=== PATIENT | male | born 1935 | race Caucasian/White ===

== ENCOUNTER → 2016-12-09 | Outpatient (CLI) | payer OTHER ==
[~2016-12-09] MED LIST: ASPCH81X PO; ATOR-24 PO; GLC500 PO; LISI-789 PO; NVLGI7030 SC
== END | disposition home or self-care (01) ==
LOC: C.PATHSPEC 14:26
PROVIDERS: ATTEND Dermatology
DX: C44.310 Basal cell carcinoma of skin of unspecified parts of face (principal); C44.41 Basal cell carcinoma of skin of scalp and neck; C44.612 Basal cell carcinoma of skin of right upper limb, including shoulder

== ENCOUNTER → 2017-04-08 | Outpatient (CLI) | payer OTHER ==
[2017-04-08 12:40] LABS: BASO % 0.4 %; BASO ABS # 0.04 K/uL (0-0.2); COMPLETE YES; HEMATOCRIT 47.2 % (42-52); IG% 0.2 %; LYMPH % 21.9 %; LYMPH ABS # 2.44 K/uL (1.2-3.4); MEAN CELL VOLUME 95.2 fL (80-100); MEAN CORPUSCULAR HEMOGLOBIN 32.5 pg (25-34); MEAN CORPUSCULAR HGB CONC 34.1 g/dl (32-36); MEAN PLATELET VOLUME 10.5 fL (7.4-10.4); MONO % 11.9 %; NEUT % 60.6 %; PLATELET COUNT 249 K/uL (130-400); RED BLOOD COUNT 4.96 M/uL (4.7-6.1); WHITE BLOOD COUNT 11.16 K/uL (4.8-10.8)
[2017-04-08 12:56] LABS: ALT/SGPT 29 U/L (12-78); BLOOD UREA NITROGEN 29 mg/dl (7-18); BUN/CREATININE RATIO 22.2 (10-20); CARBON DIOXIDE 26 mmol/L (21-32); CHLORIDE 105 mmol/L (98-107); CHOLESTEROL 164 mg/dl (0-200); GLUCOSE 126 mg/dl (70-99); POTASSIUM 4.1 mmol/L (3.5-5.1); SODIUM 139 mmol/L (136-145); TRIGLYCERIDES 210 mg/dl (0-150); VERY LOW DENSITY LIPOPROT CALC 42 mg/dl
[2017-04-08 12:57] LABS: CALCIUM 9.7 mg/dl (8.5-10.1)
[2017-04-08 12:59] LABS: ALB/GLOB RATIO 1.4 (0.9-2); ALKALINE PHOSPHATASE 78 U/L (45-117); AST/SGOT 19 U/L (15-37); CHOLESTEROL/HDL RATIO 3.7; HDL CHOLESTEROL 44 mg/dl
[2017-04-08 13:02] LABS: ESTIMATED AVERAGE GLUCOSE 192 mg/dl; HA1C FLAG Normal (Normal)
== END | disposition home or self-care (01) ==
LOC: C.LABSPEC 12:08
PROVIDERS: ATTEND Internal Medicine
DX: I10 Essential (primary) hypertension (principal); E11.65 Type 2 diabetes mellitus with hyperglycemia; E78.5 Hyperlipidemia, unspecified

== ENCOUNTER → 2017-07-26 | Outpatient (CLI) | payer OTHER | END | disposition home or self-care (01) | LOC: C.PATHSPEC 17:20 | PROVIDERS: ATTEND Plastic Surgery | DX: C44.42 Squamous cell carcinoma of skin of scalp and neck (principal) ==

== ENCOUNTER → 2017-08-12 | Outpatient (CLI) | payer OTHER ==
[2017-08-12 12:35] LABS: BASO % 0.5 %; BASO ABS # 0.03 K/uL (0-0.2); COMPLETE YES; EOS % 7.5 %; HEMATOCRIT 46.9 % (42-52); IG% 0.2 %; LYMPH % 26.9 %; LYMPH ABS # 1.72 K/uL (1.2-3.4); MEAN CORPUSCULAR HEMOGLOBIN 33.1 pg (25-34); MEAN CORPUSCULAR HGB CONC 35.2 g/dl (32-36); MEAN PLATELET VOLUME 10.5 fL (7.4-10.4); MONO % 8.8 %; NEUT % 56.1 %; PLATELET COUNT 219 K/uL (130-400); RED BLOOD COUNT 4.99 M/uL (4.7-6.1)
[2017-08-12 12:47] LABS: ESTIMATED AVERAGE GLUCOSE 148 mg/dl; HA1C FLAG Normal (Normal)
[2017-08-12 13:11] LABS: ALT/SGPT 28 U/L (12-78); AST/SGOT 16 U/L (15-37); BLOOD UREA NITROGEN 19 mg/dl (7-18); BUN/CREATININE RATIO 15.5 (10-20); CALCIUM 8.5 mg/dl (8.5-10.1); CARBON DIOXIDE 28 mmol/L (21-32); CHLORIDE 107 mmol/L (98-107); GLUCOSE 98 mg/dl (70-99); POTASSIUM 4.1 mmol/L (3.5-5.1); SODIUM 140 mmol/L (136-145)
[2017-08-12 13:14] LABS: ALB/GLOB RATIO 1.2 (0.9-2); ALKALINE PHOSPHATASE 97 U/L (45-117); CHOLESTEROL 156 mg/dl (0-200); CHOLESTEROL/HDL RATIO 3.8; HDL CHOLESTEROL 41 mg/dl; TRIGLYCERIDES 196 mg/dl (0-150); VERY LOW DENSITY LIPOPROT CALC 39 mg/dl
--- NOTE | 2017-09-03 08:27 | CODING QUERY NO DIAGNOSIS ---
: 1935 TREATMENT RENDERED WITHOUT A DIAGNOSIS To promote full compliance with coding requirements relating to patient care, physician participation is requested in all cases of air quality manager uncertainty. Please assist us with providing a diagnosis/symptom for the test(s) below: A diagnosis/symptom was not documented on your Order. A valid diagnosis/symptom is required to bill all insurances. Please remember that we are unable to code a diagnosis of rule out, probable, possible, questionable, or suspected. Tests that require a diagnosis: DOS: 08/12/17 * HEMOBLOBIN A1C DIAGNOSIS: * CMP DIAGNOSIS: * LDL DIRECT DIAGNOSIS: * LIPID PROFILE FASTING DIAGNOSIS: * CBC W/ AUTO DIFF DIAGNOSIS: * MICROALBUMIN/CREAT RATION RANDOM DIAGNOSIS: Provider Signature: Date: Thank you Faith Layne [employer] Information Management Once completed, please kindly fax back to [phone] For questions please call [phone]
== END | disposition home or self-care (01) ==
LOC: C.LABSPEC 12:19
PROVIDERS: ATTEND Internal Medicine
DX: Z00.01 Encounter for general adult medical examination with abnormal findings (principal); E11.65 Type 2 diabetes mellitus with hyperglycemia; I10 Essential (primary) hypertension; E78.5 Hyperlipidemia, unspecified; M19.90 Unspecified osteoarthritis, unspecified site

== ENCOUNTER → 2017-12-08 | Outpatient (CLI) | payer OTHER ==
[2017-12-08 13:22] LABS: HEMOGLOBIN A1C 7.2 % (4.5-5.6)
[2017-12-08 13:31] LABS: ALBUMIN 3.7 gm/dl (3.4-5.0); ALT/SGPT 25 U/L (12-78); AST/SGOT 11 U/L (15-37); BLOOD UREA NITROGEN 24 mg/dl (7-18); CALCIUM 8.7 mg/dl (8.5-10.1); CARBON DIOXIDE 27 mmol/L (21-32); CHOLESTEROL 135 mg/dl (0-200); CREATININE 1.25 mg/dl (0.60-1.40); GLUCOSE 107 mg/dl (70-99); POTASSIUM 4.3 mmol/L (3.5-5.1); SODIUM 137 mmol/L (136-145)
[2017-12-08 13:34] LABS: ALKALINE PHOSPHATASE 107 U/L (45-117); LDL CHOLESTEROL (DIRECT) 87 mg/dl
== END | disposition home or self-care (01) ==
LOC: C.LABSPEC 12:10
PROVIDERS: ATTEND Internal Medicine
DX: E11.65 Type 2 diabetes mellitus with hyperglycemia (principal); I10 Essential (primary) hypertension; E78.5 Hyperlipidemia, unspecified

== ENCOUNTER → 2018-04-14 | Outpatient (CLI) | payer OTHER ==
[2018-04-14 18:38] LABS: BLOOD UREA NITROGEN 24 mg/dl (7-18); CALCIUM 8.7 mg/dl (8.5-10.1); CARBON DIOXIDE 26 mmol/L (21-32); CHOLESTEROL 152 mg/dl (0-200); CREATININE 1.26 mg/dl (0.60-1.40); GLUCOSE 72 mg/dl (70-99); LDL CHOLESTEROL (DIRECT) 95 mg/dl; POTASSIUM 4.4 mmol/L (3.5-5.1); SODIUM 139 mmol/L (136-145)
[2018-04-15 05:56] LABS: HEMOGLOBIN A1C 7.5 % (4.5-5.6)
== END | disposition home or self-care (01) ==
LOC: C.LABSPEC 17:49
PROVIDERS: ATTEND Internal Medicine
DX: I10 Essential (primary) hypertension (principal); E78.5 Hyperlipidemia, unspecified; E11.9 Type 2 diabetes mellitus without complications

== ENCOUNTER 2023-09-12 14:52 | Observation (INO) ==
[2023-09-12 16:44] LABS: Basophils # (auto) 0.04 K/uL (0.00-0.20); Basophils % (auto) 0.3 %; Eosinophils # (auto) 0.09 K/uL (0.00-0.50); Eosinophils % (auto) 0.8 %; Hematocrit (blood only) 30.6 % (42.0-52.0); Hemoglobin 9.8 g/dl (14.0-18.0); Immature Granulocytes # (auto) 0.05 K/uL (0.01-0.20); Immature Granulocytes % (auto) 0.4 %; Lymphocytes # (auto) 1.46 K/uL (1.20-3.40); Lymphocytes % (auto) 12.7 %; Mean Corpuscular Hemoglobin 25.1 pg (25.0-34.0); Mean Corpuscular Volume 78.3 fL (80.0-100.0); Mean Platelet Volume 9.1 fL (9.4-12.4); Monocytes % (auto) 10.4 %; Neutrophils # (auto) 8.65 K/uL (1.40-6.50); Neutrophils % (auto) 75.4 %; Platelet Count 461 K/uL (130-400); RDW Coefficient of Variation 17.3 % (11.5-14.5); RDW Standard Deviation 49.4 fL (36.4-46.3); Red Blood Count 3.91 M/uL (4.70-6.10); White Blood Count 11.49 K/ul (4.8-10.8)
[2023-09-12 16:59] LABS: Alanine Aminotransferase 32 U/L (7-52); Albumin Level 3.3 gm/dl (3.4-5.0); Alkaline Phosphatase 448 U/L (34-104); Anion Gap 9 (3-11); Aspartate Aminotransferase 33 U/L (13-39); BUN Creatinine Ratio 21.4 (10-20); Bilirubin,Total 0.7 mg/dl (0.2-1.0); Blood Urea Nitrogen 30 mg/dl (6-23); Calcium 8.5 mg/dl (8.6-10.3); Carbon Dioxide 25 mmol/L (21-32); Chloride 95 mmol/L (98-107); Est GFR (African American) 51.6 ml/min; Est GFR (Non-African American) 44.5 ml/min; Globulin 3.4 gm/dl (2.5-4.0); Glucose 79 mg/dl (70-99(Fasting)); Potassium 4.4 mmol/L (3.5-5.1); Sodium 129 mmol/L (136-145); Total Protein 6.7 gm/dl (6.0-8.3)
[2023-09-12 18:47] LABS: Appearance Urine Cloudy (Clear); Bacteria Urine Automated 4+ (Negative); Bilirubin Urine Negative (Negative); Blood Urine 3+ (Negative); Color Urine Yellow; Epithelial Cell Urine Auto 0-5 /lpf (0-5); Glucose Urine UA Negative (Negative); Ketones Urine Negative (Negative); Leukocyte Esterase Urine Trace (Negative); Nitrite Urine Negative (Negative); Protein Urine Negative (Negative); RBC Urine Automated >30 /hpf (0-4); Urobilinogen Urine Negative (Negative)
[2023-09-12 19:45] LABS: Troponin I High Sensitivity 10.8 pg/ml (0-20)
[2023-09-12] MEDS: SODIUM CHLORIDE 0.9% 500 ML IV SCH ×2 (19:47→23:29)
--- NOTE | 2023-09-12 19:49 | XRay Report ---
XR chest 1V portable CLINICAL HISTORY: ams TECHNIQUE: Single frontal radiograph of the chest was obtained. Comparison: Comparison is made to chest radiograph 08/11/2023 FINDINGS: No lines and tubes are seen. Calcified aortic knob is seen. Reticular interstitial opacities are seen . No evidence of pleural effusion or pneumothorax. IMPRESSION: No acute chest disease. ACT 112: Negative or not required by law. Electronically signed by: Jayro Bah M.D. 09/12/2023 7:47 PM
[2023-09-12 19:55] LABS: INR 1.1 (0.9-1.1); Partial Thromboplastin Time 29.1 Seconds (21.0-31.0); Prothrombin Time 11.7 Seconds (9.0-12.0)
[2023-09-12 19:58] LABS: Magnesium 1.8 mg/dl (1.7-2.4)
--- NOTE | 2023-09-12 20:27 | CT Scan Report ---
CT abd pelvis wo con CLINICAL HISTORY: hematuria TECHNIQUE: Helical axial images of the abdomen and pelvis were obtained. Automated dose lowering tech niques and/or adjustment according to patient size were utilized for this exam. This exam was perfor med without intravenous contrast. CT DOSE: 2065.97 mGy.cm COMPARISON: Comparison is made to CT abdomen pelvis 02/21/2019 FINDINGS: Lower chest: Bronchiectasis is seen. Innumerable pulmonary nodules are seen favoring the lower lobes , measuring 9 mm. Liver: Complex hypodensity in the left liver lobe measuring approximately 26 mm in diameter. This is not well seen on prior exam. Gallbladder and biliary tree: No calcified gallstones. Normal caliber wall. No intra- or extrahepatic biliary ductal dilation. Pancreas: Unremarkable, no focal lesions. Spleen: Unremarkable. Adrenals: Unremarkable. Kidneys and ureters: Renal cysts are seen. There is moderate left and mild right hydronephrosis/hydro ureter. Multiple nonobstructive stones are seen in the kidneys. Bladder: Diffuse homogeneous wall thickening is seen. Reproductive organs: Prostatomegaly is seen. Bowel: Diverticulosis is seen without evidence of diverticulitis. A small hiatal hernia is seen. Lymph nodes Retroperitoneal: Unremarkable. Pelvic: There is a 15 mm left pelvic side an enlarged lymph node. Additional smaller lymph nodes are seen. Mesenteric: Unremarkable. Peritoneum: Normal. Vessels: Atherosclerotic calcifications are seen. Abdominal wall: Unremarkable. Bones: Degenerative changes in the visualized spine. Diffuse sclerotic changes are seen most prominen tly in the lumbar spine and pelvis, new from prior exam. IMPRESSION: 1. Left greater than right hydronephrosis and hydroureter without evidence of obstructive stone. Fin dings may result from chronic bladder outlet obstruction, less likely recently passed stone. 2. Innumerable pulmonary nodules are seen, as well as an enlarged left pelvic sidewall lymph node. C orrelation with oncologic history is recommended and a CT chest can be performed to further character ize these findings. In particular, findings may represent metastatic prostate cancer in this patient with highly elevated PSA. 3. Left hepatic lesion is nonspecific. If not previously characterized, liver protocol MRI can be pe rformed. 4. Diffuse sclerotic changes in the skeleton, new from prior exam. These are nonspecific but worriso me for bony metastatic disease of prostate cancer in this patient with elevated PSA. 5. Additional findings as above. ACT 112: Positive. There are findings on this exam that require communication between the performing entity and the patient following Patient Test Result Information Act ([place] Act 112) guidelines. Electronically signed by: Jayro Bah M.D. 09/12/2023 8:25 PM
--- NOTE | 2023-09-12 20:27 | CT Scan Report ---
CT head/brain wo con CLINICAL HISTORY: ams Technique: Contiguous axial CT images of the head were acquired from the base of the skull to the dorcas jamel without intravenous contrast administration. Images were viewed in brain, subdural and bone windo ws. Automated dose lowering techniques and/or adjustment according to patient size were utilized for this exam. Comparison: Comparison is made to CT head 09/11/2018 Findings: The ventricles, basal cisterns, and cerebral sulci are normal. There is no acute intracranial hemorrh age or evidence of acute territorial infarction. Neither mass effect, shift of the midline structures , nor abnormal extra-axial fluid collections are shown. A few foci of encephalomalacia compatible wi th prior infarcts. Imaged portions of the paranasal sinuses and mastoid air cells are clear. The orbits appear normal. There are no acute fractures of the calvaria or scalp swelling. Impression: No acute intracranial hemorrhage, no evidence of acute territorial infarction or other acute intracra nial disease process. ACT 112: Negative or not required by law. Electronically signed by: Jayro Bah M.D. 09/12/2023 8:26 PM
[2023-09-12] MEDS ORDERED: cefTRIAXone SODIUM 2,000 MG in DEXTROSE 5 % MINI-B 50 ML IV STA (21:48)
[2023-09-12] MEDS ORDERED: FUROSEMIDE 40 MG/4 ML VIAL IV ONE (22:30)
--- NOTE | 2023-09-13 00:28 | History & Physical Report ---
Date of Service September 13, 2023 The patient was seen and examined on September 12, 2023 Assessment & Plan (1) Elevated PSA: (2) Acute urinary retention: (3) MARIN (acute kidney injury): (4) Diabetes: (5) Hypertension: (6) Pulmonary nodules/lesions, multiple: (7) Bladder outlet obstruction: (8) Bilateral hydronephrosis: (9) Lower extremity edema: Plan Acute urinary retention/BPH/bladder outlet obstruction/bilateral hydronephrosis/increased PSA- Follow urine culture and sensitivity Romero catheter placed without difficulty while in the ED Increase tamsulosin from 0.4 to 0.8 mg at bedtime Continue dutasteride Empiric ceftriaxone 2 g IV daily Question of metastatic prostate cancer- Multiple pulmonary nodules, left pelvic sidewall lymphadenopathy, diffuse sclerotic changes skeleton PSA on 08/11/2023 was 40.852 Patient has been seen by urology, who had plans for repeat testing Consult urology Acute kidney injury/fluid overload/lower extremity edema/hypertension- Creatinine 1.40, with base in the 1.3 range Hold oral furosemide 40 mg p.o. twice daily Stop NSS being given from the ED Furosemide 40 mg IV now and every morning Continue metoprolol tartrate Hold lisinopril Diabetes mellitus- Hold insulin mix 70-30 Hold metformin Placed on Accu-Cheks with NovoLog SSI History of Present Illness Chief Complaint: The patient is brought to the emergency department due to worsening difficulty with urination, and increased pelvic pressure Primary Care Provider: Don Banks DO The patient is an 88-year-old male with a past medical history including BPH, elevated PSA, diabetes mellitus, hypertension, hyperlipidemia, knee osteoarthritis, SNHL and ventral hernia. He presents to the emergency department with worsening difficulty with urination, and prep pelvic pressure. Significant laboratories: WBC 11.49, hemoglobin 9.8, hematocrit 30.6, sodium 129, BUN 30, creatinine 1.40, alkaline phosphatase 440 H Urinalysis is positive for infection CT scan of head is negative CT scan of abdomen and pelvis shows left greater than right hydronephrosis, chronic bladder outlet obstruction, pulmonary nodules, left pelvic sidewall lymphadenopathy, and diffuse sclerotic changes throughout the skeleton, concerning for metastatic prostate cancer Allergies Allergy/AdvReac Type Severity Reaction Status Date / Time adhesive tape Allergy Severe Red Verified 09/12/23 19:23 irritation No Known Drug Allergies Allergy 0 Verified 09/12/23 19:23 Home Medications Medication Instructions Recorded Confirmed Type coenzyme Q10 100 mg capsule 100 mg PO DAILY 08/03/19 09/12/23 History lorazepam 0.5 mg tablet 0.5 mg PO DAILY PRN sleep #30 tabs 08/09/23 09/12/23 Rx aspirin 81 mg tablet,delayed 81 mg PO QPM 08/10/23 09/12/23 History release (Aspir-) dutasteride 0.5 mg capsule 0.5 mg PO DAILY #90 caps 08/10/23 09/12/23 Rx (Avodart) furosemide 40 mg tablet 40 mg PO BID #180 tabs 08/10/23 09/12/23 Rx insulin aspar prot-insulin aspart See Rx Instructions .Route 08/10/23 09/12/23 Rx 100 unit/mL (70-30) subcutaneous .COMPLEX #105 mL pen (Novolog Mix 70-30FlexPen U-100) lisinopril 10 mg tablet 10 mg PO DAILY #90 tabs 08/10/23 09/12/23 Rx metformin 1,000 mg tablet 1,000 mg PO BID #180 tabs 08/10/23 09/12/23 Rx tamsulosin 0.4 mg capsule (Flomax) 0.4 mg PO DAILY #30 caps 08/30/23 09/12/23 Rx atorvastatin 40 mg tablet 40 mg PO QPM 09/12/23 09/12/23 History metoprolol tartrate 25 mg tablet 25 mg PO BID 09/12/23 09/12/23 History potassium chloride 10 mEq 10 meq PO BID 09/12/23 09/12/23 History tablet,extended release Past Med/Surg History Medical History Acute CVA (cerebrovascular accident) BCC (basal cell carcinoma), abdomen Diabetes mellitus, type 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 Hyperlipidemia Hypertension OA (osteoarthritis) of knee Stroke Unruptured popliteal cyst Surgical History History of colonoscopy Hx of tooth extraction All teeth from lower jaw removed and 2 implants placed S/P hernia repair Family History Mother Cancer Father Diabetes Other Heart disease Stroke Denies family history of Hearing loss No family history of adverse response to anesthesia No family history of bleeding disorder Allergies Asthma Social History Smoking Status: Never smoker Second Hand Exposure: No; Do You Dip or Chew Tobacco: No; Hx Alcohol Use: No Hx Substance Use: No Preferred Language: Moroccan Communication Ability: Effective Visual Impairment: No Limitations Hearing Ability: Normal Production Welding Supervisor Required: No Beliefs That Will Affect Care: None marital status: Current Living Situation: Spouse current occupational status: retired How many Children do You have: 3 Feels Safe at Home: Yes Childhood Exposure to Second-Hand Smoke: Yes Diet: regular caffeine: No during the past year weight has: remained stable Dental Care, Regularly: Yes Physical Activity Frequency: Does not Exercise Seatbelt Use: always Sunscreen Use: Yes Assistive Devices: Cane, Denture - Upper, Denture - Lower and Glasses Review of Systems Review of Systems: The patient denies chest pain, palpitations, shortness of breath, dyspnea on exertion, cough, lower extremity swelling, sore throat, fevers, chills, sweats, weight change, fatigue, nausea, vomiting, diarrhea , constipation, blood in urine or stool, dysuria, urinary frequency or urgency, lightheadedness, dizziness, headache, memory loss, loss of consciousness, rash, abnormal bruising or bleeding, imbalance, focal weakness, numbness or tingling in arms or legs, generalized arthralgias or myalgias, back or neck pain, or night sweats. The review of systems is otherwise negative other than for that already noted above, and at least 10 systems have been reviewed. Physical Exam Physical Exam: The patient is awake, alert and oriented 3, well developed and well nourished, normocephalic and atraumatic, lying in bed and in no acute distress. HEENT--PERRL, EOMI, mucous membranes and oropharynx normal Neck--supple. No JVD. No bruits. Thyroid normal, trachea midline, no adenopathy. Heart--normal S1 and S2. No murmurs, rubs or gallops. Lungs--clear bilaterally, no respiratory distress, no accessory muscle use. Abdomen--normal bowel sounds and soft. Nontender. Palpable bladder Extremities-- 2+ bilateral pretibial pitting edema Dermatologic--normal skin turgor, normal color, no abnormal lymph nodes, no rash. Neurologic--cranial nerves II through XII grossly intact. Rheumatologic--normal range of motion. Psychiatric--normal affect. Results & Data Results & Data Vital Signs (Past 12 Hours) Vital Signs Temp Pulse Pulse Resp BP BP Pulse Ox 09/12/23 23:30 88 26 H 141/65 H 94 09/12/23 23:00 85 26 H 146/68 H 94 09/12/23 22:22 98 H 09/12/23 21:31 94 H 18 150/79 H 94 09/12/23 18:12 76 18 149/80 H 97 09/12/23 18:10 80 09/12/23 14:57 36.8 C 76 20 131/66 95 O2 Del Method 09/12/23 23:30 Room Air 09/12/23 23:00 Room Air 09/12/23 22:22 09/12/23 21:31 Room Air 09/12/23 18:12 Room Air 09/12/23 18:10 09/12/23 14:57 Room Air Laboratory Results Laboratory Results WBC 11.49 K/ul (4.8-10.8) H 09/12/23 16: RBC 3.91 M/uL (4.70-6.10) L 09/12/23 16:26 Hgb 9.8 g/dl (14.0-18.0) L 09/12/23 16:26 Hct 30.6 % (42.0-52.0) L 09/12/23 16: MCV 78.3 fL (80.0-100.0) L 09/12/23 16: MCH 25.1 pg (25.0-34.0) 09/12/23 16: MCHC 32.0 g/dL (32.0-36.0) 09/12/23 16:26 RDW Std Deviation 49.4 fL (36.4-46.3) H 09/12/23 16:26 RDW Coeff of Braeden 17.3 % (11.5-14.5) H 09/12/23 16:26 Plt Count 461 K/uL (130-400) H 09/12/23 16:26 MPV 9.1 fL (9.4-12.4) L 09/12/23 16: Immature Gran % (Auto) 0.4 % 09/12/23 16: Neut % (Auto) 75.4 % 09/12/23 16:26 Lymph % (Auto) 12.7 % 09/12/23 16:26 [place] % (Auto) 10.4 % 09/12/23 16:26 Eos % (Auto) 0.8 % 09/12/23 16: Baso % (Auto) 0.3 % 09/12/23 16: Neut # (Auto) 8.65 K/uL (1.40-6.50) H 09/12/23 16: Lymph # (Auto) 1.46 K/uL (1.20-3.40) 09/12/23 16:26 [place] # (Auto) 1.20 K/uL (0.11-0.59) H 09/12/23 16:26 Eos # (Auto) 0.09 K/uL (0.00-0.50) 09/12/23 16: Baso # (Auto) 0.04 K/uL (0.00-0.20) 09/12/23 16: Immature Gran # (Auto) 0.05 K/uL (0.01-0.20) 09/12/23 16:26 PT 11.7 Seconds (9.0-12.0) 09/12/23 18:55 INR 1.1 (0.9-1.1) 09/12/23 18:55 APTT 29.1 Seconds (21.0-31.0) 09/12/23 18:55 PTT Ratio 1.0 09/12/23 18:55 Sodium 129 mmol/L (136-145) L 09/12/23 16:26 Potassium 4.4 mmol/L (3.5-5.1) 09/12/23 16:26 Chloride 95 mmol/L (98-107) L 09/12/23 16:26 Carbon Dioxide 25 mmol/L (21-32) 09/12/23 16:26 Anion Gap 9 (3-11) 09/12/23 16:26 BUN 30 mg/dl (6-23) H 09/12/23 16:26 Creatinine 1.40 mg/dl (0.6-1.4) 09/12/23 16:26 Est Cr Clr Drug Dosing Not Reportable 09/12/23 16:26 Est GFR ( Amer) 51.6 ml/min 09/12/23 16:26 Est GFR (Non-Af Amer) 44.5 ml/min 09/12/23 16:26 BUN/Creatinine Ratio 21.4 (10-20) H 09/12/23 16:26 Glucose 79 mg/dl (70-99(Fasting)) 09/12/23 16:26 Lactate 1.1 mmol/L (0.4-2.0) 09/12/23 18:55 Calcium 8.5 mg/dl (8.6-10.3) L 09/12/23 16:26 Magnesium 1.8 mg/dl (1.7-2.4) 09/12/23 18:55 Total Bilirubin 0.7 mg/dl (0.2-1.0) 09/12/23 16:26 AST 33 U/L (13-39) 09/12/23 16:26 ALT 32 U/L (7-52) 09/12/23 16:26 Alkaline Phosphatase 448 U/L (34-104) H 09/12/23 16:26 Troponin I High Sens 10.8 pg/ml (0-20) 09/12/23 18:55 Total Protein 6.7 gm/dl (6.0-8.3) 09/12/23 16:26 Albumin 3.3 gm/dl (3.4-5.0) L 09/12/23 16:26 Globulin 3.4 gm/dl (2.5-4.0) 09/12/23 16:26 Albumin/Globulin Ratio 1.0 (0.9-2) 09/12/23 16:26 Urine Color Yellow 09/12/23 16:44 Urine Appearance Cloudy (Clear) A 09/12/23 16:44 Urine pH 6.0 (4.5-7.5) 09/12/23 16:44 Ur Specific [place] 1.010 (1.000-1.030) 09/12/23 16:44 Urine Protein Negative (Negative) 09/12/23 16:44 Urine Glucose (UA) Negative (Negative) 09/12/23 16:44 Urine Ketones Negative (Negative) 09/12/23 16:44 Urine Blood 3+ (Negative) H 09/12/23 16:44 Urine Nitrite Negative (Negative) 09/12/23 16:44 Urine Bilirubin Negative (Negative) 09/12/23 16:44 Urine Urobilinogen Negative (Negative) 09/12/23 16:44 Ur Leukocyte Esterase Trace (Negative) H 09/12/23 16:44 Urine WBC (Auto) 10-30 /hpf (0-5) H 09/12/23 16:44 Urine RBC (Auto) >30 /hpf (0-4) H 09/12/23 16:44 U Hyaline Cast (Auto) 1-5 /lpf (0-5) 09/12/23 16:44 U Epithel Cells (Auto) 0-5 /lpf (0-5) 09/12/23 16:44 Urine Bacteria (Auto) 4+ (Negative) H 09/12/23 16:44 Impressions Abdomen/Pelvis CT 09/12/23 18:43 CT abd pelvis wo con CLINICAL HISTORY: hematuria TECHNIQUE: Helical axial images of the abdomen and pelvis were obtained. Automated dose lowering techniques and/or adjustment according to patient size were utilized for this exam. This exam was performed without intravenous contrast. CT DOSE: 2065.97 mGy.cm COMPARISON: Comparison is made to CT abdomen pelvis 02/21/2019 FINDINGS: Lower chest: Bronchiectasis is seen. Innumerable pulmonary nodules are seen favoring the lower lobes, measuring 9 mm. Liver: Complex hypodensity in the left liver lobe measuring approximately 26 mm in diameter. This is not well seen on prior exam. Gallbladder and biliary tree: No calcified gallstones. Normal caliber wall. No intra- or extrahepatic biliary ductal dilation. Pancreas: Unremarkable, no focal lesions. Spleen: Unremarkable. Adrenals: Unremarkable. Kidneys and ureters: Renal cysts are seen. There is moderate left and mild right hydronephrosis/hydroureter. Multiple nonobstructive stones are seen in the kidneys. Bladder: Diffuse homogeneous wall thickening is seen. Reproductive organs: Prostatomegaly is seen. Bowel: Diverticulosis is seen without evidence of diverticulitis. A small hiatal hernia is seen. Lymph nodes Retroperitoneal: Unremarkable. Pelvic: There is a 15 mm left pelvic side an enlarged lymph node. Additional smaller lymph nodes are seen. Mesenteric: Unremarkable. Peritoneum: Normal. Vessels: Atherosclerotic calcifications are seen. Abdominal wall: Unremarkable. Bones: Degenerative changes in the visualized spine. Diffuse sclerotic changes are seen most prominently in the lumbar spine and pelvis, new from prior exam. IMPRESSION: 1. Left greater than right hydronephrosis and hydroureter without evidence of obstructive stone. Findings may result from chronic bladder outlet obstruction, less likely recently passed stone. 2. Innumerable pulmonary nodules are seen, as well as an enlarged left pelvic sidewall lymph node. Correlation with oncologic history is recommended and a CT chest can be performed to further characterize these findings. In particular, findings may represent metastatic prostate cancer in this patient with highly elevated PSA. 3. Left hepatic lesion is nonspecific. If not previously characterized, liver protocol MRI can be performed. 4. Diffuse sclerotic changes in the skeleton, new from prior exam. These are nonspecific but worrisome for bony metastatic disease of prostate cancer in this patient with elevated PSA. 5. Additional findings as above. ACT 112: Positive. There are findings on this exam that require communication between the performing entity and the patient following Patient Test Result Information Act ([place] Act 112) guidelines. Electronically signed by: Jayro Bah M.D. 09/12/2023 8:25 PM Chest X-Ray 09/12/23 18:43 XR chest 1V portable CLINICAL HISTORY: ams TECHNIQUE: Single frontal radiograph of the chest was obtained. Comparison: Comparison is made to chest radiograph 08/11/2023 FINDINGS: No lines and tubes are seen. Calcified aortic knob is seen. Reticular interstitial opacities are seen. No evidence of pleural effusion or pneumothorax. IMPRESSION: No acute chest disease. ACT 112: Negative or not required by law. Electronically signed by: Jayro Bah M.D. 09/12/2023 7:[address] 09/12/23 18:43 CT head/brain wo con CLINICAL HISTORY: ams Technique: Contiguous axial CT images of the head were acquired from the base of the skull to the vertex without intravenous contrast administration. Images were viewed in brain, subdural and bone windows. Automated dose lowering techniques and/or adjustment according to patient size were utilized for this exam. Comparison: Comparison is made to CT head 09/11/2018 Findings: The ventricles, basal cisterns, and cerebral sulci are normal. There is no acute intracranial hemorrhage or evidence of acute territorial infarction. Neither mass effect, shift of the midline structures, nor abnormal extra-axial fluid collections are shown. A few foci of encephalomalacia compatible with prior infarcts. Imaged portions of the paranasal sinuses and mastoid air cells are clear. The orbits appear normal. There are no acute fractures of the calvaria or scalp swelling. Impression: No acute intracranial hemorrhage, no evidence of acute territorial infarction or other acute intracranial disease process. ACT 112: Negative or not required by law. Electronically signed by: Jayro Bah M.D. 09/12/2023 8:26 PM Code Status & VTE Plan Code Status Full code VTE Prophylaxis Plan VTE Prophylaxis will be ordered: Yes PG Care Time/CCT Total # of Minutes Spent Total Time Spent with Patient: Total time spent is greater than 50% in coordination of care (as documented) at patient's floor/unit and/or counseling patient: Coding Level of Care Code 90605 INT INP/OBS CARE 3/75MIN Diagnoses Elevated PSA R97.20 Acute urinary retention R33.8 MARIN (acute kidney injury) N17.9 Diabetes E11.9; Z79.4 Diabetes mellitus type: type 2 Diabetes mellitus prescription eyeglass maker insulin use: with prescription eyeglass maker use Diabetes mellitus complication status: without complication Hypertension I10 Hypertension type: essential hypertension Pulmonary nodules/lesions, multiple R91.8 Bladder outlet obstruction N32.0 Bilateral hydronephrosis N13.30 Lower extremity edema R60.0 (4) Diabetes Diabetes mellitus type: type 2 Diabetes mellitus correction insulin use: with correction use Diabetes mellitus complication status: without complication Qualified Code(s): E11.9 - Type 2 diabetes mellitus without complications; Z79.4 - longterm (current) use of insulin (5) Hypertension Hypertension type: essential hypertension Qualified Code(s): I10 - Essential (primary) hypertension
--- NOTE | 2023-09-13 00:42 | Emergency Department Note ---
History of Present Illness General Chief complaint: Hematuria Stated complaint: HEMATURIA, DEHYDRATED Time Seen by Provider: 09/12/23 18:08 Source: patient and family History of Present Illness Provider complaint: Hematuria weakness 88-year-old male presents emergency department for hematuria and weakness. Patient reports he has been having bloody urine and family reports that if the patient is increasingly weak. They state he will eat. Family reports that the patient had a catheter removed by Dr. Saleh recently has been self catheterizing. They deny any fevers. No falls. No chills. No nausea vomiting or diarrhea. They report that the patient has had decreased urine output. Home Medications Medication Instructions Recorded Confirmed Type coenzyme Q10 100 mg capsule 100 mg PO DAILY 08/03/19 09/12/23 History lorazepam 0.5 mg tablet 0.5 mg PO DAILY PRN sleep #30 tabs 08/09/23 09/12/23 Rx aspirin 81 mg tablet,delayed 81 mg PO QPM 08/10/23 09/12/23 History release (Aspir-) dutasteride 0.5 mg capsule 0.5 mg PO DAILY #90 caps 08/10/23 09/12/23 Rx (Avodart) furosemide 40 mg tablet 40 mg PO BID #180 tabs 08/10/23 09/12/23 Rx insulin aspar prot-insulin aspart See Rx Instructions .Route 08/10/23 09/12/23 Rx 100 unit/mL (70-30) subcutaneous .COMPLEX #105 mL pen (Novolog Mix 70-30FlexPen U-100) lisinopril 10 mg tablet 10 mg PO DAILY #90 tabs 08/10/23 09/12/23 Rx metformin 1,000 mg tablet 1,000 mg PO BID #180 tabs 08/10/23 09/12/23 Rx tamsulosin 0.4 mg capsule (Flomax) 0.4 mg PO DAILY #30 caps 08/30/23 09/12/23 Rx atorvastatin 40 mg tablet 40 mg PO QPM 09/12/23 09/12/23 History metoprolol tartrate 25 mg tablet 25 mg PO BID 09/12/23 09/12/23 History potassium chloride 10 mEq 10 meq PO BID 09/12/23 09/12/23 History tablet,extended release Allergies Allergy/AdvReac Type Severity Reaction Status Date / Time adhesive tape Allergy Severe Red Verified 09/12/23 19:23 irritation No Known Drug Allergies Allergy 0 Verified 09/12/23 19:23 Past Med/Surg History Medical History Acute CVA (cerebrovascular accident) BCC (basal cell carcinoma), abdomen Diabetes mellitus, type 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 Hyperlipidemia Hypertension OA (osteoarthritis) of knee Stroke Unruptured popliteal cyst Surgical History History of colonoscopy Hx of tooth extraction All teeth from lower jaw removed and 2 implants placed S/P hernia repair Family History Mother Cancer Father Diabetes Other Heart disease Stroke Denies family history of Hearing loss No family history of adverse response to anesthesia No family history of bleeding disorder Allergies Asthma Social History Smoking Status: Never smoker Second Hand Exposure: No; Do You Dip or Chew Tobacco: No; Hx Alcohol Use: No Hx Substance Use: No Preferred Language: Omani Communication Ability: Effective Visual Impairment: No Limitations Hearing Ability: Normal Telephone Claims Representative Required: No Beliefs That Will Affect Care: None marital status: Current Living Situation: Spouse current occupational status: retired How many Children do You have: 3 Feels Safe at Home: Yes Childhood Exposure to Second-Hand Smoke: Yes Diet: regular caffeine: No during the past year weight has: remained stable Dental Care, Regularly: Yes Physical Activity Frequency: Does not Exercise Seatbelt Use: always Sunscreen Use: Yes Assistive Devices: Cane, Denture - Upper, Denture - Lower and Glasses Physical Exam Vital Signs Vital Signs - 24 hr 09/12/23 14:57 09/12/23 18:10 09/12/23 18:12 Temperature 36.8 C Temperature Source Temporal Artery Scan Pulse Rate 76 80 Pulse Rate [Apical] 76 Pulse Rhythm [Apical] Regular Respiratory Rate 20 18 Respiratory Effort / Characteristics Non-Labored Spontaneous Non-Labored Respiratory Depth Normal Normal Respiratory Pattern Regular Regular Blood Pressure 131/66 Blood Pressure [Left Arm] 149/80 H Blood Pressure Mean 87 Blood Pressure Mean [Left Arm] 103 Blood Pressure Position Sitting Blood Pressure Position [Left Arm] Sitting Pulse Oximetry 95 97 Oxygen Delivery Method Room Air Room Air Sepsis Recent Fever Within 48 Hours No Sepsis New/Unexplained Change in Mental Status No Sepsis Action Taken by Nursing No Action Required 09/12/23 21:31 Temperature Temperature Source Pulse Rate Pulse Rate [Apical] 94 H Pulse Rhythm [Apical] Respiratory Rate 18 Respiratory Effort / Characteristics Non-Labored Spontaneous Respiratory Depth Normal Respiratory Pattern Regular Blood Pressure Blood Pressure [Left Arm] 150/79 H Blood Pressure Mean Blood Pressure Mean [Left Arm] 102 Blood Pressure Position Blood Pressure Position [Left Arm] Lying Pulse Oximetry 94 Oxygen Delivery Method Room Air Sepsis Recent Fever Within 48 Hours Sepsis New/Unexplained Change in Mental Status Sepsis Action Taken by Nursing Physical Exam GENERAL: oriented to person, place, and time. appears well-developed and well- nourished. HENT: Exam performed. - Head: Normocephalic and atraumatic. EYES: Conjunctivae and EOM are normal. Right eye exhibits no discharge. Left eye exhibits no discharge. No scleral icterus. NECK: Normal range of motion. Neck supple. No JVD present. CV: Normal rate, regular rhythm, normal heart sounds and intact distal pulses. There is no peripheral edema. Palpable radial pulses bue. PULM/CHEST: Effort normal and breath sounds normal. No respiratory distress. No stridor. no wheezes. no rales. ABD: The abdomen is soft. There is no tenderness. NEURO: Motor and sensation grossly intact. SKIN: Skin is warm and dry. He is not diaphoretic. PSYCH: normal mood and affect. Behavior is normal. Judgment and thought content normal. Course Course 180: The patient was evaluated in room C11. A complete history and physical exam was performed Cardiac monitoring: An order was placed for continuous cardiac monitoring. The monitor shows a rate of 90 with sinus rhythm interpreted by la 0: Vital signs stable. Labs are significant for a white blood cell count 11.49 hemoglobin 9.8. Sodium 129. Urinalysis shows 4+ bacteria good sample. CT head and chest x-ray negative. CT abdomen pelvis shows right-sided hydronephrosis and hydroureter without an obstructive stone. There are innumerable pulmonary nodules as well as enlarged pelvic sidewall lymph node and radiology reports that this could represent metastatic prostate cancer. The patient reports that he has been told he has an enlarged prostate and elevated PSA but has never been diagnosed with prostate cancer. Patient will be [facility] team Dr. Guerrero's team will be notified. Antibiotics given to the IV. IV fluids also given to the IV. Administered Medications Sodium Chloride (Nss) 500 mls @ 125 mls/hr IV .Q4H VANESSA Stop: 10/12/23 18:44 Last Admin: 09/12/23 23:29 Dose: 125 mls/hr Documented By: Infusion: 09/12/23 23:29 Dose: 125 mls/hr Documented By: Admin: 09/12/23 19:47 Dose: 125 mls/hr Documented By: JOAN Discontinued Medications Furosemide (Furosemide 40 Mg/4 Ml Vial) 40 mg IV ONE ONE Stop: 09/12/23 22:31 Last Admin: 09/12/23 22:29 Dose: 40 mg Documented By: JOAN Ceftriaxone Sodium 2,000 mg/ (Dextrose) 50 mls @ 100 mls/hr IV NOW STA; Protocol Stop: 09/12/23 22:17 Last Infusion: 09/12/23 23:12 Dose: 0 mls/hr Documented By: Admin: 09/12/23 22:22 Dose: 100 mls/hr Documented By: JOAN Medical Decision Making Laboratory Data Attestation: I reviewed the patient's lab results. 09/12/23 16:26 09/12/23 16:26 Lab Results 09/12/23 09/12/23 09/12/23 Range/Units 16:26 16:26 16:26 WBC 11.49 H (4.8-10.8) K/ul RBC 3.91 L (4.70-6.10) M/uL Hgb 9.8 L (14.0-18.0) g/dl Hct 30.6 L (42.0-52.0) % MCV 78.3 L (80.0-100.0) fL MCH 25.1 (25.0-34.0) pg MCHC 32.0 (32.0-36.0) g/dL RDW Std Deviation 49.4 H (36.4-46.3) fL RDW Coeff of Braed[place] 17.3 H (11.5-14.5) % Plt Count 461 H (130-400) K/uL MPV 9.1 L (9.4-12.4) fL Immature Gran % (Auto) 0.4 % Neut % (Auto) 75.4 % Lymph % (Auto) 12.7 % [place] % (Auto) 10.4 % Eos % (Auto) 0.8 % Baso % (Auto) 0.3 % Neut # (Auto) 8.65 H (1.40-6.50) K/uL Lymph # (Auto) 1.46 (1.20-3.40) K/uL [place] # (Auto) 1.20 H (0.11-0.59) K/uL Eos # (Auto) 0.09 (0.00-0.50) K/uL Baso # (Auto) 0.04 (0.00-0.20) K/uL Immature Gran # (Auto) 0.05 (0.01-0.20) K/uL PT (9.0-12.0) Seconds INR (0.9-1.1) APTT (21.0-31.0) Seconds PTT Ratio Sodium 129 L (136-145) mmol/L Potassium 4.4 (3.5-5.1) mmol/L Chloride 95 L (98-107) mmol/L Carbon Dioxide 25 (21-32) mmol/L Anion Gap 9 (3-11) BUN 30 H (6-23) mg/dl Creatinine 1.40 (0.6-1.4) mg/dl Est Cr Clr Drug Dosing Not Reportable Est GFR ( Amer) 51.6 ml/min Est GFR (Non-Af Amer) 44.5 ml/min BUN/Creatinine Ratio 21.4 H (10-20) Glucose 79 (70-99(Fasting)) mg/dl Lactate (0.4-2.0) mmol/L Calcium 8.5 L (8.6-10.3) mg/dl Magnesium Cancelled Total Bilirubin 0.7 (0.2-1.0) mg/dl AST 33 (13-39) U/L ALT 32 (7-52) U/L Alkaline Phosphatase 448 H (34-104) U/L Troponin I High Sens (0-20) pg/ml Total Protein 6.7 (6.0-8.3) gm/dl Albumin 3.3 L (3.4-5.0) gm/dl Globulin 3.4 (2.5-4.0) gm/dl Albumin/Globulin Ratio 1.0 (0.9-2) Urine Color Urine Appearance (Clear) Urine pH (4.5-7.5) Ur Specific [place] (1.000-1.030) Urine Protein (Negative) Urine Glucose (UA) (Negative) Urine Ketones (Negative) Urine Blood (Negative) Urine Nitrite (Negative) Urine Bilirubin (Negative) Urine Urobilinogen (Negative) Ur Leukocyte Esterase (Negative) Urine WBC (Auto) (0-5) /hpf Urine RBC (Auto) (0-4) /hpf U Hyaline Cast (Auto) (0-5) /lpf U Epithel Cells (Auto) (0-5) /lpf Urine Bacteria (Auto) (Negative) 09/12/23 09/12/23 09/12/23 Range/Units 16:44 18:55 18:55 WBC (4.8-10.8) K/ul RBC (4.70-6.10) M/uL Hgb (14.0-18.0) g/dl Hct (42.0-52.0) % MCV (80.0-100.0) fL MCH (25.0-34.0) pg MCHC (32.0-36.0) g/dL RDW Std Deviation (36.4-46.3) fL RDW Coeff of Braeden (11.5-14.5) % Plt Count (130-400) K/uL MPV (9.4-12.4) fL Immature Gran % (Auto) % Neut % (Auto) % Lymph % (Auto) % [place] % (Auto) % Eos % (Auto) % Baso % (Auto) % Neut # (Auto) (1.40-6.50) K/uL Lymph # (Auto) (1.20-3.40) K/uL [place] # (Auto) (0.11-0.59) K/uL Eos # (Auto) (0.00-0.50) K/uL Baso # (Auto) (0.00-0.20) K/uL Immature Gran # (Auto) (0.01-0.20) K/uL PT 11.7 (9.0-12.0) Seconds INR 1.1 (0.9-1.1) APTT 29.1 (21.0-31.0) Seconds PTT Ratio 1.0 Sodium (136-145) mmol/L Potassium (3.5-5.1) mmol/L Chloride (98-107) mmol/L Carbon Dioxide (21-32) mmol/L Anion Gap (3-11) BUN (6-23) mg/dl Creatinine (0.6-1.4) mg/dl Est Cr Clr Drug Dosing Est GFR ( Amer) ml/min Est GFR (Non-Af Amer) ml/min BUN/Creatinine Ratio (10-20) Glucose (70-99(Fasting)) mg/dl Lactate 1.1 (0.4-2.0) mmol/L Calcium (8.6-10.3) mg/dl Magnesium Total Bilirubin (0.2-1.0) mg/dl AST (13-39) U/L ALT (7-52) U/L Alkaline Phosphatase (34-104) U/L Troponin I High Sens (0-20) pg/ml Total Protein (6.0-8.3) gm/dl Albumin (3.4-5.0) gm/dl Globulin (2.5-4.0) gm/dl Albumin/Globulin Ratio (0.9-2) Urine Color Yellow Urine Appearance Cloudy A (Clear) Urine pH 6.0 (4.5-7.5) Ur Specific [place] 1.010 (1.000-1.030) Urine Protein Negative (Negative) Urine Glucose (UA) Negative (Negative) Urine Ketones Negative (Negative) Urine Blood 3+ H (Negative) Urine Nitrite Negative (Negative) Urine Bilirubin Negative (Negative) Urine Urobilinogen Negative (Negative) Ur Leukocyte Esterase Trace H (Negative) Urine WBC (Auto) 10-30 H (0-5) /hpf Urine RBC (Auto) >30 H (0-4) /hpf U Hyaline Cast (Auto) 1-5 (0-5) /lpf U Epithel Cells (Auto) 0-5 (0-5) /lpf Urine Bacteria (Auto) 4+ H (Negative) 09/12/23 Range/Units 18:55 WBC (4.8-10.8) K/ul RBC (4.70-6.10) M/uL Hgb (14.0-18.0) g/dl Hct (42.0-52.0) % MCV (80.0-100.0) fL MCH (25.0-34.0) pg MCHC (32.0-36.0) g/dL RDW Std Deviation (36.4-46.3) fL RDW Coeff of Braeden (11.5-14.5) % Plt Count (130-400) K/uL MPV (9.4-12.4) fL Immature Gran % (Auto) % Neut % (Auto) % Lymph % (Auto) % [place] % (Auto) % Eos % (Auto) % Baso % (Auto) % Neut # (Auto) (1.40-6.50) K/uL Lymph # (Auto) (1.20-3.40) K/uL [place] # (Auto) (0.11-0.59) K/uL Eos # (Auto) (0.00-0.50) K/uL Baso # (Auto) (0.00-0.20) K/uL Immature Gran # (Auto) (0.01-0.20) K/uL PT (9.0-12.0) Seconds INR (0.9-1.1) APTT (21.0-31.0) Seconds PTT Ratio Sodium (136-145) mmol/L Potassium (3.5-5.1) mmol/L Chloride (98-107) mmol/L Carbon Dioxide (21-32) mmol/L Anion Gap (3-11) BUN (6-23) mg/dl Creatinine (0.6-1.4) mg/dl Est Cr Clr Drug Dosing Est GFR ( Amer) ml/min Est GFR (Non-Af Amer) ml/min BUN/Creatinine Ratio (10-20) Glucose (70-99(Fasting)) mg/dl Lactate (0.4-2.0) mmol/L Calcium (8.6-10.3) mg/dl Magnesium 1.8 Total Bilirubin (0.2-1.0) mg/dl AST (13-39) U/L ALT (7-52) U/L Alkaline Phosphatase (34-104) U/L Troponin I High Sens 10.8 (0-20) pg/ml Total Protein (6.0-8.3) gm/dl Albumin (3.4-5.0) gm/dl Globulin (2.5-4.0) gm/dl Albumin/Globulin Ratio (0.9-2) Urine Color Urine Appearance (Clear) Urine pH (4.5-7.5) Ur Specific [place] (1.000-1.030) Urine Protein (Negative) Urine Glucose (UA) (Negative) Urine Ketones (Negative) Urine Blood (Negative) Urine Nitrite (Negative) Urine Bilirubin (Negative) Urine Urobilinogen (Negative) Ur Leukocyte Esterase (Negative) Urine WBC (Auto) (0-5) /hpf Urine RBC (Auto) (0-4) /hpf U Hyaline Cast (Auto) (0-5) /lpf U Epithel Cells (Auto) (0-5) /lpf Urine Bacteria (Auto) (Negative) Imaging Data Attestation: I personally reviewed and interpreted this imaging study as follows: My Impression: Chest x-ray negative. Airway clear. No pneumothorax. No consolidation. No cardiomegaly or cephalization.. No free air under the diaphragm. No fractures of the skeletal structures. Radiologist's Impression: Abdomen/Pelvis CT 09/12/23 18:43 CT abd pelvis wo con CLINICAL HISTORY: hematuria TECHNIQUE: Helical axial images of the abdomen and pelvis were obtained. Automated dose lowering techniques and/or adjustment according to patient size were utilized for this exam. This exam was performed without intravenous contrast. CT DOSE: 2065.97 mGy.cm COMPARISON: Comparison is made to CT abdomen pelvis 02/21/2019 FINDINGS: Lower chest: Bronchiectasis is seen. Innumerable pulmonary nodules are seen favoring the lower lobes, measuring 9 mm. Liver: Complex hypodensity in the left liver lobe measuring approximately 26 mm in diameter. This is not well seen on prior exam. Gallbladder and biliary tree: No calcified gallstones. Normal caliber wall. No intra- or extrahepatic biliary ductal dilation. Pancreas: Unremarkable, no focal lesions. Spleen: Unremarkable. Adrenals: Unremarkable. Kidneys and ureters: Renal cysts are seen. There is moderate left and mild right hydronephrosis/hydroureter. Multiple nonobstructive stones are seen in the kidneys. Bladder: Diffuse homogeneous wall thickening is seen. Reproductive organs: Prostatomegaly is seen. Bowel: Diverticulosis is seen without evidence of diverticulitis. A small hiatal hernia is seen. Lymph nodes Retroperitoneal: Unremarkable. Pelvic: There is a 15 mm left pelvic side an enlarged lymph node. Additional smaller lymph nodes are seen. Mesenteric: Unremarkable. Peritoneum: Normal. Vessels: Atherosclerotic calcifications are seen. Abdominal wall: Unremarkable. Bones: Degenerative changes in the visualized spine. Diffuse sclerotic changes are seen most prominently in the lumbar spine and pelvis, new from prior exam. IMPRESSION: 1. Left greater than right hydronephrosis and hydroureter without evidence of obstructive stone. Findings may result from chronic bladder outlet obstruction, less likely recently passed stone. 2. Innumerable pulmonary nodules are seen, as well as an enlarged left pelvic sidewall lymph node. Correlation with oncologic history is recommended and a CT chest can be performed to further characterize these findings. In particular, findings may represent metastatic prostate cancer in this patient with highly elevated PSA. 3. Left hepatic lesion is nonspecific. If not previously characterized, liver protocol MRI can be performed. 4. Diffuse sclerotic changes in the skeleton, new from prior exam. These are nonspecific but worrisome for bony metastatic disease of prostate cancer in this patient with elevated PSA. 5. Additional findings as above. ACT 112: Positive. There are findings on this exam that require communication between the performing entity and the patient following Patient Test Result Information Act ([place] Act 112) guidelines. Electronically signed by: Jayro Bah M.D. 09/12/2023 8:25 PM Chest X-Ray 09/12/23 18:43 XR chest 1V portable CLINICAL HISTORY: ams TECHNIQUE: Single frontal radiograph of the chest was obtained. Comparison: Comparison is made to chest radiograph 08/11/2023 FINDINGS: No lines and tubes are seen. Calcified aortic knob is seen. Reticular interstit ial opacities are seen. No evidence of pleural effusion or pneumothorax. IMPRESSION: No acute chest disease. ACT 112: Negative or not required by law. Electronically signed by: Jayro Bah M.D. 09/12/2023 7:[address] 09/12/23 18:43 CT head/brain wo con CLINICAL HISTORY: ams Technique: Contiguous axial CT images of the head were acquired from the base of the skull to the vertex without intravenous contrast administration. Images were viewed in brain, subdural and bone windows. Automated dose lowering techniques and/or adjustment according to patient size were utilized for this exam. Comparison: Comparison is made to CT head 09/11/2018 Findings: The ventricles, basal cisterns, and cerebral sulci are normal. There is no acute intracranial hemorrhage or evidence of acute territorial infarction. Neither mass effect, shift of the midline structures, nor abnormal extra-axial fluid collections are shown. 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 Imaged portions of the paranasal sinuses and mastoid air cells are clear. The orbits appear normal. There are no acute fractures of the calvaria or scalp swelling. Impression: No acute intracranial hemorrhage, no evidence of acute territorial infarction or other acute intracranial disease process. ACT 112: Negative or not required by law. Electronically signed by: Jayro Bah M.D. 09/12/2023 8:26 PM ECG Data Attestation: I personally reviewed and interpreted this ECG as follows: Rate (beats per minute): 83 Rhythm: + sinus with SA ECG Intervals/blocks: + Normal QRS, + Normal NC and + Normal QT-c ECG ST segments: + Normal ST segments ECG Findings: + PVCs MDM Narrative 1808: The patient was evaluated in room C11. A complete history and physical exam was performed Cardiac monitoring: An order was placed for continuous cardiac monitoring. The monitor shows a rate of 90 with sinus rhythm interpreted by la 2049: Vital signs stable. Labs are significant for a white blood cell count 11.49 hemoglobin 9.8. Sodium 129. Urinalysis shows 4+ bacteria good sample. CT head and chest x-ray negative. CT abdomen pelvis shows right-sided hydronephrosis and hydroureter without an obstructive stone. There are innumerable pulmonary nodules as well as enlarged pelvic sidewall lymph node and radiology reports that this could represent metastatic prostate cancer. The patient reports that he has been told he has an enlarged prostate and elevated PSA but has never been diagnosed with prostate cancer. Patient will be admitted to the [facility] team Dr. Guerrero's team will be notified. Antibiotics given to the IV. IV fluids also given to the IV. Impression & Plan Acute hyponatremia, Urinary tract infection Discharge Plan Visit Data Chief Complaint: Hematuria Stated Complaint: HEMATURIA, DEHYDRATED ED Provider: Barrett Huerta Discharge Problem: Acute hyponatremia, Urinary tract infection Patient Disposition: Admitted As Inpatient
[2023-09-13] MEDS ORDERED: ONDANSETRON INJ 2 MG/ML 2 ML VIAL IV PRN (01:11)
[2023-09-13] MEDS ORDERED: ACETAMINOPHEN 325 MG TAB PO PRN (01:11)
[2023-09-13] MEDS ORDERED: GLUCOSE 10 TAB/TUBE PO PRN (02:45)
[2023-09-13] MEDS ORDERED: DEXTROSE 50% 50 ML SYRINGE IV PRN (02:45)
[2023-09-13] MEDS ORDERED: CARBOHYDRATES FOR HYPOGLYCEMIA PO PRN (02:45)
[2023-09-13] MEDS ORDERED: GLUCAGON FOR INJ 1 MG VIAL SQ PRN (02:45)
[2023-09-13] MEDS ORDERED: GLUCOSE 40% GEL 15 GM TUBE PO PRN (02:45)
[2023-09-13] MEDS ORDERED: LORazepam 0.5 MG TAB PO STA (03:32)
[2023-09-13 07:24] LABS: Albumin Level 2.9 gm/dl (3.4-5.0); Calcium 7.7 mg/dl (8.6-10.3); Creatinine Clr Calc Pharmacy 53.7 ml/min; Est GFR (Non-African American) 52.6 ml/min; Magnesium 1.8 mg/dl (1.7-2.4); Phosphorus 3.4 mg/dl (2.5-4.9); Potassium 3.7 mmol/L (3.5-5.1)
[2023-09-13 07:28] LABS: Basophils # (auto) 0.04 K/uL (0.00-0.20); Basophils % (auto) 0.4 %; Eosinophils # (auto) 0.09 K/uL (0.00-0.50); Eosinophils % (auto) 0.9 %; Hematocrit (blood only) 28.6 % (42.0-52.0); Hemoglobin 9.1 g/dl (14.0-18.0); Immature Granulocytes # (auto) 0.05 K/uL (0.01-0.20); Immature Granulocytes % (auto) 0.5 %; Lymphocytes # (auto) 0.92 K/uL (1.20-3.40); Lymphocytes % (auto) 9.5 %; Mean Corpuscular Hemoglobin 24.6 pg (25.0-34.0); Mean Corpuscular Hgb Conc 31.8 g/dL (32.0-36.0); Mean Corpuscular Volume 77.3 fL (80.0-100.0); Mean Platelet Volume 9.6 fL (9.4-12.4); Monocytes # (auto) 1.03 K/uL (0.11-0.59); Monocytes % (auto) 10.7 %; Neutrophils # (auto) 7.52 K/uL (1.40-6.50); Platelet Count 436 K/uL (130-400); RDW Coefficient of Variation 17.1 % (11.5-14.5); RDW Standard Deviation 48.4 fL (36.4-46.3); White Blood Count 9.65 K/ul (4.8-10.8)
[2023-09-13] MEDS ORDERED: NON-FORMULARY MEDICATION (Coenzyme Q10 100 mg capsule) PO SCH (09:00)
[2023-09-13] MEDS ORDERED: FUROSEMIDE 40 MG/4 ML VIAL IV SCH (09:00)
[2023-09-13] MEDS: INSULIN ASPART PER UNIT CHARGE SC SCH ×4 (09:06→22:00)
[2023-09-13] MEDS: METOPROLOL TARTRATE 25 MG TAB PO SCH ×2 (09:07→21:47)
[2023-09-13] MEDS: POTASSIUM CHLORIDE 10 MEQ TABCR PO SCH ×2 (09:07→21:47)
[2023-09-13] MEDS: FINASTERIDE 5 MG TAB PO SCH (09:07)
[2023-09-13] MEDS: cefTRIAXone SODIUM 2,000 MG in DEXTROSE 5 % MINI-B 50 ML IV SCH (09:13)
[2023-09-13 09:25] LABS: Estimated Average Glucose 137 mg/dl; Hemoglobin A1C 6.4 % (4.5-5.6)
--- NOTE | 2023-09-13 12:22 | Urology Consultation ---
Date of Consultation September 13, 2023 Assessment & Plan (1) Bilateral hydronephrosis: (2) Bladder outlet obstruction: (3) Acute urinary retention: (4) MARIN (acute kidney injury): (5) Elevated PSA: (6) Urinary tract infection: Plan 88yo/M who presented to the emergency department with pelvic pain and difficulty urinating. CT abdomen pelvis on arrival demonstrated bilateral hydronephrosis L>R likely secondary from bladder outlet obstruction and left pelvic sidewall lymphadenopathy, and diffuse sclerotic changes throughout the skeleton, concerning for metastatic prostate cancer. A Romero catheter was placed in the emergency department with approximately 750 mL of urine output. Afebrile and hemodynamically stable. Labs reviewed-White count 9.65, hemoglobin 10.1, creatinine 1.22. Urinalysis concerning for infection, urine culture pending. Romero intact, urine is clear yellow. Continue to monitor. Urinary retention is currently managed with a Romero catheter. Will arrange outpatient voiding trial with our service. Continue antibiotics and tailor as culture data becomes available. Continue max medical therapy for BPH with tamsulosin and finasteride. Plan to follow-up outpatient with urology service for elevated PSA and plan moving forward including recheck of PSA and discussion of possible prostate biopsy. Urology will follow peripherally. Please contact us with any further questions, concerns, or changes in patient status. Plan of care reviewed with Dr. Fofana, on-call urologist. History of Present Illness Attending Physician: Rajendra Hicks MD History of Present Illness 88-year-old male with a past medical history including BPH, elevated PSA, diabetes mellitus, hypertension, hyperlipidemia, knee osteoarthritis, SNHL and ventral hernia who presented to the ED with pelvic pressure and difficulty with urination. On arrival, he was afebrile and hemodynamically stable. Labs showing a mild leukocytosis and normal renal function. Urinalysis with 3+ blood, negative nitrite, trace LE, 4+ bacteria. CT abdomen pelvis notable for left greater than right hydronephrosis and hydroureter without evidence of obstructive stone likely d/t chronic bladder outlet obstruction and left pelvic sidewall lymphadenopathy, and diffuse sclerotic changes throughout the skeleton, concerning for metastatic prostate cancer. Patient admitted to medicine service for continued care. Urology consulted for UTI, prostatitis, bladder outlet obstruction, and question of metastatic prostate cancer. CT abd pelvis - 1. Left greater than right hydronephrosis and hydroureter without evidence of obstructive stone. Findings may result from chronic bladder outlet obstruction, less likely recently passed stone. 2. Innumerable pulmonary nodules are seen, as well as an enlarged left pelvic sidewall lymph node. Correlation with oncologic history is recommended and a CT chest can be performed to further characterize these findings. In particular, findings may represent metastatic prostate cancer in this patient with highly elevated PSA. 3. Left hepatic lesion is nonspecific. If not previously characterized, liver protocol MRI can be performed. 4. Diffuse sclerotic changes in the skeleton, new from prior exam. These are nonspecific but worrisome for bony metastatic disease of prostate cancer in this patient with elevated PSA. Patient is known to the urology service, follows with Dr. Saleh. Was last seen on 09/06/2023. At that time, a voiding trial was performed but he was unable to void. Patient learned CIC and plan to do this twice daily or as needed for discomfort. Patient was also found to have an elevated PSA from 08/11/2023 which was 40.852 (81.704 adjusted). He is on tamsulosin and finasteride. Plan was for recheck of PSA and follow-up in office with Dr. Saleh in 1 month. He is currently scheduled on 10/04/2023. Patient examined at bedside this AM. Awake, resting in bed on arrival. No ac rai distress. Romero intact, draining clear yellow urine. Denies any significant pain or discomfort at present. Denies fevers, chills, nausea, vomiting. Patient reports he had been practicing intermittent catheterization but started to have difficulty and hematuria. Allergies Allergy/AdvReac Type Severity Reaction Status Date / Time adhesive tape Allergy Severe Red Verified 09/12/23 19:23 irritation No Known Drug Allergies Allergy 0 Verified 09/12/23 19:23 Home Medications Medication Instructions Recorded Confirmed Type coenzyme Q10 100 mg capsule 100 mg PO DAILY 08/03/19 09/12/23 History lorazepam 0.5 mg tablet 0.5 mg PO DAILY PRN sleep #30 tabs 08/09/23 09/12/23 Rx aspirin 81 mg tablet,delayed 81 mg PO QPM 08/10/23 09/12/23 History release (Aspir-) dutasteride 0.5 mg capsule 0.5 mg PO DAILY #90 caps 08/10/23 09/12/23 Rx (Avodart) furosemide 40 mg tablet 40 mg PO BID #180 tabs 08/10/23 09/12/23 Rx insulin aspar prot-insulin aspart See Rx Instructions .Route 08/10/23 09/12/23 Rx 100 unit/mL (70-30) subcutaneous .COMPLEX #105 mL pen (Novolog Mix 70-30FlexPen U-100) lisinopril 10 mg tablet 10 mg PO DAILY #90 tabs 08/10/23 09/12/23 Rx metformin 1,000 mg tablet 1,000 mg PO BID #180 tabs 08/10/23 09/12/23 Rx tamsulosin 0.4 mg capsule (Flomax) 0.4 mg PO DAILY #30 caps 08/30/23 09/12/23 Rx atorvastatin 40 mg tablet 40 mg PO QPM 09/12/23 09/12/23 History metoprolol tartrate 25 mg tablet 25 mg PO BID 09/12/23 09/12/23 History potassium chloride 10 mEq 10 meq PO BID 09/12/23 09/12/23 History tablet,extended release Patient History Medical History Acute CVA (cerebrovascular accident) BCC (basal cell carcinoma), abdomen Diabetes mellitus, type 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 Hyperlipidemia Hypertension OA (osteoarthritis) of knee Stroke Unruptured popliteal cyst Surgical History History of colonoscopy Hx of tooth extraction All teeth from lower jaw removed and 2 implants placed S/P hernia repair Family History Mother Cancer Father Diabetes Other Heart disease Stroke Denies family history of Hearing loss No family history of adverse response to anesthesia No family history of bleeding disorder Allergies Asthma Social History Smoking Status: Never smoker Second Hand Exposure: No; Do You Dip or Chew Tobacco: No; Hx Alcohol Use: No Hx Substance Use: No Preferred Language: Latvian Communication Ability: Effective Visual Impairment: No Limitations Hearing Ability: Normal Harness Mender Required: No Beliefs That Will Affect Care: None marital status: Current Living Situation: Spouse current occupational status: retired How many Children do You have: 3 Feels Safe at Home: Yes Childhood Exposure to Second-Hand Smoke: Yes Diet: regular caffeine: No during the past year weight has: remained stable Dental Care, Regularly: Yes Physical Activity Frequency: Does not Exercise Seatbelt Use: always Sunscreen Use: Yes Assistive Devices: Denture - Lower and Walker Review of Systems Review of Systems: All systems reviewed & are unremarkable except as noted in HPI & below Physical Exam Constitutional: well developed and well nourished; no acute distress Neck: normal visual inspection Respiratory: normal respiratory effort; no respiratory distress and no labored breathing Gastrointestinal (Abdomen): Percussion/Palpation: abdomen soft; abdomen nontender Musculoskeletal: Head/Neck/Chest: normocephalic Skin: No visible rashes or lesions to exposed skin areas Neurologic: moves all extremities and awake Psychiatric: Orientation: alert and oriented x 3 Genitourinary: Romero catheter intact Results & Data Vital Signs (Past 12 Hours) Vital Signs Temp Pulse Pulse Pulse Resp BP BP 09/13/23 08:00 09/13/23 07:03 37.1 C 82 18 151/68 H 09/13/23 02:08 09/13/23 01:11 09/13/23 01:11 36.5 C 82 20 145/50 H 09/13/23 01:11 36.5 C 82 20 145/50 H 09/13/23 00:49 74 19 145/68 H Pulse Ox O2 Del Method 09/13/23 08:00 Room Air 09/13/23 07:03 95 Room Air 09/13/23 02:08 Room Air 09/13/23 01:11 Room Air 09/13/23 01:11 94 Room Air 09/13/23 01:11 94 Room Air 09/13/23 00:49 94 Room Air PG Care Time/CCT Total # of Minutes Spent Total Time Spent with Patient: Total time spent is greater than 50% in coordination of care (as documented) at patient's floor/unit and/or counseling patient: Coding Level of Care Code 95652 INT INP/OBS CARE 2/55MIN Diagnoses Bilateral hydronephrosis N13.30 Bladder outlet obstruction N32.0 Acute urinary retention R33.8 MARIN (acute kidney injury) N17.9 Elevated PSA R97.20 Urinary tract infection N39.0
[2023-09-13] MEDS: ASPIRIN 81 MG ECTAB PO SCH (21:47)
[2023-09-13] MEDS: LORazepam 0.5 MG TAB PO PRN (21:47)
[2023-09-13] MEDS: ATORVASTATIN 40 MG TAB PO SCH (21:48)
[2023-09-13] MEDS: DICLOFENAC SOD 1% GEL 100 GM TUBE EXT SCH (21:48)
[2023-09-13] MEDS: TAMSULOSIN HCL 0.4 MG CAP PO SCH (21:48)
--- NOTE | 2023-09-14 06:47 | Hospitalist Progress Note ---
Date of Service September 13, 2023 Assessment & Plan (1) Acute urinary retention: Plan: s/p griffin insertion 2nd to BPH cont finasteride cont flomax will need griffin at time of hospital d/c (2) MARIN (acute kidney injury): Plan: Cr 1.6 earlier this month then 1.4 at admission now 1.2 improved BMP am (3) Elevated PSA: Plan: 40.8 - 07/[address] findings - pulmonary nodules, enlarged pelvic lymph nodes, sclerotic bony lesions - all worrisome for metastatic prostate ca appreciate urology consultation urology considering outpatient biopsy - see their consultation note (4) Bladder outlet obstruction: Plan: 2nd BPH, probable prostate ca, etc s/p griffin insertion cont finasteride cont flomax (5) Pulmonary nodules/lesions, multiple: Plan: very worrisome for metastatic disease CT a/p findings point towards probable prostate ca (6) Bilateral hydronephrosis: Plan: 2nd to chronic bladder outlet obstruction should improve with griffin placement has kidney stones but none are causing obstruction (7) Diabetes: Plan: hba1c 6.4% DM diet ac/hs BSGs loose novolog sliding scale (8) Hypertension: Plan: reasonable control on current home regimen of meds - metoprolol, flomax (latter mainly for BPH) (9) Lower extremity edema: Plan: improved s/p lasix given this am much improved - minimal edema at this time in light of concern for metastatic cancer - probable prostate origin - check dopplers of legs, r/o DVT has scrotal edema as well (10) Weight loss: Plan: presumed 2nd to suspected stage 4 cancer (11) OA (osteoarthritis) of knee: Plan: right knee start voltaren gel 4gm QID (12) BPH (benign prostatic hyperplasia): Plan: cont finasteride cont flomax cont griffin (13) Bony sclerosis: Plan: highly concerning for metastatic cancer likely prostate in origin (14) Urinary tract infection: Plan: culture pending - but culture unfortunately was sent AFTER abx was sent [id number] cont rocephin follow culture (15) Microcytic anemia: Plan: check Fe studies if not Fe deficiency could be anemia of chronic disease (16) Hyponatremia: Plan: admitting physician felt that low sodium was due to a volume overloaded state received IV lasix this am with brisk diuresis he does not examine in CHF despite the recent edema recheck BMP in am Plan DVT proph - add heparin 5000 BID attempted to call pt's at # in chart -- phone rang and rang, I could not leave a voicemail Admission and Anticipated Discharge Date Admission Date: September 12, 2023 Subjective patient resting comfortably in bed only complaint is that of R knee pain states the knee "gets stiff' confirms he has been losing weight appetite has been "off" denies any dyspnea denies any chest pain or abd pain he reports that prior to coming to hospital he had been self-cathing at direction of urology Review of Systems Review of Systems: gen - no fevers or chills cv - no chest pain pulm - no cough GI - no N/V Physical Exam Physical Exam: gen - NAD, pleasant, resting comfortably in bed mouth - MMM neck - no JVD heart - RRR, s1 s2 lungs - CTA b/l abd - soft NT ND BS+; no HSM ext - trace edema b/l, pulses 2+ b/l psych - awake, alert - griffin in place musculo - severe bony OA changes of R knee with crepitus of knee and poor active/passive ROM Results & Data Results & Data Vital Signs (Past 12 Hours) Vital Signs Temp Pulse Resp BP Pulse Ox O2 Del Method 09/13/23 15:21 36.8 C 75 16 150/67 H 94 Room Air 09/13/23 08:00 Room Air 09/13/23 07:03 37.1 C 82 18 151/68 H 95 Room Air Laboratory Results Laboratory Results - last 48 hr 09/12/23 09/12/23 09/12/23 16:26 16:26 16:26 WBC 11.49 H RBC 3.91 L Hgb 9.8 L Hct 30.6 L MCV 78.3 L MCH 25.1 MCHC 32.0 RDW Std Deviation 49.4 H RDW Coeff of Braeden 17.3 H Plt Count 461 H MPV 9.1 L Immature Gran % (Auto) 0.4 Neut % (Auto) 75.4 Lymph % (Auto) 12.7 Stephenson % (Auto) 10.4 Eos % (Auto) 0.8 Baso % (Auto) 0.3 Neut # (Auto) 8.65 H Lymph # (Auto) 1.46 Stephenson # (Auto) 1.20 H Eos # (Auto) 0.09 Baso # (Auto) 0.04 Immature Gran # (Auto) 0.05 PT INR APTT PTT Ratio Sodium 129 L Potassium 4.4 Chloride 95 L Carbon Dioxide 25 Anion Gap 9 BUN 30 H Creatinine 1.40 Est Cr Clr Drug Dosing Not Reportable Est GFR ( Amer) 51.6 Est GFR (Non-Af Amer) 44.5 BUN/Creatinine Ratio 21.4 H Glucose 79 POC Glucose Estimat Average Glucose Hemoglobin A1c Lactate Calcium 8.5 L Phosphorus Magnesium Cancelled Total Bilirubin 0.7 AST 33 ALT 32 Alkaline Phosphatase 448 H Troponin I High Sens Total Protein 6.7 Albumin 3.3 L Globulin 3.4 Albumin/Globulin Ratio 1.0 Urine Color Urine Appearance Urine pH Ur Specific Rose Urine Protein Urine Glucose (UA) Urine Ketones Urine Blood Urine Nitrite Urine Bilirubin Urine Urobilinogen Ur Leukocyte Esterase Urine WBC (Auto) Urine RBC (Auto) U Hyaline Cast (Auto) U Epithel Cells (Auto) Urine Bacteria (Auto) 09/12/23 09/12/23 09/12/23 16:44 18:55 18:55 WBC RBC Hgb Hct MCV MCH MCHC RDW Std Deviation RDW Coeff of Braeden Plt Count MPV Immature Gran % (Auto) Neut % (Auto) Lymph % (Auto) Stephenson % (Auto) Eos % (Auto) Baso % (Auto) Neut # (Auto) Lymph # (Auto) Stephenson # (Auto) Eos # (Auto) Baso # (Auto) Immature Gran # (Auto) PT 11.7 INR 1.1 APTT 29.1 PTT Ratio 1.0 Sodium Potassium Chloride Carbon Dioxide Anion Gap BUN Creatinine Est Cr Clr Drug Dosing Est GFR ( Amer) Est GFR (Non-Af Amer) BUN/Creatinine Ratio Glucose POC Glucose Estimat Average Glucose Hemoglobin A1c Lactate 1.1 Calcium Phosphorus Magnesium Total Bilirubin AST ALT Alkaline Phosphatase Troponin I High Sens Total Protein Albumin Globulin Albumin/Globulin Ratio Urine Color Yellow Urine Appearance Cloudy A Urine pH 6.0 Ur Specific Rose 1.010 Urine Protein Negative Urine Glucose (UA) Negative Urine Ketones Negative Urine Blood 3+ H Urine Nitrite Negative Urine Bilirubin Negative Urine Urobilinogen Negative Ur Leukocyte Esterase Trace H Urine WBC (Auto) 10-30 H Urine RBC (Auto) >30 H U Hyaline Cast (Auto) 1-5 U Epithel Cells (Auto) 0-5 Urine Bacteria (Auto) 4+ H 09/12/23 09/13/23 09/13/23 18:55 06:27 06:27 WBC 9.65 RBC 3.70 L Hgb 9.1 L Hct 28.6 L MCV 77.3 L MCH 24.6 L MCHC 31.8 L RDW Std Deviation 48.4 H RDW Coeff of Braeden 17.1 H Plt Count 436 H MPV 9.6 Immature Gran % (Auto) 0.5 Neut % (Auto) 78.0 Lymph % (Auto) 9.5 Stephenson % (Auto) 10.7 Eos % (Auto) 0.9 Baso % (Auto) 0.4 Neut # (Auto) 7.52 H Lymph # (Auto) 0.92 L Stephenson # (Auto) 1.03 H Eos # (Auto) 0.09 Baso # (Auto) 0.04 Immature Gran # (Auto) 0.05 PT INR APTT PTT Ratio Sodium 132 L Potassium 3.7 Chloride 97 L Carbon Dioxide 25 Anion Gap 10 BUN 28 H Creatinine 1.22 Est Cr Clr Drug Dosing 53.7 Est GFR ( Amer) 61.0 Est GFR (Non-Af Amer) 52.6 BUN/Creatinine Ratio 23.0 H Glucose 118 H POC Glucose Estimat Average Glucose Hemoglobin A1c Lactate Calcium 7.7 L Phosphorus 3.4 Magnesium 1.8 1.8 Total Bilirubin AST ALT Alkaline Phosphatase Troponin I High Sens 10.8 Total Protein Albumin 2.9 L Globulin Albumin/Globulin Ratio Urine Color Urine Appearance Urine pH Ur Specific Rose Urine Protein Urine Glucose (UA) Urine Ketones Urine Blood Urine Nitrite Urine Bilirubin Urine Urobilinogen Ur Leukocyte Esterase Urine WBC (Auto) Urine RBC (Auto) U Hyaline Cast (Auto) U Epithel Cells (Auto) Urine Bacteria (Auto) 09/13/23 09/13/23 09/13/23 06:27 09:03 11:42 WBC RBC Hgb Hct MCV MCH MCHC RDW Std Deviation RDW Coeff of Braeden Plt Count MPV Immature Gran % (Auto) Neut % (Auto) Lymph % (Auto) Stephenson % (Auto) Eos % (Auto) Baso % (Auto) Neut # (Auto) Lymph # (Auto) Stephenson # (Auto) Eos # (Auto) Baso # (Auto) Immature Gran # (Auto) PT INR APTT PTT Ratio Sodium Potassium Chloride Carbon Dioxide Anion Gap BUN Creatinine Est Cr Clr Drug Dosing Est GFR ( Amer) Est GFR (Non-Af Amer) BUN/Creatinine Ratio Glucose POC Glucose 165 H 193 H Estimat Average Glucose 137 Hemoglobin A1c 6.4 H Lactate Calcium Phosphorus Magnesium Total Bilirubin AST ALT Alkaline Phosphatase Troponin I High Sens Total Protein Albumin Globulin Albumin/Globulin Ratio Urine Color Urine Appearance Urine pH Ur Specific Rose Urine Protein Urine Glucose (UA) Urine Ketones Urine Blood Urine Nitrite Urine Bilirubin Urine Urobilinogen Ur Leukocyte Esterase Urine WBC (Auto) Urine RBC (Auto) U Hyaline Cast (Auto) U Epithel Cells (Auto) Urine Bacteria (Auto) PG Care Time/CCT Total # of Minutes Spent Total Time Spent with Patient: Total time spent is greater than 50% in coordination of care (as documented) at patient's floor/unit and/or counseling patient: Coding Level of Care Code 67747 SUB INP/OBS CARE 3/50MIN Diagnoses Acute urinary retention R33.8 MARIN (acute kidney injury) N17.9 Elevated PSA R97.20 Bladder outlet obstruction N32.0 Pulmonary nodules/lesions, multiple R91.8 Bilateral hydronephrosis N13.30 Diabetes E11.9; Z79.4 Diabetes mellitus type: type 2 Diabetes mellitus mcc insulin use: with mcc use Diabetes mellitus complication status: without complication Hypertension I10 Hypertension type: essential hypertension Lower extremity edema R60.0 Weight loss R63.4 OA (osteoarthritis) of knee M17.10 BPH (benign prostatic hyperplasia) N40.0 Bony sclerosis Q78.2 Urinary tract infection N39.0 Microcytic anemia D50.9 Hyponatremia E87.1 (7) Diabetes Diabetes mellitus type: type 2 Diabetes mellitus mcc insulin use: with mcc use Diabetes mellitus complication status: without complication Qualified Code(s): E11.9 - Type 2 diabetes mellitus without complications; Z79.4 - half-way (current) use of insulin (8) Hypertension Hypertension type: essential hypertension Qualified Code(s): I10 - Essential (primary) hypertension
--- NOTE | 2023-09-14 07:04 | Electrocardiogram Report ---
Test Reason : Blood Pressure : / mmHG Vent. Rate : 083 BPM Atrial Rate : 083 BPM P-R Int : 186 ms QRS Dur : 118 ms QT Int : 392 ms P-R-T Axes : 049 -45 075 degrees QTc Int : 460 ms Sinus rhythm with frequent Premature ventricular complexes Left anterior fascicular block Septal infarct (cited on or before 10-SEP-2018) Abnormal ECG When compared with ECG of 11-SEP-2018 05:14, Premature ventricular complexes are now Present Confirmed by J Luis Chaney ([id number]) on 09/14/2023 7:04:18 AM Referred By: REFERRED SELF Confirmed By:J Luis Chaney
[2023-09-14 07:37] LABS: Basophils # (auto) 0.03 K/uL (0.00-0.20); Basophils % (auto) 0.4 %; Eosinophils # (auto) 0.18 K/uL (0.00-0.50); Eosinophils % (auto) 2.6 %; Hematocrit (blood only) 29.9 % (42.0-52.0); Hemoglobin 9.7 g/dl (14.0-18.0); Immature Granulocytes # (auto) 0.03 K/uL (0.01-0.20); Immature Granulocytes % (auto) 0.4 %; Lymphocytes # (auto) 1.08 K/uL (1.20-3.40); Lymphocytes % (auto) 15.4 %; Mean Corpuscular Hemoglobin 24.9 pg (25.0-34.0); Mean Corpuscular Hgb Conc 32.4 g/dL (32.0-36.0); Mean Corpuscular Volume 76.7 fL (80.0-100.0); Mean Platelet Volume 9.2 fL (9.4-12.4); Monocytes # (auto) 0.72 K/uL (0.11-0.59); Monocytes % (auto) 10.2 %; Neutrophils # (auto) 4.99 K/uL (1.40-6.50); Platelet Count 443 K/uL (130-400); RDW Coefficient of Variation 17.3 % (11.5-14.5); RDW Standard Deviation 48.2 fL (36.4-46.3); White Blood Count 7.03 K/ul (4.8-10.8)
[2023-09-14 08:02] LABS: Albumin Level 2.9 gm/dl (3.4-5.0); BUN Creatinine Ratio 23.5 (10-20); Calcium 7.9 mg/dl (8.6-10.3); Creatinine Clr Calc Pharmacy 64.2 ml/min; Est GFR (African American) 75.7 ml/min; Est GFR (Non-African American) 65.3 ml/min; Phosphorus 2.9 mg/dl (2.5-4.9); Potassium 3.8 mmol/L (3.5-5.1)
[2023-09-14 08:16] LABS: Ferritin 165.3 ng/ml (8-388)
[2023-09-14] MEDS: FINASTERIDE 5 MG TAB PO SCH (08:22)
[2023-09-14] MEDS: DICLOFENAC SOD 1% GEL 100 GM TUBE EXT SCH ×4 (08:23→22:30)
[2023-09-14] MEDS: METOPROLOL TARTRATE 25 MG TAB PO SCH ×2 (08:23→22:30)
[2023-09-14] MEDS: POTASSIUM CHLORIDE 10 MEQ TABCR PO SCH ×2 (08:23→22:31)
[2023-09-14] MEDS: INSULIN ASPART PER UNIT CHARGE SC SCH ×4 (08:28→22:39)
--- NOTE | 2023-09-14 09:34 | Ultrasound Report ---
BILATERAL LOWER EXTREMITY VENOUS DOPPLER HISTORY: Acute edema of the lower legs metastatic cancer, edema; r/o DVT COMPARISON STUDY: None. FINDINGS: There is normal compressibility, flow, and augmentation within the bilateral lower extremit y deep venous systems. Subcutaneous edema. IMPRESSION: No DVT within the right or left lower extremity. ACT 112: Negative or not required by law. Electronically signed by: Robin Damon M.D. 09/14/2023 9:32 AM
[2023-09-14] MEDS: cefTRIAXone SODIUM 2,000 MG in DEXTROSE 5 % MINI-B 50 ML IV SCH (10:06)
--- NOTE | 2023-09-14 13:07 | Urology Progress Note ---
Date of Service September 14, 2023 Assessment & Plan (1) Bilateral hydronephrosis: (2) Bladder outlet obstruction: (3) Acute urinary retention: (4) MARIN (acute kidney injury): (5) Elevated PSA: (6) Urinary tract infection: Plan 88yo/M who presented to the emergency department with pelvic pain and difficulty urinating. CT abdomen pelvis on arrival demonstrated bilateral hydronephrosis L>R likely secondary from bladder outlet obstruction and left pelvic sidewall lymphadenopathy, and diffuse sclerotic changes throughout the skeleton, concerning for metastatic prostate cancer. A Romero catheter was placed in the emergency department with approximately 750 mL of urine output. Afebrile and hemodynamically stable. Labs reviewed-White count 7.03, hemoglobin 9.7, creatinine 1.02. Urinalysis concerning for infection, urine culture preliminary no growth. Romero intact, urine is clear yellow. Continue to monitor. Urinary retention is currently managed with a Romero catheter. Will arrange outpatient voiding trial with our service. Continue antibiotics and tailor as culture data becomes available. Continue max medical therapy for BPH with tamsulosin and finasteride. Plan to follow-up outpatient with urology service for elevated PSA and plan moving forward including recheck of PSA and discussion of possible prostate biopsy. Urology will sign off for now. Please contact us with any further questions, concerns, or changes in patient status. Admission and Anticipated Discharge Date Admission Date: September 12, 2023 Subjective Patient examined at bedside this AM. Awake, resting in bed on arrival. No acute distress. Denies any pain or discomfort at present. Denies fevers, chills, nausea, vomiting. Romero catheter intact, draining clear yellow urine. Review of Systems Constitutional: as per Subjective / HPI Gastrointestinal: as per Subjective / HPI Genitourinary: + as per Subjective / HPI Physical Exam Constitutional: no acute distress Respiratory: no respiratory distress and no labored breathing Skin: No visible rashes or lesions to exposed skin areas Neurologic: awake Psychiatric: Orientation: alert and cooperative Genitourinary: Romero catheter intact Results & Data Vital Signs (Past 12 Hours) Vital Signs Temp Pulse Resp BP Pulse Ox O2 Del Method 09/14/23 07:50 Room Air 09/14/23 08:19 80 152/63 H 09/14/23 06:56 36.4 C 68 16 150/71 H 94 Room Air PG Care Time/CCT Total # of Minutes Spent Total Time Spent with Patient: Total time spent is greater than 50% in coordination of care (as documented) at patient's floor/unit and/or counseling patient: Coding Level of Care Code 54016 SUB INP/OBS CARE 2/35MIN Diagnoses Bilateral hydronephrosis N13.30 Bladder outlet obstruction N32.0 Acute urinary retention R33.8 MARIN (acute kidney injury) N17.9 Elevated PSA R97.20 Urinary tract infection N39.0
[2023-09-14] MEDS ORDERED: POLYETHYLENE (MIRALAX) 17 GM PACK PO PRN (18:35)
--- NOTE | 2023-09-14 18:40 | Hospitalist Progress Note ---
Date of Service September 14, 2023 Assessment & Plan (1) Acute urinary retention: Plan: s/p griffin insertion 2nd to BPH cont finasteride cont flomax will need griffin at time of hospital d/c Outpatient urology follow-up (2) MARIN (acute kidney injury): Plan: Cr 1.6 earlier this month then 1.4 at admission now 1.02 Resolved Secondary to obstructive uropathy (3) Elevated PSA: Plan: 40.8 - 07/[address] findings - pulmonary nodules, enlarged pelvic lymph nodes, sclerotic bony lesions - all worrisome for metastatic prostate ca appreciate urology consultation urology considering outpatient biopsy - see their consultation note Outpatient follow-up with urology (4) Bladder outlet obstruction: Plan: 2nd BPH, probable prostate ca, etc s/p griffin insertion cont finasteride cont flomax (5) Pulmonary nodules/lesions, multiple: Plan: very worrisome for metastatic disease CT a/p findings point towards probable prostate ca (6) Bilateral hydronephrosis: Plan: 2nd to chronic bladder outlet obstruction should improve with griffin placement has kidney stones but none are causing obstruction (7) Diabetes: Plan: hba1c 6.4% DM diet ac/hs BSGs loose novolog sliding scale (8) Hypertension: Plan: reasonable control on current home regimen of meds - metoprolol, flomax (latter mainly for BPH) (9) Lower extremity edema: Plan: improved s/p lasix given this am much improved - minimal edema at this time Venous duplex ultrasound ruled out DVT (10) Weight loss: Plan: presumed 2nd to suspected stage 4 cancer (11) OA (osteoarthritis) of knee: Plan: right knee start voltaren gel 4gm QID (12) BPH (benign prostatic hyperplasia): Plan: cont finasteride cont flomax cont griffin (13) Bony sclerosis: Plan: highly concerning for metastatic cancer likely prostate in origin (14) Urinary tract infection: Plan: culture pending - but culture unfortunately was sent AFTER abx was sent [id number] cont rocephin follow culture (15) Microcytic anemia: Plan: check Fe studies if not Fe deficiency could be anemia of chronic disease (16) Hyponatremia: Plan: admitting physician felt that low sodium was due to a volume overloaded state received IV lasix yesterday a.m. with brisk diuresis he does not examine in CHF despite the recent edema Hold off on further Lasix Plan DVT proph - add heparin 5000 BID Admission and Anticipated Discharge Date Admission Date: September 12, 2023 Subjective Patient feels well. Denies chest pain or shortness of breath. Review of Systems Review of Systems: All systems reviewed & are unremarkable except as noted in Subjective Physical Exam Physical Exam: General: Awake, conversant Heart: S1, S2/regular rate and rhythm, no murmur rubs or gallops Lungs: Clear to auscultation bilaterally. Normal effort Abdomen: Soft/nontender/nondistended. No hepatosplenomegaly Extremities: No clubbing/cyanosis. No edema Behavior: Appropriate, cooperative Results & Data Results & Data Vital Signs (Past 12 Hours) Vital Signs Temp Pulse Resp BP Pulse Ox O2 Del Method 09/14/23 15:28 36.4 C L 73 16 125/68 95 Room Air 09/14/23 07:50 Room Air 09/14/23 08:19 80 152/63 H 09/14/23 06:56 36.4 C 68 16 150/71 H 94 Room Air Laboratory Results Abnormal lab results 09/13/23 09/14/23 09/14/23 Range/Units 21:25 06:56 06:56 RBC 3.90 L (4.70-6.10) M/uL Hgb 9.7 L (14.0-18.0) g/dl Hct 29.9 L (42.0-52.0) % MCV 76.7 L (80.0-100.0) fL MCH 24.9 L (25.0-34.0) pg RDW Std Deviation 48.2 H (36.4-46.3) fL RDW Coeff of Braeden 17.3 H (11.5-14.5) % Plt Count 443 H (130-400) K/uL MPV 9.2 L (9.4-12.4) fL Lymph # (Auto) 1.08 L (1.20-3.40) K/uL Tyler # (Auto) 0.72 H (0.11-0.59) K/uL Sodium 134 L (136-145) mmol/L BUN 24 H (6-23) mg/dl BUN/Creatinine Ratio 23.5 H (10-20) Glucose 159 H (70-99(Fasting)) mg/dl POC Glucose 169 H (70-99) mg/dl Calcium 7.9 L (8.6-10.3) mg/dl Iron (35-175) mcg/dl TIBC (250-450) mcg/dl Transferrin % Sat (20-50) % Albumin 2.9 L (3.4-5.0) gm/dl 09/14/23 09/14/23 09/14/23 Range/Units 06:56 07:36 11:57 RBC (4.70-6.10) M/uL Hgb (14.0-18.0) g/dl Hct (42.0-52.0) % MCV (80.0-100.0) fL MCH (25.0-34.0) pg RDW Std Deviation (36.4-46.3) fL RDW Coeff of Braeden (11.5-14.5) % Plt Count (130-400) K/uL MPV (9.4-12.4) fL Lymph # (Auto) (1.20-3.40) K/uL Tyler # (Auto) (0.11-0.59) K/uL Sodium (136-145) mmol/L BUN (6-23) mg/dl BUN/Creatinine Ratio (10-20) Glucose (70-99(Fasting)) mg/dl POC Glucose 165 H 195 H (70-99) mg/dl Calcium (8.6-10.3) mg/dl Iron 18 L (35-175) mcg/dl TIBC 193 L (250-450) mcg/dl Transferrin % Sat 9 L (20-50) % Albumin (3.4-5.0) gm/dl 09/14/23 Range/Units 16:34 RBC (4.70-6.10) M/uL Hgb (14.0-18.0) g/dl Hct (42.0-52.0) % MCV (80.0-100.0) fL MCH (25.0-34.0) pg RDW Std Deviation (36.4-46.3) fL RDW Coeff of Braeden (11.5-14.5) % Plt Count (130-400) K/uL MPV (9.4-12.4) fL Lymph # (Auto) (1.20-3.40) K/uL Tyler # (Auto) (0.11-0.59) K/uL Sodium (136-145) mmol/L BUN (6-23) mg/dl BUN/Creatinine Ratio (10-20) Glucose (70-99(Fasting)) mg/dl POC Glucose 160 H (70-99) mg/dl Calcium (8.6-10.3) mg/dl Iron (35-175) mcg/dl TIBC (250-450) mcg/dl Transferrin % Sat (20-50) % Albumin (3.4-5.0) gm/dl Diagnostic Findings Venous Doppler Study 09/14/23 19:05 BILATERAL LOWER EXTREMITY VENOUS DOPPLER HISTORY: Acute edema of the lower legs metastatic cancer, edema; r/o DVT COMPARISON STUDY: None. FINDINGS: There is normal compressibility, flow, and augmentation within the bilateral lower extremity deep venous systems. Subcutaneous edema. IMPRESSION: No DVT within the right or left lower extremity. ACT 112: Negative or not required by law. Electronically signed by: Robin Damon M.D. 09/14/2023 9:32 AM PG Care Time/CCT Total # of Minutes Spent Total Time Spent with Patient: Total time spent is greater than 50% in coordination of care (as documented) at patient's floor/unit and/or counseling patient: Coding Level of Care Code 12077 SUB INP/OBS CARE 235MIN Diagnoses Acute urinary retention R33.8 MARIN (acute kidney injury) N17.9 Elevated PSA R97.20 Bladder outlet obstruction N32.0 Pulmonary nodules/lesions, multiple R91.8 Bilateral hydronephrosis N13.30 Diabetes E11.9; Z79.4 Diabetes mellitus type: type 2 Diabetes mellitus termite inspector insulin use: with skilled nursing use Diabetes mellitus complication status: without complication Hypertension I10 Hypertension type: essential hypertension Lower extremity edema R60.0 Weight loss R63.4 OA (osteoarthritis) of knee M17.10 BPH (benign prostatic hyperplasia) N40.0 Bony sclerosis Q78.2 Urinary tract infection N39.0 Microcytic anemia D50.9 Hyponatremia E87.1 (7) Diabetes Diabetes mellitus type: type 2 Diabetes mellitus skilled nursing insulin use: with skilled nursing use Diabetes mellitus complication status: without complication Qualified Code(s): E11.9 - Type 2 diabetes mellitus without complications; Z79.4 - termite inspector (current) use of insulin (8) Hypertension Hypertension type: essential hypertension Qualified Code(s): I10 - Essential (primary) hypertension
[2023-09-14] MEDS ORDERED: DOCUSATE SODIUM SYRUP 100 MG/10 ML UDC PO SCH (21:00)
[2023-09-14] MEDS: LORazepam 0.5 MG TAB PO PRN (22:29)
[2023-09-14] MEDS: ATORVASTATIN 40 MG TAB PO SCH (22:31)
[2023-09-14] MEDS: TAMSULOSIN HCL 0.4 MG CAP PO SCH (22:31)
[2023-09-14] MEDS: ASPIRIN 81 MG ECTAB PO SCH (22:32)
[2023-09-15] MEDS: INSULIN ASPART PER UNIT CHARGE SC SCH ×2 (08:25→12:18)
[2023-09-15] MEDS: DICLOFENAC SOD 1% GEL 100 GM TUBE EXT SCH ×2 (08:28→12:03)
[2023-09-15] MEDS: POTASSIUM CHLORIDE 10 MEQ TABCR PO SCH (08:29)
[2023-09-15] MEDS: FINASTERIDE 5 MG TAB PO SCH (08:31)
[2023-09-15] MEDS: METOPROLOL TARTRATE 25 MG TAB PO SCH (08:31)
[2023-09-15] MEDS ORDERED: DOCUSATE SODIUM 100 MG CAP PO SCH (09:00)
[2023-09-15 09:07] LABS: Basophils # (auto) 0.05 K/uL (0.00-0.20); Basophils % (auto) 0.7 %; Eosinophils # (auto) 0.36 K/uL (0.00-0.50); Eosinophils % (auto) 5.2 %; Hematocrit (blood only) 30.4 % (42.0-52.0); Hemoglobin 9.7 g/dl (14.0-18.0); Immature Granulocytes # (auto) 0.02 K/uL (0.01-0.20); Immature Granulocytes % (auto) 0.3 %; Lymphocytes # (auto) 1.21 K/uL (1.20-3.40); Lymphocytes % (auto) 17.6 %; Mean Corpuscular Hemoglobin 24.6 pg (25.0-34.0); Mean Corpuscular Hgb Conc 31.9 g/dL (32.0-36.0); Mean Corpuscular Volume 77.2 fL (80.0-100.0); Monocytes # (auto) 0.66 K/uL (0.11-0.59); Monocytes % (auto) 9.6 %; Neutrophils # (auto) 4.56 K/uL (1.40-6.50); Neutrophils % (auto) 66.6 %; Platelet Count 433 K/uL (130-400); RDW Standard Deviation 47.9 fL (36.4-46.3); Red Blood Count 3.94 M/uL (4.70-6.10); White Blood Count 6.86 K/ul (4.8-10.8)
[2023-09-15 09:22] LABS: BUN Creatinine Ratio 21.6 (10-20); Calcium 8.1 mg/dl (8.6-10.3); Creatinine Clr Calc Pharmacy 67.5 ml/min; Est GFR (African American) 80.5 ml/min; Est GFR (Non-African American) 69.4 ml/min; Phosphorus 2.7 mg/dl (2.5-4.9); Potassium 4.2 mmol/L (3.5-5.1)
[2023-09-15] MEDS: cefTRIAXone SODIUM 2,000 MG in DEXTROSE 5 % MINI-B 50 ML IV SCH (10:01)
--- NOTE | 2023-09-15 12:57 | Discharge Summary ---
Date of Service September 15, 2023 Admission HPI Per Admitting Provider The patient is an 88-year-old male with a past medical history including BPH, elevated PSA, diabetes mellitus, hypertension, hyperlipidemia, knee osteoarthritis, SNHL and ventral hernia. He presents to the emergency department with worsening difficulty with urination, and prep pelvic pressure. Significant laboratories: WBC 11.49, hemoglobin 9.8, hematocrit 30.6, sodium 129, BUN 30, creatinine 1.40, alkaline phosphatase 440 H Urinalysis is positive for infection CT scan of head is negative CT scan of abdomen and pelvis shows left greater than right hydronephrosis, chronic bladder outlet obstruction, pulmonary nodules, left pelvic sidewall lymphadenopathy, and diffuse sclerotic changes throughout the skeleton, concerning for metastatic prostate cancer Admission Exam Per Admitting Provider The patient is awake, alert and oriented 3, well developed and well nourished, normocephalic and atraumatic, lying in bed and in no acute distress. HEENT--PERRL, EOMI, mucous membranes and oropharynx normal Neck--supple. No JVD. No bruits. Thyroid normal, trachea midline, no adenopathy. Heart--normal S1 and S2. No murmurs, rubs or gallops. Lungs--clear bilaterally, no respiratory distress, no accessory muscle use. Abdomen--normal bowel sounds and soft. Nontender. Palpable bladder Extremities-- 2+ bilateral pretibial pitting edema Dermatologic--normal skin turgor, normal color, no abnormal lymph nodes, no rash. Neurologic--cranial nerves II through XII grossly intact. Rheumatologic--normal range of motion. Psychiatric--normal affect. Principal Diagnosis 1. Acute urinary retention. Being discharged with a Griffin catheter in place 2. Acute kidney injury. Secondary to obstructive uropathy. Resolved 3. Elevated PSA, concerning for prostate cancer. He will need a outpatient prostate biopsy. 4. Multiple lung nodules. Worrisome for metastatic disease Discharge Exam general: Awake, conversant Heart: S1, S2/regular rate and rhythm, no murmur rubs or gallops Lungs: Clear to auscultation bilaterally. Normal effort Abdomen: Soft/nontender/nondistended. No hepatosplenomegaly Extremities: No clubbing/cyanosis. No edema Behavior: Appropriate, cooperative Discharge Data Allergies Allergy/AdvReac Type Severity Reaction Status Date / Time adhesive tape Allergy Severe Red Verified 09/12/23 19:23 irritation No Known Drug Allergies Allergy 0 Verified 09/12/23 19:23 Consultations 09/12/23 20:51 ED Decision to Admit Stat 09/13/23 01:11 Consult Urology Routine Ordered Studies 09/12/23 18:43 CT abd pelvis wo con Stat CT head/brain wo con Stat 09/14/23 19:05 US venous doppler LE BI Routine Hospital Course (1) Acute urinary retention: s/p griffin insertion 2nd to BPH cont finasteride cont flomax will need griffin at time of hospital d/c Outpatient urology follow-up (2) MARIN (acute kidney injury): Cr 1.6 earlier this month then 1.4 at admission now 1.02 Resolved Secondary to obstructive uropathy (3) Elevated PSA: 40.8 - 07/[address] findings - pulmonary nodules, enlarged pelvic lymph nodes, sclerotic bony lesions - all worrisome for metastatic prostate ca appreciate urology consultation urology considering outpatient biopsy - see their consultation note Outpatient follow-up with urology (4) Bladder outlet obstruction: 2nd BPH, probable prostate ca, etc s/p griffin insertion cont finasteride cont flomax (5) Pulmonary nodules/lesions, multiple: very worrisome for metastatic disease CT a/p findings point towards probable prostate ca Asked nurse navigator to inform oncology about a likely referral soon, once biopsy completed and resulted. (6) Bilateral hydronephrosis: 2nd to chronic bladder outlet obstruction should improve with griffin placement has kidney stones but none are causing obstruction (7) Diabetes: hba1c 6.4% DM diet ac/hs BSGs loose novolog sliding scale Noted that the patient has been using a total of 16 to 20 units/day. He is on a large insulin regimen of 110 units daily. Spoke to the and discharged him on 10 units of NovoLog 70/30 FlexPen twice daily which is a much smaller dose than his usual home dose. He has been advised to follow-up with his PCP within 1 week (8) Hypertension: reasonable control on current home regimen of meds - metoprolol, flomax (latter mainly for BPH) (9) Lower extremity edema: improved s/p lasix given this am much improved - minimal edema at this time Venous duplex ultrasound ruled out DVT (10) Weight loss: presumed 2nd to suspected stage 4 cancer (11) OA (osteoarthritis) of knee: right knee start voltaren gel 4gm QID (12) BPH (benign prostatic hyperplasia): cont finasteride cont flomax cont griffin (13) Bony sclerosis: highly concerning for metastatic cancer likely prostate in origin (14) Urinary tract infection: culture pending - but culture unfortunately was sent AFTER abx was sent [id number] cont rocephin we will discharge on p.o. Keflex (15) Microcytic anemia: (16) Hyponatremia: admitting physician felt that low sodium was due to a volume overloaded state received IV lasix with brisk diuresis he does not examine in CHF despite the recent edema discharged on his home dose of Lasix Plan discharged today Total Time Total Time Spent Total Time Spent (In Minutes): 35 Discharge Plan Discharge Items Patient Disposition: Home - Home Health Services Reason For Visit: UTI, PROSTATITIS, BLADDER OUTLET OBSTRUCTION Discharge Diagnosis: 1. Acute urinary retention. Being discharged with a Griffin catheter in place 2. Acute kidney injury. Secondary to obstructive uropathy. Resolved 3. Elevated PSA, concerning for prostate cancer. He will need a outpatient prostate biopsy. 4. Multiple lung nodules. Worrisome for metastatic disease Activity: Resume your previous activity Non-emergency contact: Primary Care Provider Call non-emergency contact if: you have any medication questions and your symptoms worsen Follow-up/Referrals: Don Banks DO [Primary Care Provider] - 09/22/23 11:20 am Parveen Saleh MD [Physician] - 10/04/23 4:00 pm Diet: Carb Consistent or DM2 Addtl Attending Provider Instructions: Advised to follow-up with PCP in 1 week Advised to follow-up with urology Advised to note that you are being discharged with a Griffin catheter in place. Advised to note that you will need a prostate biopsy as there are findings concerning for prostate cancer and metastatic disease. Once the biopsy is done and has resulted, you will be referred to oncology. Pending Studies at Discharge: No Stand-Alone Forms: [facility] Medications and DC Order Prescriptions: New cephalexin 500 mg capsule 500 mg PO BID 4 Days Qty: 8 0RF insulin asp prt-insulin aspart [Novolog Mix 70-30FlexPen U-100] 100 unit/mL (70-30) insulin pen 10 unit subcut BID Qty: 15 0RF Continued lorazepam 0.5 mg tablet 0.5 mg PO DAILY PRN (Reason: sleep) Qty: 30 0RF tamsulosin [Flomax] 0.4 mg capsule 0.4 mg PO DAILY Qty: 30 2RF coenzyme Q10 100 mg capsule 100 mg PO DAILY dutasteride [Avodart] 0.5 mg capsule 0.5 mg PO DAILY Qty: 90 3RF furosemide 40 mg tablet 40 mg PO BID Qty: 180 3RF lisinopril 10 mg tablet 10 mg PO DAILY Qty: 90 3RF metformin 1,000 mg tablet 1,000 mg PO BID Qty: 180 3RF aspirin [Aspir-81] 81 mg tablet,delayed release (DR/EC) 81 mg PO QPM atorvastatin 40 mg tablet 40 mg PO QPM Rx Instructions: TAKE 1 TABLET BY MOUTH EVERY DAY potassium chloride 10 mEq tablet extended release 10 meq PO BID Rx Instructions: TAKE 1 TABLET BY MOUTH TWICE A DAY metoprolol tartrate 25 mg tablet 25 mg PO BID Rx Instructions: TAKE 1 (ONE) TABLET BY MOUTH TWICE DAILY Discontinued insulin asp prt-insulin aspart [Novolog Mix 70-30FlexPen U-100] 100 unit/mL (70-30) insulin pen See Rx Instructions .ROUTE .COMPLEX Qty: 105 11RF Dose Instruction: INJECT 75 UNITS UNDER THE SKIN IN THE MORNING AND 40 UNITS IN THE EVENING Rx Instructions: INJECT 75 UNITS UNDER THE SKIN IN THE MORNING AND 40 UNITS IN THE EVENING Discharge Orders: Discharge Order (Routine); Ordered 09/15/23 Ordered By: Francisco Grider/Other Patient Handouts: Managing Type 2 Diabetes, Indwelling Urinary Catheter Dc Admission Data Admit Date/Time: 09/12/23 21:50 Attending Provider: Francisco Rodgers Admit Provider: Andrew Wang Primary Care Provider: Don Banks Other Providers: Andrew Wang ; Yosi Fofana ; [facility] Other Interventions: Discharge Summary Assessment (RN) Last Done: 09/15/23 14:39 Coding Level of Care Code 90171 INP/OBS DISCH >30 MIN Diagnoses Acute urinary retention R33.8 MARIN (acute kidney injury) N17.9 Elevated PSA R97.20 Bladder outlet obstruction N32.0 Pulmonary nodules/lesions, multiple R91.8 Bilateral hydronephrosis N13.30 Diabetes E11.9; Z79.4 Diabetes mellitus complication status: without complication Diabetes mellitus intermission coordinator insulin use: with chcf use Diabetes mellitus type: type 2 Hypertension I10 Hypertension type: essential hypertension Lower extremity edema R60.0 Weight loss R63.4 OA (osteoarthritis) of knee M17.10 BPH (benign prostatic hyperplasia) N40.0 Bony sclerosis Q78.2 Urinary tract infection N39.0 Microcytic anemia D50.9 Hyponatremia E87.1
== END 2023-09-15 15:34 | disposition home health service (06) | DRG 683 ==
LOC: ED 14:52 → INTOOBSV 21:50 → EDINP 21:50 → SUATTDRO 21:50 → 3N 09-13 00:49

== ENCOUNTER 2023-12-03 19:13 | Inpatient (IN) ==
--- NOTE | 2023-12-03 19:30 | Emergency Department Note ---
Impression & Plan Acute UTI (urinary tract infection), Acute hyponatremia, Weakness ED Provider Note NAME: TERESSA TORRES AGE: 88 SEX: M : 1935 ARRIVES VIA: Ambulance INFORMANT: Patient, EMS ED PROVIDER(S): Carlos Knutson DO CHIEF COMPLAINT: Weakness HPI: the patient is an 88-year-old male who presented to the emergency department by ambulance for an evaluation of weakness. The patient had multiple falls today. He was trying to stand from his chair and each time he would go to the ground because his legs became very weak. There was no reported trauma. There is no loss of conscious. The patient has been having decreased p.o. intake. There was also a low-grade fever reported prior to arrival. The patient denies having any rectal bleeding. He denies having any headache or chest pain. The patient denies having any fever but he was noted to have a low- grade fever prior to arrival. ROS: See above HPI for pertinent positives & negatives. A total of 10 systems reviewed and were otherwise negative. PAST MEDICAL HISTORY: See Below PAST SURGICAL HISTORY: See Below FAMILY HISTORY: See Below SOCIAL HISTORY: See Below HOME MEDICATIONS: See Below ALLERGIES: See Below VITALS: See Below PHYSICAL EXAMINATION: GENERAL: The patient is awake and looking around the room. He is not appearing uncomfortable. EYES: The conjunctivae are clear. The pupils are round and reactive. EARS, NOSE, MOUTH AND THROAT: The nose is without any evidence of any deformity. Mucous membranes are dry. NECK: The neck is nontender and supple. RESPIRATORY: Normal respiratory effort is noted there is no evidence of wheezing rhonchi or rales CARDIOVASCULAR: Regular rate and rhythm noted there no murmurs rubs or gallops normal S1 normal S2. GASTROINTESTINAL: The abdomen was mildly distended. There is no tenderness guarding rigidity elicited. MUSCULOSKELETAL/EXTREMITIES: There is no evidence of gross deformity full range of motion is noted in the hips and shoulders. SKIN: Pedal edema was noted bilaterally. NEUROLOGIC: Patient is awake and oriented to person place and situation. Strength was diminished but symmetric. Speech was clear. MEDICAL DECISION MAKING: The patient is an 88-year-old male who has a history of prostate cancer who presented to the emergency department for altered mental status and weakness. The patient had recent procedure on his prostate. He had a low-grade fever prior to arrival. The patient was treated with IV fluids and IV antibiotics in emergency department. He was reevaluated multiple times. I discussed patient's laboratory and radiographic studies with him and his family members. Given his findings I do feel the patient may be a better candidate for inpatient management for IV antibiotics. His previous urine cultures reviewed. He was treated with Rocephin and may require coverage for Staphylococcus species. I will defer this to the admitting team. I [facility] this [facility] They have agreed to evaluate the patient in the emergency department for further management and disposition. Triage Nursing notes reviewed. Prior medical records reviewed Vital Signs: reviewed and remarkable for elevated blood pressure. Differential diagnosis: Infection, dehydration, metabolic abnormality, hypo/hyperglycemia, electrolyte disturbance, anemia, hypoxia, cardiac sources, intracerebral event, toxicologic, neurologic, as well as other pathologies. ER treatment provided: See below Diagnostics interpreted by me: ECG: EKG was obtained in the emergency department. My interpretation is sinus rhythm at 77 bpm. Nonspecific interventricular conduction delay was noted. PVCs were noted. This was compared to a tracing from September 12, 2023. No changes were noted. Cardiac Monitoring: An order was placed for continuous cardiac monitoring. The monitor shows a rate of 80 bpm with sinus rhythm. Laboratory studies: As stated above and show below. Imaging studies: See below. Radiographic imaging was reviewed by myself Consultation(s): I discussed this case with Dr. Wang who [facility] Past Med/Surg History Medical History CKD (chronic kidney disease) Hx of iron deficiency anemia recent infusion 11/16/23, next scheduled 11/24/23 History of prostate cancer dx 08/2023, "no tx yet, has not started medication yet" Hx of insomnia Hx of basal cell carcinoma OA (osteoarthritis) of knee Unruptured popliteal cyst History of SCC (squamous cell carcinoma) of skin Acute CVA (cerebrovascular accident) ~2014, "garbled" speech, taken to [facility]>no residual effects Diabetes mellitus, type 2 IDDM Hypertension Hyperlipidemia Surgical History Hx of tonsillectomy Hx of bilateral cataract extraction Hx of umbilical hernia repair Hx of squamous cell carcinoma excision face Hx of basal cell carcinoma excision face Hx of tooth extraction All teeth removed; partial plate upper and lower jaw History of colonoscopy Family History Mother Cancer Father Diabetes Other Heart disease Stroke Denies family history of Hearing loss No family history of adverse response to anesthesia No family history of bleeding disorder Allergies Asthma Social History Smoking Status: Never smoker Second Hand Exposure: No; Do You Dip or Chew Tobacco: No; Hx Alcohol Use: Yes (hardly ever drank, no longer does) Alcohol type: beer Hx Substance Use: No Preferred Language: Bengali Communication Ability: Effective Visual Impairment: No Limitations Hearing Ability: Normal Weigh And Charge Worker Required: No Beliefs That Will Affect Care: None marital status: Current Living Situation: Spouse current occupational status: retired How many Children do You have: 3 Feels Safe at Home: Yes Childhood Exposure to Second-Hand Smoke: Yes Diet: regular caffeine: No during the past year weight has: remained stable Dental Care, Regularly: Yes Physical Activity Frequency: Does not Exercise Seatbelt Use: always Sunscreen Use: Yes Assistive Devices: Denture - Upper, Denture - Lower, Glasses and Walker Allergies Allergies Allergy/AdvReac Type Severity Reaction Status Date / Time adhesive tape Allergy Severe RED Verified 12/03/23 20:28 IRRITATED SKIN Home Meds Home Medications Medication Instructions Recorded Confirmed coenzyme Q10 100 mg capsule 100 mg PO QAM 08/03/19 12/03/23 atorvastatin 40 mg tablet 40 mg PO QPM 09/12/23 12/03/23 metoprolol tartrate 25 mg tablet 25 mg PO BID 09/12/23 12/03/23 potassium chloride 10 mEq 10 meq PO BID 09/12/23 12/03/23 tablet,extended release bicalutamide 50 mg tablet 50 mg PO DAILY 11/17/23 12/03/23 dutasteride 0.5 mg capsule 0.5 mg PO QAM 11/17/23 12/03/23 (Avodart) lisinopril 10 mg tablet 10 mg PO QAM 11/17/23 12/03/23 aspirin 81 mg tablet,delayed 81 mg PO QPM 12/03/23 12/03/23 release Previous Rx's Medication Instructions Recorded furosemide 40 mg tablet 40 mg PO BID #180 tabs 08/10/23 metformin 1,000 mg tablet 1,000 mg PO BID #180 tabs 08/10/23 insulin aspar prot-insulin aspart 20 unit (0.2 mL) subcut BID #15 mL 09/22/23 100 unit/mL (70-30) subcutaneous pen (Novolog Mix 70-30FlexPen U-100) lorazepam 0.5 mg tablet 0.5 mg PO DAILY PRN sleep #30 tabs 11/19/23 tamsulosin 0.4 mg capsule (Flomax) 0.4 mg PO QAM #90 caps 11/19/23 Results & Data (ED) Vital Signs Vital Signs - 24 hr 12/03/23 19:28 12/03/23 19:30 12/03/23 19:30 Temperature 36.7 C Temperature Source Oral Pulse Rate 79 80 76 Respiratory Rate 16 28 H Respiratory Effort / Characteristics Non-Labored Respiratory Depth Normal Blood Pressure 135/79 135/87 Blood Pressure Mean 97 103 Pulse Oximetry 95 97 Oxygen Delivery Method Room Air Sepsis Recent Fever Within 48 Hours No Sepsis New/Unexplained Change in Mental Status N/A Sepsis Action Taken by Nursing No Action Required 12/03/23 20:10 12/03/23 21:29 12/03/23 21:30 Temperature Temperature Source Pulse Rate 83 79 Respiratory Rate 24 20 Respiratory Effort / Characteristics Respiratory Depth Blood Pressure 128/53 L 130/48 L Blood Pressure Mean 78 75 Pulse Oximetry 97 97 96 Oxygen Delivery Method Room Air Sepsis Recent Fever Within 48 Hours Sepsis New/Unexplained Change in Mental Status Sepsis Action Taken by Nursing 12/03/23 22:00 12/03/23 22:30 12/03/23 23:00 Temperature Temperature Source Pulse Rate 83 102 H 80 Respiratory Rate 20 20 22 Respiratory Effort / Characteristics Respiratory Depth Blood Pressure 127/69 128/104 H 143/72 H Blood Pressure Mean 88 112 95 Pulse Oximetry 98 95 97 Oxygen Delivery Method Sepsis Recent Fever Within 48 Hours Sepsis New/Unexplained Change in Mental Status Sepsis Action Taken by Long Term Medications Current Medication List: was personally reviewed by me Laboratory Data Attestation: I reviewed the patient's lab results. 12/03/23 19:45 12/03/23 19:45 Lab Results 12/03/23 12/03/23 Range/Units 19:37 19:45 WBC 9.76 (4.8-10.8) K/ul RBC 3.64 L (4.70-6.10) M/uL Hgb 9.6 L (14.0-18.0) g/dl Hct 29.4 L (42.0-52.0) % MCV 80.8 (80.0-100.0) fL MCH 26.4 (25.0-34.0) pg MCHC 32.7 (32.0-36.0) g/dL RDW Std Deviation 67.8 H (36.4-46.3) fL RDW Coeff of Braeden 23.3 H (11.5-14.5) % Plt Count 305 (130-400) K/uL MPV 9.4 (9.4-12.4) fL Immature Gran % (Auto) 0.5 % Neut % (Auto) 82.7 % Lymph % (Auto) 6.1 % Mcmullen % (Auto) 10.2 % Eos % (Auto) 0.2 % Baso % (Auto) 0.3 % Neut # (Auto) 8.06 H (1.40-6.50) K/uL Lymph # (Auto) 0.60 L (1.20-3.40) K/uL Mcmullen # (Auto) 1.00 H (0.11-0.59) K/uL Eos # (Auto) 0.02 (0.00-0.50) K/uL Baso # (Auto) 0.03 (0.00-0.20) K/uL Immature Gran # (Auto) 0.05 (0.01-0.20) K/uL Poikilocytosis Present Anisocytosis Present Ovalocytes 1+ Acanthocytes (Spur) 1+ PT 12.2 H (9.0-12.0) Seconds INR 1.1 (0.9-1.1) Sodium 129 L (136-145) mmol/L Potassium 4.4 (3.5-5.1) mmol/L Chloride 96 L (98-107) mmol/L Carbon Dioxide 22 (21-32) mmol/L Anion Gap 11 (3-11) BUN 28 H (6-23) mg/dl Creatinine 1.65 H (0.6-1.4) mg/dl Est Cr Clr Drug Dosing 37.9 ml/min Est GFR ( Amer) 42.3 ml/min Est GFR (Non-Af Amer) 36.5 ml/min BUN/Creatinine Ratio 17.0 (10-20) Glucose 177 H (70-99(Fasting)) mg/dl Osmolality 276 L (280-300) mOsm/kg Lactate 2.0 (0.4-2.0) mmol/L Calcium 8.0 L (8.6-10.3) mg/dl Magnesium 1.6 L (1.7-2.4) mg/dl Total Bilirubin 0.8 (0.2-1.0) mg/dl AST 11 L (13-39) U/L ALT 6 L (7-52) U/L Alkaline Phosphatase 712 H (34-104) U/L Troponin I High Sens 15.5 (0-20) pg/ml Total Protein 6.3 (6.0-8.3) gm/dl Albumin 3.3 L (3.4-5.0) gm/dl Globulin 3.0 (2.5-4.0) gm/dl Albumin/Globulin Ratio 1.1 (0.9-2) Procalcitonin 0.16 (0-0.5) ng/ml TSH 2.357 (0.300-4.500) uIu/ml Urine Color Yellow Urine Appearance Turbid A (Clear) Urine pH 7.0 (4.5-7.5) Ur Specific [place] 1.015 (1.000-1.030) Urine Protein 2+ H (Negative) Urine Glucose (UA) Negative (Negative) Urine Ketones Trace H (Negative) Urine Blood 3+ H (Negative) Urine Nitrite Negative (Negative) Urine Bilirubin Negative (Negative) Urine Urobilinogen Negative (Negative) Ur Leukocyte Esterase 3+ H (Negative) Urine WBC (Auto) >30 H (0-5) /hpf Urine RBC (Auto) 10-30 H (0-4) /hpf U Hyaline Cast (Auto) 1-5 (0-5) /lpf U Epithel Cells (Auto) 0-5 (0-5) /lpf Urine Bacteria (Auto) 4+ H (Negative) Urine Yeast Not Reportable Adenovirus (PCR) Not Detected (NotDetected) B. pertussis DNA (PCR) Not Detected (NotDetected) B.parapertussis DNA PCR Not Detected (NotDetected) C. pneumoniae DNA (PCR) Not Detected (NotDetected) Coronavirus OC43 (PCR) Not Detected (NotDetected) Coronavirus HKU1 (PCR) Not Detected (NotDetected) Coronavirus 229E (PCR) Not Detected (NotDetected) SARS-CoV-2 (PCR) Not Detected (NotDetected) Coronavirus NL63 (PCR) Not Detected (NotDetected) Human Metapneumovir PCR Not Detected (NotDetected) Influenza Type A (PCR) Not Detected (NotDetected) Influenza Type B (PCR) Not Detected (NotDetected) M. pneumoniae (PCR) Not Detected (NotDetected) Parainfluenza 1 (PCR) Not Detected (NotDetected) Parainfluenza 2 (PCR) Not Detected (NotDetected) Parainfluenza 3 (PCR) Not Detected (NotDetected) Parainfluenza 4 (PCR) Not Detected (NotDetected) RSV (PCR) Not Detected (NotDetected) Entero/Rhino (PCR) Not Detected (NotDetected) Blood Type O Positive Antibody Screen NEGATIVE Administered Medications Lactated Ringer's (Lr) 1,000 mls @ 80 mls/hr IV .[id number] VANESSA Stop: 12/04/23 23:29 Last Admin: 12/03/23 22:39 Dose: 80 mls/hr Documented By: GERRY Discontinued Medications Aspirin (Aspirin 81 Mg Ectab) 81 mg PO NOW ONE Stop: 12/03/23 22:05 Last Admin: 12/03/23 22:39 Dose: 81 mg Documented By: GERRY Atorvastatin Calcium (Atorvastatin 40 Mg Tab) 40 mg PO QAM ONE Stop: 12/03/23 22:05 Last Admin: 12/03/23 22:38 Dose: 40 mg Documented By: GERRY Ceftriaxone Sodium (Rocephin) 2,000 mg in 50 mls @ 100 mls/hr IV NOW STA Stop: 12/03/23 21:10 Last Infusion: 12/03/23 22:05 Dose: Infused Documented By: Admin: 12/03/23 21:25 Dose: 100 mls/hr Documented By: GERRY Sodium Chloride (Nss) 500 mls @ 999 mls/hr IV .Q31M ONE Stop: 12/03/23 21:11 Last Infusion: 12/03/23 22:06 Dose: Infused Documented By: Admin: 12/03/23 21:25 Dose: 999 mls/hr Documented By: GERRY Lorazepam (Lorazepam 0.5 Mg Tab) 0.5 mg PO PRN ONE Stop: 12/03/23 22:07 Last Admin: 12/03/23 22:39 Dose: 0.5 mg Documented By: GERRY Melatonin (Melatonin 3 Mg Tab) 3 mg PO PRN ONE Stop: 12/03/23 22:06 Last Admin: 12/03/23 22:39 Dose: 3 mg Documented By: GERRY Metoprolol Tartrate (Metoprolol Tartrate 25 Mg Tab) 25 mg PO QAM ONE Stop: 12/03/23 22:06 Last Admin: 12/03/23 22:39 Dose: 25 mg Documented By: GERRY Tamsulosin HCl (Tamsulosin Hcl 0.4 Mg Cap) 0.8 mg PO NOW ONE Stop: 12/03/23 22:04 Last Admin: 12/03/23 22:39 Dose: 0.8 mg Documented By: GERRY Imaging Data Attestation: I personally reviewed and interpreted this imaging study as follows: My Impression: 1 view chest x-ray was obtained in the emergency department. My interpretation is fluid in the minor fissure on the right lung field, mild volume overload was noted, there is no free air, this was compared to a chest x-ray from September 12, 2023. No significant changes were noted Radiologist's Impression: Chest X-Ray 12/03/23 19:15 SINGLE VIEW CHEST CLINICAL HISTORY: Generalized weakness. FINDINGS: An AP, portable, upright chest radiograph is compared to study dated 09/12/2023. Correlation is made with PET CT dated 11/18/2023. The heart is enlarged denoting atherosclerotic calcification of the thoracic aorta. The pulmonary vasculature is noncongested. Chronic interstitial thickening and nodularity is similar to previous. There is mild bibasilar scarring/atelectasis. Foci of peripheral scarring are seen throughout both lungs. No airspace consolidation typical for pneumonia or large pleural effusion is identified. No pneumothorax is seen. The skeletal structures are osteopenic. The bony thorax is grossly intact. 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 This was better assessed on the recent PET examination. IMPRESSION: Cardiomegaly with no acute cardiopulmonary abnormality identified. ACT 112: Negative or not required by law. Electronically signed by: James August M.D. 12/03/2023 10:18 PM Discharge Plan Visit Data Chief Complaint: Lethargic Stated Complaint: LETHARGY, ANEMIC ED Provider: Carlos Knutson Discharge Problem: Acute UTI (urinary tract infection), Acute hyponatremia, Weakness Patient Disposition: Being Evaluated by Hospitalist Discharge Instructions Interventions: ED Discharge Assessment Last Done: 12/03/23 23:25 Forms Stand Alone Forms: My [facility] Highlighter Prescriptions Prescriptions: No Action tamsulosin [Flomax] 0.4 mg capsule 0.4 mg PO QAM Qty: 90 1RF lorazepam 0.5 mg tablet 0.5 mg PO DAILY PRN (Reason: sleep) Qty: 30 0RF coenzyme Q10 100 mg capsule 100 mg PO QAM furosemide 40 mg tablet 40 mg PO BID Qty: 180 3RF metformin 1,000 mg tablet 1,000 mg PO BID Qty: 180 3RF insulin asp prt-insulin aspart [Novolog Mix 70-30FlexPen U-100] 100 unit/mL (70-30) insulin pen 20 unit subcut BID Qty: 15 0RF atorvastatin 40 mg tablet 40 mg PO QPM Rx Instructions: TAKE 1 TABLET BY MOUTH EVERY DAY potassium chloride 10 mEq tablet extended release 10 meq PO BID Rx Instructions: TAKE 1 TABLET BY MOUTH TWICE A DAY metoprolol tartrate 25 mg tablet 25 mg PO BID Rx Instructions: TAKE 1 (ONE) TABLET BY MOUTH TWICE DAILY aspirin 81 mg Tablet,Delayed Release (Dr/Ec) 81 mg PO QPM bicalutamide 50 mg Tablet 50 mg PO DAILY Patient Comments: has not started yet, as of 11/17/23 lisinopril 10 mg tablet 10 mg PO QAM dutasteride [Avodart] 0.5 mg capsule 0.5 mg PO QAM Referrals Referrals: Don Banks DO [Primary Care Provider] -
[2023-12-03 20:03] LABS: Basophils # (auto) 0.03 K/uL (0.00-0.20); Basophils % (auto) 0.3 %; Eosinophils # (auto) 0.02 K/uL (0.00-0.50); Eosinophils % (auto) 0.2 %; Hematocrit (blood only) 29.4 % (42.0-52.0); Hemoglobin 9.6 g/dl (14.0-18.0); Immature Granulocytes # (auto) 0.05 K/uL (0.01-0.20); Immature Granulocytes % (auto) 0.5 %; Lymphocytes % (auto) 6.1 %; Mean Corpuscular Hemoglobin 26.4 pg (25.0-34.0); Mean Corpuscular Hgb Conc 32.7 g/dL (32.0-36.0); Mean Corpuscular Volume 80.8 fL (80.0-100.0); Mean Platelet Volume 9.4 fL (9.4-12.4); Monocytes % (auto) 10.2 %; Neutrophils # (auto) 8.06 K/uL (1.40-6.50); Neutrophils % (auto) 82.7 %; Platelet Count 305 K/uL (130-400); RDW Coefficient of Variation 23.3 % (11.5-14.5); RDW Standard Deviation 67.8 fL (36.4-46.3); Red Blood Count 3.64 M/uL (4.70-6.10); White Blood Count 9.76 K/ul (4.8-10.8)
[2023-12-03 20:14] LABS: INR 1.1 (0.9-1.1); Prothrombin Time 12.2 Seconds (9.0-12.0)
[2023-12-03 20:14] LABS: Appearance Urine Turbid (Clear); Bilirubin Urine Negative (Negative); Blood Urine 3+ (Negative); Color Urine Yellow; Epithelial Cell Urine Auto 0-5 /lpf (0-5); Glucose Urine UA Negative (Negative); Ketones Urine Trace (Negative); Leukocyte Esterase Urine 3+ (Negative); Nitrite Urine Negative (Negative); Protein Urine 2+ (Negative); Specific Gravity Urine 1.015 (1.000-1.030); Urobilinogen Urine Negative (Negative); WBC Urine Automated >30 /hpf (0-5)
[2023-12-03 20:22] LABS: Acanthocytes 1+; Anisocytosis Present; Ovalocytes 1+; Poikilocytosis Present
[2023-12-03 20:39] LABS: Albumin Globulin Ratio 1.1 (0.9-2); Albumin Level 3.3 gm/dl (3.4-5.0); Bilirubin,Total 0.8 mg/dl (0.2-1.0); Creatinine Clr Calc Pharmacy 37.9 ml/min; Est GFR (African American) 42.3 ml/min; Est GFR (Non-African American) 36.5 ml/min; Magnesium 1.6 mg/dl (1.7-2.4); Potassium 4.4 mmol/L (3.5-5.1); Total Protein 6.3 gm/dl (6.0-8.3)
[2023-12-03] MEDS ORDERED: SODIUM CHLORIDE 0.9% 500 ML IV ONE (20:41)
[2023-12-03] MEDS ORDERED: cefTRIAXone SODIUM 2,000 MG/50 ML BAG IV STA (20:41)
[2023-12-03 20:44] LABS: Troponin I High Sensitivity 15.5 pg/ml (0-20)
[2023-12-03 20:45] LABS: Bacteria Urine Automated 4+ (Negative)
[2023-12-03 20:54] LABS: Thyroid Stimulating Hormone 2.357 uIu/ml (0.300-4.500)
[2023-12-03 20:58] LABS: Adenovirus PCR Not Detected (NotDetected); Bordetella parapertussis PCR Not Detected (NotDetected); Bordetella pertussis PCR Not Detected (NotDetected); Chlamydia pneumoniae PCR Not Detected (NotDetected); Coronavirus 229E PCR Not Detected (NotDetected); Coronavirus CoV-2 (COVID19)PCR Not Detected (NotDetected); Coronavirus HKU1 PCR Not Detected (NotDetected); Coronavirus NL63 PCR Not Detected (NotDetected); Coronavirus OC43PCR Not Detected (NotDetected); Human Metapneumovirus PCR Not Detected (NotDetected); Influenza A PCR Not Detected (NotDetected); Influenza B PCR Not Detected (NotDetected); Mycoplasma pneumoniae PCR Not Detected (NotDetected); Parainfluenza Virus 1 PCR Not Detected (NotDetected); Parainfluenza Virus 2 PCR Not Detected (NotDetected); Parainfluenza Virus 3 PCR Not Detected (NotDetected); Parainfluenza Virus 4 PCR Not Detected (NotDetected); Respiratory Syncytial VirusPCR Not Detected (NotDetected); Rhinovirus/Enterovirus PCR Not Detected (NotDetected)
--- NOTE | 2023-12-03 21:14 | History & Physical Report ---
Date of Service December 03, 2023 Assessment & Plan (1) Acute UTI (urinary tract infection): Plan: Patient with MRSA on last urine culture 11/09/23. Treated with 7 days of nitrofurantoin which may be contributing to mental status. Will treat with daptomycin for complicated UTI. Narrow based on culture results. hold nephrotoxic agents CTX given /5, continue with daptomycin f/u urine lytes (2) MARIN (acute kidney injury): Plan: Likely multifactorial with decreased PO intake, decreased urination, recent instrumentation, and UTI. On tamsulosin 0.4 mg at home hold nephrotoxic agents f/u urine lytes given one time dose of tamsulosin 0.8 mg, can given additional dosing if indicated fluid resuscitated with 500 mL NS x1, light hydration with 80 mL/hr LR (3) Weakness: Plan: Likely multifactorial with noted UTI, dehydration, and possible medication side effect. Would caution nitrofurantoin use in the elderly as it can impact cognition. (4) Prostate cancer: Plan: Continue home bicalutamide 50 mg. (5) Microcytic anemia: Plan: Chronic. Stable. Has had 2 recent iron infusions. (6) BPH (benign prostatic hyperplasia): Plan: Given 1 time dose of 0.8 mg tamsulosin. Resume home dosing of 0.4 mg tomorrow unless continued higher dosing indicated. (7) Sensorineural hearing loss (SNHL) of left ear with restricted hearing of right ear: Plan: Speak loudly/clearly when speaking to patient (8) Hyperlipidemia: Plan: Continue home statin therapy (9) Hypertension: Plan: Holding lisinopril and lasix in the setting of MARIN. Monitor BP. Continue metoprolol. (10) Diabetes: Plan: Holding metformin in setting of MARIN and inpatient stay. Will do half home basal dosing - 10 units BID with SSI while inpatient. Glycemic consult placed - appreciate recs Plan Code status: DNR/DNI DVT ppx: lovenox SQ FENGI: carb consistent, LR @ 80 mL/hr x2 bags Dispo: MedSurg History of Present Illness Chief Complaint: weakness Primary Care Provider: Don Banks, DO 88 y/o male with a PMHx of CKD, prostate cancer, HTN, HLD, BPH, and TIIDM here for evaluation of weakness. Patient recently underwent REZUM procedure with Dr. Saleh in Urology to help with urine flow 11/25. Patient has a history of prostate cancer. He was recently treated with 7 days of nitrofurantoin for UTI. Last urine culture grew oxacillin and tetracycline resistant staph. In the ED patient was given 500 mL NS in the ED. UA suspicious for infection. Given CTX x1 for presumed UTI. Admission was called. Upon my interview the patient is slow to answer questions, but alert. Son and at bedside who assist in the history taking. Patient generally feeling well and uncomfortable. May have had some subjective low grade fevers. Not entirely clear. No abdominal pain, nausea, or vomiting. No chest pain or shortness of breath. Did have some diarrhea while on antibiotics. Recently started on bicalutamide for prostate cancer. Allergies Allergy/AdvReac Type Severity Reaction Status Date / Time adhesive tape Allergy Severe RED Verified 12/03/23 20:28 IRRITATED SKIN Home Medications Medication Instructions Recorded Confirmed Type coenzyme Q10 100 mg capsule 100 mg PO QAM 08/03/19 12/03/23 History furosemide 40 mg tablet 40 mg PO BID #180 tabs 08/10/23 12/03/23 Rx metformin 1,000 mg tablet 1,000 mg PO BID #180 tabs 08/10/23 12/03/23 Rx atorvastatin 40 mg tablet 40 mg PO QPM 09/12/23 12/03/23 History metoprolol tartrate 25 mg tablet 25 mg PO BID 09/12/23 12/03/23 History potassium chloride 10 mEq 10 meq PO BID 09/12/23 12/03/23 History tablet,extended release insulin aspar prot-insulin aspart 20 unit (0.2 mL) subcut BID #15 mL 09/22/23 12/03/23 Rx 100 unit/mL (70-30) subcutaneous pen (Novolog Mix 70-30FlexPen U-100) bicalutamide 50 mg tablet 50 mg PO DAILY 11/17/23 12/03/23 History dutasteride 0.5 mg capsule 0.5 mg PO QAM 11/17/23 12/03/23 History (Avodart) lisinopril 10 mg tablet 10 mg PO QAM 11/17/23 12/03/23 History lorazepam 0.5 mg tablet 0.5 mg PO DAILY PRN sleep #30 tabs 11/19/23 12/03/23 Rx tamsulosin 0.4 mg capsule (Flomax) 0.4 mg PO QAM #90 caps 11/19/23 12/03/23 Rx aspirin 81 mg tablet,delayed 81 mg PO QPM 12/03/23 12/03/23 History release Past Med/Surg History Medical History CKD (chronic kidney disease) Hx of iron deficiency anemia recent infusion 11/16/23, next scheduled 11/24/23 History of prostate cancer dx 08/2023, "no tx yet, has not started medication yet" Hx of insomnia Hx of basal cell carcinoma OA (osteoarthritis) of knee Unruptured popliteal cyst History of SCC (squamous cell carcinoma) of skin Acute CVA (cerebrovascular accident) ~2014, "garbled" speech, taken to [facility]>no residual effects Diabetes mellitus, type 2 IDDM Hypertension Hyperlipidemia Surgical History Hx of tonsillectomy Hx of bilateral cataract extraction Hx of umbilical hernia repair Hx of squamous cell carcinoma excision face Hx of basal cell carcinoma excision face Hx of tooth extraction All teeth removed; partial plate upper and lower jaw History of colonoscopy Family History Mother Cancer Father Diabetes Other Heart disease Stroke Denies family history of Hearing loss No family history of adverse response to anesthesia No family history of bleeding disorder Allergies Asthma Social History Smoking Status: Never smoker Second Hand Exposure: No; Do You Dip or Chew Tobacco: No; Hx Alcohol Use: No Hx Substance Use: No Preferred Language: Argentine Communication Ability: Effective Visual Impairment: No Limitations Hearing Ability: Normal Manager Therapy Required: No Beliefs That Will Affect Care: None marital status: Current Living Situation: Family current occupational status: retired How many Children do You have: 3 Feels Safe at Home: Yes Childhood Exposure to Second-Hand Smoke: Yes Diet: regular caffeine: No during the past year weight has: remained stable Dental Care, Regularly: Yes Physical Activity Frequency: Does not Exercise Seatbelt Use: always Sunscreen Use: Yes Assistive Devices: Walker Review of Systems 2 Review of Systems: See HPI Physical Exam 2 Physical Exam: Gen: elderly appearing male in NAD, hard of hearing HEENT: AT NC MMM CV: RRR no m/r/g clinically well perfused, no lower extremity edema Resp: CTAB no wheezing no increased work of breathing Abd: soft, non-tender, non-distended no suprapubic tenderness - unable to assess for CVA tenderness Neuro: alert, slow to answer questions but oriented Psych: appropriate mood and affect Skin: no rashes noted Results & Data Results & Data Vital Signs (Past 12 Hours) Vital Signs Temp Pulse Resp BP Pulse Ox O2 Del Method 12/03/23 20:10 97 Room Air 12/03/23 19:30 36.7 C 80 16 135/79 95 Room Air 12/03/23 19:28 79 Laboratory Results 12/03/23 19:45 12/03/23 19:45 Diagnostic Findings Chest X-Ray 12/03/23 19:15 FINDINGS: An AP, portable, upright chest radiograph is compared to study dated 09/12/2023. Correlation is made with PET CT dated 11/18/2023. The heart is enlarged denoting atherosclerotic calcification of the thoracic aorta. The pulmonary vasculature is noncongested. Chronic interstitial thickening and nodularity is similar to previous. There is mild bibasilar scarring/atelectasis. Foci of peripheral scarring are seen throughout both lungs. No airspace consolidation typical for pneumonia or large pleural effusion is identified. No pneumothorax is seen. The skeletal structures are osteopenic. The bony thorax is grossly intact. 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 This was better assessed on the recent PET examination. IMPRESSION: Cardiomegaly with no acute cardiopulmonary abnormality identified. Supervising Physician Co-Signing Physician Notes Attending addendum: I have physically seen this patient, have supervised the medical residents activities, and agree with the H&P unless as otherwise noted. Assessment and Plan: Urinary tract infection/BPH with LUTS- Follow urine culture and sensitivity Most recent urine culture 11/09/2023 growing MRSA Patient just completed a 7-day course of nitrofurantoin Placed on daptomycin IV and ceftriaxone IV With increase tamsulosin from 0.4 to 0.8 mg, changing from morning to bedtime, due to recurrence of urinary tract infections Acute kidney injury- Creatinine 1.65, with base 0.97 received 500 mL normal saline from the ED Placed on LR at 80 mL/h x 1 L Repeat laboratories in a.m. Multiple falls/generalized weakness/mild confusion- May be associated with urinary tract infection itself, the treatment with nitrofurantoin, and/or progression of General debilitation Avoid further treat with nitrofurantoin nitrofurantoin, which he was on for 7 days, in this age group Consult PT/OT Diabetes mellitus- Hold metformin Glargine adjustment as noted Patient Accu-Cheks with NovoLog SSI Remaining orders and notations as noted Resident Activity Tracking Resident Involvement: Resident Care Provided Care Provided: Adult Hospital Medicine (8) Hyperlipidemia Hyperlipidemia type: unspecified Qualified Code(s): E78.5 - Hyperlipidemia, unspecified (9) Hypertension Hypertension type: essential hypertension Qualified Code(s): I10 - Essential (primary) hypertension (10) Diabetes Diabetes mellitus complication status: without complication Diabetes mellitus snf insulin use: with smooth stucco resurfacer use Diabetes mellitus type: type 2 Qualified Code(s): E11.9 - Type 2 diabetes mellitus without complications; Z79.4 - proprietary trader (current) use of insulin
[2023-12-03] MEDS ORDERED: TAMSULOSIN HCL 0.4 MG CAP PO ONE (22:03)
[2023-12-03] MEDS ORDERED: ATORVASTATIN 40 MG TAB PO ONE (22:04)
[2023-12-03] MEDS ORDERED: ASPIRIN 81 MG ECTAB PO ONE (22:04)
[2023-12-03] MEDS ORDERED: MELATONIN 3 MG TAB PO ONE (22:05)
[2023-12-03] MEDS ORDERED: METOPROLOL TARTRATE 25 MG TAB PO ONE (22:05)
[2023-12-03] MEDS ORDERED: LORazepam 0.5 MG TAB PO ONE (22:06)
--- NOTE | 2023-12-03 22:19 | XRay Report ---
SINGLE VIEW CHEST CLINICAL HISTORY: Generalized weakness. FINDINGS: An AP, portable, upright chest radiograph is compared to study dated 09/12/2023. Correlatio n is made with PET CT dated 11/18/2023. The heart is enlarged denoting atherosclerotic calcification of the thoracic aorta. The pulmonary vasculature is noncongested. Chronic interstitial thickening and nodularity is similar to previous. There is mild bibasilar scarring/atelectasis. Foci of peripheral scarring are seen throughout both lungs. No airspace consolidation typical for pneumonia or large ple ural effusion is identified. No pneumothorax is seen. The skeletal structures are osteopenic. The bon y thorax is grossly intact. 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 This was sriram r assessed on the recent PET examination. IMPRESSION: Cardiomegaly with no acute cardiopulmonary abnormality identified. ACT 112: Negative or not required by law. Electronically signed by: James August M.D. 12/03/2023 10:18 PM
[2023-12-03] MEDS ORDERED: GLUCOSE 40% GEL 15 GM TUBE PO PRN (22:27)
[2023-12-03] MEDS ORDERED: PHARMACY GLYCEMIC MGMT CONSULT PRN (22:27)
[2023-12-03] MEDS ORDERED: GLUCAGON FOR INJ 1 MG VIAL SQ PRN (22:27)
[2023-12-03] MEDS ORDERED: DEXTROSE 50% 50 ML SYRINGE IV PRN (22:27)
[2023-12-03] MEDS ORDERED: CARBOHYDRATES FOR HYPOGLYCEMIA PO PRN (22:27)
[2023-12-03] MEDS ORDERED: GLUCOSE 10 TAB/TUBE PO PRN (22:27)
[2023-12-03] MEDS: LACTATED RINGER'S 1,000 ML IV SCH (22:39)
[2023-12-04] MEDS ORDERED: POLYETHYLENE (MIRALAX) 17 GM PACK PO PRN (00:14)
[2023-12-04] MEDS ORDERED: INSULIN ASPART PER UNIT CHARGE SC ONE (01:00)
[2023-12-04] MEDS ORDERED: LANTUS PER UNIT CHARGE SQ STA (02:52)
--- NOTE | 2023-12-04 05:32 | Billing Data ---
Date of Service December 04, 2023 Coding Level of Care Code 57692 INT INP/OBS CARE
[2023-12-04] MEDS: DAPTOmycin 300 MG in SYRINGE 0 ML IV SCH (06:12)
[2023-12-04 07:11] LABS: Basophils # (auto) 0.04 K/uL (0.00-0.20); Basophils % (auto) 0.3 %; Eosinophils # (auto) 0.09 K/uL (0.00-0.50); Eosinophils % (auto) 0.7 %; Hematocrit (blood only) 25.4 % (42.0-52.0); Hemoglobin 8.1 g/dl (14.0-18.0); Immature Granulocytes # (auto) 0.09 K/uL (0.01-0.20); Immature Granulocytes % (auto) 0.7 %; Lymphocytes # (auto) 1.14 K/uL (1.20-3.40); Lymphocytes % (auto) 9.2 %; Mean Corpuscular Hemoglobin 25.8 pg (25.0-34.0); Mean Corpuscular Hgb Conc 31.9 g/dL (32.0-36.0); Mean Corpuscular Volume 80.9 fL (80.0-100.0); Mean Platelet Volume 9.6 fL (9.4-12.4); Monocytes # (auto) 1.35 K/uL (0.11-0.59); Monocytes % (auto) 10.8 %; Neutrophils # (auto) 9.74 K/uL (1.40-6.50); Neutrophils % (auto) 78.3 %; Platelet Count 282 K/uL (130-400); RDW Coefficient of Variation 23.4 % (11.5-14.5); RDW Standard Deviation 68.6 fL (36.4-46.3); Red Blood Count 3.14 M/uL (4.70-6.10); White Blood Count 12.45 K/ul (4.8-10.8)
[2023-12-04 07:13] LABS: Albumin Globulin Ratio 1.1 (0.9-2); Albumin Level 2.7 gm/dl (3.4-5.0); Bilirubin,Total 0.7 mg/dl (0.2-1.0); Calcium 7.3 mg/dl (8.6-10.3); Creatinine Clr Calc Pharmacy 36.7 ml/min; Est GFR (African American) 42.3 ml/min; Est GFR (Non-African American) 36.5 ml/min; Globulin 2.5 gm/dl (2.5-4.0); Potassium 4.1 mmol/L (3.5-5.1); Total Protein 5.2 gm/dl (6.0-8.3)
[2023-12-04] MEDS ORDERED: SODIUM CHLORIDE 0.9% 1,000 ML IV ONE (07:52)
[2023-12-04 08:05] LABS: Anisocytosis Present; Ovalocytes 1+; Polychromasia 1+
[2023-12-04] MEDS ORDERED: TAMSULOSIN HCL 0.4 MG CAP PO SCH (09:00)
[2023-12-04] MEDS ORDERED: LANTUS PER UNIT CHARGE SQ SCH (09:00)
[2023-12-04] MEDS: FINASTERIDE 5 MG TAB PO SCH (09:06)
[2023-12-04] MEDS: ENOXAPARIN INJ 40 MG/0.4 ML SYR SQ SCH (09:06)
[2023-12-04] MEDS: BICALUTAMIDE 50 MG TAB PO SCH (09:07)
[2023-12-04] MEDS: METOPROLOL TARTRATE 25 MG TAB PO SCH ×2 (09:07→20:06)
[2023-12-04] MEDS: INSULIN ASPART PER UNIT CHARGE SC SCH ×4 (09:10→20:05)
[2023-12-04] MEDS: LACTATED RINGER'S 1,000 ML IV SCH (13:54)
--- NOTE | 2023-12-04 14:52 | Hospitalist Progress Note ---
Date of Service December 04, 2023 Assessment & Plan (1) Acute UTI (urinary tract infection): Plan: Patient with MRSA on last urine culture 11/09/23. Treated with 7 days of nitrofurantoin. Will treat with daptomycin and ceftriaxone for complicated UTI given recent instrumentation. Narrow based on culture results. Urine culture growing gram-negative rods (2) MARIN (acute kidney injury): Plan: Likely multifactorial with decreased PO intake, decreased urination, recent instrumentation, and UTI. hold nephrotoxic agents Patient was given IV fluids Another bolus given this morning Continue gentle hydration Monitor labs Avoid nephrotoxins (3) Weakness: Plan: Likely multifactorial with noted UTI, dehydration, and possible medication side effect. Would caution nitrofurantoin use in the elderly as it can impact cognition. Consult PT and OT (4) Prostate cancer: Plan: Continue home bicalutamide 50 mg. (5) Microcytic anemia: Plan: Chronic. Stable. Has had 2 recent iron infusions. (6) BPH (benign prostatic hyperplasia): Plan: Patient has been retaining urine Ordered a Romero catheter to be placed Continue tamsulosin (7) Sensorineural hearing loss (SNHL) of left ear with restricted hearing of right ear: (8) Hyperlipidemia: Plan: Continue home statin therapy (9) Hypertension: Plan: Holding lisinopril and lasix in the setting of MARIN. Monitor BP. Continue metoprolol. (10) Diabetes: Plan: Holding metformin in setting of MARIN and inpatient stay. Will do half home basal dosing - 10 units BID with SSI while inpatient. Glycemic consult placed - appreciate recs Plan Code status: DNR/DNI DVT ppx: lovenox SQ FENGI: carb consistent, LR @ 80 mL/hr x2 bags Dispo: MedSurg Admission and Anticipated Discharge Date Admission Date: December 03, 2023 Subjective Patient says that he still feels generally weak. Nurse notified me of soft blood pressure readings this morning. Ordered a liter of fluid bolus. Patient was not dizzy or lightheaded. Review of Systems Review of Systems: All systems reviewed & are unremarkable except as noted in Subjective Physical Exam Physical Exam: General: Awake, conversant. Frail appearing elderly male Heart: S1, S2/regular rate and rhythm, no murmur rubs or gallops Lungs: Clear to auscultation bilaterally. Normal effort Abdomen: Soft/nontender/nondistended. No hepatosplenomegaly Extremities: No clubbing/cyanosis. 2+ pitting bilateral edema Behavior: Appropriate, cooperative Results & Data Results & Data Vital Signs (Past 12 Hours) Vital Signs Temp Pulse Resp BP Pulse Ox O2 Del Method O2 Flow Rate 12/04/23 09:32 72 104/55 L 96 Room Air 12/04/23 07:30 36.5 C 67 16 95/46 L 98 Nasal Cannula 2 12/04/23 07:20 Nasal Cannula 2 Laboratory Results Abnormal lab results 12/03/23 12/03/23 12/03/23 Range/Units 19:37 19:45 19:47 WBC (4.8-10.8) K/ul RBC 3.64 L (4.70-6.10) M/uL Hgb 9.6 L (14.0-18.0) g/dl Hct 29.4 L (42.0-52.0) % MCHC (32.0-36.0) g/dL RDW Std Deviation 67.8 H (36.4-46.3) fL RDW Coeff of Braeden 23.3 H (11.5-14.5) % Neut # (Auto) 8.06 H (1.40-6.50) K/uL Lymph # (Auto) 0.60 L (1.20-3.40) K/uL [place] # (Auto) 1.00 H (0.11-0.59) K/uL PT 12.2 H (9.0-12.0) Seconds Sodium 129 L (136-145) mmol/L Chloride 96 L (98-107) mmol/L BUN 28 H (6-23) mg/dl Creatinine 1.65 H (0.6-1.4) mg/dl Glucose 177 H (70-99(Fasting)) mg/dl POC Glucose (70-99) mg/dl Osmolality 276 L (280-300) mOsm/kg Calcium 8.0 L (8.6-10.3) mg/dl Magnesium 1.6 L (1.7-2.4) mg/dl AST 11 L (13-39) U/L ALT 6 L (7-52) U/L Alkaline Phosphatase 712 H (34-104) U/L Total Protein (6.0-8.3) gm/dl Albumin 3.3 L (3.4-5.0) gm/dl Urine Appearance Turbid A (Clear) Urine Protein 2+ H (Negative) Urine Ketones Trace H (Negative) Urine Blood 3+ H (Negative) Ur Leukocyte Esterase 3+ H (Negative) Urine WBC (Auto) >30 H (0-5) /hpf Urine RBC (Auto) 10-30 H (0-4) /hpf Urine Bacteria (Auto) 4+ H (Negative) Urine Osmolality 366 L (500-800) mOsm/kg 12/04/23 12/04/23 12/04/23 Range/Units 01:09 06:21 07:47 WBC 12.45 H (4.8-10.8) K/ul RBC 3.14 L (4.70-6.10) M/uL Hgb 8.1 L (14.0-18.0) g/dl Hct 25.4 L (42.0-52.0) % MCHC 31.9 L (32.0-36.0) g/dL RDW Std Deviation 68.6 H (36.4-46.3) fL RDW Coeff of Braeden 23.4 H (11.5-14.5) % Neut # (Auto) 9.74 H (1.40-6.50) K/uL Lymph # (Auto) 1.14 L (1.20-3.40) K/uL [place] # (Auto) 1.35 H (0.11-0.59) K/uL PT (9.0-12.0) Seconds Sodium 130 L (136-145) mmol/L Chloride (98-107) mmol/L BUN 28 H (6-23) mg/dl Creatinine 1.65 H (0.6-1.4) mg/dl Glucose 149 H (70-99(Fasting)) mg/dl POC Glucose 202 H 163 H (70-99) mg/dl Osmolality (280-300) mOsm/kg Calcium 7.3 L (8.6-10.3) mg/dl Magnesium (1.7-2.4) mg/dl AST 10 L (13-39) U/L ALT 6 L (7-52) U/L Alkaline Phosphatase 563 H (34-104) U/L Total Protein 5.2 L (6.0-8.3) gm/dl Albumin 2.7 L (3.4-5.0) gm/dl Urine Appearance (Clear) Urine Protein (Negative) Urine Ketones (Negative) Urine Blood (Negative) Ur Leukocyte Esterase (Negative) Urine WBC (Auto) (0-5) /hpf Urine RBC (Auto) (0-4) /hpf Urine Bacteria (Auto) (Negative) Urine Osmolality (500-800) mOsm/kg 12/04/23 Range/Units 11:42 WBC (4.8-10.8) K/ul RBC (4.70-6.10) M/uL Hgb (14.0-18.0) g/dl Hct (42.0-52.0) % MCHC (32.0-36.0) g/dL RDW Std Deviation (36.4-46.3) fL RDW Coeff of Braeden (11.5-14.5) % Neut # (Auto) (1.40-6.50) K/uL Lymph # (Auto) (1.20-3.40) K/uL [place] # (Auto) (0.11-0.59) K/uL PT (9.0-12.0) Seconds Sodium (136-145) mmol/L Chloride (98-107) mmol/L BUN (6-23) mg/dl Creatinine (0.6-1.4) mg/dl Glucose (70-99(Fasting)) mg/dl POC Glucose 138 H (70-99) mg/dl Osmolality (280-300) mOsm/kg Calcium (8.6-10.3) mg/dl Magnesium (1.7-2.4) mg/dl AST (13-39) U/L ALT (7-52) U/L Alkaline Phosphatase (34-104) U/L Total Protein (6.0-8.3) gm/dl Albumin (3.4-5.0) gm/dl Urine Appearance (Clear) Urine Protein (Negative) Urine Ketones (Negative) Urine Blood (Negative) Ur Leukocyte Esterase (Negative) Urine WBC (Auto) (0-5) /hpf Urine RBC (Auto) (0-4) /hpf Urine Bacteria (Auto) (Negative) Urine Osmolality (500-800) mOsm/kg Diagnostic Findings Chest X-Ray 12/03/23 19:15 SINGLE VIEW CHEST CLINICAL HISTORY: Generalized weakness. FINDINGS: An AP, portable, upright chest radiograph is compared to study dated 09/12/2023. Correlation is made with PET CT dated 11/18/2023. The heart is enlarged denoting atherosclerotic calcification of the thoracic aorta. The pulmonary vasculature is noncongested. Chronic interstitial thickening and nodularity is similar to previous. There is mild bibasilar scarring/atelectasis. Foci of peripheral scarring are seen throughout both lungs. No airspace consolidation typical for pneumonia or large pleural effusion is identified. No pneumothorax is seen. The skeletal structures are osteopenic. The bony thorax is grossly intact. 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 This was better assessed on the recent PET examination. IMPRESSION: Cardiomegaly with no acute cardiopulmonary abnormality identified. ACT 112: Negative or not required by law. Electronically signed by: James August M.D. 12/03/2023 10:18 PM PG Care Time/CCT Total # of Minutes Spent Total Time Spent with Patient: Total time spent is greater than 50% in coordination of care (as documented) at patient's floor/unit and/or counseling patient: Coding Level of Care Code 84820 SUB INP/OBS CARE 2/35MIN Diagnoses Acute UTI (urinary tract infection) N39.0 MARIN (acute kidney injury) N17.9 Weakness R53.1 Prostate cancer C61 Microcytic anemia D50.9 BPH (benign prostatic hyperplasia) N40.0 Sensorineural hearing loss (SNHL) of left ear with restricted hearing of right ear H90.A22 Hyperlipidemia, unspecified hyperlipidemia type E78.5 Hyperlipidemia type: unspecified Essential hypertension I10 Hypertension type: essential hypertension Type 2 diabetes mellitus without complication, with long-term current use of insulin E11.9; Z79.4 Diabetes mellitus type: type 2 Diabetes mellitus mcfp insulin use: with mcfp use Diabetes mellitus complication status: without complication (8) Hyperlipidemia Hyperlipidemia type: unspecified Qualified Code(s): E78.5 - Hyperlipidemia, unspecified (9) Hypertension Hypertension type: essential hypertension Qualified Code(s): I10 - Essential (primary) hypertension (10) Diabetes Diabetes mellitus type: type 2 Diabetes mellitus ocean transportation intermediary insulin use: with ocean transportation intermediary use Diabetes mellitus complication status: without complication Qualified Code(s): E11.9 - Type 2 diabetes mellitus without complications; Z79.4 - long term care social worker (current) use of insulin
[2023-12-04] MEDS: TAMSULOSIN HCL 0.4 MG CAP PO SCH (20:06)
[2023-12-04] MEDS: ATORVASTATIN 40 MG TAB PO SCH (20:07)
[2023-12-04] MEDS: ASPIRIN 81 MG ECTAB PO SCH (20:07)
[2023-12-04] MEDS: cefTRIAXone SODIUM 2,000 MG in DEXTROSE 5 % MINI-B 50 ML IV SCH (22:06)
[2023-12-04] MEDS: LORazepam 0.5 MG TAB PO PRN (23:40)
[2023-12-05] MEDS: DAPTOmycin 300 MG in SYRINGE 0 ML IV SCH (05:56)
[2023-12-05 07:42] LABS: Basophils # (auto) 0.05 K/uL (0.00-0.20); Basophils % (auto) 0.6 %; Eosinophils # (auto) 0.13 K/uL (0.00-0.50); Eosinophils % (auto) 1.7 %; Hematocrit (blood only) 26.4 % (42.0-52.0); Hemoglobin 8.4 g/dl (14.0-18.0); Immature Granulocytes # (auto) 0.03 K/uL (0.01-0.20); Immature Granulocytes % (auto) 0.4 %; Lymphocytes # (auto) 0.95 K/uL (1.20-3.40); Lymphocytes % (auto) 12.3 %; Mean Corpuscular Hgb Conc 31.8 g/dL (32.0-36.0); Mean Corpuscular Volume 81.7 fL (80.0-100.0); Mean Platelet Volume 9.1 fL (9.4-12.4); Monocytes # (auto) 0.74 K/uL (0.11-0.59); Monocytes % (auto) 9.6 %; Neutrophils # (auto) 5.83 K/uL (1.40-6.50); Neutrophils % (auto) 75.4 %; Platelet Count 244 K/uL (130-400); RDW Coefficient of Variation 23.3 % (11.5-14.5); RDW Standard Deviation 68.3 fL (36.4-46.3); Red Blood Count 3.23 M/uL (4.70-6.10); White Blood Count 7.73 K/ul (4.8-10.8)
[2023-12-05 07:59] LABS: Albumin Level 2.5 gm/dl (3.4-5.0); BUN Creatinine Ratio 19.9 (10-20); Bilirubin,Total 0.5 mg/dl (0.2-1.0); Calcium 7.4 mg/dl (8.6-10.3); Creatinine Clr Calc Pharmacy 45.4 ml/min; Est GFR (African American) 53.5 ml/min; Est GFR (Non-African American) 46.1 ml/min; Globulin 2.5 gm/dl (2.5-4.0)
[2023-12-05 08:01] LABS: Acanthocytes 1+; Anisocytosis Present; Echinocytes 2+; Polychromasia 1+
[2023-12-05] MEDS: ENOXAPARIN INJ 40 MG/0.4 ML SYR SQ SCH (08:48)
[2023-12-05] MEDS: FINASTERIDE 5 MG TAB PO SCH (08:48)
[2023-12-05] MEDS: INSULIN ASPART PER UNIT CHARGE SC SCH ×4 (08:49→20:18)
[2023-12-05] MEDS: METOPROLOL TARTRATE 25 MG TAB PO SCH ×2 (08:49→20:21)
[2023-12-05] MEDS: BICALUTAMIDE 50 MG TAB PO SCH (08:49)
[2023-12-05] MEDS: LANTUS PER UNIT CHARGE SQ SCH (08:55)
--- NOTE | 2023-12-05 15:26 | Hospitalist Progress Note ---
Date of Service December 05, 2023 Assessment & Plan (1) Acute UTI (urinary tract infection): Plan: Urine culture growing Enterobacter, sensitive to ceftriaxone Discontinue daptomycin Improving clinically Leukocytosis resolved Blood pressure is more stable Romero catheter was placed due to urinary retention requiring straight catheterization multiple times Will consider removing Romero catheter soon (2) MARIN (acute kidney injury): Plan: Likely multifactorial with decreased PO intake, decreased urination, recent instrumentation, and UTI. hold nephrotoxic agents Resolved Creatinine down from 1.6-1.3 Continue to hold lisinopril Resume Lasix (3) Weakness: Plan: Likely multifactorial with noted UTI, dehydration, and possible medication side effect. Would caution nitrofurantoin use in the elderly as it can impact cognition. Consult PT and OT (4) Prostate cancer: Plan: Continue home bicalutamide 50 mg. (5) Microcytic anemia: Plan: Chronic. Stable. Has had 2 recent iron infusions. (6) BPH (benign prostatic hyperplasia): Plan: Patient has been retaining urine Ordered a Romero catheter to be placed Continue tamsulosin (7) Sensorineural hearing loss (SNHL) of left ear with restricted hearing of right ear: (8) Hyperlipidemia: Plan: Continue home statin therapy (9) Hypertension: Plan: Resume Lasix Keep lisinopril on hold for now given recent MARIN Continue metoprolol (10) Diabetes: Plan: Holding metformin in setting of MARIN and inpatient stay. Will do half home basal dosing - 10 units BID with SSI while inpatient. Glycemic consult placed - appreciate recs Plan Code status: DNR/DNI DVT ppx: lovenox SQ FENGI: carb consistent Admission and Anticipated Discharge Date Admission Date: December 03, 2023 Subjective Patient feels weak in general. Accompanied by family Review of Systems Review of Systems: All systems reviewed & are unremarkable except as noted in Subjective Physical Exam Physical Exam: General: Awake, conversant. Frail appearing elderly male Heart: S1, S2/regular rate and rhythm, no murmur rubs or gallops Lungs: Clear to auscultation bilaterally. Normal effort Abdomen: Soft/nontender/nondistended. No hepatosplenomegaly Extremities: No clubbing/cyanosis. 2+ pitting bilateral edema Behavior: Appropriate, cooperative Results & Data Results & Data Vital Signs (Past 12 Hours) Vital Signs Temp Pulse Resp BP Pulse Ox O2 Del Method 12/05/23 14:52 36.5 C 61 17 105/63 92 Room Air 12/05/23 07:25 Room Air 12/05/23 07:20 36.6 C 68 16 132/56 L 96 Room Air Laboratory Results Abnormal lab results 12/04/23 12/04/23 12/05/23 Range/Units 16:42 20:05 07:21 RBC 3.23 L (4.70-6.10) M/uL Hgb 8.4 L (14.0-18.0) g/dl Hct 26.4 L (42.0-52.0) % MCHC 31.8 L (32.0-36.0) g/dL RDW Std Deviation 68.3 H (36.4-46.3) fL RDW Coeff of Braeden 23.3 H (11.5-14.5) % MPV 9.1 L (9.4-12.4) fL Lymph # (Auto) 0.95 L (1.20-3.40) K/uL [place] # (Auto) 0.74 H (0.11-0.59) K/uL Sodium 129 L (136-145) mmol/L BUN 27 H (6-23) mg/dl POC Glucose 108 H 133 H (70-99) mg/dl Calcium 7.4 L (8.6-10.3) mg/dl Alkaline Phosphatase 480 H (34-104) U/L Total Protein 5.0 L (6.0-8.3) gm/dl Albumin 2.5 L (3.4-5.0) gm/dl 12/05/23 12/05/23 Range/Units 07:33 11:24 RBC (4.70-6.10) M/uL Hgb (14.0-18.0) g/dl Hct (42.0-52.0) % MCHC (32.0-36.0) g/dL RDW Std Deviation (36.4-46.3) fL RDW Coeff of Braeden (11.5-14.5) % MPV (9.4-12.4) fL Lymph # (Auto) (1.20-3.40) K/uL [place] # (Auto) (0.11-0.59) K/uL Sodium (136-145) mmol/L BUN (6-23) mg/dl POC Glucose 127 H 138 H (70-99) mg/dl Calcium (8.6-10.3) mg/dl Alkaline Phosphatase (34-104) U/L Total Protein (6.0-8.3) gm/dl Albumin (3.4-5.0) gm/dl PG Care Time/CCT Total # of Minutes Spent Total Time Spent with Patient: Total time spent is greater than 50% in coordination of care (as documented) at patient's floor/unit and/or counseling patient: Coding Level of Care Code 26329 SUB INP/OBS CARE 235MIN Diagnoses Acute UTI (urinary tract infection) N39.0 MARIN (acute kidney injury) N17.9 Weakness R53.1 Prostate cancer C61 Microcytic anemia D50.9 BPH (benign prostatic hyperplasia) N40.0 Sensorineural hearing loss (SNHL) of left ear with restricted hearing of right ear H90.A22 Hyperlipidemia, unspecified hyperlipidemia type E78.5 Hyperlipidemia type: unspecified Essential hypertension I10 Hypertension type: essential hypertension Type 2 diabetes mellitus without complication, with long-term current use of insulin E11.9; Z79.4 Diabetes mellitus type: type 2 Diabetes mellitus [facility] insulin use: with joint terminal attack controller use Diabetes mellitus complication status: without complication (8) Hyperlipidemia Hyperlipidemia type: unspecified Qualified Code(s): E78.5 - Hyperlipidemia, unspecified (9) Hypertension Hypertension type: essential hypertension Qualified Code(s): I10 - Essential (primary) hypertension (10) Diabetes Diabetes mellitus type: type 2 Diabetes mellitus [facility] insulin use: with joint terminal attack controller use Diabetes mellitus complication status: without complication Qualified Code(s): E11.9 - Type 2 diabetes mellitus without complications; Z79.4 - exterminator (current) use of insulin
--- NOTE | 2023-12-05 15:28 | Pharmacy Report ---
Pharmacy Glycemic Short Note 2 - Date of Service December 05, 2023 - Glycemic Short BSG Results (Last 24 hours): 12/04/23 12/04/23 12/05/23 16:42 20:05 07:21 Glucose 89 POC Glucose 108 H 133 H 12/05/23 12/05/23 07:33 11:24 Glucose POC Glucose 127 H 138 H OUTPATIENT ANTIDIABETIC REGIMEN: * Novolog Mix 70/30 20 units SC BID * Metformin 1 gm PO BID HbA1c = 6.4% on 09/13/23 ASSESSMENT: * 88 y/o M admitted with weakness and UTI. Patient with history of Type 2 diabetes managed on Novolog Mix insulin BID and Metformin. * He received 29 units of total insulin yesterday- 10 units basal and 19 units bolus. * Fasting BSG today = 89 mg/dl. Continued basal dose the same. * BSGs well controlled yesterday with Novolog wt based stress of 2. Continued the same today. PLAN FOR INPATIENT GLYCEMIC CONTROL: * Hold outpatient oral diabetes medications * Basal insulin * Lantus 10 units SQ QAM * Bolus insulin * NovoLog per scale ACHS or Q6hrs while NPO * Goal Range: Low 120 mg/dL - High 150 mg/dL * Correction Factor: 25 mg/dL/unit * Nutritional / Prandial insulin per carb ratio of 1 unit per 8 grams CHO consumed
[2023-12-05] MEDS: FUROSEMIDE 40 MG TAB PO SCH (17:25)
[2023-12-05] MEDS: TAMSULOSIN HCL 0.4 MG CAP PO SCH (20:21)
[2023-12-05] MEDS: ASPIRIN 81 MG ECTAB PO SCH (20:21)
[2023-12-05] MEDS: ATORVASTATIN 40 MG TAB PO SCH (20:21)
--- NOTE | 2023-12-05 21:29 | Electrocardiogram Report ---
Test Reason : Blood Pressure : / mmHG Vent. 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
[2023-12-05] MEDS: cefTRIAXone SODIUM 2,000 MG in DEXTROSE 5 % MINI-B 50 ML IV SCH (22:03)
[2023-12-05] MEDS: LORazepam 0.5 MG TAB PO PRN (22:29)
[2023-12-06 07:32] LABS: Basophils # (auto) 0.03 K/uL (0.00-0.20); Basophils % (auto) 0.5 %; Eosinophils # (auto) 0.19 K/uL (0.00-0.50); Eosinophils % (auto) 3.2 %; Hematocrit (blood only) 26.9 % (42.0-52.0); Hemoglobin 8.8 g/dl (14.0-18.0); Immature Granulocytes # (auto) 0.01 K/uL (0.01-0.20); Immature Granulocytes % (auto) 0.2 %; Lymphocytes % (auto) 18.3 %; Mean Corpuscular Hemoglobin 26.3 pg (25.0-34.0); Mean Corpuscular Hgb Conc 32.7 g/dL (32.0-36.0); Mean Corpuscular Volume 80.3 fL (80.0-100.0); Mean Platelet Volume 9.3 fL (9.4-12.4); Monocytes # (auto) 0.68 K/uL (0.11-0.59); Monocytes % (auto) 11.3 %; Neutrophils % (auto) 66.5 %; Platelet Count 268 K/uL (130-400); RDW Coefficient of Variation 23.3 % (11.5-14.5); RDW Standard Deviation 67.5 fL (36.4-46.3); Red Blood Count 3.35 M/uL (4.70-6.10); White Blood Count 6.01 K/ul (4.8-10.8)
[2023-12-06 07:55] LABS: Acanthocytes 2+; Anisocytosis Present; Echinocytes 1+; Ovalocytes 1+
[2023-12-06 07:57] LABS: Albumin Level 2.6 gm/dl (3.4-5.0); BUN Creatinine Ratio 16.7 (10-20); Bilirubin,Total 0.4 mg/dl (0.2-1.0); Calcium 7.4 mg/dl (8.6-10.3); Creatinine Clr Calc Pharmacy 39.5 ml/min; Est GFR (African American) 45.3 ml/min; Est GFR (Non-African American) 39.1 ml/min; Globulin 2.6 gm/dl (2.5-4.0); Potassium 3.9 mmol/L (3.5-5.1); Total Protein 5.2 gm/dl (6.0-8.3)
[2023-12-06] MEDS: FUROSEMIDE 40 MG TAB PO SCH ×2 (08:24→17:49)
[2023-12-06] MEDS: METOPROLOL TARTRATE 25 MG TAB PO SCH ×2 (08:24→20:06)
[2023-12-06] MEDS: FINASTERIDE 5 MG TAB PO SCH (08:24)
[2023-12-06] MEDS: BICALUTAMIDE 50 MG TAB PO SCH (08:24)
[2023-12-06] MEDS: ENOXAPARIN INJ 40 MG/0.4 ML SYR SQ SCH (08:25)
[2023-12-06] MEDS: INSULIN ASPART PER UNIT CHARGE SC SCH ×4 (08:26→20:02)
[2023-12-06] MEDS: LANTUS PER UNIT CHARGE SQ SCH (08:27)
[2023-12-06] MEDS: CEFEPIME 2,000 MG in SYRINGE 0 ML IV SCH ×2 (09:49→20:06)
[2023-12-06] MEDS ORDERED: POLYETHYLENE (MIRALAX) 17 GM PACK PO PRN (15:20)
--- NOTE | 2023-12-06 16:45 | Hospitalist Progress Note ---
Date of Service December 06, 2023 Assessment & Plan (1) Acute UTI (urinary tract infection): Plan: Urine culture growing Enterobacter, sensitive to ceftriaxone. Switch to cefepime. Will discharge on p.o. Levaquin eventually to complete the course Discontinued daptomycin Improving clinically Leukocytosis resolved Blood pressure is more stable Romero catheter was placed due to urinary retention requiring straight catheterization multiple times. Asked the nurse to discontinue. (2) MARIN (acute kidney injury): Plan: Likely multifactorial with decreased PO intake, decreased urination, recent instrumentation, and UTI. hold nephrotoxic agents Creatinine went up from 1.3-1.5 today. Continue to hold lisinopril Continue Lasix Monitor BMP closely (3) Weakness: Plan: Likely multifactorial with noted UTI, dehydration, and possible medication side effect. Would caution nitrofurantoin use in the elderly as it can impact cognition. PT/OT recommended placement (4) Prostate cancer: Plan: Continue home bicalutamide 50 mg. (5) Microcytic anemia: Plan: Chronic. Stable. Has had 2 recent iron infusions. (6) BPH (benign prostatic hyperplasia): Plan: Patient has been retaining urine Ordered a Romero catheter to be placed Continue tamsulosin (7) Sensorineural hearing loss (SNHL) of left ear with restricted hearing of right ear: (8) Hyperlipidemia: Plan: Continue home statin therapy (9) Hypertension: Plan: Resume Lasix Keep lisinopril on hold for now given recent MARIN Continue metoprolol (10) Diabetes: Plan: Holding metformin in setting of MARIN and inpatient stay. Will do half home basal dosing - 10 units BID with SSI while inpatient. Glycemic consult placed - appreciate recs Plan Code status: DNR/DNI DVT ppx: lovenox SQ FENGI: carb consistent Admission and Anticipated Discharge Date Admission Date: December 03, 2023 Subjective Patient feels well. Denies chest pain or shortness of breath. Feeling better overall. Review of Systems Review of Systems: All systems reviewed & are unremarkable except as noted in Subjective Physical Exam Physical Exam: General: Awake, conversant. Frail appearing elderly male Heart: S1, S2/regular rate and rhythm, no murmur rubs or gallops Lungs: Clear to auscultation bilaterally. Normal effort Abdomen: Soft/nontender/nondistended. No hepatosplenomegaly Extremities: No clubbing/cyanosis. 1+ pitting bilateral edema Behavior: Appropriate, cooperative Results & Data Results & Data Vital Signs (Past 12 Hours) Vital Signs Temp Pulse Resp BP Pulse Ox O2 Del Method 12/06/23 14:51 36.5 C 61 18 123/67 96 Room Air 12/06/23 07:35 Room Air 12/06/23 07:13 36.5 C 65 18 141/67 H 95 Room Air Laboratory Results Abnormal lab results 12/05/23 12/06/23 12/06/23 Range/Units 20:17 07:03 07:48 RBC 3.35 L (4.70-6.10) M/uL Hgb 8.8 L (14.0-18.0) g/dl Hct 26.9 L (42.0-52.0) % RDW Std Deviation 67.5 H (36.4-46.3) fL RDW Coeff of Braeden 23.3 H (11.5-14.5) % MPV 9.3 L (9.4-12.4) fL Lymph # (Auto) 1.10 L (1.20-3.40) K/uL [place] # (Auto) 0.68 H (0.11-0.59) K/uL Sodium 132 L (136-145) mmol/L BUN 26 H (6-23) mg/dl Creatinine 1.56 H (0.6-1.4) mg/dl Glucose 104 H (70-99(Fasting)) mg/dl POC Glucose 134 H 102 H (70-99) mg/dl Calcium 7.4 L (8.6-10.3) mg/dl Alkaline Phosphatase 462 H (34-104) U/L Total Protein 5.2 L (6.0-8.3) gm/dl Albumin 2.6 L (3.4-5.0) gm/dl 12/06/23 12/06/23 Range/Units 11:28 16:21 RBC (4.70-6.10) M/uL Hgb (14.0-18.0) g/dl Hct (42.0-52.0) % RDW Std Deviation (36.4-46.3) fL RDW Coeff of Braeden (11.5-14.5) % MPV (9.4-12.4) fL Lymph # (Auto) (1.20-3.40) K/uL [place] # (Auto) (0.11-0.59) K/uL Sodium (136-145) mmol/L BUN (6-23) mg/dl Creatinine (0.6-1.4) mg/dl Glucose (70-99(Fasting)) mg/dl POC Glucose 132 H 115 H (70-99) mg/dl Calcium (8.6-10.3) mg/dl Alkaline Phosphatase (34-104) U/L Total Protein (6.0-8.3) gm/dl Albumin (3.4-5.0) gm/dl PG Care Time/CCT Total # of Minutes Spent Total Time Spent with Patient: Total time spent is greater than 50% in coordination of care (as documented) at patient's floor/unit and/or counseling patient: Coding Level of Care Code 89917 SUB INP/OBS CARE 235MIN Diagnoses Acute UTI (urinary tract infection) N39.0 MARIN (acute kidney injury) N17.9 Weakness R53.1 Prostate cancer C61 Microcytic anemia D50.9 BPH (benign prostatic hyperplasia) N40.0 Sensorineural hearing loss (SNHL) of left ear with restricted hearing of right ear H90.A22 Hyperlipidemia, unspecified hyperlipidemia type E78.5 Hyperlipidemia type: unspecified Essential hypertension I10 Hypertension type: essential hypertension Type 2 diabetes mellitus without complication, with long-term current use of insulin E11.9; Z79.4 Diabetes mellitus complication status: without complication Diabetes mellitus supervisor intermediates insulin use: with correction use Diabetes mellitus type: type 2 (8) Hyperlipidemia Hyperlipidemia type: unspecified Qualified Code(s): E78.5 - Hyperlipidemia, unspecified (9) Hypertension Hypertension type: essential hypertension Qualified Code(s): I10 - Essential (primary) hypertension (10) Diabetes Diabetes mellitus complication status: without complication Diabetes mellitus supervisor intermediates insulin use: with supervisor intermediates use Diabetes mellitus type: type 2 Qualified Code(s): E11.9 - Type 2 diabetes mellitus without complications; Z79.4 - intermodal owner operator truck driver (current) use of insulin
[2023-12-06] MEDS: DOCUSATE SODIUM 100 MG CAP PO SCH (20:06)
[2023-12-06] MEDS: TAMSULOSIN HCL 0.4 MG CAP PO SCH (20:06)
[2023-12-06] MEDS: ATORVASTATIN 40 MG TAB PO SCH (20:07)
[2023-12-06] MEDS: ASPIRIN 81 MG ECTAB PO SCH (20:07)
[2023-12-06] MEDS: LORazepam 0.5 MG TAB PO PRN (22:35)
[2023-12-07] MEDS: METOPROLOL TARTRATE 25 MG TAB PO SCH ×2 (07:35→20:16)
[2023-12-07] MEDS: FINASTERIDE 5 MG TAB PO SCH (07:35)
[2023-12-07] MEDS: FUROSEMIDE 40 MG TAB PO SCH ×2 (07:36→17:31)
[2023-12-07] MEDS: ENOXAPARIN INJ 40 MG/0.4 ML SYR SQ SCH (07:36)
[2023-12-07] MEDS: BICALUTAMIDE 50 MG TAB PO SCH (07:36)
[2023-12-07] MEDS: DOCUSATE SODIUM 100 MG CAP PO SCH ×2 (07:37→20:17)
[2023-12-07] MEDS: CEFEPIME 2,000 MG in SYRINGE 0 ML IV SCH ×2 (07:38→20:16)
[2023-12-07] MEDS: INSULIN ASPART PER UNIT CHARGE SC SCH ×4 (08:33→20:16)
[2023-12-07] MEDS: LANTUS PER UNIT CHARGE SQ SCH (08:33)
[2023-12-07 08:38] LABS: Basophils # (auto) 0.03 K/uL (0.00-0.20); Basophils % (auto) 0.5 %; Eosinophils # (auto) 0.26 K/uL (0.00-0.50); Eosinophils % (auto) 4.4 %; Hematocrit (blood only) 29.7 % (42.0-52.0); Hemoglobin 9.5 g/dl (14.0-18.0); Immature Granulocytes # (auto) 0.03 K/uL (0.01-0.20); Immature Granulocytes % (auto) 0.5 %; Lymphocytes # (auto) 1.09 K/uL (1.20-3.40); Lymphocytes % (auto) 18.4 %; Mean Corpuscular Volume 81.4 fL (80.0-100.0); Mean Platelet Volume 9.4 fL (9.4-12.4); Monocytes # (auto) 0.59 K/uL (0.11-0.59); Monocytes % (auto) 9.9 %; Neutrophils # (auto) 3.94 K/uL (1.40-6.50); Neutrophils % (auto) 66.3 %; Platelet Count 287 K/uL (130-400); RDW Coefficient of Variation 22.9 % (11.5-14.5); RDW Standard Deviation 67.8 fL (36.4-46.3); Red Blood Count 3.65 M/uL (4.70-6.10); White Blood Count 5.94 K/ul (4.8-10.8)
[2023-12-07 08:45] LABS: Albumin Level 2.8 gm/dl (3.4-5.0); BUN Creatinine Ratio 18.8 (10-20); Bilirubin,Total 0.5 mg/dl (0.2-1.0); Calcium 7.7 mg/dl (8.6-10.3); Est GFR (Non-African American) 39.7 ml/min; Globulin 2.7 gm/dl (2.5-4.0); Potassium 3.8 mmol/L (3.5-5.1); Total Protein 5.5 gm/dl (6.0-8.3)
[2023-12-07 09:09] LABS: Acanthocytes 1+
[2023-12-07] MEDS: ACETAMINOPHEN 325 MG TAB PO PRN ×2 (10:03→23:18)
--- NOTE | 2023-12-07 13:04 | Pharmacy Report ---
Pharmacy Glycemic Short Note 2 - Date of Service December 07, 2023 - Glycemic Short BSG Results (Last 24 hours): 12/06/23 12/06/23 12/07/23 16:21 20:02 07:46 Glucose POC Glucose 115 H 128 H 131 H 12/07/23 12/07/23 08:04 11:27 Glucose 112 H POC Glucose 224 H OUTPATIENT ANTIDIABETIC REGIMEN: * Novolog Mix 70/30 20 units SC BID * Metformin 1 gm PO BID HbA1c = 6.4% on 09/13/23 ASSESSMENT: 12/07 * BSGs well controlled yesterday [phone] mg/dL * Fasting this AM 131 mg/dL- still at goal, will monitor for upward trend * Lunch BSG elevated today, as this is the first elevated BSG will monitor for now, consider tightening carb ratio if trend continues * Tighten goal range to 110-140 mg/dL 12/05 * 88 y/o M admitted with weakness and UTI. Patient with history of Type 2 diabetes managed on Novolog Mix insulin BID and Metformin. * He received 29 units of total insulin yesterday- 10 units basal and 19 units bolus. * Fasting BSG today = 89 mg/dl. Continued basal dose the same. * BSGs well controlled yesterday with Novolog wt based stress of 2. Continued the same today. PLAN FOR INPATIENT GLYCEMIC CONTROL: * Hold outpatient oral diabetes medications * Basal insulin * Lantus 10 units SQ QAM * Bolus insulin * NovoLog per scale ACHS or Q6hrs while NPO * Goal Range: Low 110 mg/dL - High 140 mg/dL * Correction Factor: 25 mg/dL/unit * Nutritional / Prandial insulin per carb ratio of 1 unit per 8 grams CHO consumed
--- NOTE | 2023-12-07 17:48 | Hospitalist Progress Note ---
Date of Service December 07, 2023 Assessment & Plan (1) Acute UTI (urinary tract infection): Plan: Urine culture growing Enterobacter, sensitive to ceftriaxone. Switch to cefepime. Will discharge on p.o. Levaquin eventually to complete the course Discontinued daptomycin Improving clinically Leukocytosis resolved Blood pressure is more stable Romero catheter had to be replaced as the patient was retaining urine. Follow-up with urology outpatient (2) MARIN (acute kidney injury): Plan: Likely multifactorial with decreased PO intake, decreased urination, recent instrumentation, and UTI. hold nephrotoxic agents Creatinine stable at 1.5 Continue to hold lisinopril Continue Lasix Monitor BMP closely (3) Weakness: Plan: Likely multifactorial with noted UTI, dehydration, and possible medication side effect. Would caution nitrofurantoin use in the elderly as it can impact cognition. PT/OT recommended placement (4) Prostate cancer: Plan: Continue home bicalutamide 50 mg. (5) Microcytic anemia: Plan: Chronic. Stable. Has had 2 recent iron infusions. (6) BPH (benign prostatic hyperplasia): Plan: Patient has been retaining urine Ordered a Romero catheter to be placed. Follow-up with urology outpatient Continue tamsulosin (7) Sensorineural hearing loss (SNHL) of left ear with restricted hearing of right ear: (8) Hyperlipidemia: Plan: Continue home statin therapy (9) Hypertension: Plan: Resume Lasix Keep lisinopril on hold for now given recent MARIN Continue metoprolol (10) Diabetes: Plan: Holding metformin in setting of MARIN and inpatient stay. Will do half home basal dosing - 10 units BID with SSI while inpatient. Glycemic consult placed - appreciate recs Plan Code status: DNR/DNI DVT ppx: lovenox SQ FENGI: carb consistent Pending placement Admission and Anticipated Discharge Date Admission Date: December 03, 2023 Subjective Patient feels well. Denies chest pain or shortness of breath. Review of Systems Review of Systems: All systems reviewed & are unremarkable except as noted in Subjective Physical Exam Physical Exam: General: Awake, conversant. Frail appearing elderly male Heart: S1, S2/regular rate and rhythm, no murmur rubs or gallops Lungs: Clear to auscultation bilaterally. Normal effort Abdomen: Soft/nontender/nondistended. No hepatosplenomegaly Extremities: No clubbing/cyanosis. Trace bilateral edema Behavior: Appropriate, cooperative Results & Data Results & Data Vital Signs (Past 12 Hours) Vital Signs Temp Pulse Resp BP Pulse Ox O2 Del Method 12/07/23 15:29 36.3 C L 63 18 133/70 96 Room Air 12/07/23 07:59 36.4 C L 61 16 156/63 H 95 Room Air 12/07/23 07:53 Room Air Laboratory Results Abnormal lab results 12/06/23 12/07/23 12/07/23 Range/Units 20:02 07:46 08:04 RBC 3.65 L (4.70-6.10) M/uL Hgb 9.5 L (14.0-18.0) g/dl Hct 29.7 L (42.0-52.0) % RDW Std Deviation 67.8 H (36.4-46.3) fL RDW Coeff of Braeden 22.9 H (11.5-14.5) % Lymph # (Auto) 1.09 L (1.20-3.40) K/uL Sodium 133 L (136-145) mmol/L BUN 29 H (6-23) mg/dl Creatinine 1.54 H (0.6-1.4) mg/dl Glucose 112 H (70-99(Fasting)) mg/dl POC Glucose 128 H 131 H (70-99) mg/dl Calcium 7.7 L (8.6-10.3) mg/dl Alkaline Phosphatase 442 H (34-104) U/L Total Protein 5.5 L (6.0-8.3) gm/dl Albumin 2.8 L (3.4-5.0) gm/dl 12/07/23 Range/Units 11:27 RBC (4.70-6.10) M/uL Hgb (14.0-18.0) g/dl Hct (42.0-52.0) % RDW Std Deviation (36.4-46.3) fL RDW Coeff of Braed[place] (11.5-14.5) % Lymph # (Auto) (1.20-3.40) K/uL Sodium (136-145) mmol/L BUN (6-23) mg/dl Creatinine (0.6-1.4) mg/dl Glucose (70-99(Fasting)) mg/dl POC Glucose 224 H (70-99) mg/dl Calcium (8.6-10.3) mg/dl Alkaline Phosphatase (34-104) U/L Total Protein (6.0-8.3) gm/dl Albumin (3.4-5.0) gm/dl PG Care Time/CCT Total # of Minutes Spent Total Time Spent with Patient: Total time spent is greater than 50% in coordination of care (as documented) at patient's floor/unit and/or counseling patient: Coding Level of Care Code 18643 SUB INP/OBS CARE 2/35MIN Diagnoses Acute UTI (urinary tract infection) N39.0 MARIN (acute kidney injury) N17.9 Weakness R53.1 Prostate cancer C61 Microcytic anemia D50.9 BPH (benign prostatic hyperplasia) N40.0 Sensorineural hearing loss (SNHL) of left ear with restricted hearing of right ear H90.A22 Hyperlipidemia, unspecified hyperlipidemia type E78.5 Hyperlipidemia type: unspecified Essential hypertension I10 Hypertension type: essential hypertension Type 2 diabetes mellitus without complication, with long-term current use of insulin E11.9; Z79.4 Diabetes mellitus complication status: without complication Diabetes mellitus terminal operations manager insulin use: with terminal operations manager use Diabetes mellitus type: type 2 (8) Hyperlipidemia Hyperlipidemia type: unspecified Qualified Code(s): E78.5 - Hyperlipidemia, unspecified (9) Hypertension Hypertension type: essential hypertension Qualified Code(s): I10 - Essential (primary) hypertension (10) Diabetes Diabetes mellitus complication status: without complication Diabetes mellitus usp insulin use: with usp use Diabetes mellitus type: type 2 Qualified Code(s): E11.9 - Type 2 diabetes mellitus without complications; Z79.4 - watermelon harvesting supervisor (current) use of insulin
[2023-12-07] MEDS: TAMSULOSIN HCL 0.4 MG CAP PO SCH (20:16)
[2023-12-07] MEDS: ASPIRIN 81 MG ECTAB PO SCH (20:16)
[2023-12-07] MEDS: ATORVASTATIN 40 MG TAB PO SCH (20:16)
[2023-12-07] MEDS: LORazepam 0.5 MG TAB PO PRN (22:38)
[2023-12-08 07:31] LABS: Basophils # (auto) 0.05 K/uL (0.00-0.20); Basophils % (auto) 0.6 %; Eosinophils # (auto) 0.29 K/uL (0.00-0.50); Eosinophils % (auto) 3.7 %; Hematocrit (blood only) 29.8 % (42.0-52.0); Hemoglobin 9.4 g/dl (14.0-18.0); Immature Granulocytes # (auto) 0.05 K/uL (0.01-0.20); Immature Granulocytes % (auto) 0.6 %; Lymphocytes # (auto) 1.43 K/uL (1.20-3.40); Mean Corpuscular Hemoglobin 25.8 pg (25.0-34.0); Mean Corpuscular Hgb Conc 31.5 g/dL (32.0-36.0); Mean Corpuscular Volume 81.9 fL (80.0-100.0); Mean Platelet Volume 9.4 fL (9.4-12.4); Monocytes # (auto) 0.81 K/uL (0.11-0.59); Monocytes % (auto) 10.2 %; Neutrophils # (auto) 5.31 K/uL (1.40-6.50); Neutrophils % (auto) 66.9 %; Platelet Count 285 K/uL (130-400); Red Blood Count 3.64 M/uL (4.70-6.10); White Blood Count 7.94 K/ul (4.8-10.8)
[2023-12-08 07:43] LABS: Albumin Globulin Ratio 0.9 (0.9-2); Albumin Level 2.6 gm/dl (3.4-5.0); BUN Creatinine Ratio 19.3 (10-20); Bilirubin,Total 0.4 mg/dl (0.2-1.0); Calcium 7.6 mg/dl (8.6-10.3); Est GFR (African American) 51.6 ml/min; Est GFR (Non-African American) 44.5 ml/min; Globulin 2.8 gm/dl (2.5-4.0); Potassium 3.9 mmol/L (3.5-5.1); Total Protein 5.4 gm/dl (6.0-8.3)
[2023-12-08 07:51] LABS: Acanthocytes 1+; Anisocytosis Present; Echinocytes 1+; Ovalocytes 1+
[2023-12-08] MEDS: DOCUSATE SODIUM 100 MG CAP PO SCH ×2 (07:55→21:11)
[2023-12-08] MEDS: BICALUTAMIDE 50 MG TAB PO SCH (07:55)
[2023-12-08] MEDS: METOPROLOL TARTRATE 25 MG TAB PO SCH ×2 (07:55→21:06)
[2023-12-08] MEDS: ENOXAPARIN INJ 40 MG/0.4 ML SYR SQ SCH (07:56)
[2023-12-08] MEDS: FINASTERIDE 5 MG TAB PO SCH (07:56)
[2023-12-08] MEDS: FUROSEMIDE 40 MG TAB PO SCH ×2 (07:56→17:40)
[2023-12-08] MEDS: LANTUS PER UNIT CHARGE SQ SCH (08:30)
[2023-12-08] MEDS: INSULIN ASPART PER UNIT CHARGE SC SCH ×4 (08:30→21:05)
[2023-12-08] MEDS: CEFEPIME 2,000 MG in SYRINGE 0 ML IV SCH ×2 (08:31→21:12)
--- NOTE | 2023-12-08 17:16 | Hospitalist Progress Note ---
Date of Service December 08, 2023 Assessment & Plan (1) Acute UTI (urinary tract infection): Plan: Urine culture growing Enterobacter, sensitive to ceftriaxone. Switch to cefepime. Will discharge on p.o. Levaquin eventually to complete the course Discontinued daptomycin Improving clinically Leukocytosis resolved Blood pressure is more stable Romero catheter had to be replaced as the patient was retaining urine. Follow-up with urology outpatient (2) MARIN (acute kidney injury): Plan: Likely multifactorial with decreased PO intake, decreased urination, recent instrumentation, and UTI. hold nephrotoxic agents Creatinine stable at 1.5 Continue to hold lisinopril. Blood pressure stable without it Continue Lasix Monitor BMP closely (3) Weakness: Plan: Likely multifactorial with noted UTI, dehydration, and possible medication side effect. Would caution nitrofurantoin use in the elderly as it can impact cognition. PT/OT recommended placement (4) Prostate cancer: Plan: Continue home bicalutamide 50 mg. (5) Microcytic anemia: Plan: Chronic. Stable. Has had 2 recent iron infusions. (6) BPH (benign prostatic hyperplasia): Plan: Patient has been retaining urine Ordered a Romero catheter to be placed. Follow-up with urology outpatient Continue tamsulosin (7) Sensorineural hearing loss (SNHL) of left ear with restricted hearing of right ear: (8) Hyperlipidemia: Plan: Continue home statin therapy (9) Hypertension: Plan: Resume Lasix Keep lisinopril on hold for now given recent MARIN. Blood pressure stable without lisinopril Continue metoprolol (10) Diabetes: Plan: Holding metformin in setting of MARIN and inpatient stay. Glycemic consult placed - appreciate recs Plan Code status: DNR/DNI DVT ppx: lovenox SQ FENGI: carb consistent Pending placement Admission and Anticipated Discharge Date Admission Date: December 03, 2023 Subjective Patient feels well. Denies chest pain or shortness of breath. Review of Systems Review of Systems: All systems reviewed & are unremarkable except as noted in Subjective Physical Exam Physical Exam: General: Awake, conversant. Frail appearing elderly male Heart: S1, S2/regular rate and rhythm, no murmur rubs or gallops Lungs: Clear to auscultation bilaterally. Normal effort Abdomen: Soft/nontender/nondistended. No hepatosplenomegaly Extremities: No clubbing/cyanosis. Trace bilateral edema Behavior: Appropriate, cooperative Results & Data Results & Data Vital Signs (Past 12 Hours) Vital Signs Temp Pulse Resp BP Pulse Ox O2 Del Method 12/08/23 15:38 36.5 C 67 16 115/64 93 Room Air 12/08/23 10:53 Room Air 12/08/23 08:02 36.5 C 58 L 16 131/68 94 Room Air Laboratory Results Abnormal lab results 12/07/23 12/08/23 12/08/23 Range/Units 20:10 07:01 07:43 RBC 3.64 L (4.70-6.10) M/uL Hgb 9.4 L (14.0-18.0) g/dl Hct 29.8 L (42.0-52.0) % MCHC 31.5 L (32.0-36.0) g/dL RDW Std Deviation 69.0 H (36.4-46.3) fL RDW Coeff of Braeden 23.0 H (11.5-14.5) % Douglas # (Auto) 0.81 H (0.11-0.59) K/uL Sodium 135 L (136-145) mmol/L BUN 27 H (6-23) mg/dl Glucose 128 H (70-99(Fasting)) mg/dl POC Glucose 157 H 133 H (70-99) mg/dl Calcium 7.6 L (8.6-10.3) mg/dl AST 12 L (13-39) U/L Alkaline Phosphatase 398 H (34-104) U/L Total Protein 5.4 L (6.0-8.3) gm/dl Albumin 2.6 L (3.4-5.0) gm/dl 12/08/23 12/08/23 Range/Units 11:29 16:27 RBC (4.70-6.10) M/uL Hgb (14.0-18.0) g/dl Hct (42.0-52.0) % MCHC (32.0-36.0) g/dL RDW Std Deviation (36.4-46.3) fL RDW Coeff of Braeden (11.5-14.5) % Douglas # (Auto) (0.11-0.59) K/uL Sodium (136-145) mmol/L BUN (6-23) mg/dl Glucose (70-99(Fasting)) mg/dl POC Glucose 128 H 154 H (70-99) mg/dl Calcium (8.6-10.3) mg/dl AST (13-39) U/L Alkaline Phosphatase (34-104) U/L Total Protein (6.0-8.3) gm/dl Albumin (3.4-5.0) gm/dl PG Care Time/CCT Total # of Minutes Spent Total Time Spent with Patient: Total time spent is greater than 50% in coordination of care (as documented) at patient's floor/unit and/or counseling patient: Coding Level of Care Code 32770 SUB INP/OBS CARE 2/35MIN Diagnoses Acute UTI (urinary tract infection) N39.0 MARIN (acute kidney injury) N17.9 Weakness R53.1 Prostate cancer C61 Microcytic anemia D50.9 BPH (benign prostatic hyperplasia) N40.0 Sensorineural hearing loss (SNHL) of left ear with restricted hearing of right ear H90.A22 Hyperlipidemia, unspecified hyperlipidemia type E78.5 Hyperlipidemia type: unspecified Essential hypertension I10 Hypertension type: essential hypertension Type 2 diabetes mellitus without complication, with long-term current use of insulin E11.9; Z79.4 Diabetes mellitus complication status: without complication Diabetes mellitus long term care phlebotomist insulin use: with fci use Diabetes mellitus type: type 2 (8) Hyperlipidemia Hyperlipidemia type: unspecified Qualified Code(s): E78.5 - Hyperlipidemia, unspecified (9) Hypertension Hypertension type: essential hypertension Qualified Code(s): I10 - Essential (primary) hypertension (10) Diabetes Diabetes mellitus complication status: without complication Diabetes mellitus long term care phlebotomist insulin use: with fci use Diabetes mellitus type: type 2 Qualified Code(s): E11.9 - Type 2 diabetes mellitus without complications; Z79.4 - long term care phlebotomist (current) use of insulin
[2023-12-08] MEDS: TAMSULOSIN HCL 0.4 MG CAP PO SCH (21:06)
[2023-12-08] MEDS: ATORVASTATIN 40 MG TAB PO SCH (21:06)
[2023-12-08] MEDS: ASPIRIN 81 MG ECTAB PO SCH (21:06)
[2023-12-08] MEDS: DICLOFENAC SOD 1% GEL 100 GM TUBE EXT SCH (21:12)
[2023-12-09] MEDS: LORazepam 0.5 MG TAB PO PRN ×2 (00:08→22:47)
[2023-12-09] MEDS: FUROSEMIDE 40 MG TAB PO SCH ×2 (07:32→17:45)
[2023-12-09] MEDS: METOPROLOL TARTRATE 25 MG TAB PO SCH ×2 (07:32→21:03)
[2023-12-09] MEDS: DICLOFENAC SOD 1% GEL 100 GM TUBE EXT SCH ×2 (07:33→21:03)
[2023-12-09] MEDS: FINASTERIDE 5 MG TAB PO SCH (07:33)
[2023-12-09] MEDS: BICALUTAMIDE 50 MG TAB PO SCH (07:33)
[2023-12-09] MEDS: ENOXAPARIN INJ 40 MG/0.4 ML SYR SQ SCH (07:33)
[2023-12-09] MEDS: CEFEPIME 2,000 MG in SYRINGE 0 ML IV SCH ×2 (07:34→21:06)
[2023-12-09] MEDS: DOCUSATE SODIUM 100 MG CAP PO SCH ×2 (07:34→21:02)
[2023-12-09] MEDS: INSULIN ASPART PER UNIT CHARGE SC SCH ×4 (08:19→21:00)
[2023-12-09] MEDS: LANTUS PER UNIT CHARGE SQ SCH (08:23)
[2023-12-09 11:25] LABS: Anisocytosis Present; Ovalocytes 1+
--- NOTE | 2023-12-09 14:48 | Hospitalist Progress Note ---
Date of Service December 09, 2023 Assessment & Plan (1) Acute UTI (urinary tract infection): Plan: Urine culture growing Enterobacter, sensitive to ceftriaxone. Switch to cefepime. Will discharge on p.o. Levaquin eventually to complete the course Improving clinically Leukocytosis resolved Blood pressure is more stable Romero catheter had to be replaced as the patient was retaining urine. Follow-up with urology outpatient (2) MARIN (acute kidney injury): Plan: Likely multifactorial with decreased PO intake, decreased urination, recent instrumentation, and UTI. hold nephrotoxic agents Creatinine stable at 1.5 Continue to hold lisinopril. Blood pressure stable without it Continue Lasix Monitor BMP closely (3) Weakness: Plan: Likely multifactorial with noted UTI, dehydration, and possible medication side effect. Would caution nitrofurantoin use in the elderly as it can impact cognition. PT/OT recommended placement (4) Prostate cancer: Plan: Continue home bicalutamide 50 mg. (5) Microcytic anemia: Plan: Chronic. Stable. Has had 2 recent iron infusions. (6) BPH (benign prostatic hyperplasia): Plan: Patient has been retaining urine Ordered a Romero catheter to be placed. Follow-up with urology outpatient Continue tamsulosin (7) Sensorineural hearing loss (SNHL) of left ear with restricted hearing of right ear: (8) Hyperlipidemia: Plan: Continue home statin therapy (9) Hypertension: Plan: Resume Lasix Keep lisinopril on hold for now given recent MARIN. Blood pressure stable without lisinopril Continue metoprolol (10) Diabetes: Plan: Holding metformin in setting of MARIN and inpatient stay. Glycemic consult placed - appreciate recs Plan Code status: DNR/DNI DVT ppx: lovenox SQ FENGI: carb consistent Pending placement Admission and Anticipated Discharge Date Admission Date: December 03, 2023 Subjective Patient feels well. No change since yesterday. Denies chest pain or shortness of breath.. at bedside Review of Systems Review of Systems: All systems reviewed & are unremarkable except as noted in Subjective Physical Exam Physical Exam: General: Awake, conversant. Frail appearing elderly male Heart: S1, S2/regular rate and rhythm, no murmur rubs or gallops Lungs: Clear to auscultation bilaterally. Normal effort Abdomen: Soft/nontender/nondistended. No hepatosplenomegaly Extremities: No clubbing/cyanosis. Trace bilateral edema Behavior: Appropriate, cooperative Results & Data Results & Data Vital Signs (Past 12 Hours) Vital Signs Temp Pulse Resp BP Pulse Ox O2 Del Method 12/09/23 08:19 36.3 C L 66 16 123/66 93 Room Air 12/09/23 08:00 Room Air PG Care Time/CCT Total # of Minutes Spent Total Time Spent with Patient: Total time spent is greater than 50% in coordination of care (as documented) at patient's floor/unit and/or counseling patient: Coding Level of Care Code 65198 SUB INP/OBS CARE 2/35MIN Diagnoses Acute UTI (urinary tract infection) N39.0 MARIN (acute kidney injury) N17.9 Weakness R53.1 Prostate cancer C61 Microcytic anemia D50.9 BPH (benign prostatic hyperplasia) N40.0 Sensorineural hearing loss (SNHL) of left ear with restricted hearing of right ear H90.A22 Hyperlipidemia, unspecified hyperlipidemia type E78.5 Hyperlipidemia type: unspecified Essential hypertension I10 Hypertension type: essential hypertension Type 2 diabetes mellitus without complication, with long-term current use of insulin E11.9; Z79.4 Diabetes mellitus type: type 2 Diabetes mellitus mcfp insulin use: with mcfp use Diabetes mellitus complication status: without complication (8) Hyperlipidemia Hyperlipidemia type: unspecified Qualified Code(s): E78.5 - Hyperlipidemia, unspecified (9) Hypertension Hypertension type: essential hypertension Qualified Code(s): I10 - Essential (primary) hypertension (10) Diabetes Diabetes mellitus type: type 2 Diabetes mellitus manager long term care insulin use: with mcfp use Diabetes mellitus complication status: without complication Qualified Code(s): E11.9 - Type 2 diabetes mellitus without complications; Z79.4 - intermediate (current) use of insulin
[2023-12-09] MEDS: ASPIRIN 81 MG ECTAB PO SCH (21:02)
[2023-12-09] MEDS: TAMSULOSIN HCL 0.4 MG CAP PO SCH (21:02)
[2023-12-09] MEDS: ATORVASTATIN 40 MG TAB PO SCH (21:03)
[2023-12-10] MEDS: INSULIN ASPART PER UNIT CHARGE SC SCH (08:34)
[2023-12-10] MEDS: ENOXAPARIN INJ 40 MG/0.4 ML SYR SQ SCH (08:35)
[2023-12-10] MEDS: METOPROLOL TARTRATE 25 MG TAB PO SCH (08:35)
[2023-12-10] MEDS: FUROSEMIDE 40 MG TAB PO SCH (08:35)
[2023-12-10] MEDS: FINASTERIDE 5 MG TAB PO SCH (08:35)
[2023-12-10] MEDS: DICLOFENAC SOD 1% GEL 100 GM TUBE EXT SCH (08:36)
[2023-12-10] MEDS: BICALUTAMIDE 50 MG TAB PO SCH (08:36)
[2023-12-10] MEDS: DOCUSATE SODIUM 100 MG CAP PO SCH (08:36)
[2023-12-10] MEDS: LANTUS PER UNIT CHARGE SQ SCH (08:40)
[2023-12-10] MEDS: CEFEPIME 2,000 MG in SYRINGE 0 ML IV SCH (10:03)
--- NOTE | 2023-12-10 11:00 | Discharge Summary ---
Date of Service December 10, 2023 Admission HPI Per Admitting Provider 88 y/o male with a PMHx of CKD, prostate cancer, HTN, HLD, BPH, and TIIDM here for evaluation of weakness. Patient recently underwent REZUM procedure with Dr. Saleh in Urology to help with urine flow 11/25. Patient has a history of prostate cancer. He was recently treated with 7 days of nitrofurantoin for UTI. Last urine culture grew oxacillin and tetracycline resistant staph. In the ED patient was given 500 mL NS in the ED. UA suspicious for infection. Given CTX x1 for presumed UTI. Admission was called. Upon my interview the patient is slow to answer questions, but alert. Son and at bedside who assist in the history taking. Patient generally feeling well and uncomfortable. May have had some subjective low grade fevers. Not entirely clear. No abdominal pain, nausea, or vomiting. No chest pain or shortness of breath. Did have some diarrhea while on antibiotics. Recently started on bicalutamide for prostate cancer. Admission Exam Per Admitting Provider Gen: elderly appearing male in NAD, hard of hearing HEENT: AT NC MMM CV: RRR no m/r/g clinically well perfused, no lower extremity edema Resp: CTAB no wheezing no increased work of breathing Abd: soft, non-tender, non-distended no suprapubic tenderness - unable to assess for CVA tenderness Neuro: alert, slow to answer questions but oriented Psych: appropriate mood and affect Skin: no rashes noted Principal Diagnosis Acute Enterobacter UTI. Completed antibiotic course Acute kidney injury Sepsis due to UTI Acute urinary retention Generalized weakness Discharge Exam General: Awake, conversant. Frail appearing elderly male Heart: S1, S2/regular rate and rhythm, no murmur rubs or gallops Lungs: Clear to auscultation bilaterally. Normal effort Abdomen: Soft/nontender/nondistended. No hepatosplenomegaly Extremities: No clubbing/cyanosis. Trace bilateral edema Behavior: Appropriate, cooperative Discharge Data Allergies Allergy/AdvReac Type Severity Reaction Status Date / Time adhesive tape Allergy Severe RED Verified 12/03/23 20:28 IRRITATED SKIN Consultations 12/03/23 21:15 ED Decision to Admit Stat Hospital Course (1) Acute UTI (urinary tract infection): Urine culture growing Enterobacter, sensitive to ceftriaxone. Switched to cefepime. Completed course Improving clinically Leukocytosis resolved Blood pressure is more stable Romero catheter had to be replaced as the patient was retaining urine. Follow-up with urology outpatient in 1 week (2) MARIN (acute kidney injury): Likely multifactorial with decreased PO intake, decreased urination, recent instrumentation, and UTI. hold nephrotoxic agents Creatinine stable at 1.5 Resume lisinopril as blood pressure creeping up Continue Lasix Monitor BMP closely (3) Weakness: Likely multifactorial with noted UTI, dehydration, and possible medication side effect. Would caution nitrofurantoin use in the elderly as it can impact cognition. PT/OT recommended placement (4) Prostate cancer: Continue home bicalutamide 50 mg. (5) Microcytic anemia: Chronic. Stable. Has had 2 recent iron infusions. (6) BPH (benign prostatic hyperplasia): Patient has been retaining urine Ordered a Romero catheter to be placed. Follow-up with urology outpatient Continue tamsulosin (7) Sensorineural hearing loss (SNHL) of left ear with restricted hearing of right ear: (8) Hyperlipidemia: Continue home statin therapy (9) Hypertension: Resume Lasix Resume lisinopril blood pressure Creeping up Continue metoprolol (10) Diabetes: Resume outpatient meds Plan Discharge today Total Time Total Time Spent Total Time Spent (In Minutes): 35 Discharge Plan Discharge Items Patient Disposition: Transfer Snf Fac Reason For Visit: WEAKNESS Discharge Diagnosis: Acute Enterobacter UTI Acute kidney injury Sepsis due to UTI Acute urinary retention Generalized weakness Activity: Resume your previous activity Non-emergency contact: Primary Care Provider Call non-emergency contact if: you have any medication questions and your symptoms worsen Follow-up/Referrals: Don Banks DO [Primary Care Provider] - Diet: Heart Healthy Addtl Attending Provider Instructions: Advised to follow-up with PCP in 1 week Advised to follow-up with urology in 1 week Pending Studies at Discharge: No Stand-Alone Forms: My [facility] Skilled Items Patient informed of condition?: Yes DNR: No Discharge Level of Care: Skilled Communicable Disease: No Discharge Prognosis: Stable Lines: None Urinary Catheter: Yes Medications and DC Order Prescriptions: Continued tamsulosin [Flomax] 0.4 mg capsule 0.4 mg PO QAM Qty: 90 1RF lorazepam 0.5 mg tablet 0.5 mg PO DAILY PRN (Reason: sleep) Qty: 30 0RF potassium chloride 10 mEq tablet extended release 10 meq PO BID Qty: 180 1RF Rx Instructions: TAKE 1 TABLET BY MOUTH TWICE A DAY coenzyme Q10 100 mg capsule 100 mg PO QAM furosemide 40 mg tablet 40 mg PO BID Qty: 180 3RF metformin 1,000 mg tablet 1,000 mg PO BID Qty: 180 3RF insulin asp prt-insulin aspart [Novolog Mix 70-30FlexPen U-100] 100 unit/mL (70-30) insulin pen 20 unit subcut BID Qty: 15 0RF atorvastatin 40 mg tablet 40 mg PO QPM Rx Instructions: TAKE 1 TABLET BY MOUTH EVERY DAY metoprolol tartrate 25 mg tablet 25 mg PO BID Rx Instructions: TAKE 1 (ONE) TABLET BY MOUTH TWICE DAILY aspirin 81 mg Tablet,Delayed Release (Dr/Ec) 81 mg PO QPM bicalutamide 50 mg Tablet 50 mg PO DAILY Patient Comments: has not started yet, as of 11/17/23 lisinopril 10 mg tablet 10 mg PO QAM dutasteride [Avodart] 0.5 mg capsule 0.5 mg PO QAM Discharge Orders: Discharge Order (Routine); Ordered 12/10/23 Ordered By: Francisco Rodgers Admission Data Admit Date/Time: 12/03/23 22:03 Attending Provider: Francisco Rodgers Admit Provider: Mary Coyne Primary Care Provider: Don Banks Other Providers: Andrew Wang; [facility]; [facility] Other Interventions: Discharge Summary Assessment (RN) Last Done: 12/10/23 11:23 Coding Level of Care Code 83018 INP/OBS DISCH >30 MIN Diagnoses Acute UTI (urinary tract infection) N39.0 MARIN (acute kidney injury) N17.9 Weakness R53.1 Prostate cancer C61 Microcytic anemia D50.9 BPH (benign prostatic hyperplasia) N40.0 Sensorineural hearing loss (SNHL) of left ear with restricted hearing of right ear H90.A22 Hyperlipidemia, unspecified hyperlipidemia type E78.5 Hyperlipidemia type: unspecified Essential hypertension I10 Hypertension type: essential hypertension Type 2 diabetes mellitus without complication, with long-term current use of insulin E11.9; Z79.4 Diabetes mellitus complication status: without complication Diabetes mellitus intermediate insulin use: with intermediate use Diabetes mellitus type: type 2
== END 2023-12-10 12:29 | DRG 872 ==
LOC: ED 19:13 → 3N 22:03 → SUATTDRO 22:03 → 3N 23:25

== ENCOUNTER 2024-04-25 13:32 | Inpatient (IN) ==
--- NOTE | 2024-04-25 14:15 | Emergency Department Note ---
Impression & Plan Acute GI bleeding, Symptomatic anemia, Melena ED Provider Note NAME: TERESSA TORRES AGE: 89 SEX: M : 1935 ARRIVES VIA: Walk-In INFORMANT: Patient,, nursing report ED PROVIDER(S): Giuseppe Galeas MD CHIEF COMPLAINT: Weakness, shortness of breath MEDICAL DECISION MAKING: Patient presented due to concern for weakness and shortness of breath. IV was established and blood work was obtained. Patient did have a rectal exam performed which showed melenic stool was heme positive. Patient did have blood work completed earlier. H&H was repeated along with coagulation studies. Patient is hemoglobin is 7.9. Patient was consented and ordered 1 unit of PRBCs. I did speak the on-call hospitalist service PPI bolus and drip ordered the patient was admitted by the medicine service. Critical Care: I have personally spent 38 minutes of critical care time in direct management of this patient. This includes bedside care, interpretation of diagnostic studies, and testing, discussion with consultants, patient, and family members, and other require inpatient management activities. This 38 minutes is in excess of all separately billable procedures. Discussion w/ other healthcare providers: Cornel Silva PA-C and Dr. Cuevas Prior /Outside records reviewed: I reviewed a primary care visit from February 07, [address] Banks. 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 Differential diagnosis: Infection, dehydration, metabolic abnormality, hypo/hyperglycemia, electrolyte imbalance, anemia, UTI, pneumonia, thyroid dysfunction among others were considered. Diagnostics, as interpreted by me: ECG: Sinus with PACs, rate of 64, normal intervals, normal axis T wave versions in the anterior lateral leads as well as high lateral leads Cardiac monitoring: An order was placed for continuous cardiac monitoring. The monitor shows a rate of 65 with sinus rhythm. Patient was placed on pulse oximetry Medical decision rules: None Imaging studies: I informally interpreted the patient's I reviewed the patient's chest x-ray that was completed prior to arrival which is a 2 view chest. No evidence of obvious pneumothorax or pleural effusion. with formal report to follow. HPI: Patient presents due to concern for weakness. The patient reportedly was seen earlier today at the cancer center by Dr. Vidal and was referred here for worsening swelling and fluid in the lungs and does report some shortness of breath. The patient reports that his shortness of breath has been intermittent and ongoing for the last 5 or 6 weeks. Patient denies any chest pains. Patient does admit to dark stools and reportedly did have a large bowel movement that was very dark in nature. The patient does take a baby aspirin but does not take any blood thinning medications. Patient reportedly takes a medication for his prostate cancer called the MD which is made him have diarrhea and then has been more constipated and reportedly was being given some stool softeners and then has had worsening diarrhea. PAST MEDICAL HISTORY: See Below PAST SURGICAL HISTORY: See Below SOCIAL HISTORY: See Below HOME MEDICATIONS: See Below ALLERGIES: See Below VITALS: See Below PHYSICAL EXAMINATION: GENERAL: NAD, non-toxic. Pale in appearance. EYE EXAM: Normal conjunctiva. PERRL, no anisocoria and EOM's grossly intact w/o pain. OROPHARYNX: Moist mucus membranes, grossly normal dentition. NECK: Trachea midline, no stridor. Supple, no nuchal rigidity, no adenopathy, non-tender. No signs of meningismus. FROM of the neck with good chin to chest and neck extension. LUNGS: Clear to auscultation. Normal chest wall mechanics. HEART: NSR, no MRG. ABDOMEN: Abdomen soft, non-tender, no masses, no rebound or guarding. BACK: No CVA TTP. SKIN: No rashes and no bruising. Rectal: Enlarged prostate, melenic stool, heme positive no obvious hemorrhoids UPPER EXTREMITIES: Upper extremities are grossly normal. LOWER EXTREMITIES: Grossly normal, no edema. NEURO EXAM: A&O x3, cranial nerves II-XII grossly intact, normal speech, moves all 4 extremities. Past Med/Surg History Problem List (Updated 04/26/24 @ 18:42 by Giuseppe Galeas MD) Melena (Acute) Acute GI bleeding (Acute) Hyperkalemia Symptomatic anemia (Acute) Pain in right knee (Acute) Fall (Acute) Osteoarthritis of right knee Urinary retention hx MARIN (acute kidney injury) Weakness (Acute) Acute hyponatremia (Acute) Acute UTI (urinary tract infection) (Acute) Hyponatremia Microcytic anemia Bony sclerosis Weight loss Urinary tract infection (Acute) Acute hyponatremia (Acute) Lower extremity edema Bladder outlet obstruction Nephrolithiasis Elevated PSA BPH (benign prostatic hyperplasia) Unruptured popliteal cyst Cerumen impaction Sensorineural hearing loss (SNHL) of left ear with restricted hearing of right ear Actinic keratosis (Acute) Folliculitis (Acute) Umbilical hernia (Acute) Ventral hernia (Acute) Arthritis of knee Diabetes Medical History CKD (chronic kidney disease) pt denies Prostate cancer Bilateral hydronephrosis Pulmonary nodules/lesions, multiple OA (osteoarthritis) of knee Dyslipidemia Hyperlipidemia Hypertension Diabetes mellitus, type 2 IDDM Anemia History of CVA (cerebrovascular accident) 08/2018, "garbled speech> pt denies residual effects Hx of iron deficiency anemia History of prostate cancer dx 08/2023, takes Xtandi daily and hormone injection [id number]; mets-skeletal lesions, mediastinal and bilat hilar lymph node uptake on 10/2023 PET scan Hx of basal cell carcinoma History of SCC (squamous cell carcinoma) of skin Hypertension controlled, stable per pt Hyperlipidemia Surgical History History of prostate surgery REZUM (10/2023 at [facility]) Hx of tonsillectomy Hx of bilateral cataract extraction Hx of umbilical hernia repair Hx of squamous cell carcinoma excision face Hx of basal cell carcinoma excision face Hx of tooth extraction All teeth removed; partial plate upper and lower jaw History of colonoscopy Family History Mother Cancer Father Diabetes Other Heart disease Stroke Denies family history of Hearing loss No family history of adverse response to anesthesia No family history of bleeding disorder Allergies Asthma Social History Smoking Status: Never smoker Second Hand Exposure: No; Do You Dip or Chew Tobacco: No; Tobacco Cessation Education Requested by Patient: No Hx Alcohol Use: No Hx Substance Use: No Preferred Language: Sudanese Communication Ability: Effective Visual Impairment: No Limitations Hearing Ability: Normal Nurse Substance Abuse Required: No Beliefs That Will Affect Care: None marital status: Current Living Situation: Spouse current occupational status: retired How many Children do You have: 3 Other Information That Helps Us Care for You: No Feels Safe at Home: Yes Safety Concerns: Feels Safe At This Time Childhood Exposure to Second-Hand Smoke: Yes Diet: regular caffeine: No during the past year weight has: remained stable Dental Care, Regularly: Yes Physical Activity Frequency: Does not Exercise Seatbelt Use: always Sunscreen Use: Yes Assistive Devices: Walker and Other Allergies Allergies Allergy/AdvReac Type Severity Reaction Status Date / Time adhesive tape Allergy Severe RED Verified 03/01/24 10:08 IRRITATED SKIN Home Meds Home Medications Medication Instructions Recorded Confirmed coenzyme Q10 100 mg capsule 100 mg PO QAM 08/03/19 04/25/24 atorvastatin 40 mg tablet 40 mg PO QPM 09/12/23 04/25/24 lisinopril 10 mg tablet 10 mg PO QAM 11/17/23 04/25/24 aspirin 81 mg tablet,delayed 81 mg PO QPM 12/03/23 04/25/24 release metoprolol tartrate 25 mg tablet 25 mg PO BID 12/27/23 04/25/24 enzalutamide 40 mg tablet (Xtandi) 160 mg PO QAM 02/07/24 04/25/24 finasteride 5 mg tablet 5 mg PO QAM 03/01/24 04/25/24 insulin aspar prot-insulin aspart 8 unit subcut TID 03/01/24 04/25/24 100 unit/mL (70-30) subcutaneous pen (Novolog Mix 70-30FlexPen U-100) zinc acetate 50 mg (zinc) capsule 50 mg PO QAM 03/01/24 04/25/24 calcium carbonate 600 mg-vitamin 2 cap PO DAILY 04/25/24 04/25/24 D3 12.5 mcg (500 unit) capsule (Calcium 600 with Vitamin D3) Previous Rx's Medication Instructions Recorded furosemide 40 mg tablet 40 mg PO BID #180 tabs 08/10/23 metformin 1,000 mg tablet 1,000 mg PO BID #180 tabs 08/10/23 blood-glucose meter,continuous #1 ea 12/27/23 (Dexcom G7 Dental Director) potassium chloride 10 mEq 10 meq PO BID #180 tabs 03/13/24 tablet,extended release tamsulosin 0.4 mg capsule (Flomax) 0.4 mg PO QAM #90 caps 03/13/24 blood sugar diagnostic (OneTouch #25 ea 03/30/24 Verio test strips) blood-glucose sensor (Dexcom G7 #3 ea 03/30/24 Sensor device) diclofenac sodium 1 % topical gel 2 g topical QID PRN pain, moderate 04/03/24 #100 grams lorazepam 0.5 mg tablet 0.5 mg PO HS PRN sleep #30 tabs 04/21/24 Results & Data (ED) Vital Signs Vital Signs - 24 hr 04/25/24 13:38 04/25/24 14:01 04/25/24 14:01 Temperature 36.8 C Temperature Source Temporal Artery Scan Pulse Rate 88 64 Pulse Rate [Apical] 66 Respiratory Rate 14 16 Respiratory Effort / Characteristics Non-Labored Respiratory Depth Normal Blood Pressure 69/39 L Blood Pressure [Left Arm] 113/56 L Blood Pressure Mean 49 Blood Pressure Mean [Left Arm] 75 Pulse Oximetry 96 97 Oxygen Delivery Method Room Air Room Air Oxygen Flow Rate Sepsis Recent Fever Within 48 Hours No Sepsis New/Unexplained Change in Mental Status N/A Sepsis Action Taken by Nursing No Action Required 04/25/24 14:02 Temperature Temperature Source Pulse Rate Pulse Rate [Apical] Respiratory Rate Respiratory Effort / Characteristics Respiratory Depth Blood Pressure Blood Pressure [Left Arm] Blood Pressure Mean Blood Pressure Mean [Left Arm] Pulse Oximetry 97 Oxygen Delivery Method Room Air Oxygen Flow Rate 0 Sepsis Recent Fever Within 48 Hours Sepsis New/Unexplained Change in Mental Status Sepsis Action Taken by [facility] Medications Current Medication List: was personally reviewed by me Laboratory Data Attestation: I reviewed the patient's lab results. 04/26/24 15:40 04/26/24 05:43 Lab Results 04/25/24 04/25/24 04/25/24 Range/Units 14:06 14:12 14:38 Hgb 7.9 L (14.0-18.0) g/dl POC Hgb 7.5 L (14.0-18.0) g/dl Hct 23.6 L (42.0-52.0) % POC Hct 22 L (42-52) % Reticulocyte % (Auto) 2.81 H (0.50-2.00) % Reticulocyte # 0.070 (0.020-0.100) 10^6/uL PT 11.8 (9.0-12.0) Seconds INR 1.1 (0.9-1.1) APTT 26 (21-31) Seconds PTT Ratio 1.0 POC Sodium 131 L (135-144) mmol/L POC Potassium 5.6 H (3.3-5.0) mmol/L POC Chloride 101 (101-112) mmol/L POC Total CO2 17 L (24-31) mmol/L POC Anion Gap 19.0 (16-25) mmol/L POC BUN 68 H (7-18) mg/dl POC Creatinine 2.4 H (0.6-1.3) mg/dl POC Glucose (other) 192 H (70-99) mg/dl POC Ioniz Calcium Danilo 1.10 L (1.12-1.32) mmol/l Iron 65 (35-175) mcg/dl TIBC 246 L (250-450) mcg/dl Unsaturated IBC 181 (155-355) mcg/dl Transferrin 156 L (200-360) mg/dl Transferrin % Sat 26 (20-50) % Lactate Dehydrogenase 1872 H (86-244) U/L Troponin I High Sens 10.2 (0-20) pg/ml B-Natriuretic Peptide 48 (0-100) pg/ml Vitamin B12 (180-914) pg/ml Folate (>5.38) ng/ml POC Stool Occult Blood (Negative) Blood Type O Positive Antibody Screen NEGATIVE Crossmatch See Detail 04/25/24 04/25/24 Range/Units 14:39 15:02 Hgb (14.0-18.0) g/dl POC Hgb (14.0-18.0) g/dl Hct (42.0-52.0) % POC Hct (42-52) % Reticulocyte % (Auto) (0.50-2.00) % Reticulocyte # (0.020-0.100) 10^6/uL PT (9.0-12.0) Seconds INR (0.9-1.1) APTT (21-31) Seconds PTT Ratio POC Sodium (135-144) mmol/L POC Potassium (3.3-5.0) mmol/L POC Chloride (101-112) mmol/L POC Total CO2 (24-31) mmol/L POC Anion Gap (16-25) mmol/L POC BUN (7-18) mg/dl POC Creatinine (0.6-1.3) mg/dl POC Glucose (other) (70-99) mg/dl POC Ioniz Calcium Danilo (1.12-1.32) mmol/l Iron (35-175) mcg/dl TIBC (250-450) mcg/dl Unsaturated IBC (155-355) mcg/dl Transferrin (200-360) mg/dl Transferrin % Sat (20-50) % Lactate Dehydrogenase (86-244) U/L Troponin I High Sens (0-20) pg/ml B-Natriuretic Peptide (0-100) pg/ml Vitamin B12 129 L (180-914) pg/ml Folate 6.66 (>5.38) ng/ml POC Stool Occult Blood Positive A (Negative) Blood Type Antibody Screen Crossmatch Administered Medications Atorvastatin Calcium (Atorvastatin 40 Mg Tab) 40 mg PO QPM [facility] Stop: 05/25/24 20:59 Last Admin: 04/25/24 21:47 Dose: 40 mg Documented By: SYLVESTER Cyanocobalamin (Cyanocobalamin 1000 Mcg/Ml Vial) [facility] [place] Stop: 05/02/24 09:01 Last Admin: 04/26/24 09:51 Dose: 1,000 mcg Documented By: JOSE E Finasteride (Finasteride 5 Mg Tab) [facility] [place] Stop: 05/26/24 08:59 Last Admin: 04/26/24 08:43 Dose: 5 mg Documented By: JOSE E Pantoprazole Sodium 40 mg/ (Dextrose) 100 mls @ 20 mls/hr IV Q5H [facility] Stop: 05/25/24 15:29 Last Admin: 04/26/24 17:07 Dose: 8 mg/hr, 20 mls/hr Documented By: Infusion: 04/26/24 12:49 Dose: Infused Documented By: Admin: 04/26/24 07:49 Dose: 8 mg/hr, 20 mls/hr Documented By: JOSE E Infusion: 04/26/24 07:46 Dose: Infused Documented By: JOSE E Admin: 04/26/24 02:46 Dose: 8 mg/hr, 20 mls/hr Documented By: Infusion: 04/26/24 02:44 Dose: Infused Documented By: Admin: 04/25/24 21:27 Dose: 8 mg/hr, 20 mls/hr Documented By: Infusion: 04/25/24 21:25 Dose: Infused Documented By: Admin: 04/25/24 16:26 Dose: 8 mg/hr, 20 mls/hr Documented By: [facility] Thiamine HCl 500 mg/ Sodium (Chloride) 55 mls @ 210 mls/hr IV Q8H [facility] Stop: 04/29/24 08:29 Last Infusion: 04/26/24 18:25 Dose: Infused Documented By: JOSE E Admin: 04/26/24 18:02 Dose: 210 mls/hr Documented By: JOSE E Infusion: 04/26/24 10:12 Dose: Infused Documented By: JOSE E Admin: 04/26/24 09:51 Dose: 210 mls/hr Documented By: JOSE E Insulin Aspart (Insulin Aspart Per Unit Charge) 0 units SC ACHS [facility] Stop: 05/26/24 16:29 Last Admin: 04/26/24 18:02 Dose: 1 units Documented By: JOSE E Co-signed By: DEBO Lorazepam (Lorazepam 0.5 Mg Tab) 0.5 mg PO HS PRN PRN Reason: sleep Stop: 05/25/24 20:45 Last Admin: 04/25/24 21:27 Dose: 0.5 mg Documented By: SYLVESTER Melatonin (Melatonin 3 Mg Tab) 3 mg PO HS PRN PRN Reason: Sleep Stop: 05/25/24 20:46 Last Admin: 04/25/24 21:27 Dose: 3 mg Documented By: SYLVESTER Metoprolol Tartrate (Metoprolol Tartrate 25 Mg Tab) 25 mg PO BID [facility] Stop: 05/25/24 20:59 Last Admin: 04/26/24 08:42 Dose: 25 mg Documented By: JOSE E Admin: 04/25/24 21:47 Dose: 25 mg Documented By: SYLVESTER Tamsulosin HCl (Tamsulosin Hcl 0.4 Mg Cap) 0.4 mg PO QAM [facility] Stop: 05/26/24 08:59 Last Admin: 04/26/24 08:42 Dose: 0.4 mg Documented By: JOSE E Discontinued Medications Dextrose (Dextrose 50% 50 Ml Syringe) 50 ml IV NOW STA Stop: 04/25/24 17:19 Last Admin: 04/25/24 19:24 Dose: 50 ml Documented By: CARLA Ephedrine Sulfate (Ephedrine Sulfate 50 Mg/5 Ml Syr) Confirm Administered Dose 50 mg .ROUTE .STK-MED ONE Stop: 04/26/24 13:35 Last Admin: 04/26/24 14:44 Dose: Not Given Documented By: JOSE E Epinephrine HCl (Epinephrine 1.5" Ndl 0.1 Mg/Ml Syr) Confirm Administered Dose 1 mg IV .STK-MED ONE Stop: 04/26/24 13:35 Last Admin: 04/26/24 14:25 Dose: 1 mg Documented By: NETO Pantoprazole Sodium 80 mg/ (Dextrose) 120 mls @ 480 mls/hr IV NOW ONE Stop: 04/25/24 15:16 Last Infusion: 04/25/24 18:18 Dose: Infused Documented By: Admin: 04/25/24 15:40 Dose: 480 mls/hr Documented By: MACHELLE Calcium Gluconate () 1,000 mg in 60 mls @ 240 mls/hr IV NOW STA Stop: 04/25/24 16:29 Last Infusion: 04/25/24 18:18 Dose: Infused Documented By: Admin: 04/25/24 16:43 Dose: 240 mls/hr Documented By: MACHELLE Insulin Human Regular 10 units (/ Syringe) 10 mls @ 3 mls/sec IV ONE STA Stop: 04/25/24 17:27 Last Admin: 04/25/24 19:24 Dose: 3 mls/sec Documented By: CARLA Co-signed By: SYLVESTER Insulin Aspart (Insulin Aspart Per Unit Charge) 0 units SC Q6H [facility] Stop: 05/25/24 16:29 Last Admin: 04/26/24 11:39 Dose: 1 units Documented By: JOSE E Co-signed By: ZECHARIAH Admin: 04/26/24 05:38 Dose: Not Given Documented By: Admin: 04/25/24 20:58 Dose: Not Given Documented By: Admin: 04/25/24 19:25 Dose: Not Given Documented By: SYLVESTER Miscellaneous (Patient's Height &/Or Weight Needed) 1 each N/A Q2H [facility] Stop: 05/25/24 17:29 Last Admin: 04/25/24 18:00 Dose: 1 each Documented By: CARLA Pantoprazole Sodium (Pantoprazole Bolus/Drip) 1 each IV NOW STA Stop: 04/25/24 15:03 Last Admin: 04/25/24 16:24 Dose: Not Given Documented By: MACHELLE Propofol (Propofol Iv Emulsion 10 Mg/Ml 20 Ml Vial) Confirm Administered Dose 200 mg IV .STK-MED ONE Stop: 04/26/24 13:35 Last Admin: 04/26/24 14:44 Dose: Not Given Documented By: MES Sodium Zirconium Cyclosilicate (Sodium Zirconium Cyclosilicate 10 Gm Packet) 10 gm PO ONE STA Stop: 04/25/24 18:35 Last Admin: 04/25/24 21:05 Dose: Not Given Documented By: SYLVESTER Discharge Plan Visit Data Chief Complaint: Shortness of Breath/Dyspnea Stated Complaint: SOB, FATIGUE, COMING FROM CANCER CARE ED Provider: Giuseppe Galeas Discharge Problem: Acute GI bleeding, Symptomatic anemia, Melena Patient Disposition: Admitted As Inpatient Discharge Instructions Interventions: ED Discharge Assessment Last Done: 04/25/24 17:25
[2024-04-25 14:25] LABS: iSTAT Creatinine 2.4 mg/dl (0.6-1.3); iSTAT Hemoglobin 7.5 g/dl (14.0-18.0); iSTAT Ionized Calcium 1.1 mmol/l (1.12-1.32); iSTAT Potassium 5.6 mmol/L (3.3-5.0)
[2024-04-25 14:48] LABS: Hematocrit (blood only) 23.6 % (42.0-52.0); Hemoglobin 7.9 g/dl (14.0-18.0)
[2024-04-25 14:53] LABS: Troponin I High Sensitivity 10.2 pg/ml (0-20)
[2024-04-25 15:19] LABS: INR 1.1 (0.9-1.1); Partial Thromboplastin Time 26 Seconds (21-31); Prothrombin Time 11.8 Seconds (9.0-12.0)
[2024-04-25] MEDS: PANTOprazole 80 MG in DEXTROSE 5% 100 ML IV ONE (15:40)
[2024-04-25] MEDS ORDERED: SODIUM CHLORIDE 0.9% 250 ML IV PRN ×2 (15:55→16:32)
--- NOTE | 2024-04-25 16:06 | History & Physical Report ---
Date of Service April 25, 2024 Assessment & Plan (1) Symptomatic anemia: Plan: -Admit to med/tele -Currently stable and asymptomatic at rest -Presented to the ED due to Hgb of 7.5 (down from 10 as of 04/14) -Has been experiencing recurrent melanotic/loose stool for the past 3-6 months -Not on PO iron, denies recent NSAID, alcohol, tobacco use -Not on anticoagulation -Hemoccult blood positive in the ED -High suspicion for GI bleed at this time -Keep npo -Will be receiving 1 unit PRBC ordered in the ED -Ordered anemia workup which is in process -Will monitor CBC q6h after first unit, transfuse to keep Hgb at or above 8 as he is already significant symptomatic with exertion -Will consult GI -BL BLAISE's for DVT PPX -AM CBC, CMP, mag, PT/INR (2) Hyperkalemia: Plan: -Patient with a potassium of 5.4 on outpatient labs from 12:43 pm today -Unsure if this is true or due to hemolysis -Will give 1gm IV calcium gluconate now and repeat a stat potassium level -Continue to monitor on tele -If still elevated then will treat medically (3) Weakness: Plan: -Likely multifactorial including acute anemia, prostate cancer, and CKD -Infectious workup thus far has been unremarkable, will follow UA when obtained -Fall/aspiration precautions -PT/OT consults (4) Prostate cancer: Plan: -Currently [facility] -On daily, Enzalutamide -Will hold while npo -Continue to follow up with Urology and CCP on discharge (5) Diabetes: Plan: -Hold metformin -Monitor BSG q6h while NPO, goal is 110-160 -Start CF of 50 and CR of 15 q6h for now -Hold basal insulin with NPO status -Adjust regimen as needed (6) Acute GI bleeding: Plan The patient was discussed with Dr. Cuevas at the time of the admission History of Present Illness Chief Complaint: Generalized weakness, SOB Primary Care Provider: DO Mihai Shaw (Jazzmine Evans is an 89 y/o male with a PMHx of CKD, prostate cancer (on androgen deprivation therapy), HTN, HLD, BPH, and TIIDM who presented to the [facility] ED on 04/25/24 with complaints of increased SOB and swelling. He was initially noted to be hypotensive at 69/39 but this improved to 113/56 on recheck and otherwise stable. Labs were significant for a Hgb of 7.9 (down from 10.3 as of 04/14/24), Hct of 23, platelets of 438, cr of 2.0 (baseline is near 1.6), BUN of 66, bicarb of 20 with AG WNL, potassium of 5.4, sodium of 132, ionized calcium of 1.10, alk phos of 347, and stool occult blood positive. Chest xray was yet to be read at the time of admission but did not appear to have acute findings on initial read myself. Prior to admission the patient was started on a pantoprazole drip w/bolus, was consented for blood, and ordered one unit PRBC's. At the time of the exam the patient was lying in bed in no acute distress with his bedside, history was obtained from both. The patient has been experiencing progressive generalized weakness and KELLOGG for the past 1-2 months. It became significantly worse this am so he saw his PCP who obtained outpatient lands where he was found to have a drop in his Hgb. He was previously diagnosed with iron deficiency anemia but has not been on oral iron due to constipation. He gets intermittent infusions of Venofer outpatient. He has been having diarrhea described as dark-black for the past 6 months or so per his . Takes a baby aspirin daily but has not recently used NSAID's, alcohol, tobacco recently and is not on anticoagulation outpatient. Denies recent fever, chills, chest pain, cough, hemoptysis, abd pain, nausea, vomiting, dysuria, hematuria, bright bloody BM's, or LE swelling. He has had multiple falls over the past month due to his weakness, he was seen in the [facility] ED on 04/19 for his last fall. We discussed code status, he is a DNR/DNI and his is his POA. His last colonoscopy was approximately 10 years ago. Please refer to Dr. Cuevas's attestation for any changes to the treatment plan Allergies Allergy/AdvReac Type Severity Reaction Status Date / Time adhesive tape Allergy Severe RED Verified 03/01/24 10:08 IRRITATED SKIN Home Medications Medication Instructions Recorded Confirmed Type coenzyme Q10 100 mg capsule 100 mg PO QAM 08/03/19 04/25/24 History furosemide 40 mg tablet 40 mg PO BID #180 tabs 08/10/23 04/25/24 Rx metformin 1,000 mg tablet 1,000 mg PO BID #180 tabs 08/10/23 04/25/24 Rx atorvastatin 40 mg tablet 40 mg PO QPM 09/12/23 04/25/24 History lisinopril 10 mg tablet 10 mg PO QAM 11/17/23 04/25/24 History aspirin 81 mg tablet,delayed 81 mg PO QPM 12/03/23 04/25/24 History release blood-glucose meter,continuous #1 ea 12/27/23 04/25/24 Rx (Dexcom G7 Options Advisor) metoprolol tartrate 25 mg tablet 25 mg PO BID 12/27/23 04/25/24 History enzalutamide 40 mg tablet (Xtandi) 160 mg PO QAM 02/07/24 04/25/24 History finasteride 5 mg tablet 5 mg PO QAM 03/01/24 04/25/24 History insulin aspar prot-insulin aspart 8 unit subcut TID 03/01/24 04/25/24 History 100 unit/mL (70-30) subcutaneous pen (Novolog Mix 70-30FlexPen U-100) zinc acetate 50 mg (zinc) capsule 50 mg PO QAM 03/01/24 04/25/24 History potassium chloride 10 mEq 10 meq PO BID #180 tabs 03/13/24 04/25/24 Rx tablet,extended release tamsulosin 0.4 mg capsule (Flomax) 0.4 mg PO QAM #90 caps 03/13/24 04/25/24 Rx blood sugar diagnostic (OneTouch #25 ea 03/30/24 04/25/24 Rx Verio test strips) blood-glucose sensor (Dexcom G7 #3 ea 03/30/24 04/25/24 Rx Sensor device) diclofenac sodium 1 % topical gel 2 g topical QID PRN pain, moderate 04/03/24 04/25/24 Rx #100 grams lorazepam 0.5 mg tablet 0.5 mg PO HS PRN sleep #30 tabs 04/21/24 04/25/24 Rx calcium carbonate 600 mg-vitamin 2 cap PO DAILY 04/25/24 04/25/24 History D3 12.5 mcg (500 unit) capsule (Calcium 600 with Vitamin D3) Past Med/Surg History Problem List (Updated 04/26/24 @ 11:00 by Rajendra Cuevas MD) Acute GI bleeding Hyperkalemia Symptomatic anemia Pain in right knee (Acute) Fall (Acute) Osteoarthritis of right knee Urinary retention hx MARIN (acute kidney injury) Weakness (Acute) Acute hyponatremia (Acute) Acute UTI (urinary tract infection) (Acute) Encounter for pre-operative examination Prostate cancer Hyponatremia Microcytic anemia Bony sclerosis Weight loss Urinary tract infection (Acute) Acute hyponatremia (Acute) Lower extremity edema Bilateral hydronephrosis Bladder outlet obstruction Pulmonary nodules/lesions, multiple Nephrolithiasis Elevated PSA BPH (benign prostatic hyperplasia) Unruptured popliteal cyst Cerumen impaction Sensorineural hearing loss (SNHL) of left ear with restricted hearing of right ear Actinic keratosis (Acute) Dyslipidemia (Acute) Folliculitis (Acute) Umbilical hernia (Acute) Ventral hernia (Acute) Arthritis of knee Hyperlipidemia Hypertension Diabetes Diabetes mellitus, type 2 IDDM CKD (chronic kidney disease) pt denies OA (osteoarthritis) of knee Medical History Anemia History of CVA (cerebrovascular accident) Hx of iron deficiency anemia History of prostate cancer Hx of basal cell carcinoma History of SCC (squamous cell carcinoma) of skin Hypertension Hyperlipidemia Surgical History History of prostate surgery Hx of tonsillectomy Hx of bilateral cataract extraction Hx of umbilical hernia repair Hx of squamous cell carcinoma excision Hx of basal cell carcinoma excision Hx of tooth extraction History of colonoscopy Family History Mother Cancer Father Diabetes Other Heart disease Stroke Denies family history of Hearing loss No family history of adverse response to anesthesia No family history of bleeding disorder Allergies Asthma Social History Smoking Status: Never smoker Second Hand Exposure: No; Do You Dip or Chew Tobacco: No; Tobacco Cessation Education Requested by Patient: No Hx Alcohol Use: No Hx Substance Use: No Preferred Language: Mongolian Communication Ability: Effective Visual Impairment: No Limitations Hearing Ability: Normal Cisco Engineer Required: No Beliefs That Will Affect Care: None marital status: Current Living Situation: Spouse current occupational status: retired How many Children do You have: 3 Other Information That Helps Us Care for You: No Feels Safe at Home: Yes Safety Concerns: Feels Safe At This Time Childhood Exposure to Second-Hand Smoke: Yes Diet: regular caffeine: No during the past year weight has: remained stable Dental Care, Regularly: Yes Physical Activity Frequency: Does not Exercise Seatbelt Use: always Sunscreen Use: Yes Assistive Devices: Walker Physical Exam Physical Exam: Physical Exam: General: In no acute distress, stated age, ill appearing but non-toxic HEENT: Normocephalic, atraumatic, pale palpebral conjunctivae, no scleral icterus, pupils around round, symmetrical, and reactive to light, moist mucus membranes, trachea midline, no thyromegaly Chest/Pulm: No respiratory distress, symmetrical chest expansion, clear breath sounds throughout Cardiac: RRR, 3/6 systolic murmur noted Abdomen: Negative for ascites and bruising, normoactive bowel sounds, soft, non-tender to palpation throughout Musculoskeletal: Symmetrical and without signs of acute trauma, upper and lower extremities with full ROM, no atrophy, spasticity, or flaccidity Extremities: Radial, dorsalis pedis, and posterior tibial pulses are intact and symmetrical, no edema noted in the BL LE's Skin: Warm, pale, dry, no rashes , lesions, or scars noted Neuro: Alert and oriented to person, place, month, year, and president, no focal defects,no tremors noted Psych: No acute distress, calm and cooperative during the exam Results & Data Results & Data Vital Signs (Past 12 Hours) Vital Signs Temp Pulse Pulse Resp BP BP Pulse Ox 04/25/24 14:38 73 15 95 04/25/24 14:02 97 04/25/24 14:01 64 04/25/24 14:01 66 16 113/56 L 97 04/25/24 13:38 36.8 C 88 14 69/39 L 96 O2 Del Method O2 Flow Rate 04/25/24 14:38 Room Air 04/25/24 14:02 Room Air 0 04/25/24 14:01 04/25/24 14:01 Room Air 04/25/24 13:38 Room Air Laboratory Results Abnormal lab results 04/25/24 04/25/24 04/25/24 Range/Units 14:06 14:12 15:02 Hgb 7.9 L (14.0-18.0) g/dl POC Hgb 7.5 L (14.0-18.0) g/dl Hct 23.6 L (42.0-52.0) % POC Hct 22 L (42-52) % POC Sodium 131 L (135-144) mmol/L POC Potassium 5.6 H (3.3-5.0) mmol/L POC Total CO2 17 L (24-31) mmol/L POC BUN 68 H (7-18) mg/dl POC Creatinine 2.4 H (0.6-1.3) mg/dl POC Glucose (other) 192 H (70-99) mg/dl POC Ioniz Calcium Danilo 1.10 L (1.12-1.32) mmol/l TIBC 246 L (250-450) mcg/dl Transferrin 156 L (200-360) mg/dl POC Stool Occult Blood Positive A (Negative) ECG Additional Comments: Sinus rhythm with Premature atrial complexes Septal infarct (cited on or before 10-SEP-2018) ST & T wave abnormality, consider inferolateral ischemia Abnormal ECG When compared with ECG of 03-DEC-2023 19:29, Significant changes have occurred Code Status & VTE Plan Code Status DNR/DNI VTE Prophylaxis Plan VTE Prophylaxis will be ordered: Yes Supervising Physician Co-Signing Physician Notes I personally saw and examined the patient. I verified all strauss points and agree with Cornel Conway PA-C with the following exceptions and/or additions: 89 year old male with metastatic prostate cancer presents to the ER with shortness of breath on exertion and generalized weakness. Melena for 3 weeks. Outpatient labs showed a drop in Hgb therefore sent to ER by PCP. O/E HS RRR, no murmurs, Chest CTAB, Abdo SNT, no CVA tenderness A/P Symptomatic anemia / suspected GI bleed - Hold Xtandi (can cause anemia), B12 level low, will start replacement, FOB positive with black stool. Pantoprazole IV bolus and drip. Transfuse 1 unit due to symptomatic and repeat Hgb. Transfuse if Hgb < 7 overnight. Consult GI. Add LDH and retic count to labs. Hyperkalemia - Secondary to CKD with potassium replacement. Stop potassium replacement and use insulin/dextrose as needed. PG Care Time/CCT Total # of Minutes Spent Total Time Spent with Patient: Total time spent is greater than 50% in coordination of care (as documented) at patient's floor/unit and/or counseling patient: Coding [place] [address] INT INP/OBS CARE 3/75MIN Patient Type Established Medical Decision Making High Complexity Diagnoses Symptomatic anemia D64.9 Hyperkalemia E87.5 Weakness R53.1 Prostate cancer C61 Type 2 diabetes mellitus without complication, with long-term current use of insulin E11.9; Z79.4 Diabetes mellitus complication status: without complication Diabetes mellitus senior care insulin use: with exterminator helper termite use Diabetes mellitus type: type 2 Acute GI bleeding K92.2 (5) Diabetes Diabetes mellitus complication status: without complication Diabetes mellitus exterminator helper termite insulin use: with exterminator helper termite use Diabetes mellitus type: type 2 Qualified Code(s): E11.9 - Type 2 diabetes mellitus without complications; Z79.4 - remote computer terminal operator (current) use of insulin
[2024-04-25] MEDS: PANTOPRAZOLE BOLUS/DRIP IV STA (16:24)
[2024-04-25] MEDS: PANTOprazole 40 MG in DEXTROSE 5% MINI-B 100 ML IV SCH (16:26)
[2024-04-25] MEDS ORDERED: DEXTROSE 50% 50 ML SYRINGE IV PRN (16:29)
[2024-04-25] MEDS ORDERED: GLUCOSE 40% GEL 15 GM TUBE PO PRN (16:29)
[2024-04-25] MEDS ORDERED: GLUCAGON FOR INJ 1 MG VIAL SQ PRN (16:29)
[2024-04-25] MEDS ORDERED: CARBOHYDRATES FOR HYPOGLYCEMIA PO PRN (16:29)
[2024-04-25] MEDS ORDERED: GLUCOSE 10 TAB/TUBE PO PRN (16:29)
[2024-04-25] MEDS: CALCIUM GLUCONATE 1,000 MG/60 ML BAG IV STA (16:43)
[2024-04-25 17:01] LABS: Folate (Folic Acid),Ser orPlas 6.66 ng/ml (>5.38)
--- NOTE | 2024-04-25 17:52 | Electrocardiogram Report ---
Test Reason : Blood Pressure : / mmHG Vent. Rate : 064 BPM Atrial Rate : 064 BPM P-R Int : 172 ms QRS Dur : 106 ms QT Int : 440 ms P-R-T Axes : 076 014 225 degrees QTc Int : 453 ms Sinus rhythm with Premature atrial complexes Old Septal infarct (cited on or before 10-SEP-2018) Abnormal ECG When compared with ECG of 03-DEC-2023 19:29, T-wave inversion in Inferolateral leads now present Confirmed by Jovan Anderson ([id number]) on 04/25/2024 5:52:39 PM Referred By: Confirmed By:Jovan Anderson
[2024-04-25] MEDS: Patient's HEIGHT &/or WEIGHT Needed SCH (18:00)
[2024-04-25] MEDS: INSULIN HUMAN REGULAR PER UNIT 10 UNITS in SYRINGE 9.9 ML IV STA (19:24)
[2024-04-25] MEDS: DEXTROSE 50% 50 ML SYRINGE IV STA (19:24)
[2024-04-25] MEDS: INSULIN ASPART PER UNIT CHARGE SC SCH (19:25)
[2024-04-25 19:30] LABS: Reticulocyte % 2.81 % (0.50-2.00); Reticulocytes # 0.07 10^6/uL (0.020-0.100)
[2024-04-25] MEDS: SODIUM ZIRCONIUM CYCLOSILICATE 10 GM PACKET PO STA (21:05)
[2024-04-25] MEDS: MELATONIN 3 MG TAB PO PRN (21:27)
[2024-04-25] MEDS: LORazepam 0.5 MG TAB PO PRN (21:27)
[2024-04-25] MEDS: ATORVASTATIN 40 MG TAB PO SCH (21:47)
[2024-04-25] MEDS: METOPROLOL TARTRATE 25 MG TAB PO SCH (21:47)
[2024-04-26 00:16] LABS: Hematocrit (blood only) 20.7 % (42.0-52.0); Hemoglobin 7.1 g/dl (14.0-18.0); Mean Corpuscular Hemoglobin 30.9 pg (25.0-34.0); Mean Corpuscular Hgb Conc 34.3 g/dL (32.0-36.0); Mean Platelet Volume 9.2 fL (9.4-12.4); Platelet Count 323 K/uL (130-400); RDW Coefficient of Variation 13.3 % (11.5-14.5); RDW Standard Deviation 43.3 fL (36.4-46.3); White Blood Count 7.32 K/ul (4.8-10.8)
[2024-04-26] MEDS ORDERED: SODIUM CHLORIDE 0.9% 250 ML IV PRN (01:08)
[2024-04-26 06:31] LABS: Hematocrit (blood only) 23.6 % (42.0-52.0); Hemoglobin 8.2 g/dl (14.0-18.0); Mean Corpuscular Hemoglobin 30.9 pg (25.0-34.0); Mean Corpuscular Hgb Conc 34.7 g/dL (32.0-36.0); Mean Corpuscular Volume 89.1 fL (80.0-100.0); Mean Platelet Volume 9.3 fL (9.4-12.4); Platelet Count 301 K/uL (130-400); RDW Coefficient of Variation 13.5 % (11.5-14.5); RDW Standard Deviation 43.3 fL (36.4-46.3); Red Blood Count 2.65 M/uL (4.70-6.10); White Blood Count 6.91 K/ul (4.8-10.8)
[2024-04-26 06:39] LABS: INR 1.1 (0.9-1.1); Prothrombin Time 11.4 Seconds (9.0-12.0)
[2024-04-26 06:41] LABS: Albumin Globulin Ratio 1.3 (0.9-2); Albumin Level 2.8 gm/dl (3.4-5.0); BUN Creatinine Ratio 38.4 (10-20); Bilirubin,Total 0.7 mg/dl (0.2-1.0); Calcium 7.7 mg/dl (8.6-10.3); Creatinine Clr Calc Pharmacy 29.7 ml/min; Est GFR (African American) 36.6 ml/min; Est GFR (Non-African American) 31.6 ml/min; Globulin 2.1 gm/dl (2.5-4.0); Magnesium 1.9 mg/dl (1.7-2.4); Potassium 4.3 mmol/L (3.5-5.1); Total Protein 4.9 gm/dl (6.0-8.3)
--- NOTE | 2024-04-26 08:21 | Hospitalist Progress Note ---
Date of Service April 26, 2024 Assessment & Plan (1) Symptomatic anemia: Plan: 89-year-old man admitted with acute blood loss anemia, symptomatic, with melena related to suspected upper GI bleed. On baby aspirin and some minimal NSAID exposure Transfused 1 unit 04/25 with appropriate increase in Hg from 7.1-->8.2 then trended back down to 7.7 this afternoon started on PPI drip at admission underwent EGD 04/26 and found to have nonbleeding gastric polyps, several nonbleeding gastric ulcers, large oozing duodenal ulcer treated with epi and BiCap - continue IV PPI drip - clear liquid diet - Monitor serial Hg - transfuse for <7 or if symptomatic - follow up biopsies (2) Hyperkalemia: Plan: MARIN on CKD-3 -Cr improved with blood/fluids -Mild Hyperkalemia resolved - treated with lokelma, CITLALI and K supp held -AM BMP (3) Prostate cancer: Plan: -Currently [facility] -On daily Enzalutamide - resume on discharge -Continue to follow up with Urology and CCP on discharge elevated LDH seems likely related to malignancy (4) Diabetes: Plan: -Hold metformin -Monitor BSG q6h while NPO, goal is 110-160 -Start CF of 50 and CR of 15 q6h for now -Hold basal insulin with NPO status -Adjust regimen as needed Plan Anemia workup also notable for B12 deficiency (129). Folate normal. -B12 1000 IM x 7d ordered, then maintenance dosing Check thiamine and empirically replace Admission and Anticipated Discharge Date Admission Date: April 25, 2024 Subjective I saw Bill this afternoon following his EGD he has no abdominal or back pain. He and his report ongoing dark/black stools but they did not realize this was a sign of GI bleeding he is on baby aspirin and has had very occasional doses of ibuprofen not more than once every few weeks however he was extremely weak when he tried to get up with PT and OT and was unable to stand up and get into the chair Physical Exam 2 Physical Exam: PHYSICAL EXAMINATION Last 24h vital signs reviewed, see documentation in flowsheet General: comfortable appearing, no distress HEENT: Normocephalic, atraumatic, pupils round and equal, sclerae anicteric, no conjunctival injection, moist mucus membranes Lungs: Normal respiratory effort. Clear to auscultation bilaterally. No RRW Heart: Regular rate and rhythm, no murmurs. No JVD Abdomen: Soft, nontender, nondistended. Bowel sounds present. Extremities: Warm, dry, well-perfused. No extremity edema. Neuro: Alert and oriented x 4, face symmetric, moves 4 extremities well Psych: Normal affect and behavior Results & Data Results & Data Vital Signs (Past 12 Hours) Vital Signs Temp Pulse Pulse Resp BP BP Pulse Ox 04/26/24 08:02 37.2 C 71 17 119/62 95 04/26/24 04:25 158 H 04/26/24 03:10 36.9 C 78 17 127/54 L 98 04/26/24 02:40 36.9 C 78 18 100/55 L 98 04/26/24 02:25 36.9 C 72 18 105/55 L 97 04/26/24 02:06 36.9 C 73 18 120/65 95 04/25/24 23:21 73 04/25/24 22:47 36.9 C 63 16 100/54 L 95 04/25/24 22:36 04/25/24 20:37 36.8 C 70 18 112/52 L 98 O2 Del Method 04/26/24 08:02 Room Air 04/26/24 04:25 04/26/24 03:10 04/26/24 02:40 04/26/24 02:25 04/26/24 02:06 04/25/24 23:21 04/25/24 22:47 Room Air 04/25/24 22:36 Room Air 04/25/24 20:37 Laboratory Results 04/26/24 05:43 04/26/24 05:43 PG Care Time/CCT Total # of Minutes Spent Total Time Spent with Patient: Total time spent is greater than 50% in coordination of care (as documented) at patient's floor/unit and/or counseling patient: Coding Level of Care Code 44912 SUB INP/OBS CARE 3/50MIN Diagnoses Symptomatic anemia D64.9 Hyperkalemia E87.5 Prostate cancer C61 Type 2 diabetes mellitus without complication, with long-term current use of insulin E11.9; Z79.4 Diabetes mellitus complication status: without complication Diabetes mellitus exterminator helper termite insulin use: with senior living use Diabetes mellitus type: type 2 (4) Diabetes Diabetes mellitus complication status: without complication Diabetes mellitus exterminator helper termite insulin use: with exterminator helper termite use Diabetes mellitus type: type 2 Qualified Code(s): E11.9 - Type 2 diabetes mellitus without complications; Z79.4 - predatory animal exterminator (current) use of insulin
[2024-04-26] MEDS: TAMSULOSIN HCL 0.4 MG CAP PO SCH (08:42)
[2024-04-26] MEDS: FINASTERIDE 5 MG TAB PO SCH (08:43)
[2024-04-26] MEDS: CYANOCOBALAMIN 1000 MCG/ML VIAL IM SCH (09:51)
[2024-04-26] MEDS: THIAMINE HCL 500 MG in SODIUM CHLORIDE 0.9% 50 ML IV SCH (09:51)
--- NOTE | 2024-04-26 11:32 | Gastrointestinal Consultation ---
Date of Consultation April 26, 2024 Assessment & Plan (1) Melena: (2) Anemia: Plan -Can continue Protonix gtt for now -Monitor H/H -Keep NPO for EGD today Supervising Physician Co-Signing Physician Notes Agree with KYLE Feliz as above Interviewed and examined patient and agree with above Abd: Soft, NT, ND, +BS Continue current therapy and supportive care Proceed with EGD now. History of Present Illness Reason for Consultation: Anemia Attending Physician: Ketty Simon MD History of Present Illness Patient is an 89 yo male with metastatic prostate cancer who presents to the hospital with weakness and anemia. Current H/H 8.2/23.6, but hemoglobin was in the 7s upon presentation. He received 1 unit PRBC. He notes ongoing melena/dark stool for the past week. He denies abdominal pain. He denies heartburn or reflux. He takes daily Aspirin but denies other NSAID use. He uses Tylenol but denies other OTC pain meds. He denies ever having an EGD in the past. He is unsure of the date of his last colonoscopy. BUN was 66 upon admission. He is somewhat of a difficult historian but notes that he feels weak. Allergies Allergy/AdvReac Type Severity Reaction Status Date / Time adhesive tape Allergy Severe RED Verified 03/01/24 10:08 IRRITATED SKIN Home Medications Medication Instructions Recorded Confirmed Type coenzyme Q10 100 mg capsule 100 mg PO QAM 08/03/19 04/25/24 History furosemide 40 mg tablet 40 mg PO BID #180 tabs 08/10/23 04/25/24 Rx metformin 1,000 mg tablet 1,000 mg PO BID #180 tabs 08/10/23 04/25/24 Rx atorvastatin 40 mg tablet 40 mg PO QPM 09/12/23 04/25/24 History lisinopril 10 mg tablet 10 mg PO QAM 11/17/23 04/25/24 History aspirin 81 mg tablet,delayed 81 mg PO QPM 12/03/23 04/25/24 History release blood-glucose meter,continuous #1 ea 12/27/23 04/25/24 Rx (Dexcom G7 Tool Setter) metoprolol tartrate 25 mg tablet 25 mg PO BID 12/27/23 04/25/24 History enzalutamide 40 mg tablet (Xtandi) 160 mg PO QAM 02/07/24 04/25/24 History finasteride 5 mg tablet 5 mg PO QAM 03/01/24 04/25/24 History insulin aspar prot-insulin aspart 8 unit subcut TID 03/01/24 04/25/24 History 100 unit/mL (70-30) subcutaneous pen (Novolog Mix 70-30FlexPen U-100) zinc acetate 50 mg (zinc) capsule 50 mg PO QAM 03/01/24 04/25/24 History potassium chloride 10 mEq 10 meq PO BID #180 tabs 03/13/24 04/25/24 Rx tablet,extended release tamsulosin 0.4 mg capsule (Flomax) 0.4 mg PO QAM #90 caps 03/13/24 04/25/24 Rx blood sugar diagnostic (OneTouch #25 ea 03/30/24 04/25/24 Rx Verio test strips) blood-glucose sensor (Dexcom G7 #3 ea 03/30/24 04/25/24 Rx Sensor device) diclofenac sodium 1 % topical gel 2 g topical QID PRN pain, moderate 04/03/24 04/25/24 Rx #100 grams lorazepam 0.5 mg tablet 0.5 mg PO HS PRN sleep #30 tabs 04/21/24 04/25/24 Rx calcium carbonate 600 mg-vitamin 2 cap PO DAILY 04/25/24 04/25/24 History D3 12.5 mcg (500 unit) capsule (Calcium 600 with Vitamin D3) Patient History Medical History CKD (chronic kidney disease) pt denies Prostate cancer Bilateral hydronephrosis Pulmonary nodules/lesions, multiple OA (osteoarthritis) of knee Dyslipidemia Hyperlipidemia Hypertension Diabetes mellitus, type 2 IDDM Anemia History of CVA (cerebrovascular accident) 08/2018, "garbled speech> pt denies residual effects Hx of iron deficiency anemia History of prostate cancer dx 08/2023, takes Xtandi daily and hormone injection [id number]; mets-skeletal lesions, mediastinal and bilat hilar lymph node uptake on 10/2023 PET scan Hx of basal cell carcinoma History of SCC (squamous cell carcinoma) of skin Hypertension controlled, stable per pt Hyperlipidemia Surgical History History of prostate surgery REZUM (10/2023 at [facility]) Hx of tonsillectomy Hx of bilateral cataract extraction Hx of umbilical hernia repair Hx of squamous cell carcinoma excision face Hx of basal cell carcinoma excision face Hx of tooth extraction All teeth removed; partial plate upper and lower jaw History of colonoscopy Family History Mother Cancer Father Diabetes Other Heart disease Stroke Denies family history of Hearing loss No family history of adverse response to anesthesia No family history of bleeding disorder Allergies Asthma Social History Smoking Status: Never smoker Second Hand Exposure: No; Do You Dip or Chew Tobacco: No; Tobacco Cessation Education Requested by Patient: No Hx Alcohol Use: No Hx Substance Use: No Preferred Language: Haitian Communication Ability: Effective Visual Impairment: No Limitations Hearing Ability: Normal Medication Coordinator Required: No Beliefs That Will Affect Care: None marital status: Current Living Situation: Spouse current occupational status: retired How many Children do You have: 3 Other Information That Helps Us Care for You: No Feels Safe at Home: Yes Safety Concerns: Feels Safe At This Time Childhood Exposure to Second-Hand Smoke: Yes Diet: regular caffeine: No during the past year weight has: remained stable Dental Care, Regularly: Yes Physical Activity Frequency: Does not Exercise Seatbelt Use: always Sunscreen Use: Yes Assistive Devices: Walker Review of Systems Constitutional: + weakness; no fever and no chills Respiratory: no cough and no dyspnea Cardiovascular: no chest pain Gastrointestinal: + melena; no abdominal pain Physical Exam Constitutional: well developed Respiratory: normal respiratory effort Cardiovascular: Rate/Rhythm: regular rate Gastrointestinal (Abdomen): normal bowel sounds, soft, nontender, no hepatosplenomegaly Psychiatric: Orientation: alert and oriented x 3 Results & Data Vital Signs (Past 12 Hours) Vital Signs Temp Pulse Pulse Resp BP BP Pulse Ox 04/26/24 11:06 04/26/24 08:02 37.2 C 71 17 119/62 95 04/26/24 04:25 158 H 04/26/24 03:10 36.9 C 78 17 127/54 L 98 04/26/24 02:40 36.9 C 78 18 100/55 L 98 04/26/24 02:25 36.9 C 72 18 105/55 L 97 04/26/24 02:06 36.9 C 73 18 120/65 95 O2 Del Method 04/26/24 11:06 Room Air 04/26/24 08:02 Room Air 04/26/24 04:25 04/26/24 03:10 04/26/24 02:40 04/26/24 02:25 04/26/24 02:06 PG Care Time/CCT Total # of Minutes Spent Total Time Spent with Patient: Total time spent is greater than 50% in coordination of care (as documented) at patient's floor/unit and/or counseling patient: Coding Level of Care Code 50666 INT INP/OBS CARE 3/75MIN Diagnoses Melena K92.1 Anemia D64.9
--- NOTE | 2024-04-26 11:50 | Anesthesiology Consultation ---
Date of Service April 26, 2024 Assessment & Plan Chart Review Chart Review: Acceptable Risk for Surgery Consults Requested none ASA [id number] Proposed Anesthesia Anesthesia Type: MAC Risk / Benefits Reviewed With: PT / POA / Parent / Guardian, Accepts Plan and Informed Consent Obtained History Surgery Operation Date: 04/26/24 16:45 Proposed Procedures p Esophagogastroduodenoscopy Dr Pierce - Wan Sierra Case, DO Height/Weight Height: 6 ft Weight: 89.1 kg Allergies Allergy/AdvReac Type Severity Reaction Status Date / Time adhesive tape Allergy Severe RED Verified 03/01/24 10:08 IRRITATED SKIN Medications Home Medications Medication Instructions Recorded Confirmed Last Taken coenzyme Q10 100 mg capsule 100 mg PO QAM 08/03/19 04/25/24 12/03/23 furosemide 40 mg tablet 40 mg PO BID #180 tabs 08/10/23 04/25/24 12/03/23 08:00 metformin 1,000 mg tablet 1,000 mg PO BID #180 tabs 08/10/23 04/25/24 12/03/23 08:00 atorvastatin 40 mg tablet 40 mg PO QPM 09/12/23 04/25/24 12/02/23 lisinopril 10 mg tablet 10 mg PO QAM 11/17/23 04/25/24 12/03/23 aspirin 81 mg tablet,delayed 81 mg PO QPM 12/03/23 04/25/24 12/02/23 release blood-glucose meter,continuous #1 ea 12/27/23 04/25/24 Unknown (Dexcom G7 Rn Endoscopy) metoprolol tartrate 25 mg tablet 25 mg PO BID 12/27/23 04/25/24 Unknown enzalutamide 40 mg tablet (Xtandi) 160 mg PO QAM 02/07/24 04/25/24 Unknown finasteride 5 mg tablet 5 mg PO QAM 03/01/24 04/25/24 Unknown insulin aspar prot-insulin aspart 8 unit subcut TID 03/01/24 04/25/24 Unknown 100 unit/mL (70-30) subcutaneous pen (Novolog Mix 70-30FlexPen U-100) zinc acetate 50 mg (zinc) capsule 50 mg PO QAM 03/01/24 04/25/24 Unknown potassium chloride 10 mEq 10 meq PO BID #180 tabs 03/13/24 04/25/24 Unknown tablet,extended release tamsulosin 0.4 mg capsule (Flomax) 0.4 mg PO QAM #90 caps 03/13/24 04/25/24 Unknown blood sugar diagnostic (OneTouch #25 ea 03/30/24 04/25/24 Unknown Verio test strips) blood-glucose sensor (Dexcom G7 #3 ea 03/30/24 04/25/24 Unknown Sensor device) diclofenac sodium 1 % topical gel 2 g topical QID PRN pain, moderate 04/03/24 04/25/24 Unknown #100 grams lorazepam 0.5 mg tablet 0.5 mg PO HS PRN sleep #30 tabs 04/21/24 04/25/24 Unknown calcium carbonate 600 mg-vitamin 2 cap PO DAILY 04/25/24 04/25/24 Unknown D3 12.5 mcg (500 unit) capsule (Calcium 600 with Vitamin D3) Active Medications Generic Name Dose Route Start Last Admin Trade Name Freq PRN Reason Stop Dose Admin Atorvastatin Calcium 40 mg 04/25/24 21:00 04/25/24 21:47 Atorvastatin 40 Mg Tab PO 05/25/24 20:59 40 mg QPM VANESSA Administration Cyanocobalamin 1,000 mcg 04/26/24 09:00 04/26/24 09:51 Cyanocobalamin 1000 Mcg/Ml Vial IM 05/02/24 09:01 1,000 mcg QAM VANESSA Administration Finasteride 5 mg 04/26/24 09:00 04/26/24 08:43 Finasteride 5 Mg Tab PO 05/26/24 08:59 5 mg QAM VANESSA Administration Pantoprazole Sodium 40 mg/ 100 mls @ 20 mls/hr 04/25/24 15:30 04/26/24 07:49 Dextrose IV 05/25/24 15:29 8 mg/hr Q5H VANESSA 20 mls/hr Administration 8 MG/HR Thiamine HCl 500 mg/ Sodium 55 mls @ 210 mls/hr 04/26/24 08:30 04/26/24 10:12 Chloride IV 04/29/24 08:29 Infused Q8H VANESSA Infusion Insulin Aspart 0 units 04/25/24 16:30 04/26/24 11:39 Insulin Aspart Per Unit Charge SC 05/25/24 16:29 1 units Q6H VANESSA Administration Lorazepam 0.5 mg 04/25/24 20:46 04/25/24 21:27 Lorazepam 0.5 Mg Tab PO 05/25/24 20:45 0.5 mg HS PRN Administration sleep Melatonin 3 mg 04/25/24 20:47 04/25/24 21:27 Melatonin 3 Mg Tab PO 05/25/24 20:46 3 mg HS PRN Administration Sleep Metoprolol Tartrate 25 mg 04/25/24 21:00 04/26/24 08:42 Metoprolol Tartrate 25 Mg Tab PO 05/25/24 20:59 25 mg BID VANESSA Administration Tamsulosin HCl 0.4 mg 04/26/24 09:00 04/26/24 08:42 Tamsulosin Hcl 0.4 Mg Cap PO 05/26/24 08:59 0.4 mg QAM VANESSA Administration NPO Date Last Intake of Fluids: 04/25/24 Time Last Intake of Fluids: 23:59 Date Last Intake of Solids: 04/24/24 Time Last Intake of Solids: 08:00 Past Medical History Medical History CKD (chronic kidney disease) pt denies Prostate cancer Bilateral hydronephrosis Pulmonary nodules/lesions, multiple OA (osteoarthritis) of knee Dyslipidemia Hyperlipidemia Hypertension Diabetes mellitus, type 2 IDDM Anemia History of CVA (cerebrovascular accident) 08/2018, "garbled speech> pt denies residual effects Hx of iron deficiency anemia History of prostate cancer dx 08/2023, takes Xtandi daily and hormone injection [id number]; mets-skeletal lesions, mediastinal and bilat hilar lymph node uptake on 10/2023 PET scan Hx of basal cell carcinoma History of SCC (squamous cell carcinoma) of skin Hypertension controlled, stable per pt Hyperlipidemia Patient denies h/o seizures, heart attack, heart failure, blood clots/DVTs or blood transfusions. Exercise / Class Metabolic Activity III < 4 Walking/Shop/Light housework (denies chest discomfort or shortness of breath with usual activities) Past Family History Family History Mother Cancer Father Diabetes Other Heart disease Stroke Denies family history of Hearing loss No family history of adverse response to anesthesia No family history of bleeding disorder Allergies Asthma Past Surgical History Surgical History History of prostate surgery MORGAN (10/2023 at [facility]) Hx of tonsillectomy Hx of bilateral cataract extraction Hx of umbilical hernia repair Hx of squamous cell carcinoma excision face Hx of basal cell carcinoma excision face Hx of tooth extraction All teeth removed; partial plate upper and lower jaw History of colonoscopy Past Anesthesia History No Hx of Anesthesia Complications and No Family Hx of Anesthesia Complications History of PONV No Hx of PONV and No Hx of Motion Sickness Social History Smoking Status: Never smoker Do You Dip or Chew Tobacco: No Hx Alcohol Use: No Alcohol type: beer alcohol intake frequency: holidays/special occasions only Hx Substance Use: No substance use type: does not use Physical Exam Vital Signs Last Vital Signs Temp 36.6 C 04/26/24 12:04 Pulse 77 04/26/24 12:04 Resp 18 04/26/24 12:04 BP 107/52 L 04/26/24 12:04 Pulse Ox 95 04/26/24 12:04 O2 Del Method Room Air 04/26/24 12:04 O2 Flow Rate 0 04/25/24 14:02 Constitutional + cachectic ENMT Mouth: + dentition abnormality (5 upper teeth remain. 2 posts bottom); no TMJ abnormality Thyromental Distance: > or= 3.5 Finger Breadths Mallampati Class: II Neck normal visual inspection and trachea midline; neck extension not limited Respiratory normal respiratory effort Auscultation: lungs clear to auscultation bilaterally Cardiovascular Rate/Rhythm: regular rate and regular rhythm Heart Sounds: no murmur Musculoskeletal Spine: normal cervical ROM Extremities: full ROM of extremities Neurologic moves all extremities Psychiatric Orientation: alert and oriented x 3 Testing Laboratory Results 04/26/24 05:43 04/26/24 05:43 PT 11.4 Seconds (9.0-12.0) 04/26/24 05:43 INR 1.1 (0.9-1.1) 04/26/24 05:43 APTT 26 Seconds (21-31) 04/25/24 14:06 Blood Type O Positive 04/25/24 14:38 Antibody Screen NEGATIVE 04/25/24 14:38 04/26/24 10:41 POC Glucose 176 H Electrocardiogram Date: 04/25/24 Findings: + NSR @ (64), + NSST changes, + T wave inversion and + RI (old septal infarct) Chest X-Ray Date: 04/25/24 Findings: + NAD Stress Test Date: 09/09/18 Type: exercise Findings: no ischemia
--- NOTE | 2024-04-26 13:39 | Communication Note ---
Date of Service: April 26, 2024 Patient is an 89 yo male with anemia. He underwent an EGD today that indicated multiple gastric ulcers and a duodenal ulcer with a visible vessel. This was t reated with epi & bipolar cautery. Biopsies were taken to assess for H pylori. Patient will need to remain on IV Pantoprazole drip for 72 hours prior to transitioning to Protonix 40 mg BID. He should remain on BID PPI therapy indefinitely. Ok to give a clear liquid diet for today. Continue to monitor H/H.
--- NOTE | 2024-04-26 13:41 | GI REPORT ---
Patient Name: Mihai Evans Procedure Date: 04/26/2024 1:18 PM Date of : 1935 Admit Type: Inpatient Age: 89 Gender: Male Attending MD: Wan Pierce DO, Procedure: Upper GI endoscopy Providers: Wna Pierce DO Referring MD: Juve Davidson MD Indications: Acute post hemorrhagic anemia, Melena Medicines: Monitored Anesthesia Care Complications: No immediate complications. Estimated Blood Loss: Estimated blood loss: none. Procedure: Pre-Anesthesia Assessment: - Prior to the procedure, a History and Physical was performed, and patient medications and allergies were reviewed. The patient's tolerance of previous anesthesia was also reviewed. The risks and benefits of the procedure and the sedation options and risks were discussed with the patient. All questions were answered, and informed consent was obtained. Prior Anticoagulants: The patient has taken no anticoagulant or antiplatelet agents except for aspirin. ASA Grade Assessment: III - A patient with severe systemic disease. After reviewing the risks and benefits, the patient was deemed in satisfactory condition to undergo the procedure. After obtaining informed consent, the endoscope was passed under direct vision. Throughout the procedure, the patient's blood pressure, pulse, and oxygen saturations were monitored continuously. The Endoscope was introduced through the mouth, and advanced to the second part of duodenum. The upper GI endoscopy was accomplished without difficulty. The patient tolerated the procedure well. Findings: The esophagus was normal. Multiple 2 to 5 mm sessile polyps with no stigmata of recent bleeding were found in the gastric body. Few non-bleeding cratered gastric ulcers with no stigmata of bleeding were found in the stomach. The largest lesion was 10 mm in largest dimension. Biopsies were taken with a cold forceps for histology. One oozing cratered duodenal ulcer with a visible vessel was found in the second portion of the duodenum. The lesion was 20 mm in largest dimension. Area was successfully injected with 3 mL of a 0.1 mg/mL solution of epinephrine for hemostasis. Fulguration to stop the bleeding by bipolar probe was successful. Impression: - Normal esophagus. - Multiple gastric polyps. - Non-bleeding gastric ulcers with no stigmata of bleeding. Biopsied. - Oozing duodenal ulcer with a visible vessel. Injected. Treated with bipolar cautery. Recommendation: - Return patient to [facility] for ongoing care. - Clear liquid diet. - Continue present medications. - Await pathology results. Wancarmelo Pierce, DO 04/26/2024 1:41:12 PM This report has been signed electronically. Note Initiated On: 04/26/2024 1:18 PM Number of Addenda: 0 I attest to the content of the Intraoperative Record and orders documented therein, exceptions below {[id number]}
--- NOTE | 2024-04-26 13:55 | Anesthesiology Progress Note ---
Date of Service April 26, 2024 Anesthesia Post Procedure Vital Signs Vital Signs: Temp Pulse Pulse Pulse Resp BP BP 04/26/24 13:45 74 16 98/41 L 04/26/24 12:04 36.6 C 77 18 107/52 L 04/26/24 11:50 36.8 C 72 18 106/57 L 04/26/24 11:06 04/26/24 08:02 37.2 C 71 17 119/62 04/26/24 04:25 158 H 04/26/24 03:10 36.9 C 78 17 127/54 L 04/26/24 02:40 36.9 C 78 18 100/55 L 04/26/24 02:25 36.9 C 72 18 105/55 L 04/26/24 02:06 36.9 C 73 18 120/65 04/25/24 23:21 73 04/25/24 22:47 36.9 C 63 16 100/54 L 04/25/24 22:36 04/25/24 20:37 36.8 C 70 18 112/52 L 04/25/24 19:40 36.5 C 76 18 119/57 L 04/25/24 18:39 75 04/25/24 18:02 36.7 C 75 18 131/73 04/25/24 17:46 36.7 C 75 16 131/73 04/25/24 17:43 36.7 C 75 16 131/73 04/25/24 16:50 74 22 127/54 L 04/25/24 16:00 67 16 04/25/24 15:30 68 16 04/25/24 15:00 74 22 04/25/24 14:38 73 15 04/25/24 14:02 04/25/24 14:01 64 04/25/24 14:01 66 16 113/56 L Pulse Ox O2 Del Method O2 Flow Rate 04/26/24 13:45 94 Room Air 04/26/24 12:04 95 Room Air 04/26/24 11:50 95 Room Air 04/26/24 11:06 Room Air 04/26/24 08:02 95 Room Air 04/26/24 04:25 04/26/24 03:10 98 04/26/24 02:40 98 04/26/24 02:25 97 04/26/24 02:06 95 04/25/24 23:21 04/25/24 22:47 95 Room Air 04/25/24 22:36 Room Air 04/25/24 20:37 98 04/25/24 19:40 96 04/25/24 18:39 04/25/24 18:02 94 04/25/24 17:46 94 Room Air 04/25/24 17:43 94 Room Air 04/25/24 16:50 95 Room Air 04/25/24 16:00 93 04/25/24 15:30 92 04/25/24 15:00 04/25/24 14:38 95 Room Air 04/25/24 14:02 97 Room Air 0 04/25/24 14:01 04/25/24 14:01 97 Room Air Transfer of Care Handoff Completed per policy Notes Mental Status: alert / awake / arousable Patient Amnestic to Procedure: Yes Nausea / Vomiting: adequately controlled Pain: adequately controlled Airway Patency, RR, SpO2: stable & adequate BP & HR: stable & adequate Hydration State: stable & adequate Anesthetic Complications: no major complications apparent and Pt Satisfied with anesthetic care
[2024-04-26] MEDS: ePHEDrine sulfate 50 MG/5 ML SYR ONE (14:44)
[2024-04-26] MEDS: PROPOFOL IV EMULSION 10 MG/ML 20 ML VIAL IV ONE (14:44)
[2024-04-26] MEDS ORDERED: Nursing to Pharmacy Communication SCH (14:45)
[2024-04-26 16:02] LABS: Hematocrit (blood only) 22.2 % (42.0-52.0); Hemoglobin 7.7 g/dl (14.0-18.0)
[2024-04-26] MEDS: INSULIN ASPART PER UNIT CHARGE SC SCH (18:02)
[2024-04-27] MEDS ORDERED: Nursing to Pharmacy Communication SCH (05:00)
[2024-04-27 07:34] LABS: Hematocrit (blood only) 22.5 % (42.0-52.0); Hemoglobin 7.7 g/dl (14.0-18.0); Mean Corpuscular Hemoglobin 30.8 pg (25.0-34.0); Mean Corpuscular Hgb Conc 34.2 g/dL (32.0-36.0); Mean Platelet Volume 9.2 fL (9.4-12.4); Platelet Count 281 K/uL (130-400); RDW Coefficient of Variation 14.1 % (11.5-14.5); RDW Standard Deviation 45.2 fL (36.4-46.3)
[2024-04-27 07:42] LABS: Albumin Globulin Ratio 1.2 (0.9-2); Albumin Level 2.7 gm/dl (3.4-5.0); BUN Creatinine Ratio 32.7 (10-20); Bilirubin,Total 0.6 mg/dl (0.2-1.0); Calcium 7.6 mg/dl (8.6-10.3); Creatinine Clr Calc Pharmacy 34.6 ml/min; Est GFR (Non-African American) 37.9 ml/min; Globulin 2.3 gm/dl (2.5-4.0)
[2024-04-27] MEDS ORDERED: SODIUM CHLORIDE 0.9% 250 ML IV PRN (10:11)
--- NOTE | 2024-04-27 12:22 | Gastroenterology Progress Note ---
Date of Service April 27, 2024 Assessment & Plan (1) Duodenal ulcer: (2) Gastric ulcer: Plan -Await biopsy results to exclude H pylori -Continue IV Protonix drip for a total of 72 hours; Upon discharge, will need Protonix 40 mg BID permanently. -Can advance diet -Continue to monitor H/H and monitor for overt GI bleeding Admission and Anticipated Discharge Date Admission Date: April 25, 2024 Supervising Physician Co-Signing Physician Notes Agree with KYLE Feliz as above Interviewed and examined patient and agree with above Abd: Soft, NT, ND, +BS Continue current therapy and supportive care PPI gtt x 72 hours then twice daily PPI thereafter Subjective Patient is an 89 yo male with gastric ulcers and duodenal ulcer with visible vessel treated during EGD on 04/26/24. He continues on IV PPI gtt. H/H 7.7/22.5 today. Last BM was 04/25/24 and confirmed this with nursing. No ongoing melena. No new changes/complaints. Review of Systems Gastrointestinal: no abdominal pain and no melena Physical Exam Constitutional: well developed Gastrointestinal (Abdomen): normal bowel sounds, soft, nontender, no hepatosplenomegaly Psychiatric: Orientation: alert and oriented x 3 Results & Data Results & Data Vital Signs (Past 12 Hours) Vital Signs Temp Pulse Pulse Resp BP BP Pulse Ox 04/27/24 11:45 36.3 C L 64 20 107/62 92 04/27/24 11:30 36.4 C L 65 18 112/61 92 04/27/24 11:15 36.9 C 64 20 107/62 92 04/27/24 11:00 36.9 C 63 20 106/58 L 95 04/27/24 08:01 36.8 C 71 18 122/61 94 04/27/24 07:30 73 04/27/24 07:25 04/27/24 03:51 36.4 C L 81 18 122/62 91 O2 Del Method 04/27/24 11:45 Room Air 04/27/24 11:30 04/27/24 11:15 04/27/24 11:00 04/27/24 08:01 Room Air 04/27/24 07:30 04/27/24 07:25 Room Air 04/27/24 03:51 Room Air PG Care Time/CCT Total # of Minutes Spent Total Time Spent with Patient: Total time spent is greater than 50% in coordination of care (as documented) at patient's floor/unit and/or counseling patient: Coding Level of Care Code 67435 SUB INP/OBS CARE MIN Diagnoses Duodenal ulcer K26.9 Gastric ulcer K25.9
--- NOTE | 2024-04-27 14:53 | Hospitalist Progress Note ---
Date of Service April 27, 2024 Assessment & Plan (1) Duodenal ulcer: Plan: 89-year-old man admitted with acute upper GI bleed secondary to duodenal ulcer. Had been having melena. Was on baby aspirin and some minimal NSAID exposure. started on PPI drip at admission underwent EGD 04/26 and found to have large oozing duodenal ulcer treated with epi and BiCap, nonbleeding gastric polyps, several nonbleeding gastric ulcers biopsied -cont PPI drip x 72h -reviewed GI recs today -advance to FLD -follow up biopsies for H. pylori (2) Symptomatic anemia: Plan: Acute blood loss anemia secondary to upper GI bleed - transfused 1 unit at admission. Hg trended down yesterday but stable at 7.7 overnight. Remains highly symptomatic with severe weakness - transfuse 1 unit RBC today - am CBC (3) MARIN (acute kidney injury): Plan: MARIN on CKD-3 with mild hyperkalemia on presentation -Cr improved with blood/fluids -Mild Hyperkalemia resolved - treated with lokelma, CITLALI and K supp held -Cr 1.5 today - back to baseline -monitor -resume CITLALI at discharge and reduce K supplement (4) Prostate cancer: Plan: -Currently [facility] with [facility] -On daily Enzalutamide - resume on discharge -Continue to follow up with Urology and CCP on discharge elevated LDH seems likely related to malignancy (5) Diabetes: Plan: -Hold metformin -increased CF:CR for premeal aspart -Hold basal insulin - advancing diet, may need to add -Adjust regimen as needed Plan Anemia workup also notable for B12 deficiency (129). Folate normal. -B12 1000 IM x 7d ordered, then maintenance dosing Check thiamine and empirically replace - ordered IV thiamine 500 mg, then change to high dose oral Mild hyponatremia - 133. Reassess once oral intake normalized DVT ppx - SCDs Upcoming R TKR scheduled 05/04 - ideally needs to be rescheduled - sent message to ortho Dr. Melvin Very weak with PT/OT anticipate rehab Admission and Anticipated Discharge Date Admission Date: April 25, 2024 Subjective No stools overnight Remains extremely weak - could not get into chair with therapists yesterday no abdominal pain, nausea, back pain no dyspnea or chest pain Physical Exam 2 Physical Exam: PHYSICAL EXAMINATION Last 24h vital signs reviewed, see documentation in flowsheet General: comfortable appearing, no distress, sitting in bed Exam unchanged 04/27: HEENT: Normocephalic, atraumatic, pupils round and equal, sclerae anicteric, no conjunctival injection, moist mucus membranes Lungs: Normal respiratory effort. Clear to auscultation bilaterally. No RRW Heart: Regular rate and rhythm, no murmurs. No JVD Abdomen: Soft, nontender, nondistended. Bowel sounds present. Extremities: Warm, dry, well-perfused. No extremity edema. Neuro: Alert and oriented x 4, face symmetric, moves 4 extremities well Psych: Normal affect and behavior Results & Data Results & Data Vital Signs (Past 12 Hours) Vital Signs Temp Pulse Pulse Resp BP BP Pulse Ox 04/27/24 13:59 36.7 C 61 19 114/62 92 04/27/24 13:00 36.5 C 68 18 125/57 L 93 04/27/24 12:00 36.9 C 66 20 114/68 94 04/27/24 11:45 36.3 C L 64 20 107/62 92 04/27/24 11:30 36.4 C L 65 18 112/61 92 04/27/24 11:15 36.9 C 64 20 107/62 92 04/27/24 11:00 36.9 C 63 20 106/58 L 95 04/27/24 08:01 36.8 C 71 18 122/61 94 04/27/24 07:30 73 04/27/24 07:25 04/27/24 03:51 36.4 C L 81 18 122/62 91 O2 Del Method 04/27/24 13:59 04/27/24 13:00 04/27/24 12:00 04/27/24 11:45 Room Air 04/27/24 11:30 04/27/24 11:15 04/27/24 11:00 04/27/24 08:01 Room Air 04/27/24 07:30 04/27/24 07:25 Room Air 04/27/24 03:51 Room Air Laboratory Results 04/27/24 06:48 04/27/24 06:48 PG Care Time/CCT Total # of Minutes Spent Total Time Spent with Patient: Total time spent is greater than 50% in coordination of care (as documented) at patient's floor/unit and/or counseling patient: Coding Level of Care Code 42195 SUB INP/OBS CARE MIN Diagnoses Duodenal ulcer K26.9 Symptomatic anemia D64.9 MARIN (acute kidney injury) N17.9 Prostate cancer C61 Type 2 diabetes mellitus without complication, with long-term current use of insulin E11.9; Z79.4 Diabetes mellitus type: type 2 Diabetes mellitus halfway insulin use: with halfway use Diabetes mellitus complication status: without complication (5) Diabetes Diabetes mellitus type: type 2 Diabetes mellitus long term acute care registered nurse insulin use: with halfway use Diabetes mellitus complication status: without complication Qualified Code(s): E11.9 - Type 2 diabetes mellitus without complications; Z79.4 - detention (current) use of insulin
[2024-04-27] MEDS: ACETAMINOPHEN 500 MG TAB PO PRN (21:39)
[2024-04-28 06:50] LABS: Hematocrit (blood only) 25.9 % (42.0-52.0); Hemoglobin 8.7 g/dl (14.0-18.0); Mean Corpuscular Hgb Conc 33.6 g/dL (32.0-36.0); Mean Corpuscular Volume 92.2 fL (80.0-100.0); Mean Platelet Volume 9.2 fL (9.4-12.4); Platelet Count 294 K/uL (130-400); RDW Coefficient of Variation 14.1 % (11.5-14.5); RDW Standard Deviation 46.5 fL (36.4-46.3); Red Blood Count 2.81 M/uL (4.70-6.10); White Blood Count 6.21 K/ul (4.8-10.8)
[2024-04-28 07:08] LABS: BUN Creatinine Ratio 25.3 (10-20); Calcium 7.8 mg/dl (8.6-10.3); Creatinine Clr Calc Pharmacy 33.9 ml/min; Est GFR (Non-African American) 37.1 ml/min
--- NOTE | 2024-04-28 13:35 | Hospitalist Progress Note ---
Date of Service April 28, 2024 Assessment & Plan (1) Duodenal ulcer: Plan: 89-year-old man admitted with acute upper GI bleed secondary to duodenal ulcer. Had been having melena. Was on baby aspirin and some minimal NSAID exposure. started on PPI drip at admission underwent EGD 04/26 and found to have large oozing duodenal ulcer treated with epi and BiCap, nonbleeding gastric polyps, several nonbleeding gastric ulcers biopsied - appropriate augmentation of hemoglobin overnight after 1 unit transfusion no evidence of ongoing bleeding thus far - completes 72h PPI drip this afternoon, changed to 40 mg IV twice daily. Should be on twice daily PPI indefinitely - advance diet -follow up biopsies for H. pylori, follow-up with gastroenterology (2) Symptomatic anemia: Plan: Acute blood loss anemia secondary to upper GI bleed - transfused 1 unit at admission. Hg trended down to 7.7 and remained stable however was severely weak, transfused second unit for symptomatic anemia 04/27 - appropriate increase in hemoglobin to 8.7 following transfusion - am CBC (3) MARIN (acute kidney injury): Plan: MARIN on CKD-3 with mild hyperkalemia on presentation -Cr improved with blood/fluids -Mild Hyperkalemia resolved - treated with lokelma, CITLALI and K supp held -Cr 1.6 today - back to baseline -monitor -resume CITLALI at discharge and reduce K supplement (4) Prostate cancer: Plan: -Currently following with [facility] -On daily Enzalutamide - resume on discharge -Continue to follow up with Urology and CCP on discharge elevated LDH seems likely related to malignancy (5) Diabetes: Plan: -Hold metformin -increased CF:CR for premeal aspart -Hold basal insulin - advancing diet, may need to add -Adjust regimen as needed Plan Anemia workup also notable for B12 deficiency (129). Folate normal. -B12 1000 IM x 7d ordered, then maintenance dosing empirically replace thiamine- ordered IV thiamine 500 mg, then change to high dose oral. B1 level pending Mild hyponatremia persists- 133. Reassess once oral intake normalized DVT ppx - SCDs Upcoming R TKR scheduled 05/04 - ideally needs to be rescheduled - sent message to ortho Dr. Melvin Very weak with PT/OT anticipate rehab, discussed with care coordination planned for [facility] to [facility] Admission and Anticipated Discharge Date Admission Date: April 25, 2024 Subjective Mr. Evans is sitting up in the chair resting, he does not feel much different after blood transfusion, still very weak. No abdominal pain or back pain, tolerating diet, no stools overnight no melena no dyspnea or chest pain Physical Exam 2 Physical Exam: PHYSICAL EXAMINATION Last 24h vital signs reviewed, see documentation in flowsheet General: comfortable appearing, no distress, sitting in the chair Exam unchanged 04/28: HEENT: Normocephalic, atraumatic, pupils round and equal, sclerae anicteric, no conjunctival injection, moist mucus membranes Lungs: Normal respiratory effort. Clear to auscultation bilaterally. No RRW Heart: Regular rate and rhythm, no murmurs. No JVD Abdomen: Soft, nontender, nondistended. Bowel sounds present. Extremities: Warm, dry, well-perfused. No extremity edema. Neuro: Alert and oriented x 4, face symmetric, moves 4 extremities well Psych: Normal affect and behavior Results & Data Results & Data Vital Signs (Past 12 Hours) Vital Signs Temp Pulse Pulse Resp BP Pulse Ox O2 Del Method 04/28/24 11:21 36.4 C L 67 20 118/57 L 93 Room Air 04/28/24 11:09 89 L 04/28/24 10:23 71 04/28/24 07:51 36.6 C 72 16 149/71 H 91 Room Air 04/28/24 03:44 36.3 C L 73 16 135/64 90 Room Air O2 Flow Rate 04/28/24 11:21 04/28/24 11:09 0 04/28/24 10:23 04/28/24 07:51 04/28/24 03:44 Laboratory Results 04/28/24 06:04 04/28/24 06:04 PG Care Time/CCT Total # of Minutes Spent Total Time Spent with Patient: Total time spent is greater than 50% in coordination of care (as documented) at patient's floor/unit and/or counseling patient: Coding Level of Care Code 37078 SUB INP/OBS CARE 2/35MIN Diagnoses Duodenal ulcer K26.9 Symptomatic anemia D64.9 MARIN (acute kidney injury) N17.9 Prostate cancer C61 Type 2 diabetes mellitus without complication, with long-term current use of insulin E11.9; Z79.4 Diabetes mellitus type: type 2 Diabetes mellitus residential insulin use: with residential use Diabetes mellitus complication status: without complication (5) Diabetes Diabetes mellitus type: type 2 Diabetes mellitus residential insulin use: with residential use Diabetes mellitus complication status: without complication Qualified Code(s): E11.9 - Type 2 diabetes mellitus without complications; Z79.4 - assisted (current) use of insulin
[2024-04-28] MEDS: PANTOprazole 40 MG in SYRINGE 0 ML IV SCH (21:02)
[2024-04-29 06:50] LABS: Hematocrit (blood only) 25.8 % (42.0-52.0); Hemoglobin 8.9 g/dl (14.0-18.0); Mean Corpuscular Hemoglobin 31.6 pg (25.0-34.0); Mean Corpuscular Hgb Conc 34.5 g/dL (32.0-36.0); Mean Corpuscular Volume 91.5 fL (80.0-100.0); Mean Platelet Volume 9.4 fL (9.4-12.4); Platelet Count 253 K/uL (130-400); RDW Standard Deviation 45.3 fL (36.4-46.3); Red Blood Count 2.82 M/uL (4.70-6.10); White Blood Count 5.62 K/ul (4.8-10.8)
[2024-04-29 07:00] LABS: BUN Creatinine Ratio 23.6 (10-20); Calcium 7.7 mg/dl (8.6-10.3); Creatinine Clr Calc Pharmacy 38.2 ml/min; Est GFR (African American) 49.5 ml/min; Est GFR (Non-African American) 42.7 ml/min; Magnesium 1.9 mg/dl (1.7-2.4); Potassium 3.9 mmol/L (3.5-5.1)
--- NOTE | 2024-04-29 12:26 | Hospitalist Progress Note ---
Date of Service April 29, 2024 Assessment & Plan (1) Duodenal ulcer: Plan: 89-year-old man admitted with acute upper GI bleed secondary to duodenal ulcer. Had been having melena. Was on baby aspirin and some minimal NSAID exposure. started on PPI drip at admission and transfused with 1u RBCs underwent EGD 04/26 and found to have large oozing duodenal ulcer treated with epi and BiCap, nonbleeding gastric polyps, several nonbleeding gastric ulcers biopsied transfused 1u RBC 04/27 for symptomatic anemia - Hg stable overnight 8.7-->8.9 no evidence of ongoing bleeding thus far - completed 72h PPI drip, changed to 40 mg IV twice daily. Should be on twice daily PPI indefinitely - tolerating diet - biopsy of gastric ulcer returned with normal gastric mucosa stain for H. pylori was negative, follow-up with gastroenterology (2) Symptomatic anemia: Plan: Acute blood loss anemia secondary to upper GI bleed - transfused 2 units this admission, see above (3) MARIN (acute kidney injury): Plan: MARIN on CKD-3 with mild hyperkalemia on presentation -Cr improved with blood/fluids -Mild Hyperkalemia resolved - treated with lokelma, CITLALI and K supp held -Resolved as of 04/29 Cr back at baseline 1.4 -resume CITLALI/lasix in AM -monitor Cr and avoid nephrotoxins (4) Prostate cancer: Plan: -Currently [facility] -On daily Enzalutamide - resume on discharge -Continue to follow up with Urology and CCP on discharge elevated LDH seems likely related to malignancy (5) Diabetes: Plan: -Hold metformin -increased CF:CR for premeal aspart 04/28 -Hold basal insulin - advancing diet, may need to add -BG at goal Plan Anemia workup also notable for B12 deficiency (129). Folate normal. -B12 1000 IM x 7d ordered, then maintenance dosing empirically replace thiamine- ordered IV thiamine 500 mg, then change to high dose oral. B1 level pending hyponatremia persists- 133-->130. Appears relatively euvolemic but could be related to CHF. Check urine Na. -resuming lasix in AM reviewed old records and studies - no TTEs in our system and no history of CHF by notes, no heart failure symptoms or exam findings. DSE in 2018 had normal LV function and grade 1 diastolic dysfunction. He is on a heart-failure type medication regimen however with metoprolol, lisinopril and bid furosemide. Continue these. DVT ppx - SCDs Upcoming R TKR scheduled 05/04 - ideally needs to be rescheduled - sent message to ortho Dr. Melvin Very weak with PT/OT anticipate rehab, discussed with care coordination planned for discharge to [place] [facility] on Wednesday Admission and Anticipated Discharge Date Admission Date: April 25, 2024 Subjective Mr Evans doing well, no stools and Hg stable, eating fins no abdominal or back pain and no dyspnea R knee pain unchanged, chronic Physical Exam 2 Physical Exam: PHYSICAL EXAMINATION Last 24h vital signs reviewed, see documentation in flowsheet General: comfortable appearing, no distress, sitting in the chair Exam unchanged 04/29: HEENT: Normocephalic, atraumatic, pupils round and equal, sclerae anicteric, no conjunctival injection, moist mucus membranes Lungs: Normal respiratory effort. Clear to auscultation bilaterally. No RRW Heart: Regular rate and rhythm, no murmurs. No JVD Abdomen: Soft, nontender, nondistended. Bowel sounds present. Extremities: Warm, dry, well-perfused. No extremity edema. Neuro: Alert and oriented x 4, face symmetric, moves 4 extremities well Psych: Normal affect and behavior Results & Data Results & Data Vital Signs (Past 12 Hours) Vital Signs Temp Pulse Pulse Resp BP Pulse Ox O2 Del Method 04/29/24 11:33 36.6 C 65 16 127/63 91 Room Air 04/29/24 08:46 75 04/29/24 08:05 36.4 C L 82 16 151/65 H 90 Room Air 04/29/24 04:43 88 17 128/73 95 Room Air 04/29/24 03:14 36.5 C 83 20 155/64 H 90 Room Air Laboratory Results 04/29/24 05:40 04/29/24 05:40 PG Care Time/CCT Total # of Minutes Spent Total Time Spent with Patient: Total time spent is greater than 50% in coordination of care (as documented) at patient's floor/unit and/or counseling patient: Coding Level of Care Code 05236 SUB INP/OBS CARE 2/35MIN Diagnoses Duodenal ulcer K26.9 Symptomatic anemia D64.9 MARIN (acute kidney injury) N17.9 Prostate cancer C61 Type 2 diabetes mellitus without complication, with long-term current use of insulin E11.9; Z79.4 Diabetes mellitus type: type 2 Diabetes mellitus intermediate teacher insulin use: with penitentiary use Diabetes mellitus complication status: without complication (5) Diabetes Diabetes mellitus type: type 2 Diabetes mellitus intermediate teacher insulin use: with penitentiary use Diabetes mellitus complication status: without complication Qualified Code(s): E11.9 - Type 2 diabetes mellitus without complications; Z79.4 - regional intermodal truck driver (current) use of insulin
[2024-04-29] MEDS: FUROSEMIDE 40 MG TAB PO SCH (17:21)
[2024-04-29] MEDS ORDERED: POLYETHYLENE (MIRALAX) 17 GM PACK PO PRN (18:49)
[2024-04-29] MEDS: SENNA 8.6 MG TAB PO SCH (20:25)
[2024-04-30] MEDS: POTASSIUM CHLORIDE 10 MEQ TABCR PO SCH (08:51)
[2024-04-30] MEDS: lisinopril 10 MG TAB PO SCH (08:51)
[2024-04-30 13:00] LABS: Appearance Urine Cloudy (Clear); Bacteria Urine Automated 4+ (None Seen); Bilirubin Urine Negative (Negative); Blood Urine 3+ (Negative); Color Urine Yellow; Epithelial Cell Urine Auto 0-2 /hpf (0-2); Glucose Urine UA Negative (Negative); Ketones Urine Negative (Negative); Leukocyte Esterase Urine 3+ (Negative); Nitrite Urine Negative (Negative); Protein Urine Trace (Negative); RBC Urine Automated 0-2 /hpf (0-2); Specific Gravity Urine 1.011 (1.000-1.030); Urobilinogen Urine Negative (Negative); WBC Urine Automated >50 /hpf (0-5); pH Urine 5.5 (4.5-7.5)
--- NOTE | 2024-04-30 17:10 | Discharge Summary ---
Date of Service April 30, 2024 Admission HPI Per Admitting Provider Mihai SheridanJazzmine Evans is an 89 y/o male with a PMHx of CKD, prostate cancer (on androgen deprivation therapy), HTN, HLD, BPH, and TIIDM who presented to the [facility] ED on 04/25/24 with complaints of increased SOB and swelling. He was initially noted to be hypotensive at 69/39 but this improved to 113/56 on recheck and otherwise stable. Labs were significant for a Hgb of 7.9 (down from 10.3 as of 04/14/24), Hct of 23, platelets of 438, cr of 2.0 (baseline is near 1.6), BUN of 66, bicarb of 20 with AG WNL, potassium of 5.4, sodium of 132, ionized calcium of 1.10, alk phos of 347, and stool occult blood positive. Chest xray was yet to be read at the time of admission but did not appear to have acute findings on initial read myself. Prior to admission the patient was started on a pantoprazole drip w/bolus, was consented for blood, and ordered one unit PRBC's. At the time of the exam the patient was lying in bed in no acute distress with his bedside, history was obtained from both. The patient has been experiencing progressive generalized weakness and KELLOGG for the past 1-2 months. It became significantly worse this am so he saw his PCP who obtained outpatient lands where he was found to have a drop in his Hgb. He was previously diagnosed with iron deficiency anemia but has not been on oral iron due to constipation. He gets intermittent infusions of Venofer outpatient. He has been having diarrhea described as dark-black for the past 6 months or so per his . Takes a baby aspirin daily but has not recently used NSAID's, alcohol, tobacco recently and is not on anticoagulation outpatient. Denies recent fever, chills, chest pain, cough, hemoptysis, abd pain, nausea, vomiting, dysuria, hematuria, bright bloody BM's, or LE swelling. He has had multiple falls over the past month due to his weakness, he was seen in the [facility] ED on 04/19 for his last fall. We discussed code status, he is a DNR/DNI and his is his POA. His last colonoscopy was approximately 10 years ago. Principal Diagnosis Acute upper GI bleed from oozing duodenal ulcer, acute blood loss anemia Discharge Exam PHYSICAL EXAMINATION Last 24h vital signs reviewed, see documentation in flowsheet General: comfortable appearing, no distress, sitting in the chair Exam unchanged 04/30: HEENT: Normocephalic, atraumatic, pupils round and equal, sclerae anicteric, no conjunctival injection, moist mucus membranes Lungs: Normal respiratory effort. Clear to auscultation bilaterally. No RRW Heart: Regular rate and rhythm, no murmurs. No JVD Abdomen: Soft, nontender, nondistended. Bowel sounds present. Extremities: Warm, dry, well-perfused. No extremity edema. Neuro: Alert and oriented x 4, face symmetric, moves 4 extremities well Psych: Normal affect and behavior Discharge Data Allergies Allergy/AdvReac Type Severity Reaction Status Date / Time adhesive tape Allergy Severe RED Verified 03/01/24 10:08 IRRITATED SKIN Consultations 04/25/24 15:55 ED Decision to Admit Stat 04/25/24 16:09 Consult Gastroenterology Routine Procedures Performed Operation Date: 04/26/24 16:45 Actual Procedures p EGD Hemostasis - Wan Sierra Case, DO Ordered Studies 04/30/24 04/30/24 04/30/24 Range/Units 12:40 11:42 07:30 POC Glucose 194 H 166 H (70-99) mg/dl Urine Color Yellow Urine Appearance Cloudy A (Clear) Urine pH 5.5 (4.5-7.5) Ur Specific [place] 1.011 (1.000-1.030) Urine Protein Trace H (Negative) Urine Glucose (UA) Negative (Negative) Urine Ketones Negative (Negative) Urine Blood 3+ H (Negative) Urine Nitrite Negative (Negative) Urine Bilirubin Negative (Negative) Urine Urobilinogen Negative (Negative) Ur Leukocyte Esterase 3+ H (Negative) Urine WBC (Auto) >50 H (0-5) /hpf Urine RBC (Auto) 0-2 (0-2) /hpf U Hyaline Cast (Auto) 3-5 H (0-2) /lpf U Epithel Cells (Auto) 0-2 (0-2) /hpf Urine Bacteria (Auto) 4+ H (None Seen) Ur Random Sodium mmol/L 04/29/24 04/29/24 04/29/24 Range/Units 20:32 16:54 16:40 POC Glucose 169 H 147 H (70-99) mg/dl Urine Color Urine Appearance (Clear) Urine pH (4.5-7.5) Ur Specific [place] (1.000-1.030) Urine Protein (Negative) Urine Glucose (UA) (Negative) Urine Ketones (Negative) Urine Blood (Negative) Urine Nitrite (Negative) Urine Bilirubin (Negative) Urine Urobilinogen (Negative) Ur Leukocyte Esterase (Negative) Urine WBC (Auto) (0-5) /hpf Urine RBC (Auto) (0-2) /hpf U Hyaline Cast (Auto) (0-2) /lpf U Epithel Cells (Auto) (0-2) /hpf Urine Bacteria (Auto) (None Seen) Ur Random Sodium 50 mmol/L 04/29/24 05:40 04/29/24 05:40 Hospital Course (1) Duodenal ulcer: 89-year-old man admitted with acute upper GI bleed secondary to duodenal ulcer. Had been having melena. Was on baby aspirin and some minimal NSAID exposure. started on PPI drip at admission and transfused with 1u RBCs underwent EGD 04/26 and found to have large oozing duodenal ulcer treated with epi and BiCap, nonbleeding gastric polyps, several nonbleeding gastric ulcers biopsied transfused 1u RBC 04/27 for symptomatic anemia - Hg stable no evidence of ongoing bleeding - completed 72h PPI drip, Should be on twice daily PPI indefinitely - tolerating diet - biopsy of gastric ulcer returned with normal gastric mucosa stain for H. pylori was negative, follow-up with gastroenterology (2) Symptomatic anemia: Acute blood loss anemia secondary to upper GI bleed - transfused 2 units this admission, see above (3) MARIN (acute kidney injury): MARIN on CKD-3 with mild hyperkalemia on presentation -Cr improved with blood/fluids -Mild Hyperkalemia resolved - treated with lokelma, CITLALI and K supp held -Resolved as of 04/29 Cr back at baseline 1.4 -resumed CITLALI/lasix -monitor Cr and avoid nephrotoxins (4) Prostate cancer: -Currently following [facility] -On daily Enzalutamide - resume on discharge -Continue to follow up with Urology and CCP on discharge elevated LDH seems likely related to malignancy (5) Diabetes: -resumed metformin, premeal insulin, low dose short acting insulin PRN Plan Acute on chronic urinary retention related to BPH and prostate cancer -continued on finasteride and tamsulosin -had urinary retention just prior to discharge - straight cath = 600 mL UOP. He belatedly told us that he does straight cath at home -sent UA which is abnormal - only symptoms however would be urinary retention, no dysuria or other s/sx of infection. Urine culture pending at this time -recent past cultures with enterobacter S to cephalosporins R to macrobid and CONS S to macrobid. Would not treat with bactrim because of his recent issue with hyperkalemia and MARIN -probably reasonable to start cefadroxil for possible UTI vs wait for culture result - will d/w provider at [facility] Anemia workup also notable for B12 deficiency (129). Folate normal. -B12 1000 IM x 7d ordered, then maintenance dosing empirically replace thiamine- ordered IV thiamine 500 mg q8h x 9 doses, then changed to high dose oral. -b1 level still pending hyponatremia persists- 133-->131. Appears relatively euvolemic but could be hypervolemic related to CHF vs SIADH - urine Na - elevated at 50 despite no diuretics>24h. -resumed oral lasix -check BMP in about a week reviewed old records and studies - no TTEs in our system and no history of CHF by notes, no heart failure symptoms or exam findings. DSE in 2018 had normal LV function and grade 1 diastolic dysfunction. He is on a heart-failure type medication regimen however with metoprolol, lisinopril and bid furosemide. Continue these. DVT ppx - SCDs Upcoming R TKR scheduled 05/04 - needs to be rescheduled - sent message to ortho Dr. Melvin but I did not get reply back Very weak with PT/OT discharged to [facility] for rehab Total Time Total Time Spent Total Time Spent (In Minutes): I personally spent: 45 minutes today on clinical care activities including: reviewing chart notes and vital signs reviewing labs discussion with pharmacist critical care examining and counseling the patient writing orders, discharge instructions documentation Discharge Plan Discharge Items Patient Disposition: Transfer [facility] Reason For Visit: SYMPTOMATIC ANEMIA, GI BLEED Discharge Diagnosis: Acute blood loss anemia and acute upper GI bleed caused by duodenal ulcer Activity: Resume your previous activity Weightbearing: Full weightbearing Non-emergency contact: Primary Care Provider and [employer] Call non-emergency contact if: you have any medication questions and your symptoms worsen Follow-up/Referrals: Wan Pierce DO [Physician] - Don Banks DO [Primary Care Provider] - Diet: Regular Addtl Attending Provider Instructions: Oozing duodenal ulcer on EGD treated with epinephrine and cautery Transfused 2 units RBCs. Hg stable >72h Continue bid PPI indefinitely Hold aspirin for 1-2 weeks then resume Finish treating B12 deficiency (2 more IM doses) then change to oral replacement Empirically treating B1 deficiency, level pending Upcoming R TKR scheduled 05/04 - needs to be rescheduled - I sent message to ortho Dr. Melvin but have not heard back PT and OT evaluate and treat Hyponatremia and MARIN - Please check BMP in one week Blood glucose check qAC Low dose sliding scale aspart or lispro insulin if needed Has BPH with urinary retention on tamsulosin and finasteride I/O cath on 04/30 for mildly symptomatic urinary retention of 400 mL UA was sent, pending Continue monitor PVR, I/O cath PRN symptomatic urinary retention or PVR >400 Pending Studies at Discharge: No Stand-Alone Forms: My [facility] Skilled Items Patient informed of condition?: Yes DNR: Yes Discharge Level of Care: Skilled Communicable Disease: No Discharge Prognosis: Improving Lines: None Urinary Catheter: No Medications and DC Order Prescriptions: New melatonin 3 mg Tablet 3 mg PO HS PRNQty: 0 0RF acetaminophen [Tylenol Extra Strength] 500 mg Tablet 1,000 mg PO Q8H PRNQty: 0 0RF cyanocobalamin (vitamin B-12) 1,000 mcg/mL Solution 1,000 mcg IM QAM 2 Days Qty: 0 0RF Rx Instructions: for two more doses thiamine HCl (vitamin B1) [Vitamin B-1] 100 mg tablet 200 mg PO BID Qty: 1 0RF lorazepam 0.5 mg Tablet 0.5 mg PO HS PRN (Reason: sleep) Qty: 10 0RF Continued (DME) Dexcom G7 Water Treatment Plant Operator Misc See Rx Instructions .Route Qty: 1 0RF Rx Instructions: As directed, check BS QID potassium chloride 10 mEq tablet extended release 10 meq PO BID Qty: 180 1RF Rx Instructions: TAKE 1 TABLET BY MOUTH TWICE A DAY tamsulosin [Flomax] 0.4 mg capsule 0.4 mg PO QAM Qty: 90 1RF (DME) Dexcom G7 Sensor Device See Rx Instructions .Route Qty: 3 11RF Rx Instructions: As directed, check BS QID (DME) OneTouch Verio test strips Strip See Rx Instructions .Route Qty: 25 0RF Rx Instructions: e11.9 check BS 4x day diclofenac sodium 1 % gel 2 g topical QID PRN (Reason: pain, moderate) Qty: 100 2RF lorazepam 0.5 mg tablet 0.5 mg PO HS PRN (Reason: sleep) Qty: 30 0RF coenzyme Q10 100 mg capsule 100 mg PO QAM furosemide 40 mg tablet 40 mg PO BID Qty: 180 3RF metformin 1,000 mg tablet 1,000 mg PO BID Qty: 180 3RF metoprolol tartrate 25 mg tablet 25 mg PO BID Rx Instructions: TAKE 1 (ONE) TABLET BY MOUTH TWICE DAILY Xtandi 40 mg tablet 160 mg PO QAM atorvastatin 40 mg tablet 40 mg PO QPM Rx Instructions: TAKE 1 TABLET BY MOUTH EVERY DAY lisinopril 10 mg tablet 10 mg PO QAM finasteride 5 mg tablet 5 mg PO QAM insulin asp prt-insulin aspart [Novolog Mix 70-30FlexPen U-100] 100 unit/mL (70-30) insulin pen 8 unit subcut TID zinc acetate 50 mg (zinc) Capsule 50 mg PO QAM calcium carbonate-vitamin D3 [Calcium 600 with Vitamin D3] 600 mg-12.5 mcg (500 unit) Capsule 2 cap PO DAILY Held aspirin 81 mg Tablet,Delayed Release (Dr/Ec) 81 mg PO QPM Hold Instructions: Resume on 05/13/24. Discharge Orders: Discharge Order (Routine); Ordered 04/30/24 Ordered By: Ketty Simon Admission Data Admit Date/Time: 04/25/24 15:47 Attending Provider: Ketty Simon Admit Provider: Rajendra Cuevas Primary Care Provider: Don Banks Other Providers: [facility]; Rajendra Cuevas; Wan Pierce Other Interventions: Discharge Summary Assessment (RN) Last Done: 04/30/24 12:53 Coding Level of Care Code 63578 INP/OBS DISCH >30 MIN Diagnoses Duodenal ulcer K26.9 Symptomatic anemia D64.9 MARIN (acute kidney injury) N17.9 Prostate cancer C61 Type 2 diabetes mellitus without complication, with long-term current use of insulin E11.9; Z79.4 Diabetes mellitus type: type 2 Diabetes mellitus furnace installer insulin use: with furnace installer use Diabetes mellitus complication status: without complication
== END 2024-04-30 13:23 | DRG 378 ==
LOC: ED 13:32 → SUATTDRO 15:47 → 2W 15:47 → 3W 04-29 15:51

== ENCOUNTER 2024-06-06 17:10 | Inpatient (IN) ==
[2024-06-06 17:40] LABS: Basophils # (auto) 0.02 K/uL (0.00-0.20); Basophils % (auto) 0.2 %; Eosinophils # (auto) 0.03 K/uL (0.00-0.50); Eosinophils % (auto) 0.3 %; Hematocrit (blood only) 30.9 % (42.0-52.0); Hemoglobin 10.4 g/dl (14.0-18.0); Immature Granulocytes # (auto) 0.09 K/uL (0.01-0.20); Lymphocytes # (auto) 1.23 K/uL (1.20-3.40); Mean Corpuscular Hemoglobin 29.1 pg (25.0-34.0); Mean Corpuscular Hgb Conc 33.7 g/dL (32.0-36.0); Mean Corpuscular Volume 86.6 fL (80.0-100.0); Mean Platelet Volume 10.7 fL (9.4-12.4); Monocytes # (auto) 0.49 K/uL (0.11-0.59); Monocytes % (auto) 5.6 %; Neutrophils # (auto) 6.92 K/uL (1.40-6.50); Neutrophils % (auto) 78.9 %; Platelet Count 158 K/uL (130-400); RDW Standard Deviation 53.6 fL (36.4-46.3); Red Blood Count 3.57 M/uL (4.70-6.10); White Blood Count 8.78 K/ul (4.8-10.8)
--- NOTE | 2024-06-06 17:46 | Emergency Department Note ---
Impression & Plan Chest pain, Acute hyponatremia, Non-ST elevation CA (NSTEMI), Elevated brain natriuretic peptide (BNP) level, Acute hyperkalemia, Complicated urinary tract infection ED Provider Note HISTORY OF PRESENT ILLNESS: Patient is an 89-year-old male presenting with chest pain. Patient arrives from [facility]. He was discharged to the rehab facility after having a GI bleed and being diagnosed with pneumonia on May 24, 2024. Patient reportedly started having right-sided chest pain starting yesterday. He reports has been constant in nature. Describes it as a pressure sensation. He is supposed to be on 3 L nasal cannula at baseline, but is reportedly noncompliant. On EMS arrival, the patient was noted to be hypoxic at 77% on room air. On arrival to the ER, the patient reports he has had persistent right-sided chest pain. Denies any DVT or PE history. Denies any history of cardiac stents. He denies any significant shortness of breath with the chest pain. Denies any cough or fevers. ROS: as above PHYSICAL EXAM: Constitutional: Patient appears in no acute distress. HENT: Head: Normocephalic and atraumatic. Eyes: EOMI, PERRL Mouth/Throat: Mucous membranes moist. Neck: Trachea midline. Neck supple. Cardiovascular: RRR, No murmurs, rubs or gallops. Intact distal pulses. Pulmonary/Chest: No respiratory distress. Breath sounds clear and equal bilaterally. No wheezes or rales. Abdominal: Abdomen soft, no tenderness, rebound or guarding. Musculoskeletal: No edema, tenderness or deformity noted. Skin: Warm and dry. No rash, erythema, pallor or cyanosis Psychiatric: Appropriate mood and affect for situation. Neurological: Alert and keenly responsive. CN II-XII grossly intact, moving all extremities equally and fully. MDM: - Vitals signs showed tachycardia and hypoxia. - History obtained via patient. History as above. - Chronic conditions affecting care: DM-2; BPH; bladder outlet obstruction; CKD; prostate cancer; HTN; HLD; CVA - Differential diagnoses include, but are not limited to: Acute coronary syndrome; pulmonary embolism; dissection; tension pneumothorax; esophageal rupture; pneumonia - Order placed for continuous cardiac monitoring. At this time, monitor showed rate of 93 bpm with normal sinus rhythm, per my interpretation. - External medical records reviewed. Discharge summary dated 04/30/2024 was reviewed. Patient was admitted at that time for an acute upper GI bleed from an oozing duodenal ulcer and acute blood loss anemia. - EKG interpreted by myself showed normal sinus rhythm. Rate 87 bpm. QT 390. No acute ischemic changes. Noted to have some PACs. Patient is noted to have some ST depression in V4 through V6. - Laboratory workup interpreted by myself showed normal WBC; hyponatremia (Na 129); hyperkalemia (K 5.7); CKD; elevated troponin (20.5); elevated BNP (115); normal lipase - CXR negative for pneumonia, per my interpretation. 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 - UA showed evidence of infection. Patient does have a Romero catheter in place. This is a complicated UTI. Given 2 g IV Rocephin. - Given 1g IV calcium, 1L NS and 5 units insulin for hyperkalemia. - Repeat troponin slightly more elevated at 21.2. Repeat EKG obtained at 2100 on 06/06/2024 interpreted myself showed normal sinus rhythm. Rate 93 bpm. QT 370. No acute ischemic changes. - Moderate risk HEART score - Discussion was had with director of casework about patient's case and need for admission - Hospitalist, Dr. Wang, consulted for admission - Patient admitted to [facility] hospitalist service for further evaluation and management. ASSESSMENT AND PLAN: Diagnosis: Chest pain; acute hyponatremia; acute hyperkalemia; NSTEMI; elevated BNP; complicated UTI Plan: Admit Past Med/Surg History Problem List (Updated 06/06/24 @ 21:38 by Lilly Dior MD) Complicated urinary tract infection (Acute) Acute hyperkalemia (Acute) Elevated brain natriuretic peptide (BNP) level (Acute) Non-ST elevation CA (NSTEMI) (Acute) Acute hyponatremia (Acute) Chest pain (Acute) Gastric ulcer Duodenal ulcer Osteoarthritis of right knee Urinary retention hx Weakness (Acute) Acute hyponatremia (Acute) Acute UTI (urinary tract infection) (Acute) Hyponatremia Microcytic anemia Bony sclerosis Weight loss Urinary tract infection (Acute) Acute hyponatremia (Acute) Lower extremity edema Bladder outlet obstruction Nephrolithiasis Elevated PSA BPH (benign prostatic hyperplasia) Unruptured popliteal cyst Cerumen impaction Sensorineural hearing loss (SNHL) of left ear with restricted hearing of right ear Actinic keratosis (Acute) Folliculitis (Acute) Umbilical hernia (Acute) Ventral hernia (Acute) Arthritis of knee Diabetes Medical History CKD (chronic kidney disease) pt denies Prostate cancer Bilateral hydronephrosis Pulmonary nodules/lesions, multiple OA (osteoarthritis) of knee Dyslipidemia Hyperlipidemia Hypertension Diabetes mellitus, type 2 IDDM Anemia History of CVA (cerebrovascular accident) 08/2018, "garbled speech> pt denies residual effects Hx of iron deficiency anemia History of prostate cancer dx 08/2023, takes Xtandi daily and hormone injection [id number]; mets-skeletal lesions, mediastinal and bilat hilar lymph node uptake on 10/2023 PET scan Hx of basal cell carcinoma History of SCC (squamous cell carcinoma) of skin Hypertension controlled, stable per pt Hyperlipidemia Surgical History History of prostate surgery REZUM (10/2023 at [facility]) Hx of tonsillectomy Hx of bilateral cataract extraction Hx of umbilical hernia repair Hx of squamous cell carcinoma excision face Hx of basal cell carcinoma excision face Hx of tooth extraction All teeth removed; partial plate upper and lower jaw History of colonoscopy Family History Mother Cancer Father Diabetes Other Heart disease Stroke Denies family history of Hearing loss No family history of adverse response to anesthesia No family history of bleeding disorder Allergies Asthma Social History Smoking Status: Never smoker Second Hand Exposure: No; Do You Dip or Chew Tobacco: No; Hx Alcohol Use: No Hx Substance Use: No Preferred Language: [place]ese Communication Ability: Effective Visual Impairment: No Limitations Hearing Ability: Normal Raw Shellfish Preparer Required: No Beliefs That Will Affect Care: None marital status: Current Living Situation: Spouse current occupational status: retired How many Children do You have: 3 Feels Safe at Home: Yes Childhood Exposure to Second-Hand Smoke: Yes Diet: regular caffeine: No during the past year weight has: remained stable Dental Care, Regularly: Yes Physical Activity Frequency: Does not Exercise Seatbelt Use: always Sunscreen Use: Yes Assistive Devices: Walker and Other Allergies Allergies Allergy/AdvReac Type Severity Reaction Status Date / Time adhesive tape Allergy Severe RED Verified 06/06/24 21:08 IRRITATED SKIN Home Meds Home Medications Medication Instructions Recorded Confirmed coenzyme Q10 100 mg capsule 100 mg PO QAM 08/03/19 06/06/24 atorvastatin 40 mg tablet 40 mg PO HS 09/12/23 06/06/24 enzalutamide 40 mg tablet (Xtandi) 160 mg PO QAM 02/07/24 06/06/24 finasteride 5 mg tablet 5 mg PO QAM 03/01/24 06/06/24 insulin aspar prot-insulin aspart 8 unit subcut TID 03/01/24 06/06/24 100 unit/mL (70-30) subcutaneous pen (Novolog Mix 70-30FlexPen U-100) zinc acetate 50 mg (zinc) capsule 50 mg PO QAM 03/01/24 06/06/24 pantoprazole 40 mg tablet,delayed 40 mg PO BID 05/18/24 06/06/24 release acetaminophen 325 mg tablet 650 mg PO Q6 PRN TEMP > 100 06/06/24 06/06/24 acetaminophen 500 mg tablet 1,000 mg PO Q8H PRN Pain 06/06/24 06/06/24 (Tylenol Extra Strength) calcium carbonate 600 mg-vitamin 2 tab PO DAILY 06/06/24 06/06/24 D3 5 mcg (200 unit) tablet lorazepam 0.5 mg tablet 0.5 mg PO .EVERY 24 HOURS PRN 06/06/24 06/06/24 Anxiety melatonin 10 mg tablet 10 mg PO HS 06/06/24 06/06/24 sulfamethoxazole 400 1 tab PO Q12 06/06/24 06/06/24 mg-trimethoprim 80 mg tablet (Bactrim) Previous Rx's Medication Instructions Recorded metformin 1,000 mg tablet 1,000 mg PO BID #180 tabs 08/10/23 blood-glucose meter,continuous #1 ea 12/27/23 (Dexcom G7 Ambulance Assistant) potassium chloride 10 mEq 10 meq PO BID #180 tabs 03/13/24 tablet,extended release tamsulosin 0.4 mg capsule (Flomax) 0.4 mg PO QAM #90 caps 03/13/24 blood sugar diagnostic (OneTouch #25 ea 03/30/24 Verio test strips) blood-glucose sensor (Dexcom G7 #3 ea 03/30/24 Sensor device) diclofenac sodium 1 % topical gel 2 g topical QID PRN pain, moderate 04/03/24 #100 grams thiamine HCl (vitamin B1) 100 mg 200 mg (2 x 100 mg) PO BID #1 tab 04/29/24 tablet (Vitamin B-1) Results & Data (ED) Vital Signs Vital Signs - 24 hr 06/06/24 17:17 06/06/24 17:18 06/06/24 17:30 Temperature 36.8 C Temperature Source Oral Pulse Rate 87 101 H Pulse Rate [Apical] Pulse Strength Normal Respiratory Rate 23 Respiratory Effort / Characteristics Spontaneous SOB on Exertion SOB on Exertion Respiratory Depth Normal Normal Respiratory Pattern Regular Blood Pressure 111/70 Blood Pressure [Left Arm] Blood Pressure Mean 83 Blood Pressure Mean [Left Arm] Blood Pressure Position [Left Arm] Pulse Oximetry 93 Oxygen Delivery Method Nasal Cannula Nasal Cannula Oxygen Flow Rate 2 2 Sepsis Recent Fever Within 48 Hours No Sepsis New/Unexplained Change in Mental Status No Sepsis Action Taken by Nursing No Action Required Oxygen Flow Rate - Titration Pulse Oximetry Post Tiitration 06/06/24 17:31 06/06/24 17:32 06/06/24 17:50 Temperature 36.8 C Temperature Source Oral Pulse Rate 101 H Pulse Rate [Apical] 88 Pulse Strength Respiratory Rate 23 23 Respiratory Effort / Characteristics SOB on Exertion Respiratory Depth Respiratory Pattern Blood Pressure Blood Pressure [Left Arm] 126/71 Blood Pressure Mean Blood Pressure Mean [Left Arm] 89 Blood Pressure Position [Left Arm] Lying Pulse Oximetry 93 94 88 L Oxygen Delivery Method Nasal Cannula Nasal Cannula Room Air Oxygen Flow Rate 2 Sepsis Recent Fever Within 48 Hours Sepsis New/Unexplained Change in Mental Status Sepsis Action Taken by Nursing Oxygen Flow Rate - Titration 3 Pulse Oximetry Post Tiitration 94 06/06/24 18:40 06/06/24 20:35 Temperature Temperature Source Pulse Rate Pulse Rate [Apical] 93 H 91 H Pulse Strength Respiratory Rate 19 19 Respiratory Effort / Characteristics Non-Labored Spontaneous SOB on Exertion Respiratory Depth Normal Normal Respiratory Pattern Regular Blood Pressure Blood Pressure [Left Arm] 132/69 115/63 Blood Pressure Mean Blood Pressure Mean [Left Arm] 90 80 Blood Pressure Position [Left Arm] Pulse Oximetry 95 96 Oxygen Delivery Method Nasal Cannula Nasal Cannula Oxygen Flow Rate 3 3 Sepsis Recent Fever Within 48 Hours Sepsis New/Unexplained Change in Mental Status Sepsis Action Taken by Nursing Oxygen Flow Rate - Titration Pulse Oximetry Post Tiitration Laboratory Data 06/06/24 17:23 06/06/24 17:23 Lab Results 06/06/24 06/06/24 06/06/24 Range/Units 17:23 19:27 Unknown WBC 8.78 (4.8-10.8) K/ul RBC 3.57 L (4.70-6.10) M/uL Hgb 10.4 L (14.0-18.0) g/dl Hct 30.9 L (42.0-52.0) % MCV 86.6 (80.0-100.0) fL MCH 29.1 (25.0-34.0) pg MCHC 33.7 (32.0-36.0) g/dL RDW Std Deviation 53.6 H (36.4-46.3) fL RDW Coeff of [place] 17.0 H (11.5-14.5) % Plt Count 158 (130-400) K/uL MPV 10.7 (9.4-12.4) fL Immature Gran % (Auto) 1.0 % Neut % (Auto) 78.9 % Lymph % (Auto) 14.0 % [place] % (Auto) 5.6 % Eos % (Auto) 0.3 % Baso % (Auto) 0.2 % Neut # (Auto) 6.92 H (1.40-6.50) K/uL Lymph # (Auto) 1.23 (1.20-3.40) K/uL [place] # (Auto) 0.49 (0.11-0.59) K/uL Eos # (Auto) 0.03 (0.00-0.50) K/uL Baso # (Auto) 0.02 (0.00-0.20) K/uL Immature Gran # (Auto) 0.09 (0.01-0.20) K/uL PT 12.1 H (9.0-12.0) Seconds INR 1.1 (0.9-1.1) Sodium 129 L (136-145) mmol/L Potassium 5.7 H (3.5-5.1) mmol/L Chloride 102 (98-107) mmol/L Carbon Dioxide 17 L (21-32) mmol/L Anion Gap 10 (3-11) BUN 52 H (6-23) mg/dl Creatinine 1.72 H (0.6-1.4) mg/dl Est Cr Clr Drug Dosing 32.0 ml/min Est GFR ( Amer) 40.0 ml/min Est GFR (Non-Af Amer) 34.5 ml/min BUN/Creatinine Ratio 30.2 H (10-20) Glucose 111 H (70-99(Fasting)) mg/dl Calcium 8.4 L (8.6-10.3) mg/dl Magnesium 1.7 (1.7-2.4) mg/dl Total Bilirubin 1.1 H (0.2-1.0) mg/dl AST 44 H (13-39) U/L ALT 10 (7-52) U/L Alkaline Phosphatase 493 H (34-104) U/L Troponin I High Sens 20.5 H 21.2 H (0-20) pg/ml B-Natriuretic Peptide 115 H (0-100) pg/ml Total Protein 6.2 (6.0-8.3) gm/dl Albumin 2.9 L (3.4-5.0) gm/dl Globulin 3.3 (2.5-4.0) gm/dl Albumin/Globulin Ratio 0.9 (0.9-2) Lipase 26 (11-82) U/L Urine Color Yellow Urine Appearance Turbid A (Clear) Urine pH 5.5 (4.5-7.5) Ur Specific [place] 1.020 (1.000-1.030) Urine Protein 2+ H (Negative) Urine Glucose (UA) Negative (Negative) Urine Ketones Trace H (Negative) Urine Blood 3+ H (Negative) Urine Nitrite Positive A (Negative) Urine Bilirubin Negative (Negative) Urine Urobilinogen Negative (Negative) Ur Leukocyte Esterase 3+ H (Negative) Urine WBC (Auto) >50 H (0-5) /hpf Urine RBC (Auto) >20 H (0-2) /hpf U Hyaline Cast (Auto) 11-20 H (0-2) /lpf U Epithel Cells (Auto) 0-2 (0-2) /hpf Urine Bacteria (Auto) 2+ H (None Seen) Hyaline Casts Present A (None Presnt) /lpf Administered Medications Discontinued Medications Calcium Gluconate () 1,000 mg in 60 mls @ 240 mls/hr IV NOW STA Stop: 06/06/24 19:20 Last Infusion: 06/06/24 19:42 Dose: Infused Documented By: Admin: 06/06/24 19:20 Dose: 240 mls/hr Documented By: LYDIA Ceftriaxone Sodium (Rocephin) 2,000 mg in 50 mls @ 100 mls/hr IV NOW STA Stop: 06/06/24 19:55 Last Infusion: 06/06/24 20:28 Dose: Infused Documented By: Admin: 06/06/24 19:39 Dose: 100 mls/hr Documented By: LYDIA Imaging Data Radiologist's Impression: Chest X-Ray 06/06/24 17:28 SINGLE VIEW CHEST CLINICAL HISTORY: Atypical chest pain FINDINGS: An AP, portable, upright chest radiograph is compared to study dated 04/25/2024. Correlation is made with PET CT dated 04/13/2024. The heart is enlarged noting atherosclerotic calcification of the thoracic aorta. The pulmonary vasculature is noncongested. Chronic interstitial thickening is similar to previous. There is bibasilar scarring/atelectasis. No airspace consolidation or large pleural effusion is identified. No pneumothorax is seen. The skeletal structures are osteopenic. 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 IMPRESSION: 1. Cardiomegaly with no acute cardiopulmonary abnormality identified. 2. 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 ACT 112: Negative or not required by law. Electronically signed by: James August M.D. 06/06/2024 7:12 PM Discharge Plan Visit Data Chief Complaint: Chest Pain Stated Complaint: Chest pain, hypoxia ED Provider: Lilly Dior Discharge Problem: Chest pain, Acute hyponatremia, Non-ST elevation CA (NSTEMI), Elevated brain natriuretic peptide (BNP) level, Acute hyperkalemia, Complicated urinary tract infection Forms Stand Alone Forms: [employer] Prescriptions Prescriptions: No Action (DME) Dexcom G7 Ambulance Assistant Misc See Rx Instructions .Route Qty: 1 0RF Rx Instructions: As directed, check BS QID potassium chloride 10 mEq tablet extended release 10 meq PO BID Qty: 180 1RF Rx Instructions: TAKE 1 TABLET BY MOUTH TWICE A DAY tamsulosin [Flomax] 0.4 mg capsule 0.4 mg PO QAM Qty: 90 1RF (DME) Dexcom G7 Sensor Device See Rx Instructions .Route Qty: 3 11RF Rx Instructions: As directed, check BS QID (DME) OneTouch Verio test strips Strip See Rx Instructions .Route Qty: 25 0RF Rx Instructions: e11.9 check BS 4x day diclofenac sodium 1 % gel 2 g topical QID PRN (Reason: pain, moderate) Qty: 100 2RF coenzyme Q10 100 mg capsule 100 mg PO QAM metformin 1,000 mg tablet 1,000 mg PO BID Qty: 180 3RF Xtandi 40 mg tablet 160 mg PO QAM pantoprazole 40 mg tablet,delayed release (DR/EC) 40 mg PO BID atorvastatin 40 mg tablet 40 mg PO HS finasteride 5 mg tablet 5 mg PO QAM insulin asp prt-insulin aspart [Novolog Mix 70-30FlexPen U-100] 100 unit/mL (70-30) insulin pen 8 unit subcut TID zinc acetate 50 mg (zinc) Capsule 50 mg PO QAM lorazepam 0.5 mg tablet 0.5 mg PO .EVERY 24 HOURS PRN (Reason: Anxiety) melatonin 10 mg Tablet 10 mg PO HS acetaminophen [Tylenol Extra Strength] 500 mg tablet 1,000 mg PO Q8H PRN (Reason: Pain) acetaminophen 325 mg Tablet 650 mg PO Q6 MDD 3G PRN (Reason: TEMP > 100) calcium carbonate-vitamin D3 [Calcium + D] 600 mg-5 mcg (200 unit) Tablet 2 tab PO DAILY sulfamethoxazole-trimethoprim [Bactrim] 400-80 mg Tablet 1 tab PO Q12 Rx Instructions: ORDERED TO START 06/06/24 BUT HAS NOT YET BEGUN..TO TAKE FOR 7 DAYS thiamine HCl (vitamin B1) [Vitamin B-1] 100 mg tablet 200 mg PO BID Qty: 1 0RF Referrals Referrals: Don Banks DO [Primary Care Provider] -
[2024-06-06 18:12] LABS: Albumin Globulin Ratio 0.9 (0.9-2); Albumin Level 2.9 gm/dl (3.4-5.0); BUN Creatinine Ratio 30.2 (10-20); Bilirubin,Total 1.1 mg/dl (0.2-1.0); Calcium 8.4 mg/dl (8.6-10.3); Est GFR (Non-African American) 34.5 ml/min; Globulin 3.3 gm/dl (2.5-4.0); Magnesium 1.7 mg/dl (1.7-2.4); Potassium 5.7 mmol/L (3.5-5.1); Total Protein 6.2 gm/dl (6.0-8.3)
[2024-06-06 18:18] LABS: Troponin I High Sensitivity 20.5 pg/ml (0-20)
[2024-06-06 18:21] LABS: INR 1.1 (0.9-1.1); Prothrombin Time 12.1 Seconds (9.0-12.0)
[2024-06-06 19:14] LABS: Appearance Urine Turbid (Clear); Bacteria Urine Automated 2+ (None Seen); Bilirubin Urine Negative (Negative); Blood Urine 3+ (Negative); Color Urine Yellow; Epithelial Cell Urine Auto 0-2 /hpf (0-2); Glucose Urine UA Negative (Negative); Hyaline Casts Urine Present /lpf (None Presnt); Ketones Urine Trace (Negative); Leukocyte Esterase Urine 3+ (Negative); Nitrite Urine Positive (Negative); Protein Urine 2+ (Negative); RBC Urine Automated >20 /hpf (0-2); Urobilinogen Urine Negative (Negative); WBC Urine Automated >50 /hpf (0-5); pH Urine 5.5 (4.5-7.5)
--- NOTE | 2024-06-06 19:14 | XRay Report ---
SINGLE VIEW CHEST CLINICAL HISTORY: Atypical chest pain FINDINGS: An AP, portable, upright chest radiograph is compared to study dated 04/25/2024. Correlation is made with PET CT dated 04/13/2024. The heart is enlarged noting atherosclerotic calcification of t he thoracic aorta. The pulmonary vasculature is noncongested. Chronic interstitial thickening is arsen lar to previous. There is bibasilar scarring/atelectasis. No airspace consolidation or large pleural effusion is identified. No pneumothorax is seen. The skeletal structures are osteopenic. 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 IMPRESSION: 1. Cardiomegaly with no acute cardiopulmonary abnormality identified. 2. 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 ACT 112: Negative or not required by law. Electronically signed by: James August M.D. 06/06/2024 7:12 PM
[2024-06-06] MEDS: CALCIUM GLUCONATE 1,000 MG/60 ML BAG IV STA (19:20)
[2024-06-06] MEDS: cefTRIAXone SODIUM 2,000 MG/50 ML BAG IV STA (19:39)
--- NOTE | 2024-06-06 21:30 | History & Physical Report ---
Date of Service June 06, 2024 Assessment & Plan (1) Chest pain: (2) Acute hyperkalemia: (3) Complicated urinary tract infection: (4) BPH (benign prostatic hyperplasia): (5) Gastric ulcer: (6) Duodenal ulcer: (7) Diabetes: Plan Mihai Evans (Bill) is an 89 y/o male with a PMHx of CKD, prostate cancer (on androgen deprivation therapy), HTN, HLD, BPH, T2DM, and recently diagnosed UTI who presented to the [facility] ED due to concerns regarding right-sided chest pain. 1) Right-sided chest pain/Costochondritis/Oxygen requirement - HSTrop, 21.2 <-- 20.5 (admission); repeat HSTrops in AM - CXR: no acute findings on official read (but possibly trace r. pleural effusion); findings of osteoblastic lesions similar to previous CXR's - echocardiogram ordered for tomorrow - previous echo: LV systolic function normal, Grade I diastolic dysfunction - lidoderm patch, Voltaren gel ordered to apply to r. chest area PRN - patient on 4 L O2 (NC) to keep O2 > 93%, baseline at care facility apparently 3 L O2 (NC) but pt only uses intermittently - monitor O2 Sats q4 hrs 2) Hyperkalemia/chronic mild hyponatremia - K, 5.0 <-- 5.7 (upon admission) --> calcium gluconate, 1000 mg, IV given in ED - Na, 131 <-- 129 - BMP, AM labs 3) UTI - UA: positive for bacterial infection; Ur Cx, pos for Staphylococcus, sensitivities pending - continue Ceftriaxone, 2g, IV, q24 hrs 4) Mild acidosis, normal AG - HCO3, 17 <-- 17 - ABG ordered 4) BPH - continue tamsulosin, finasteride 5) Prostate cancer, metastasized - alk phos, 493 (worsened from baseline elevation) - evidence on CXR for osteoblastic lesions from Pr CA - continue enzalutamide 6) T2DM - basal/bolus insulin started - hold metformin 7) Insomnia - lorazepam, 0.5 mg, QHS, PRN (pt takes daily for sleep, leave pt on during stay to avoid withdrawal) - melatonin, PRN 8) Hx of gastric and duodenal ulcer - pantoprazole 9) Hx of NSTEMI - rosuvastatin, CoQ10 Code status: Full code Disposition: PCT-Tele [facility]: regular diet ordered DVT prophylaxis: Heparin, 5000 U, SQ, BID History of Present Illness Chief Complaint: right sided chest pain Primary Care Provider: DO Mihai ShawTanvir Evans is an 89 y/o male with a PMHx of CKD, prostate cancer (on androgen deprivation therapy), HTN, HLD, BPH, and T2DM who presented to the [facility] ED due to concerns regarding right-sided chest pain. Patient was discharged from [facility] ED recently on 05/24/24 after a hospital stay for a GI bleed and pneumonia. Patient is supposed to be on 3L NC O2 at baseline. Patient's CP not pleuritic, is intermittent, feels like someone is pressing down on his chest. Patient is SOB at baseline but doesn't feel like it's been any worse the last few days, although his O2 Sats were down to 77% while at care facility. Patient has not noticed any positional dependence of his CP and states it is different than the occasional acid reflux pain he gets. States that the pain severity is 7/10 when he feels it, though the pain is intermittent. There does seem to be at least some reproducibility of the pain upon palpation. Allergies Allergy/AdvReac Type Severity Reaction Status Date / Time adhesive tape Allergy Severe RED Verified 06/06/24 21:08 IRRITATED SKIN Home Medications Medication Instructions Recorded Confirmed Type coenzyme Q10 100 mg capsule 100 mg PO QAM 08/03/19 06/06/24 History metformin 1,000 mg tablet 1,000 mg PO BID #180 tabs 08/10/23 06/06/24 Rx atorvastatin 40 mg tablet 40 mg PO HS 09/12/23 06/06/24 History blood-glucose meter,continuous #1 ea 12/27/23 06/06/24 Rx (Dexcom G7 Principal Electrical Engineer) enzalutamide 40 mg tablet (Xtandi) 160 mg PO QAM 02/07/24 06/06/24 History finasteride 5 mg tablet 5 mg PO QAM 03/01/24 06/06/24 History insulin aspar prot-insulin aspart 8 unit subcut TID 03/01/24 06/06/24 History 100 unit/mL (70-30) subcutaneous pen (Novolog Mix 70-30FlexPen U-100) zinc acetate 50 mg (zinc) capsule 50 mg PO QAM 03/01/24 06/06/24 History potassium chloride 10 mEq 10 meq PO BID #180 tabs 03/13/24 06/06/24 Rx tablet,extended release tamsulosin 0.4 mg capsule (Flomax) 0.4 mg PO QAM #90 caps 03/13/24 06/06/24 Rx blood sugar diagnostic (OneTouch #25 ea 03/30/24 06/06/24 Rx Verio test strips) blood-glucose sensor ([employer] G7 #3 ea 03/30/24 06/06/24 Rx Sensor device) diclofenac sodium 1 % topical gel 2 g topical QID PRN pain, moderate 04/03/24 06/06/24 Rx #100 grams thiamine HCl (vitamin B1) 100 mg 200 mg (2 x 100 mg) PO BID #1 tab 04/29/24 06/06/24 Rx tablet (Vitamin B-1) pantoprazole 40 mg tablet,delayed 40 mg PO BID 05/18/24 06/06/24 History release acetaminophen 325 mg tablet 650 mg PO Q6 PRN TEMP > 100 06/06/24 06/06/24 History acetaminophen 500 mg tablet 1,000 mg PO Q8H PRN Pain 06/06/24 06/06/24 History (Tylenol Extra Strength) calcium carbonate 600 mg-vitamin 2 tab PO DAILY 06/06/24 06/06/24 History D3 5 mcg (200 unit) tablet lorazepam 0.5 mg tablet 0.5 mg PO .EVERY 24 HOURS PRN 06/06/24 06/06/24 History Anxiety melatonin 10 mg tablet 10 mg PO HS 06/06/24 06/06/24 History sulfamethoxazole 400 1 tab PO Q12 06/06/24 06/06/24 History mg-trimethoprim 80 mg tablet (Bactrim) Past Med/Surg History Problem List (Updated 06/06/24 @ 21:38 by Lilly Dior MD) Complicated urinary tract infection (Acute) Acute hyperkalemia (Acute) Elevated brain natriuretic peptide (BNP) level (Acute) Non-ST elevation HI (NSTEMI) (Acute) Acute hyponatremia (Acute) Chest pain (Acute) Gastric ulcer Duodenal ulcer Osteoarthritis of right knee Urinary retention hx Weakness (Acute) Acute hyponatremia (Acute) Acute UTI (urinary tract infection) (Acute) Hyponatremia Microcytic anemia Bony sclerosis Weight loss Urinary tract infection (Acute) Acute hyponatremia (Acute) Lower extremity edema Bladder outlet obstruction Nephrolithiasis Elevated PSA BPH (benign prostatic hyperplasia) Unruptured popliteal cyst Cerumen impaction Sensorineural hearing loss (SNHL) of left ear with restricted hearing of right ear Actinic keratosis (Acute) Folliculitis (Acute) Umbilical hernia (Acute) Ventral hernia (Acute) Arthritis of knee Diabetes Medical History CKD (chronic kidney disease) pt denies Prostate cancer Bilateral hydronephrosis Pulmonary nodules/lesions, multiple OA (osteoarthritis) of knee Dyslipidemia Hyperlipidemia Hypertension Diabetes mellitus, type 2 IDDM Anemia History of CVA (cerebrovascular accident) 08/2018, "garbled speech> pt denies residual effects Hx of iron deficiency anemia History of prostate cancer dx 08/2023, takes Xtandi daily and hormone injection [id number]; mets-skeletal lesions, mediastinal and bilat hilar lymph node uptake on 10/2023 PET scan Hx of basal cell carcinoma History of SCC (squamous cell carcinoma) of skin Hypertension controlled, stable per pt Hyperlipidemia Surgical History History of prostate surgery REZUM (10/2023 at [facility]) Hx of tonsillectomy Hx of bilateral cataract extraction Hx of umbilical hernia repair Hx of squamous cell carcinoma excision face Hx of basal cell carcinoma excision face Hx of tooth extraction All teeth removed; partial plate upper and lower jaw History of colonoscopy Family History Mother Cancer Father Diabetes Other Heart disease Stroke Denies family history of Hearing loss No family history of adverse response to anesthesia No family history of bleeding disorder Allergies Asthma Social History Smoking Status: Never smoker Second Hand Exposure: No; Do You Dip or Chew Tobacco: No; Tobacco Cessation Education Requested by Patient: No Hx Alcohol Use: No Hx Substance Use: No Preferred Language: Citizen Of [place] Communication Ability: Effective Visual Impairment: No Limitations Hearing Ability: Normal High School Academic Coach Required: No Beliefs That Will Affect Care: None marital status: Current Living Situation: Senior Care current occupational status: retired How many Children do You have: 3 Other Information That Helps Us Care for You: No Feels Safe at Home: Yes Safety Concerns: Feels Safe At This Time Childhood Exposure to Second-Hand Smoke: Yes Diet: regular caffeine: No during the past year weight has: remained stable Dental Care, Regularly: Yes Physical Activity Frequency: Does not Exercise Seatbelt Use: always Sunscreen Use: Yes Assistive Devices: Oxygen - Continuous, Walker and Wheelchair Review of Systems Constitutional: no fever and no chills Ear, Nose, Mouth, Throat: no ear pain, no nasal congestion, no nasal discharge and no post nasal drip Respiratory: + dyspnea on exertion (at baseline); no cough, no chest congestion and no pain on inspiration Cardiovascular: + chest pain; no radiating jaw, neck or arm pain, no orthopnea, no palpitations and no calf pain Gastrointestinal: no abdominal pain, no nausea and no vomiting Neurologic: no tingling, no numbness and no headache(s) Physical Exam Constitutional: WD/WN, vitals as above Respiratory: Auscultation: lungs clear to auscultation bilaterally; breath sounds present, no crackles and no rhonchi Cardiovascular: RRR, no murmur, no edema Extremities: normal capillary refill; no calf tenderness and no pedal edema Chest (Breasts): Chest: + abnormal inspection of chest (epidermoid cyst noted on sternum) Gastrointestinal (Abdomen): normal bowel sounds, soft, nontender, no hepatosplenomegaly Psychiatric: A+Ox3, euthymic affect Results & Data Results & Data Vital Signs (Past 12 Hours) Vital Signs Temp Pulse Pulse Resp BP BP Pulse Ox 06/06/24 20:35 91 H 19 115/63 96 06/06/24 18:40 93 H 19 132/69 95 06/06/24 17:50 88 L 06/06/24 17:32 36.8 C 88 23 126/71 94 06/06/24 17:31 101 H 23 93 06/06/24 17:30 06/06/24 17:18 36.8 C 101 H 23 111/70 93 06/06/24 17:17 87 O2 Del Method O2 Flow Rate 06/06/24 20:35 Nasal Cannula 3 06/06/24 18:40 Nasal Cannula 3 06/06/24 17:50 Room Air 06/06/24 17:32 Nasal Cannula 06/06/24 17:31 Nasal Cannula 2 06/06/24 17:30 Nasal Cannula 2 06/06/24 17:18 Nasal Cannula 2 06/06/24 17:17 Supervising Physician Co-Signing Physician Notes Attending addendum: I have physically seen this patient, have supervised the medical residents activities, and agree with the H&P unless as otherwise noted. Assessment and Plan: Right-sided chest pain- Very reproducible with light pressure on examination Likely secondary to costochondral pain, associated with underlying osteoblastic metastatic disease Will start treatment with Lidoderm patch this evening Acetaminophen 1000 mg by mouth every 8 hours as needed for mild pain or fever Troponin is mildly elevated at 20.5, with follow-up 21.2 The patient will be admitted to telemetry for serial cardiac enzymes, serial EKG's, cardiac rhythm monitoring and a 2-D echocardiogram with Dopplers. Chronic respiratory failure with hyp JESSE jorge- Does not wear oxygen as directed on a routine basis at the nursing facility Noted to have orders for 3 L nasal cannula oxygen, continue with titration target around 92% DuoNebs every 2 hours as needed No suggestion of active respiratory infection Urinary tract infection/chronic indwelling Romero catheter/BPH with LUTS- Follow urine culture and sensitivity Continue ceftriaxone 2 g IV daily begun in the ED Continue Bactrim DS p.o. every 12 hours for possible MRSA Continue tamsulosin and finasteride Diabetes mellitus- Hold metformin Hold 70-30 Placed on Accu-Cheks with NovoLog SSI Prostate cancer- On Xtandi (4) BPH (benign prostatic hyperplasia) Lower urinary tract symptom detail: incomplete bladder emptying Lower urinary tract symptom presence: symptoms present Qualified Code(s): N40.1 - Benign prostatic hyperplasia with lower urinary tract symptoms; R39.14 - Feeling of incomplete bladder emptying (7) Diabetes Diabetes mellitus complication status: without complication Diabetes mellitus mcc insulin use: with terminal computer operator use Diabetes mellitus type: type 2 Qualified Code(s): E11.9 - Type 2 diabetes mellitus without complications; Z79.4 - half-way (current) use of insulin
[2024-06-06] MEDS: SODIUM CHLORIDE 0.9% 1,000 ML IV ONE (21:40)
[2024-06-06] MEDS: DEXTROSE 50% 50 ML SYRINGE IV STA (22:09)
[2024-06-06] MEDS: NovoLIN-R INSULIN PER UNIT CHARGE IV STA (22:09)
[2024-06-06 22:30] LABS: Influenza A virus by PCR Negative (Neg); Influenza B virus by PCR Negative (Neg); RSV by PCR Negative (Neg); SARS CoV2 RNA(COVID-19) Ceph NEGATIVE (Negative)
[2024-06-06] MEDS: LIDOCAINE 5% 1 PATCH TD STA (22:59)
[2024-06-07 00:17] LABS: BUN Creatinine Ratio 31.1 (10-20); Calcium 7.9 mg/dl (8.6-10.3); Creatinine Clr Calc Pharmacy 31.1 ml/min; Est GFR (African American) 38.6 ml/min; Est GFR (Non-African American) 33.3 ml/min
[2024-06-07] MEDS ORDERED: GLUCOSE 40% GEL 15 GM TUBE PO PRN (00:43)
[2024-06-07] MEDS ORDERED: GLUCAGON FOR INJ 1 MG VIAL SQ PRN (00:43)
[2024-06-07] MEDS ORDERED: GLUCOSE 10 TAB/TUBE PO PRN (00:43)
[2024-06-07] MEDS ORDERED: ACETAMINOPHEN 325 MG TAB PO PRN (00:43)
[2024-06-07] MEDS ORDERED: DEXTROSE 50% 50 ML SYRINGE IV PRN (00:43)
[2024-06-07] MEDS ORDERED: CARBOHYDRATES FOR HYPOGLYCEMIA PO PRN (00:43)
[2024-06-07] MEDS: ACETAMINOPHEN 500 MG TAB PO PRN (01:39)
[2024-06-07] MEDS: LACTATED RINGER'S 1,000 ML IV SCH (01:40)
[2024-06-07 01:41] LABS: Base Excess ABG -9.1 mEq/L (-9-1.8); HCO3 ABG 13 mmol/L (19-24); Oxygen Saturation ABG 98.6 % (90-95); PCO2 ABG 20 mmHg (35-46); PO2 ABG 82 mmHg (80-95); pH ABG 7.42 (7.35-7.45)
[2024-06-07 01:49] LABS: Allen Test Pos (Pos)
[2024-06-07] MEDS: DAPTOmycin 625 MG in SYRINGE 0 ML IV SCH (03:50)
[2024-06-07] MEDS: Continuous Glucose Monitor SCH (07:15)
[2024-06-07] MEDS ORDERED: NON-FORMULARY MEDICATION (Blood-Glucose Meter,Continuous [Dexcom G7 Receiver] misc) SCH (07:30)
[2024-06-07] MEDS ORDERED: NON-FORMULARY MEDICATION (Blood Sugar Diagnostic [Onetouch Verio Test Strips] strip) SCH (07:30)
[2024-06-07] MEDS ORDERED: NON-FORMULARY MEDICATION (Blood-Glucose Sensor [Dexcom G7 Sensor] device) SCH (07:30)
[2024-06-07 07:45] LABS: Basophils # (auto) 0.02 K/uL (0.00-0.20); Basophils % (auto) 0.3 %; Eosinophils # (auto) 0.03 K/uL (0.00-0.50); Eosinophils % (auto) 0.4 %; Hematocrit (blood only) 27.3 % (42.0-52.0); Hemoglobin 9.1 g/dl (14.0-18.0); Immature Granulocytes # (auto) 0.12 K/uL (0.01-0.20); Immature Granulocytes % (auto) 1.7 %; Lymphocytes # (auto) 0.99 K/uL (1.20-3.40); Mean Corpuscular Hemoglobin 29.3 pg (25.0-34.0); Mean Corpuscular Hgb Conc 33.3 g/dL (32.0-36.0); Mean Corpuscular Volume 87.8 fL (80.0-100.0); Mean Platelet Volume 10.4 fL (9.4-12.4); Monocytes % (auto) 5.7 %; Neutrophils % (auto) 77.9 %; Nucleated RBC # (auto) 0.02 K/uL (0.00-0.12); Nucleated RBC % (auto) 0.3 %; Platelet Count 125 K/uL (130-400); Red Blood Count 3.11 M/uL (4.70-6.10); White Blood Count 7.06 K/ul (4.8-10.8)
[2024-06-07 07:58] LABS: BUN Creatinine Ratio 31.9 (10-20); Calcium 7.8 mg/dl (8.6-10.3); Creatinine Clr Calc Pharmacy 33.7 ml/min; Est GFR (African American) 42.7 ml/min; Est GFR (Non-African American) 36.8 ml/min; Potassium 4.9 mmol/L (3.5-5.1)
[2024-06-07] MEDS: PANTOprazole 40 MG TAB PO SCH (08:24)
[2024-06-07] MEDS: ZINC SULFATE 220 MG CAPSULE PO SCH (08:24)
[2024-06-07] MEDS: TAMSULOSIN HCL 0.4 MG CAP PO SCH (08:24)
[2024-06-07] MEDS: FINASTERIDE 5 MG TAB PO SCH (08:24)
[2024-06-07] MEDS: HEPARIN SOD 5,000 UNIT/0.5 ML VIAL SQ SCH (08:24)
[2024-06-07] MEDS: THIAMINE HCL 100 MG TAB PO SCH (08:24)
[2024-06-07] MEDS: INSULIN ASPART PER UNIT CHARGE SC SCH (08:24)
[2024-06-07] MEDS: LANTUS PER UNIT CHARGE SC SCH (08:27)
[2024-06-07] MEDS ORDERED: NON-FORMULARY MEDICATION (Coenzyme Q10 100 mg capsule) PO SCH (09:00)
--- NOTE | 2024-06-07 11:14 | XCELERA ---
[id number]
--- NOTE | 2024-06-07 12:50 | Electrocardiogram Report ---
Test Reason : Blood Pressure : / mmHG Vent. Rate : 093 BPM Atrial Rate : 093 BPM P-R Int : 166 ms QRS Dur : 102 ms QT Int : 370 ms P-R-T Axes : 064 -36 133 degrees QTc Int : 460 ms Sinus rhythm with Premature supraventricular complexes Left axis deviation Low voltage QRS Abnormal ECG Confirmed by Lio Jewell ([id number]) on 06/07/2024 12:49:32 PM Referred By: REFERRED SELF Confirmed By:Kyle Jewell
--- NOTE | 2024-06-07 12:52 | Electrocardiogram Report ---
Test Reason : Blood Pressure : / mmHG Vent. Rate : 087 BPM Atrial Rate : 087 BPM P-R Int : 168 ms QRS Dur : 100 ms QT Int : 390 ms P-R-T Axes : 075 -37 153 degrees QTc Int : 469 ms Sinus rhythm with Premature atrial complexes with Aberrant conduction Left axis deviation Low voltage QRS Abnormal ECG When compared with ECG of 25-APR-2024 13:51, QRS axis Shifted left T wave inversion no longer evident in Inferior leads Confirmed by Lio Jewell ([id number]) on 06/07/2024 12:52:09 PM Referred By: REFERRED SELF Confirmed By:Kyle Jewell
[2024-06-07 18:08] LABS: Hematocrit (blood only) 27.4 % (42.0-52.0); Hemoglobin 9.2 g/dl (14.0-18.0)
[2024-06-07 18:24] LABS: BUN Creatinine Ratio 32.7 (10-20); Creatinine Clr Calc Pharmacy 33.9 ml/min; Est GFR (Non-African American) 37.1 ml/min; Potassium 4.8 mmol/L (3.5-5.1)
[2024-06-07] MEDS: MELATONIN 3 MG TAB PO SCH (19:28)
[2024-06-07] MEDS: LORazepam 0.5 MG TAB PO PRN (20:54)
[2024-06-07] MEDS ORDERED: ATORVASTATIN 40 MG TAB PO SCH (21:00)
--- NOTE | 2024-06-07 21:25 | Billing Data ---
Date of Service June 07, 2024 Coding Level of Care Code 18670 INT INP/OBS CARE
--- NOTE | 2024-06-07 22:56 | Hospitalist Progress Note ---
Date of Service June 07, 2024 Assessment & Plan (1) Chest pain: (2) Acute hyperkalemia: (3) Complicated urinary tract infection: (4) BPH (benign prostatic hyperplasia): (5) Gastric ulcer: (6) Duodenal ulcer: (7) Diabetes: Plan Mihai Evans (Bill) is an 89 y/o male with a PMHx of CKD, prostate cancer (on androgen deprivation therapy), HTN, HLD, BPH, T2DM, and recently diagnosed UTI who presented to the [facility] ED due to concerns regarding right-sided chest pain. 1) Right-sided chest pain/Costochondritis/Oxygen requirement - HSTrop, 21.2 <-- 20.5 (admission); repeat HSTrops in AM - CXR: no acute findings on official read (but possibly trace r. pleural effusion); findings of osteoblastic lesions similar to previous CXR's - echocardiogram:normal - previous echo: LV systolic function normal, Grade I diastolic dysfunction - lidoderm patch, Voltaren gel ordered to apply to r. chest area PRN - patient on 4 L O2 (NC) to keep O2 > 93%, baseline at care facility apparently 3 L O2 (NC) but pt only uses intermittently - monitor O2 Sats q4 hrs 2) Hyperkalemia/chronic mild hyponatremia - K, 5.0 <-- 5.7 (upon admission) --> calcium gluconate, 1000 mg, IV given in ED - Na, 131 <-- 129 - BMP, AM labs 3) UTI - UA: positive for bacterial infection; Ur Cx, pos for Staphylococcus, sensitivities pending - continue Ceftriaxone, 2g, IV, q24 hrs 4) Mild acidosis, normal AG - HCO3, 17 <-- 17 - ABG ordered 4) BPH - continue tamsulosin, finasteride 5) Prostate cancer, metastasized - alk phos, 493 (worsened from baseline elevation) - evidence on CXR for osteoblastic lesions from Pr CA - continue enzalutamide 6) T2DM - basal/bolus insulin started - hold metformin 7) Insomnia - lorazepam, 0.5 mg, QHS, PRN (pt takes daily for sleep, leave pt on during stay to avoid withdrawal) - melatonin, PRN 8) Hx of gastric and duodenal ulcer - pantoprazole 9) Hx of NSTEMI - rosuvastatin, CoQ10 Code status: Full code Disposition: PCT-Tele [facility]: regular diet ordered DVT prophylaxis: Heparin, 5000 U, SQ, BID Admission and Anticipated Discharge Date Admission Date: June 06, 2024 Subjective 89 yo male is confused today. Review of Systems Review of Systems: All systems reviewed & are unremarkable except as noted in HPI & below Physical Exam Physical Exam: HEENT: Normocephalic, atraumati Lungs: Normal respiratory effort. Clear to auscultation bilaterally. No RRW Heart: Regular rate and rhythm, no murmurs. No JVD Abdomen: Soft, nontender, nondistended. Bowel sounds present. Extremities: Warm, dry, well-perfused. No extremity edema. Neuro: Alert, confused Results & Data Results & Data Vital Signs (Past 12 Hours) Vital Signs Temp Pulse Pulse Resp BP Pulse Ox O2 Del Method 06/07/24 22:02 36.7 C 86 18 102/67 96 Nasal Cannula 06/07/24 19:45 Nasal Cannula 06/07/24 19:25 36.3 C L 91 H 18 95/57 L 91 Nasal Cannula 06/07/24 15:22 96 06/07/24 15:11 36.1 C L 89 18 109/56 L 93 Nasal Cannula 06/07/24 14:43 80 06/07/24 11:14 36.5 C 85 18 109/63 96 Nasal Cannula O2 Flow Rate 06/07/24 22:02 2 06/07/24 19:45 2 06/07/24 19:25 2 06/07/24 15:22 06/07/24 15:11 3 06/07/24 14:43 06/07/24 11:14 3 PG Care Time/CCT Total # of Minutes Spent Total Time Spent with Patient: Total time spent is greater than 50% in coordination of care (as documented) at patient's floor/unit and/or counseling patient: Coding Level of Care Code 34747 SUB INP/OBS CARE 2/35MIN Diagnoses Chest pain R07.9 Acute hyperkalemia E87.5 Complicated urinary tract infection N39.0 Benign prostatic hyperplasia with incomplete bladder emptying N40.1; R39.14 Lower urinary tract symptom detail: incomplete bladder emptying Lower urinary tract symptom presence: symptoms present Gastric ulcer K25.9 Duodenal ulcer K26.9 Type 2 diabetes mellitus without complication, with long-term current use of insulin E11.9; Z79.4 Diabetes mellitus complication status: without complication Diabetes mellitus fci insulin use: with fci use Diabetes mellitus type: type 2 (4) BPH (benign prostatic hyperplasia) Lower urinary tract symptom detail: incomplete bladder emptying Lower urinary tract symptom presence: symptoms present Qualified Code(s): N40.1 - Benign prostatic hyperplasia with lower urinary tract symptoms; R39.14 - Feeling of incomplete bladder emptying (7) Diabetes Diabetes mellitus complication status: without complication Diabetes mellitus medical terminologist insulin use: with medical terminologist use Diabetes mellitus type: type 2 Qualified Code(s): E11.9 - Type 2 diabetes mellitus without complications; Z79.4 - [facility]CI (current) use of insulin
[2024-06-08 06:39] LABS: BUN Creatinine Ratio 32.3 (10-20); C Reactive Protein 24.14 mg/dl (0-0.5); Calcium 7.9 mg/dl (8.6-10.3); Creatinine Clr Calc Pharmacy 34.8 ml/min; Est GFR (African American) 44.3 ml/min; Est GFR (Non-African American) 38.2 ml/min; Potassium 4.5 mmol/L (3.5-5.1)
[2024-06-08] MEDS: SODIUM CHLORIDE 0.9% 1,000 ML IV SCH (15:15)
--- NOTE | 2024-06-08 15:55 | XRay Report ---
KUB HISTORY: elevated inflammatory markers COMPARISON: Head CT 04/13/2024. FINDINGS: Mild gaseous distention of the large and small bowel. This favors a mild ileus. No evidence for a bowel obstruction. No renal calculi. No ureteral calculi. No pneumoperitoneum or pneumatosis. 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 IMPRESSION: 1. Mild gaseous distention of the large and small bowel which favors an ileus. 2. Diffuse osteoblastic metastatic disease again noted. ACT 112: Negative or not required by law. Electronically signed by: Ke Gong M.D. 06/08/2024 3:53 PM
[2024-06-08] MEDS: POLYETHYLENE (MIRALAX) 17 GM PACK PO SCH (16:59)
[2024-06-08] MEDS: DICLOFENAC SOD 1% GEL 100 GM TUBE EXT PRN (17:01)
--- NOTE | 2024-06-08 22:49 | Hospitalist Progress Note ---
Date of Service June 08, 2024 Assessment & Plan (1) Chest pain: (2) Acute hyperkalemia: (3) Complicated urinary tract infection: (4) BPH (benign prostatic hyperplasia): (5) Gastric ulcer: (6) Duodenal ulcer: (7) Diabetes: Plan Mihai Evans (Bill) is an 89 y/o male with a PMHx of CKD, prostate cancer (on androgen deprivation therapy), HTN, HLD, BPH, T2DM, and recently diagnosed UTI who presented to the [facility] ED due to concerns regarding right-sided chest pain. 1) Right-sided chest pain/Costochondritis/Oxygen requirement - HSTrop, 21.2 <-- 20.5 (admission); repeat HSTrops in AM - CXR: no acute findings on official read (but possibly trace r. pleural effusion); findings of osteoblastic lesions similar to previous CXR's - echocardiogram:normal - previous echo: LV systolic function normal, Grade I diastolic dysfunction - lidoderm patch, Voltaren gel ordered to apply to r. chest area PRN - patient on 4 L O2 (NC) to keep O2 > 93%, baseline at care facility apparently 3 L O2 (NC) but pt only uses intermittently - monitor O2 Sats q4 hrs -Patient continues to require oxygen. 2)Right upper quadrant abdominal pain: This may be due to metastatic disease. Currently delaying contrast due to elevated creatinine. This is improving. May consider ct chest and abd/pelvis with contrast once creatinine improves. Ordered right upper quadrant ultrasound 2) Hyperkalemia/chronic mild hyponatremia - K, 5.0 <-- 5.7 (upon admission) --> calcium gluconate, 1000 mg, IV given in ED - Na, 131 <-- 129 - BMP, AM labs 3) UTI - UA: positive for bacterial infection; Ur Cx, pos for Staphylococcus, now showing MRSA sensitivities pending - on dapto 4) Mild acidosis, normal AG - HCO3, 17 <-- 17 - ABG ordered 4) BPH - continue tamsulosin, finasteride 5) Prostate cancer, metastasized - alk phos, 493 (worsened from baseline elevation) - evidence on CXR for osteoblastic lesions from Pr CA - continue enzalutamide 6) T2DM - basal/bolus insulin started - hold metformin 7) Insomnia - lorazepam, 0.5 mg, QHS, PRN (pt takes daily for sleep, leave pt on during stay to avoid withdrawal) - melatonin, PRN 8) Hx of gastric and duodenal ulcer - pantoprazole 9) Hx of NSTEMI - rosuvastatin, CoQ10 Code status: Full code Disposition: PCT-Tele [facility]: regular diet ordered DVT prophylaxis: Heparin, 5000 U, SQ, BID Admission and Anticipated Discharge Date Admission Date: June 06, 2024 Subjective 89 yo male reports right sided abdominal pain/ right sided chest pain. Review of Systems Review of Systems: All systems reviewed & are unremarkable except as noted in HPI & below Physical Exam Physical Exam: HEENT: Normocephalic, atraumatic Chest: non tender to palpation Lungs: Normal respiratory effort. Clear to auscultation bilaterally. No RRW Heart: Regular rate and rhythm, no murmurs. No JVD Abdomen: Soft tender to palpation to right upper quadrant,, nondistended. Bowel sounds present. Extremities: Warm, dry, well-perfused. No extremity edema. Neuro: Alert, confused Results & Data Results & Data Vital Signs (Past 12 Hours) Vital Signs Temp Pulse Pulse Pulse Resp BP BP 06/08/24 21:56 36.8 C 88 20 98/53 L 06/08/24 21:04 06/08/24 19:21 36.8 C 79 19 102/62 06/08/24 18:21 85 06/08/24 14:57 36.4 C L 93 H 18 101/61 06/08/24 11:54 36.3 C L 86 18 110/62 Pulse Ox O2 Del Method O2 Flow Rate 06/08/24 21:56 91 Nasal Cannula 2 06/08/24 21:04 Nasal Cannula 2 06/08/24 19:21 91 Nasal Cannula 2 06/08/24 18:21 06/08/24 14:57 91 Nasal Cannula 3 06/08/24 11:54 90 Nasal Cannula 3 PG Care Time/CCT Total # of Minutes Spent Total Time Spent with Patient: Total time spent is greater than 50% in coordination of care (as documented) at patient's floor/unit and/or counseling patient: Coding Level of Care Code 50957 SUB INP/OBS CARE 2/35MIN Diagnoses Chest pain R07.9 Acute hyperkalemia E87.5 Complicated urinary tract infection N39.0 Benign prostatic hyperplasia with incomplete bladder emptying N40.1; R39.14 Lower urinary tract symptom detail: incomplete bladder emptying Lower urinary tract symptom presence: symptoms present Gastric ulcer K25.9 Duodenal ulcer K26.9 Type 2 diabetes mellitus without complication, with long-term current use of insulin E11.9; Z79.4 Diabetes mellitus complication status: without complication Diabetes mellitus intermediate manager insulin use: with custodial use Diabetes mellitus type: type 2 (4) BPH (benign prostatic hyperplasia) Lower urinary tract symptom detail: incomplete bladder emptying Lower urinary tract symptom presence: symptoms present Qualified Code(s): N40.1 - Benign pros tatic hyperplasia with lower urinary tract symptoms; R39.14 - Feeling of incomplete bladder emptying (7) Diabetes Diabetes mellitus complication status: without complication Diabetes mellitus custodial insulin use: with custodial use Diabetes mellitus type: type 2 Qualified Code(s): E11.9 - Type 2 diabetes mellitus without complications; Z79.4 - intermodal truck driver (current) use of insulin
[2024-06-09 06:35] LABS: Albumin Level 2.5 gm/dl (3.4-5.0); BUN Creatinine Ratio 35.1 (10-20); Bilirubin Direct 0.2 mg/dl (0-0.2); Bilirubin,Total 0.9 mg/dl (0.2-1.0); C Reactive Protein 22.77 mg/dl (0-0.5); Calcium 7.7 mg/dl (8.6-10.3); Est GFR (African American) 54.1 ml/min; Est GFR (Non-African American) 46.6 ml/min; Magnesium 1.7 mg/dl (1.7-2.4); Phosphorus 3.5 mg/dl (2.5-4.9); Potassium 4.1 mmol/L (3.5-5.1); Total Protein 5.3 gm/dl (6.0-8.3)
--- NOTE | 2024-06-09 08:03 | Ultrasound Report ---
ABDOMINAL ULTRASOUND, RIGHT UPPER QUADRANT HISTORY: right upper quadrant pain. COMPARISON: PET CT 04/13/2024. FINDINGS: Pancreas: The pancreatic tail is obscured by overlying bowel gas. The remaining portions of the pancr eas are within normal limits. Liver: 19 cm in length. There is a 3.9 cm heterogeneous lesion within the left hepatic lobe which is similar to the prior studies. This demonstrates an echogenic component consistent with internal fat. No new hepatic lesions identified. Gallbladder: Mildly distended and almost completely filled with sludge. There may be a few small ston es near the gallbladder neck. Negative sonographic Camejo sign. No gallbladder wall thickening. CBD: 3 mm. Right kidney: Mild fullness within the right renal collecting system without hydronephrosis. This rem ains unchanged. A 6.5 cm exophytic lower pole cyst again noted. IMPRESSION: 1. No significant change in the 3.9 cm heterogeneous fat-containing lesion within the left hepatic lo be. 2. The gallbladder is filled with stones and sludge. No gallbladder wall thickening. 3. Normal caliber common bile duct. ACT 112: Negative or not required by law. Electronically signed by: Ke Gong M.D. 06/09/2024 8:01 AM
--- NOTE | 2024-06-09 09:59 | Hospitalist Progress Note ---
Date of Service June 09, 2024 Assessment & Plan (1) Chest pain: (2) Acute hyperkalemia: (3) Complicated urinary tract infection: (4) BPH (benign prostatic hyperplasia): (5) Gastric ulcer: (6) Duodenal ulcer: (7) Diabetes: Plan Mihai Evans (Bill) is an 89 y/o male with a PMHx of CKD, prostate cancer (on androgen deprivation therapy), HTN, HLD, BPH, T2DM, and recently diagnosed UTI who presented to the [facility] ED due to concerns regarding right-sided chest pain. 1) Right-sided chest pain/Costochondritis/Oxygen requirement - HSTrop, 21.2 <-- 20.5 (admission); repeat HSTrops in AM - CXR: no acute findings on official read (but possibly trace r. pleural effusion); findings of osteoblastic lesions similar to previous CXR's - echocardiogram:normal - previous echo: LV systolic function normal, Grade I diastolic dysfunction - lidoderm patch, Voltaren gel ordered to apply to r. chest area PRN - patient on 4 L O2 (NC) to keep O2 > 93%, baseline at care facility apparently 3 L O2 (NC) but pt only uses intermittently - monitor O2 Sats q4 hrs -Patient continues to require oxygen. lola obtain a ct chest. will also check a ct abd/pelvis with contrast. 2)Right upper quadrant abdominal pain: This may be due to metastatic disease. Currently delaying contrast due to elevated creatinine. This is improving. May consider ct chest and abd/pelvis with contrast once creatinine improves. Ordered right upper quadrant ultrasound 2) Hyperkalemia/chronic mild hyponatremia - K, 5.0 <-- 5.7 (upon admission) --> calcium gluconate, 1000 mg, IV given in ED - Na, 131 <-- 129 - BMP, AM labs 3) UTI - UA: positive for bacterial infection; Ur Cx, pos for Staphylococcus, now showing MRSA sensitivities pending - on dapto 4) Mild acidosis, normal AG - HCO3, 17 <-- 17 - ABG ordered 4) BPH - continue tamsulosin, finasteride 5) Prostate cancer, metastasized - alk phos, 493 (worsened from baseline elevation) - evidence on CXR for osteoblastic lesions from Pr CA - continue enzalutamide 6) T2DM - basal/bolus insulin started - hold metformin 7) Insomnia - lorazepam, 0.5 mg, QHS, PRN (pt takes daily for sleep, leave pt on during stay to avoid withdrawal) - melatonin, PRN 8) Hx of gastric and duodenal ulcer - pantoprazole 9) Hx of NSTEMI - rosuvastatin, CoQ10 Code status: Full code Disposition: PCT-Tele FENGI: regular diet ordered DVT prophylaxis: Heparin, 5000 U, SQ, BID Admission and Anticipated Discharge Date Admission Date: June 06, 2024 Subjective Patient is lying in bed. Patient had extennsive discussion regarding code status. Patient wants to remain full code. Patient reports non new symptoms, continues to have moderate chest pain and abdominal pain. Physical Exam Physical Exam: HEENT: Normocephalic, atraumatic Chest: non tender to palpation Lungs: Normal respiratory effort. Clear to auscultation bilaterally. No RRW Heart: Regular rate and rhythm, no murmurs. No JVD Abdomen: Soft tender to palpation to right upper quadrant,, nondistended. Bowel sounds present. Extremities: Warm, dry, well-perfused. No extremity edema. Neuro: Alert Results & Data Results & Data Vital Signs (Past 12 Hours) Vital Signs Temp Pulse Pulse Resp BP Pulse Ox O2 Del Method 06/09/24 08:11 36.4 C L 81 18 101/64 90 Nasal Cannula 06/09/24 02:29 36.8 C 89 17 104/57 L 90 Nasal Cannula 06/08/24 21:59 89 O2 Flow Rate 06/09/24 08:11 4 06/09/24 02:29 2 06/08/24 21:59 PG Care Time/CCT Total # of Minutes Spent Total Time Spent with Patient: Total time spent is greater than 50% in coordination of care (as documented) at patient's floor/unit and/or counseling patient: Coding Level of Care Code 93438 SUB INP/OBS CARE 3/50MIN Diagnoses Chest pain R07.9 Acute hyperkalemia E87.5 Complicated urinary tract infection N39.0 Benign prostatic hyperplasia with incomplete bladder emptying N40.1; R39.14 Lower urinary tract symptom detail: incomplete bladder emptying Lower urinary tract symptom presence: symptoms present Gastric ulcer K25.9 Duodenal ulcer K26.9 Type 2 diabetes mellitus without complication, with long-term current use of insulin E11.9; Z79.4 Diabetes mellitus complication status: without complication Diabetes mellitus fci insulin use: with fci use Diabetes mellitus type: type 2 Time Spent (min) 50 (4) BPH (benign prostatic hyperplasia) Lower urinary tract symptom detail: incomplete bladder emptying Lower urinary tract symptom presence: symptoms present Qualified Code(s): N40.1 - Benign prostatic hyperplasia with lower urinary tract symptoms; R39.14 - Feeling of incomplete bladder emptying (7) Diabetes Diabetes mellitus complication status: without complication Diabetes mellitus exterminator insulin use: with fci use Diabetes mellitus type: type 2 Qualified Code(s): E11.9 - Type 2 diabetes mellitus without complications; Z79.4 - long-term (current) use of insulin
[2024-06-09 10:12] LABS: Hematocrit (blood only) 26.1 % (42.0-52.0); Hemoglobin 8.5 g/dl (14.0-18.0); Mean Corpuscular Hemoglobin 28.8 pg (25.0-34.0); Mean Corpuscular Hgb Conc 32.6 g/dL (32.0-36.0); Mean Corpuscular Volume 88.5 fL (80.0-100.0); Mean Platelet Volume 11.5 fL (9.4-12.4); Nucleated RBC # (auto) 0.02 K/uL (0.00-0.12); Nucleated RBC % (auto) 0.3 %; Platelet Count 131 K/uL (130-400); RDW Coefficient of Variation 17.4 % (11.5-14.5); Red Blood Count 2.95 M/uL (4.70-6.10); White Blood Count 6.08 K/ul (4.8-10.8)
[2024-06-09] MEDS: OPTIRAY 320 100ml IV ONE (12:47)
--- NOTE | 2024-06-09 13:22 | CT Scan Report ---
CT SCAN OF THE ABDOMEN AND PELVIS WITH IV CONTRAST CLINICAL HISTORY: Right-sided abdominal pain. Osteoblastic lesion. COMPARISON STUDY: Abdominal CT dated 09/12/2023. PET/CT dated 04/13/2024. TECHNIQUE: Following the IV administration of 93 cc of Optiray 320, CT scan of the abdomen and pelvi s is performed from the lung bases to the proximal femora. Images are reviewed in the axial, sagittal , and coronal planes. IV contrast was administered without complication. Oral contrast was utilized. A dose lowering technique was utilized adhering to the principles of ALARA. The examination is degrad ed by streak artifact from the arms which could not be elevated above the abdomen. FINDINGS: Lung bases: The heart is top normal in size and without pericardial effusion. The coronary arteries a re densely calcified. There are small right and trace left pleural effusions with dependent atelectas is. Liver: The contrast-enhanced liver is normal in size and contour. There is no intrahepatic biliary du ctal dilatation. The hepatic veins and portal veins are patent. Multifocal hepatic metastatic disease has significantly progressed as compared to 09/12/2023. This also appears significantly increased as compared to the 04/13/2024 PET examination. A large left lobe lesion seen on image #72 measures up to 6.6 cm. There are numerous (at least 10) additional smaller lesions scattered throughout both hepati c lobes. Gallbladder: Unremarkable. Spleen: Normal in size and attenuation. Pancreas: Unremarkable. Adrenal glands: Unremarkable. Kidneys: The contrast enhanced kidneys demonstrate cortical atrophy there is moderate left hydrourete ronephrosis. The left ureter is dilated to the level of a presumed mass lesion along the posterior as pect of the bladder. A 7 mm calculus is seen in the distal left ureter on image 79, but does not appe ar to represent the cause of obstruction/hydronephrosis. An extrarenal pelvis is noted on the right w ith no severe right-sided hydronephrosis. Bilateral renal cysts measure up to 6.5 cm. The kidneys enh ance symmetrically. Abdominal vasculature: There is advanced atherosclerotic calcification and ectasia of the abdominal a raymundo. Bowel: There is no bowel obstruction. Enteric contrast reaches the rectosigmoid. The appendix is wel l-visualized and normal. Peritoneum: There is no intraperitoneal free air or abdominal ascites. Lymphadenopathy: None. Pelvic viscera: A Romero catheter is in place. The balloon is located within the substance of the pros kessler gland and repositioning is indicated. The prostate gland is enlarged and heterogeneous. There is likely a mass lesion along the superior aspect of the prostate gland involving the left trigone of t he bladder. The bladder is decompressed and contains intraluminal gas. The gallbladder wall is marked ly thickened and there is pericystic infiltration. Skeletal structures: The skeletal structures are osteopenic. Findings of extensive/diffuse osteoblast ic metastatic disease has progressed as compared to 09/12/2023. This is similar to the 04/13/2014 PET examination. There is a pathologic fracture of the right posterior 12th rib. A large lesion in the le ft proximal femur seen on image #353 may be at risk for pathologic fracture. IMPRESSION: 1. There is moderate left hydroureteronephrosis. The ureter is dilated to the level of a presumed mas s lesion involving left trigone. 2. There is a 7 mm calculus in the distal left ureter; however, this does not appear to represent the cause of obstruction. 3. 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 There is a pathologic fracture of the right posterior 12th rib. 4. A large metastatic lesion in the left proximal femur may also be at risk for pathologic fracture. 5. There is evidence of multifocal hepatic metastatic disease. This appears significantly progressed as compared to the 04/13/2024 PET examination. 6. Small right and trace left pleural effusions. 7. The balloon of the Romero catheter is inflated within the substance of the prostate gland. Repositi oning is indicated. 8. The bladder wall appears significantly thickened with mild pericystic infiltration. Correlate with urinalysis. 9. Additional findings as above. ACT 112: Negative or not required by law. Electronically signed by: James August M.D. 06/09/2024 1:20 PM
[2024-06-09] MEDS: ADVANCED PROBIOTIC 625 MG CAPSULE PO SCH (14:25)
--- NOTE | 2024-06-09 16:07 | CT Scan Report ---
CHEST CT WITH CONTRAST CT DOSE: 2399.03 mGy.cm HISTORY: Acute right-sided chest pain in a patient with history of metastatic prostate cancer. osteo blastic lesions/ right sided chest pain TECHNIQUE: Multiaxial CT images of the chest were performed following the IV administration of 93 cc of Optiray. A dose lowering technique was utilized adhering to the principles of ALARA. COMPARISON: PET CT 04/13/2024. FINDINGS: No thyroid nodule. Mildly enlarged right hilar lymph nodes measure up to 1.2 cm, increased in size from prior. The heart is upper limits of normal in size. Extensive coronary artery calcificat ions. Atherosclerosis of the aorta. No pulmonary emboli is identified. Trace left and small right ple ural effusions. No pneumothorax. Nodular consolidative opacities of the right lower lobe but measure up to approximately 3 cm with surrounding ground-glass density. Intralobular septal thickening with i ll-defined centrilobular ground-glass and micronodular opacities, which are new from prior. Intralobu lar septal thickening. Mild dependent subsegmental bibasilar atelectasis. Bilateral renal cysts. Cortical thinning of the kidneys. Dilation of the renal collecting systems is similar to mildly improved from prior. A layering hyperdense material within the left renal pelvis. L ateral left hepatic lobe lesion is redemonstrated measuring up to approximately 7 cm. The liver is di ffusely heterogeneous. Extensive osteoblastic skeletal metastasis. There are healing subacute nondisp laced fractures of the posterior bilateral 12th ribs, new from the 04/13/2024 study. No acute displace d fracture is identified. Sebaceous cyst anterior to the sternum is again noted. IMPRESSION: 1. Diffuse centrilobular ground-glass densities and micronodular opacities are suggestive of an infec tious or inflammatory pneumonitis. 2. Cardiomegaly with mild pulmonary edema and small pleural effusions. 3. Progressive consolidative nodular opacities of the right lower lobe. Follow-up is recommended. 4. Mild hilar lymphadenopathy is redemonstrated. 5. Extensive osteoblastic skeletal metastasis is redemonstrated with healing subacute nondisplaced pa thologic posterior 12th rib fractures. ACT 112: Negative or not required by law. Dictated: 06/09/2024 1:10 PM Transcribed: 06/09/2024 3:51 PM Brett [id number] [email or web address] Electronically signed by: Robin Damno M.D. 06/09/2024 4:05 PM
[2024-06-10 07:02] LABS: Hematocrit (blood only) 26.2 % (42.0-52.0); Hemoglobin 8.7 g/dl (14.0-18.0); Mean Corpuscular Hemoglobin 29.3 pg (25.0-34.0); Mean Corpuscular Hgb Conc 33.2 g/dL (32.0-36.0); Mean Corpuscular Volume 88.2 fL (80.0-100.0); Mean Platelet Volume 10.9 fL (9.4-12.4); Nucleated RBC # (auto) 0.03 K/uL (0.00-0.12); Nucleated RBC % (auto) 0.5 %; Platelet Count 125 K/uL (130-400); RDW Coefficient of Variation 17.3 % (11.5-14.5); RDW Standard Deviation 55.7 fL (36.4-46.3); Red Blood Count 2.97 M/uL (4.70-6.10); White Blood Count 6.06 K/ul (4.8-10.8)
[2024-06-10 07:24] LABS: BUN Creatinine Ratio 34.4 (10-20); C Reactive Protein 22.65 mg/dl (0-0.5); Calcium 7.9 mg/dl (8.6-10.3); Est GFR (African American) 58.8 ml/min; Est GFR (Non-African American) 50.7 ml/min; Potassium 4.3 mmol/L (3.5-5.1)
[2024-06-10] MEDS: LINEZOLID 600 MG/300 ML BAG IV SCH (16:20)
[2024-06-10] MEDS: FUROSEMIDE INJ 20 MG/2 ML VIAL IV ONE (17:45)
--- NOTE | 2024-06-10 21:11 | Hospitalist Progress Note ---
Date of Service June 10, 2024 Assessment & Plan (1) Chest pain: (2) Acute hyperkalemia: (3) Complicated urinary tract infection: (4) BPH (benign prostatic hyperplasia): (5) Gastric ulcer: (6) Duodenal ulcer: (7) Diabetes: Plan Mihai Evans (Bill) is an 89 y/o male with a PMHx of CKD, prostate cancer (on androgen deprivation therapy), HTN, HLD, BPH, T2DM, and recently diagnosed UTI who presented to the [facility] ED due to concerns regarding right-sided chest pain. 1) Right-sided chest pain/abdominal pain. Reason for admission was for this pain. DOes not appear to be cardiac in nature. - HSTrop, 21.2 <-- 20.5 (admission); _U/S of liver completed: no significant change. -CT scan of chest and abd/pelvis delayed due to MARIN. Once MARIN resolved, ordered imaging with contrast which showed worsening malignant metastasis in the liver. This is likely source of his pain. will consult oncology for further input on prognosis and treatment course. 2)Acute hypoxic respiratory failure. Patient has required more oxygen - CXR: no acute findings on official read (but possibly trace r. pleural effusion); findings of osteoblastic lesions similar to previous CXR's - echocardiogram:normal - previous echo: LV systolic function normal, Grade I diastolic dysfunction - patient on 5 L O2 (NC) to keep O2 > 93%, baseline at care facility apparently 3 L O2 (NC) but pt only uses intermittently CT chest showed Diffuse centrilobular ground-glass densities and micronodular opacities are suggestive of an infectious or inflammatory pneumonitis. - monitor O2 Sats q4 hrs -switched daptomycin (originally for UTI) to now cover for possible pneumonia. -Also ordered 40 mg of lasix as imaging showing evidence of pulmonary congestion and elevated BNP. -will repeat BMP to assess for possible iatrogenic MARIN. 3) Hyperkalemia/chronic mild hyponatremia/ Mild acidosis, normal AG - K, 5.0 <-- 5.7 (upon admission) --> calcium gluconate, 1000 mg, IV given in ED - Na, 131 <-- 129 - BMP, AM labs -bicarb improving. 4) UTI - UA: positive for bacterial infection; Ur Cx, pos for Staphylococcus, now showing MRSA sensitivities pending - on linezolid. 5) BPH/Prostate cancer, metastasized - continue tamsulosin, finasteride - alk phos, 493 (worsened from baseline elevation) - evidence on CXR for osteoblastic lesions from Pr CA - continue enzalutamide -ct scan showed an incidental finding of left hydronephrosis: consult Urology. 6) Chronic problems: Type 2DM - basal/bolus insulin started - hold metformin Insomnia - lorazepam, 0.5 mg, QHS, PRN (pt takes daily for sleep, leave pt on during stay to avoid withdrawal) - melatonin, PRN Hx of gastric and duodenal ulcer - pantoprazole Hx of NSTEMI - rosuvastatin, CoQ10 Code status: Full code Disposition: PCT-Tele FENGI: regular diet ordered DVT prophylaxis: Heparin, 5000 U, SQ, BID Admission and Anticipated Discharge Date Admission Date: June 06, 2024 Subjective Patient reports no new symptoms. Nurse reports he is more lethargic, eating less. His is at bedside, and they agree on DNR/DNI status. Review of Systems Review of Systems: All systems reviewed & are unremarkable except as noted in HPI & below Physical Exam Physical Exam: HEENT: Normocephalic, atraumatic Chest: non tender to palpation Lungs: Normal respiratory effort. Clear to auscultation bilaterally. No RRW Heart: Regular rate and rhythm, no murmurs. No JVD Abdomen: Soft, tender to palpation to right upper quadrant,, nondistended. Bowel sounds present. Extremities: Warm, dry, well-perfused. No extremity edema. Neuro: Alert Results & Data Results & Data Vital Signs (Past 12 Hours) Vital Signs Temp Pulse Pulse Resp BP BP Pulse Ox 06/10/24 19:15 36.5 C 98 H 18 94/50 L 88 L 06/10/24 18:18 78 06/10/24 15:14 36.6 C 88 19 106/62 92 06/10/24 11:11 36.3 C L 89 19 102/63 92 06/10/24 10:36 O2 Del Method O2 Flow Rate 06/10/24 19:15 Nasal Cannula 5.0 06/10/24 18:18 06/10/24 15:14 Nasal Cannula 5 06/10/24 11:11 Nasal Cannula 5 06/10/24 10:36 Nasal Cannula 5 PG Care Time/CCT Total # of Minutes Spent Total Time Spent with Patient: Total time spent is greater than 50% in coordination of care (as documented) at patient's floor/unit and/or counseling patient: Coding Level of Care Code 27427 SUB INP/OBS CARE 3/50MIN Diagnoses Chest pain R07.9 Acute hyperkalemia E87.5 Complicated urinary tract infection N39.0 Benign prostatic hyperplasia with incomplete bladder emptying N40.1; R39.14 Lower urinary tract symptom detail: incomplete bladder emptying Lower urinary tract symptom presence: symptoms present Gastric ulcer K25.9 Duodenal ulcer K26.9 Type 2 diabetes mellitus without complication, with long-term current use of insulin E11.9; Z79.4 Diabetes mellitus complication status: without complication Diabetes mellitus director internal audit insulin use: with director internal audit use Diabetes mellitus type: type 2 Time Spent (min) 50 Comment left extensive voice mail to son. (4) BPH (benign prostatic hyperplasia) Lower urinary tract symptom detail: incomplete bladder emptying Lower urinary tract symptom presence: symptoms present Qualified Code(s): N40.1 - Benign prostatic hyperplasia with lower urinary tract symptoms; R39.14 - Feeling of incomplete bladder emptying (7) Diabetes Diabetes mellitus complication status: without complication Diabetes mellitus snf insulin use: with director internal audit use Diabetes mellitus type: type 2 Qualified Code(s): E11.9 - Type 2 diabetes mellitus without complications; Z79.4 - intermediate (current) use of insulin
[2024-06-11 07:09] LABS: Hematocrit (blood only) 25.4 % (42.0-52.0); Hemoglobin 8.4 g/dl (14.0-18.0); Mean Corpuscular Hemoglobin 29.1 pg (25.0-34.0); Mean Corpuscular Hgb Conc 33.1 g/dL (32.0-36.0); Mean Corpuscular Volume 87.9 fL (80.0-100.0); Mean Platelet Volume 10.9 fL (9.4-12.4); Nucleated RBC # (auto) 0.04 K/uL (0.00-0.12); Nucleated RBC % (auto) 0.5 %; Platelet Count 125 K/uL (130-400); RDW Coefficient of Variation 17.2 % (11.5-14.5); RDW Standard Deviation 54.4 fL (36.4-46.3); Red Blood Count 2.89 M/uL (4.70-6.10); White Blood Count 8.09 K/ul (4.8-10.8)
[2024-06-11 07:32] LABS: Albumin Globulin Ratio 0.8 (0.9-2); Albumin Level 2.5 gm/dl (3.4-5.0); BUN Creatinine Ratio 30.9 (10-20); Calcium 7.7 mg/dl (8.6-10.3); Creatinine Clr Calc Pharmacy 40.4 ml/min; Est GFR (African American) 53.1 ml/min; Est GFR (Non-African American) 45.8 ml/min; Potassium 4.4 mmol/L (3.5-5.1); Total Protein 5.5 gm/dl (6.0-8.3)
--- NOTE | 2024-06-11 10:29 | Urology Consultation ---
Date of Consultation June 11, 2024 Assessment & Plan (1) Complicated urinary tract infection: (2) Nephrolithiasis: (3) Bladder outlet obstruction: (4) Prostate cancer: Plan I had a discussion with Mr. Evans and his about his current clinical situation. The hydronephrosis on the left side looks relatively stable from his prior PET CT scan. He is not having any significant left-sided flank pain. Although this could be addressed with a ureteral stent placement, we discussed that this would be a surgical intervention and have associated surgical risks including bleeding, infection, injury to urinary tract, anesthesia risks. For now, they would like to continue to manage conservatively with antibiotics and supportive care. An additional concern with surgical intervention would be if the prostate cancer has invaded into the bladder, cystoscopy and stent placement could result in significant hematuria. If he requires drainage of the left kidney, it may be reasonable to consider nephrostomy tube placement. Romero catheter appeared to be inflated in the prostate. If not done already, catheter should be advanced into the bladder. Agree with ongoing supportive care. Given his comorbidities, current medical issues and overall frailty, I think there may be a role for discussion with palliative care regarding his overall goals as well. Urology will follow along. History of Present Illness Reason for Consultation: Metastatic prostate cancer, left hydronephrosis Attending Physician: Ezio Davidson MD History of Present Illness This is an 89-year-old male followed by urology for metastatic prostate cancer (on androgen deprivation therapy) and lower urinary tract symptoms (on dutasteride). Urinary retention has previously been managed with CIC, but more recently with indwelling catheters. He was admitted to [facility] on 06/07/2024 due to right-sided chest pain and acute hypoxic respiratory failure. Upon admission, his creatinine was elevated, however as this improved a CT scan was performed which demonstrated worsening metastatic disease in the liver. The CT scan additionally identified left-sided hydronephrosis with dilation of the left ureter down to a possible mass along the posterior aspect of the bladder. There was also a stone in the distal left ureter but this did not appear to be obstructing. Romero catheter seems to have the balloon inflated within the prostate gland, although was decompressing the bladder. Urine cultures demonstrated Staph aureus. Blood cultures have been negative at 48 hours. Urology was consulted regarding his current clinical situation as well as hydronephrosis and UTI. He continues to feel weak but denies any fevers or chills. He remains on supplemental oxygen at 5 L. Allergies Allergy/AdvReac Type Severity Reaction Status Date / Time adhesive tape Allergy Severe RED Verified 06/06/24 21:08 IRRITATED SKIN Home Medications Medication Instructions Recorded Confirmed Type coenzyme Q10 100 mg capsule 100 mg PO QAM 08/03/19 06/06/24 History metformin 1,000 mg tablet 1,000 mg PO BID #180 tabs 08/10/23 06/06/24 Rx atorvastatin 40 mg tablet 40 mg PO HS 09/12/23 06/06/24 History blood-glucose meter,continuous #1 ea 12/27/23 06/06/24 Rx (Dexcom G7 Maintenance Mechanic Engine) enzalutamide 40 mg tablet (Xtandi) 160 mg PO QAM 02/07/24 06/06/24 History finasteride 5 mg tablet 5 mg PO QAM 03/01/24 06/06/24 History insulin aspar prot-insulin aspart 8 unit subcut TID 03/01/24 06/06/24 History 100 unit/mL (70-30) subcutaneous pen (Novolog Mix 70-30FlexPen U-100) zinc acetate 50 mg (zinc) capsule 50 mg PO QAM 03/01/24 06/06/24 History potassium chloride 10 mEq 10 meq PO BID #180 tabs 03/13/24 06/06/24 Rx tablet,extended release tamsulosin 0.4 mg capsule (Flomax) 0.4 mg PO QAM #90 caps 03/13/24 06/06/24 Rx blood sugar diagnostic (OneTouch #25 ea 03/30/24 06/06/24 Rx Verio test strips) blood-glucose sensor (Dexcom G7 #3 ea 03/30/24 06/06/24 Rx Sensor device) diclofenac sodium 1 % topical gel 2 g topical QID PRN pain, moderate 04/03/24 06/06/24 Rx #100 grams thiamine HCl (vitamin B1) 100 mg 200 mg (2 x 100 mg) PO BID #1 tab 04/29/24 06/06/24 Rx tablet (Vitamin B-1) pantoprazole 40 mg tablet,delayed 40 mg PO BID 05/18/24 06/06/24 History release acetaminophen 325 mg tablet 650 mg PO Q6 PRN TEMP > 100 06/06/24 06/06/24 History acetaminophen 500 mg tablet 1,000 mg PO Q8H PRN Pain 06/06/24 06/06/24 History (Tylenol Extra Strength) calcium carbonate 600 mg-vitamin 2 tab PO DAILY 06/06/24 06/06/24 History D3 5 mcg (200 unit) tablet lorazepam 0.5 mg tablet 0.5 mg PO .EVERY 24 HOURS PRN 06/06/24 06/06/24 History Anxiety melatonin 10 mg tablet 10 mg PO HS 06/06/24 06/06/24 History sulfamethoxazole 400 1 tab PO Q12 06/06/24 06/06/24 History mg-trimethoprim 80 mg tablet (Bactrim) Patient History Medical History CKD (chronic kidney disease) pt denies Prostate cancer Bilateral hydronephrosis Pulmonary nodules/lesions, multiple OA (osteoarthritis) of knee Dyslipidemia Hyperlipidemia Hypertension Diabetes mellitus, type 2 IDDM Anemia History of CVA (cerebrovascular accident) 08/2018, "garbled speech> pt denies residual effects Hx of iron deficiency anemia History of prostate cancer dx 08/2023, takes Xtandi daily and hormone injection [id number]; mets-skeletal lesions, mediastinal and bilat hilar lymph node uptake on 10/2023 PET scan Hx of basal cell carcinoma History of SCC (squamous cell carcinoma) of skin Hypertension controlled, stable per pt Hyperlipidemia Surgical History History of prostate surgery REZUM (10/2023 at [facility]) Hx of tonsillectomy Hx of bilateral cataract extraction Hx of umbilical hernia repair Hx of squamous cell carcinoma excision face Hx of basal cell carcinoma excision face Hx of tooth extraction All teeth removed; partial plate upper and lower jaw History of colonoscopy Family History Mother Cancer Father Diabetes Other Heart disease Stroke Denies family history of Hearing loss No family history of adverse response to anesthesia No family history of bleeding disorder Allergies Asthma Social History Smoking Status: Never smoker Second Hand Exposure: No; Do You Dip or Chew Tobacco: No; Tobacco Cessation Education Requested by Patient: No Hx Alcohol Use: No Hx Substance Use: No Preferred Language: Hebrew Communication Ability: Effective Visual Impairment: No Limitations Hearing Ability: Normal Weld Inspector Required: No Beliefs That Will Affect Care: None marital status: Current Living Situation: [facility] current occupational status: retired How many Children do You have: 3 Other Information That Helps Us Care for You: No Feels Safe at Home: Yes Safety Concerns: Feels Safe At This Time Childhood Exposure to Second-Hand Smoke: Yes Diet: regular caffeine: No during the past year weight has: remained stable Dental Care, Regularly: Yes Physical Activity Frequency: Does not Exercise Seatbelt Use: always Sunscreen Use: Yes Assistive Devices: Oxygen - Continuous, Walker and Wheelchair Review of Systems Review of Systems: 12 point review of systems negative exce pt for otherwise indicated. Physical Exam Physical Exam: Frail-appearing, NAD, resting in bed Oxygen by nasal cannula at 5 L Eyes: + anicteric sclerae; pupils not irregula r Respiratory: normal respiratory effort; no respiratory distress, does not use accessory muscles and no cough Cardiovascular: well perfused Gastrointestinal (Abdomen): Inspection/Auscultation: abdomen normal to inspection; abdomen not distended Musculoskeletal: Extremities: extremities normal to inspection Skin: normal turgor; no rashes and no lesions Neurologic: moves all extremities and awake Psychiatric: Orientation: alert and oriented x 3 Genitourinary: Romero catheter draining yellow urine Results & Data Vital Signs (Past 12 Hours) Vital Signs Temp Pulse Resp BP BP Pulse Ox O2 Del Method 06/11/24 07:05 36.4 C L 99 H 17 102/48 L 90 Nasal Cannula 06/11/24 02:54 36.4 C L 85 16 111/66 96 Nasal Cannula 06/10/24 23:01 36.4 C L 89 18 97/57 L 92 Nasal Cannula O2 Flow Rate 06/11/24 07:05 5 06/11/24 02:54 5.0 06/10/24 23:01 5.0 PG Care Time/CCT Total # of Minutes Spent Total Time Spent with Patient: Total time spent is greater than 50% in coordination of care (as documented) at patient's floor/unit and/or counseling patient: Coding Level of Care Code 78252 INT INP/OBS CARE 2/55MIN Diagnoses Complicated urinary tract infection N39.0 Nephrolithiasis N20.0 Bladder outlet obstruction N32.0 Prostate cancer C61
--- NOTE | 2024-06-11 14:07 | Hospitalist Progress Note ---
Date of Service June 11, 2024 Assessment & Plan (1) Prostate cancer: Plan: Prostate cancer with widespread metastatic component, chest rib pain likely from osteoblastic lesions Pt with progression on recent CT regarding osteoblastic lesions, proximal femur lesion, liver and lung ( progressive nodular consolidation RLL) BPH continue tamsulosin, finasteride - alk phos, 493 (worsened from baseline elevation) -Holding enzalutamide -ct scan showed an incidental finding of left hydronephrosis: consult Urology, do not feel mechanical obstruction is from cancer . Did have discussion with family they are leaning towards comfort care measures. Dr. Davidson was present and greatly appreciated his input (2) Acute respiratory failure with hypoxia: Plan: Increasing oxygen requirements. Now on 5 L nasal cannula (typically on 3 - CXR: no acute findings on official read (but possibly trace r. pleural effusion); findings of osteoblastic lesions similar to previous CXR's - echocardiogram:normal CT chest showed Diffuse centrilobular ground-glass densities and micronodular opacities are suggestive of an infectious or inflammatory pneumonitis. -Initially on daptomycin on linezolid to cover pulmonary source has MRSA urinary tract infection POA (3) Chest pain: Plan: Does not appear to be cardiac in nature, more likely cancer related pain . - HS Trop, 21.2 <-- 20.5 (admission); Ct chest also shows possible pneumonitis, is no linezolid Plan Patient with anemia consideration of anemia of inflammation or chronic disease given his diabetes and chronic cancer state. Hyperkalemia/chronic mild hyponatremia/ Mild acidosis, normal AG -Resolved hyperkalemia persistent hyponatremia, non-anion gap acidosis Chronic problems: Type 2DM - basal/bolus insulin started - hold metformin Insomnia - lorazepam, 0.5 mg, QHS, PRN (pt takes daily for sleep, leave pt on during stay to avoid withdrawal) - melatonin, PRN Hx of gastric and duodenal ulcer - pantoprazole DVT prophylaxis: Heparin, 5000 U, SQ, BID Admission and Anticipated Discharge Date Admission Date: June 06, 2024 Subjective Patient is fatigued and tired with a weakened voice. He is picking at his lunch. He says his pain is controlled worsened with movement only Attempted to discuss goals of care patient was too tired and seemingly mildly confused. Eventually discussed goals of care with his son and . His is incidentally a patient in the hospital. At this point time they seem to be leaning towards comfort care measures and if need be return to Center care however will involve palliative care once they are available Physical Exam Physical Exam: Moderate respiratory distress patient on 5 L of oxygen Diminished breath sounds at the both bases Card exam is regular with a systolic murmur Extremities with trace to 1+ edema Results & Data Results & Data Vital Signs (Past 12 Hours) Vital Signs Temp Pulse Pulse Resp BP BP Pulse Ox 06/11/24 10:58 97.9 F 77 17 92/49 L 97 06/11/24 09:00 94 H 06/11/24 07:05 97.5 F L 99 H 17 102/48 L 90 06/11/24 07:00 06/11/24 02:54 97.5 F L 85 16 111/66 96 O2 Del Method O2 Flow Rate 06/11/24 10:58 Nasal Cannula 5 06/11/24 09:00 06/11/24 07:05 Nasal Cannula 5 06/11/24 07:00 Nasal Cannula 5 06/11/24 02:54 Nasal Cannula 5.0 Laboratory Results Reviewed CBC reviewed chemistry PG Care Time/CCT Total # of Minutes Spent Total Time Spent with Patient: Total time spent is greater than 50% in coordination of care (as documented) at patient's floor/unit and/or counseling patient: Coding Level of Care Code 41575 SUB INP/OBS CARE 2/35MIN Diagnoses Prostate cancer C61 Acute respiratory failure with hypoxia J96.01 Chest pain R07.9
--- NOTE | 2024-06-11 14:29 | Oncology Consultation ---
Date of Consultation June 11, 2024 Assessment & Plan (1) Prostate cancer metastatic to bone: I was involved in an extensive discussion with the family members along with our hospital internal medicine colleagues, Dr. Davidson. I had a little bit of input regarding the patient's cancer, prognosis and cancer related treatment at this point. Given the many medical comorbidities, generalized deterioration of his health, my overall recommendation was to withhold cancer treatment at this point. Explained that even gentle treatments like androgen deprivation therapy and enzalutamide have their own side effects and given his overall poor health at this point would recommend less intensive approach to treatment. Would definitely not escalate care with more intensive treatments like chemotherapy or bone directed therapy or radiation. At the end the family was agreeable and would want to consider introduction with our palliative medicine colleagues with consideration of hospice care. Plan Thank you for this interesting oncological consult. Medical oncology will continue to follow the patient and make appropriate recommendations. History of Present Illness Reason for Consultation: Metastatic prostate cancer Attending Physician: Ezio Davidson MD History of Present Illness Metastatic prostate cancer Date of diagnosis: 10/08/2023 Prostate biopsy: Edwin group 5 prostate adenocarcinoma, score 5+4=9 PSA level 09/30/2023: 56.168 ng/mL 12/23/2023: 24.3 ng/mL 01/25/2024: 7.323 ng/mL 02/18/2024: 3 ng/mL 04/14/2024 2.734: CT abdomen pelvis 09/12/2023: Left greater than right hydronephrosis and hydroureter without evidence of obstructive stone. Innumerable pulmonary nodules seen, and large left pelvic sidewall lymph node. Left hepatic lesion. Diffuse sclerotic changes in the skeletal system. Questionable bony metastatic disease of prostate cancer in the setting of elevated PSA PSMA PET/CT scan, 11/20/2023: Marked radiotracer uptake within extensive skeletal sclerotic lesions, con sistent with metastatic prostate cancer. Moderate uptake with an enlarged left external iliac and obturator lymph nodes, consistent with mary spread of prostate cancer. Marked uptake in the left posterior lateral aspect of peripheral zone of the prostate base. This represent primary tumor. No change in severe left hydronephrosis since prior abdominal CT. Extraprostatic extension of the primary tumor. Innumerable pulmonary nodules, several of which are subpleural and distribution. Moderate radiotracer uptake within the mediastinal and bilateral hilar lymph nodes, suggestive of metastatic prostate cancer. PSMA PET/CT scan, 04/13/2024 IMPRESSION: 1. Overall decrease in disease burden. Previously noted lymphadenopathy in the left iliac and obturator stations has resolved. Primary tumor uptake in the prostate has improved. Skeletal uptake has improved. 2. Previously noted innumerable pulmonary nodules have improved. The remaining right lower lobe nodule is seen as above. 3. Redemonstration of left fat-containing. CT of the chest abdomen pelvis, 06/06/2024: IMPRESSION: 1. Diffuse centrilobular ground-glass densities and micronodular opacities are suggestive of an infectious or inflammatory pneumonitis. 2. Cardiomegaly with mild pulmonary edema and small pleural effusions. 3. Progressive consolidative nodular opacities of the right lower lobe. Follow- up is recommended. 4. Mild hilar lymphadenopathy is redemonstrated. 5. Extensive osteoblastic skeletal metastasis is redemonstrated with healing subacute nondisplaced pathologic posterior 12th rib fractures. IMPRESSION: 1. There is moderate left hydroureteronephrosis. The ureter is dilated to the level of a presumed mass lesion involving left trigone. 2. There is a 7 mm calculus in the distal left ureter; however, this does not appear to represent the cause of obstruction. 3. Findings of extensive/diffuse osteoblastic metastatic disease are similar to 04/13/2024 PET examination. There is a pathologic fracture of the right posterior 12th rib. 4. A large metastatic lesion in the left proximal femur may also be at risk for pathologic fracture. 5. There is evidence of multifocal hepatic metastatic disease. This appears significantly progressed as compared to the 04/13/2024 PET examination. 6. Small right and trace left pleural effusions. 7. The balloon of the Romero catheter is inflated within the substance of the prostate gland. Repositioning is indicated. 8. The bladder wall appears significantly thickened with mild pericystic infiltration. Correlate with urinalysis. 9. Additional findings as above. current treatment: androgen deprivation therapy + enzalutamide the patient is a very pleasant 89-year-old gentleman who is very well-known to me, was diagnosed with metastatic prostate cancer late last year in August, since then he has been on treatment with androgen deprivation therapy and enzalutamide subsequently. He has been admitted to the hospital with right- sided chest pain, shortness of breath, generalized weakness. His oxygen requirements have gone up. He was in the hospital, [facility] in April 2024 with GI bleed and pneumonia. He had a CT of the chest abdomen pelvis, performed on 06/06/2024 which confirms presence of pneumonia, diffuse osteoblastic metastatic disease as well as possible progression in the liver. Medical oncology has been consulted to assist in management of this patient with metastatic prostate cancer, with advanced age, debilitation. Allergies Allergy/AdvReac Type Severity Reaction Status Date / Time adhesive tape Allergy Severe RED Verified 06/06/24 21:08 IRRITATED SKIN Home Medications Medication Instructions Recorded Confirmed Type coenzyme Q10 100 mg capsule 100 mg PO QAM 08/03/19 06/06/24 History metformin 1,000 mg tablet 1,000 mg PO BID #180 tabs 08/10/23 06/06/24 Rx atorvastatin 40 mg tablet 40 mg PO HS 09/12/23 06/06/24 History blood-glucose meter,continuous #1 ea 12/27/23 06/06/24 Rx (Dexcom G7 Lumber Mover) enzalutamide 40 mg tablet (Xtandi) 160 mg PO QAM 02/07/24 06/06/24 History finasteride 5 mg tablet 5 mg PO QAM 03/01/24 06/06/24 History insulin aspar prot-insulin aspart 8 unit subcut TID 03/01/24 06/06/24 History 100 unit/mL (70-30) subcutaneous pen (Novolog Mix 70-30FlexPen U-100) zinc acetate 50 mg (zinc) capsule 50 mg PO QAM 03/01/24 06/06/24 History potassium chloride 10 mEq 10 meq PO BID #180 tabs 03/13/24 06/06/24 Rx tablet,extended release tamsulosin 0.4 mg capsule (Flomax) 0.4 mg PO QAM #90 caps 03/13/24 06/06/24 Rx blood sugar diagnostic (OneTouch #25 ea 03/30/24 06/06/24 Rx Verio test strips) blood-glucose sensor (Dexcom G7 #3 ea 03/30/24 06/06/24 Rx Sensor device) diclofenac sodium 1 % topical gel 2 g topical QID PRN pain, moderate 04/03/24 06/06/24 Rx #100 grams thiamine HCl (vitamin B1) 100 mg 200 mg (2 x 100 mg) PO BID #1 tab 04/29/24 06/06/24 Rx tablet (Vitamin B-1) pantoprazole 40 mg tablet,delayed 40 mg PO BID 05/18/24 06/06/24 History release acetaminophen 325 mg tablet 650 mg PO Q6 PRN TEMP > 100 06/06/24 06/06/24 History acetaminophen 500 mg tablet 1,000 mg PO Q8H PRN Pain 06/06/24 06/06/24 History (Tylenol Extra Strength) calcium carbonate 600 mg-vitamin 2 tab PO DAILY 06/06/24 06/06/24 History D3 5 mcg (200 unit) tablet lorazepam 0.5 mg tablet 0.5 mg PO .EVERY 24 HOURS PRN 06/06/24 06/06/24 History Anxiety melatonin 10 mg tablet 10 mg PO HS 06/06/24 06/06/24 History sulfamethoxazole 400 1 tab PO Q12 06/06/24 06/06/24 History mg-trimethoprim 80 mg tablet (Bactrim) Patient History Medical History CKD (chronic kidney disease) pt denies Prostate cancer Bilateral hydronephrosis Pulmonary nodules/lesions, multiple OA (osteoarthritis) of knee Dyslipidemia Hyperlipidemia Hypertension Diabetes mellitus, type 2 IDDM Anemia History of CVA (cerebrovascular accident) 08/2018, "garbled speech> pt denies residual effects Hx of iron deficiency anemia History of prostate cancer dx 08/2023, takes Xtandi daily and hormone injection [id number]; mets-skeletal lesions, mediastinal and bilat hilar lymph node uptake on 10/2023 PET scan Hx of basal cell carcinoma History of SCC (squamous cell carcinoma) of skin Hypertension controlled, stable per pt Hyperlipidemia Surgical History History of prostate surgery REZUM (10/2023 at [facility]) Hx of tonsillectomy Hx of bilateral cataract extraction Hx of umbilical hernia repair Hx of squamous cell carcinoma excision face Hx of basal cell carcinoma excision face Hx of tooth extraction All teeth removed; partial plate upper and lower jaw History of colonoscopy Family History Mother Cancer Father Diabetes Other Heart disease Stroke Denies family history of Hearing loss No family history of adverse response to anesthesia No family history of bleeding disorder Allergies Asthma Social History Smoking Status: Never smoker Second Hand Exposure: No; Do You Dip or Chew Tobacco: No; Tobacco Cessation Education Requested by Patient: No Hx Alcohol Use: No Hx Substance Use: No Preferred Language: Macanese Communication Ability: Effective Visual Impairment: No Limitations Hearing Ability: Normal Contract Paralegal Required: No Beliefs That Will Affect Care: None marital status: Current Living Situation: [facility] current occupational status: retired How many Children do You have: 3 Other Information That Helps Us Care for You: No Feels Safe at Home: Yes Safety Concerns: Feels Safe At This Time Childhood Exposure to Second-Hand Smoke: Yes Diet: regular caffeine: No during the past year weight has: remained stable Dental Care, Regularly: Yes Physical Activity Frequency: Does not Exercise Seatbelt Use: always Sunscreen Use: Yes Assistive Devices: Oxygen - Continuous, Walker and Wheelchair Review of Systems Review of Systems: complete review of system could not be obtained Constitutional: as per Subjective / HPI Eyes: as per Subjective / HPI Ear, Nose, Mouth, Throat: as per Subjective / HPI Respiratory: as per Subjective / HPI Cardiovascular: as per Subjective / HPI Gastrointestinal: as per Subjective / HPI Genitourinary: + as per Subjective / HPI Musculoskeletal: as per Subjective / HPI Integumentary: as per Subjective / HPI Neurologic: as per Subjective / HPI Psychiatric: as per Subjective / HPI Endocrine: as per Subjective / HPI Hematologic / Lymphatic: as per Subjective / HPI Allergy / Immunological: as per Subjective / HPI Physical Exam Constitutional: WD/WN, vitals as above Eyes: PERRL, conjunctivae normal, anicteric sclerae ENMT: external ear and nose normal, oropharynx normal Neck: trachea midline, no thyromegaly Respiratory: normal respiratory effort, lungs clear to auscultation Cardiovascular: RRR, no murmur, no edema Gastrointestinal (Abdomen): normal bowel sounds, soft, nontender, no hepatosplenomegaly Musculoskeletal: no cyanosis or clubbing, extremities motor strength 5/5 Skin: no rashes, warm and dry Neurologic: patellar DTR's 2+ bilat, sensation intact Psychiatric: A+Ox3, euthymic affect Genitourinary: no testicular masses, no penis abnormality Lymphatic: no cervical or axillary lymphadenopathy Results & Data Vital Signs (Past 12 Hours) Vital Signs Temp Pulse Pulse Resp BP BP Pulse Ox 06/11/24 10:58 36.6 C 77 17 92/49 L 97 06/11/24 09:00 94 H 06/11/24 07:05 36.4 C L 99 H 17 102/48 L 90 06/11/24 07:00 06/11/24 02:54 36.4 C L 85 16 111/66 96 O2 Del Method O2 Flow Rate 06/11/24 10:58 Nasal Cannula 5 06/11/24 09:00 06/11/24 07:05 Nasal Cannula 5 06/11/24 07:00 Nasal Cannula 5 06/11/24 02:54 Nasal Cannula 5.0
--- NOTE | 2024-06-12 09:16 | Urology Progress Note ---
Date of Service June 12, 2024 Assessment & Plan (1) Prostate cancer metastatic to bone: (2) Complicated urinary tract infection: Plan: Follow-up of left hydronephrosis Afebrile, labs reviewed (06/11/24)creatinine 1.36, no leukocytosis Urine culture with Staph aureus MRSA Blood cultures with no growth to date Currently on linezolid Romero patent and draining yellow urine Per nursing, catheter was repositioned within the bladder after CT Maintain Romero catheter Regarding left hydronephrosis, he is not having any significant flank pain and prefers conservative management No acute intervention planned Continue antibiotics and supportive care Hematology oncology consultation reviewed, appreciate input Patient and family are considering palliative/comfort care measures will follow peripherally, please contact our service with any additional questions or concerns Admission and Anticipated Discharge Date Admission Date: June 06, 2024 Subjective Patient seen and examined at bedside this morning He is awake and sitting up in bed finishing breakfast No flank pain Romero intact Denies fever or chills Review of Systems Constitutional: as per Subjective / HPI Genitourinary: + as per Subjective / HPI Physical Exam Constitutional: + thin; no acute distress Respiratory: supplemental oxygen in place Neurologic: awake Psychiatric: Orientation: alert, oriented to person and cooperative Genitourinary: Romero draining clear yellow urine Results & Data Vital Signs (Past 12 Hours) Vital Signs Temp Pulse Pulse Resp BP Pulse Ox O2 Del Method 06/12/24 08:00 Nasal Cannula 06/12/24 07:03 36.5 C 85 19 90/41 L 94 Nasal Cannula 06/12/24 03:21 36.5 C 80 16 97/63 L 94 Nasal Cannula 06/11/24 23:26 36.6 C 85 16 114/63 93 Nasal Cannula 06/11/24 22:46 89 O2 Flow Rate 06/12/24 08:00 4 06/12/24 07:03 5 06/12/24 03:21 5.0 06/11/24 23:26 5.0 06/11/24 22:46 PG Care Time/CCT Total # of Minutes Spent Total Time Spent with Patient: Total time spent is greater than 50% in coordination of care (as documented) at patient's floor/unit and/or counseling patient: Coding Level of Care Code 66670 SUB INP/OBS CARE 12/23MIN Diagnoses Prostate cancer metastatic to bone C61; C79.51 Complicated urinary tract infection N39.0
--- NOTE | 2024-06-12 15:38 | Hospitalist Progress Note ---
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 Did have discussion with family likely transition to hospice care (2) Acute respiratory failure with hypoxia: Plan: Increasing oxygen requirements. Now on 5 L nasal cannula (typically on 3 - CXR: no acute findings on official read (but possibly trace r. pleural effusion); findings of osteoblastic lesions similar to previous CXR's - echocardiogram:normal CT chest showed Diffuse centrilobular ground-glass densities and micronodular opacities are suggestive of an infectious or inflammatory pneumonitis. -Initially on daptomycin on linezolid to cover pulmonary source has MRSA urinary tract infection POA. Daptomycin started 06/07, will treat one week to cover mrsa, complete 06/13 (3) Chest pain: Plan: Does not appear to be cardiac in nature, more likely cancer related pain . - HS Trop, 21.2 <-- 20.5 (admission); Ct chest also shows possible pneumonitis, is no linezolid Plan Patient with anemia consideration of anemia of inflammation or chronic disease given his diabetes and chronic cancer state. Hyperkalemia/chronic mild hyponatremia/ Mild acidosis, normal AG -Resolved hyperkalemia persistent hyponatremia, non-anion gap acidosis Chronic problems: Type 2DM - basal/bolus insulin started - hold metformin Insomnia - lorazepam, 0.5 mg, QHS, PRN (pt takes daily for sleep, leave pt on during stay to avoid withdrawal) - melatonin, PRN Hx of gastric and duodenal ulcer - pantoprazole DVT prophylaxis: Heparin, 5000 U, SQ, BID Admission and Anticipated Discharge Date Admission Date: June 06, 2024 Subjective Patient is little more awake and oriented today. We discussed the concept of comfort care palliative care and also the fact that Dr. Davidson feels that he may not be strong enough to withstand any further treatment. Care will meet with the patient today and will likely transition to outpatient hospice care at [facility] Physical Exam Physical Exam: Awake weak and frail appearing Mild tachypnea with rales at the base of his lungs Card exam is regular distant systolic murmur Results & Data Results & Data Vital Signs (Past 12 Hours) Vital Signs Temp Pulse Resp BP Pulse Ox O2 Del Method O2 Flow Rate 06/12/24 15:25 98.2 F 86 19 103/60 91 Nasal Cannula 5 06/12/24 11:08 97.5 F L 94 H 17 95/54 L 93 Nasal Cannula 5 06/12/24 08:00 Nasal Cannula 4 06/12/24 07:03 97.7 F 85 19 90/41 L 94 Nasal Cannula 5 Laboratory Results Reviewed [id number] glucose Personally discussed the case with palliative care provider Discussed care with during patient visit PG Care Time/CCT Total # of Minutes Spent Total Time Spent with Patient: Total time spent is greater than 50% in coordination of care (as documented) at patient's floor/unit and/or counseling patient: Coding Level of Care Code 72700 SUB INP/OBS CARE 2/35MIN Diagnoses Prostate cancer C61 Acute respiratory failure with hypoxia J96.01 Chest pain R07.9
--- NOTE | 2024-06-12 20:39 | Palliative Care Consultation ---
Date of Consultation June 12, 2024 Assessment & Plan (1) Dyspnea and respiratory abnormalities: improved from admission, comfortable at rest (2) Weakness generalized: (3) Advanced care planning/counseling discussion: I met with patient [id number] at the bedside for 30 minutes. He very accurately recalls the discussions he has had in the last few days with primary team and oncology. He reaffirms a CODE STATUS of DNR/DNI. He states that he wants to make sure that he does not suffer and would like a plan that is more focused on comfort. He worries for his family and he notes that he is no longer pursuing cancer directed therapies. He shares his sadness that his is cur rently admitted as well, in a room across the cross from him. He is not able to return home and states that he does not have adequate caregiver support. He asked what options exist for him at this junction. We reviewed the options of going to a residential for a comfort focused plan of care and if the insurance would allow, having the addition of hospice. We discussed hospice services, their scope and the composition of the team with the individual services each hospice maintenance team leader could offer. He was very receptive to a hospice focused plan of care. He is also agreeable to a transition to comfort care beginning today in the hospital with the plan of discharging to hospice at the residential. He asked me to update his son Yosi. I called his son and left a voicemail, requesting a call back to further discuss. Will plan to have a discussion with patient and family at the bedside in the next day or 2. I have updated the primary team and nursing. (4) Encounter for hospice care discussion: I provided education about the hospice benefit: an interdisciplinary program offered by nurses, nurses aides, social workers, chaplains and a medical illustrator for patients with a terminal condition and a life expectancy of less than 6 months. This is covered by Medicare at 100%/no out of pocket expense to patient and all meds/supplies needed by patient for the reason they are on hospice are paid for/covered by hospice. The goal is assure quality of life of the patient in their home setting (home, residential, inpatient hospice se tting) by providing symptoms management, psychosocial and spiritual support. However, they cannot offer 24 hours care and if the family is unable to provide that care, they will have to consider personal care with out of pocket cost vs. residential placement. We discussed the goals of hospice as a patient service and the goals of care; we discussed EOL trajectories and transitions kd the emotional impact of realizing mortality as a concrete reality from prior abstract considerations. Pt was reassured that no matter where they are along this trajectory, they are not alone - their medical team will remain by their side through their journey. Discussed the pros/cons of accepting help when especially weakened and distressed by pain-which would also help provide relief/decrease caregiver burden/strain. (5) Palliative care by specialist: Discussed Palliative Medicine provides specialized medical care for patients with a serious illness. We offer a focus on quality of life through reduction of symptom burden/more control over their illness, for patients and their family. Palliative Medicine interventions can be given along with curative treatment. I specifically clarified we are not hospice, which is a visiting nurse service that focuses on care delivered at the very end of life. (6) Prostate cancer metastatic to bone: Plan As above. Thank you for allowing us to participate in the ongoing care of this patient. Please page with any additional concerns. Main Padron DNP Director, Palliative Medicine History of Present Illness Reason for Consultation: goals of care, prostate ca progressive/declining ECOG Attending Physician: Ezio Davidson MD History of Present Illness Baldo Evans is an 89-year-old gentleman who has been admitted with acute right- sided chest pain, shortness of breath and generalized weakness. His oxygen needs have increased. CAT scan of the chest abdomen and pelvis performed on admission 06/06/2024 confirmed pneumonia with diffuse osteoblastic metastatic disease and disease progression of his cancer in the liver. He has a diagnosis of prostate cancer initially diagnosed 10/08/2023. He has a Edwin 5 prostate adenocarcinoma. He has been on treatment with androgen deprivation plus enzalutamide. He continues to struggle with worsening debility, declining performance status, and overall failure to thrive. Patient family met with oncology 06/11/2024. They were advised that further cancer directed therapy would not be advisable. Given his overall poor health and continued decline, and transition to focus more on comfort and quality of life was agreed upon. Family and patient were interested in learning more about hospice and comfort directed care. Patient is seen at the bedside, he is alone in the room with no family present. He relates and confirms the details of the discussion with oncology yesterday. He shares that he knows it is time to focus on his comfort. He denies any acute pain or shortness of breath at the time of my visit. He denies any nausea. Appetite has been poor but overall he is drinking or eating what he wants when he wants even though it is in small amounts. Unfortunately, his is also admitted. She is actually across the cross from him. He has been able to visit with her a few times. He tells me that he would not be able to go home because he does not have adequate caregiver support. He wants to discuss what other options may exist at this junction. Allergies Allergy/AdvReac Type Severity Reaction Status Date / Time adhesive tape Allergy Severe RED Verified 06/06/24 21:08 IRRITATED SKIN Home Medications Medication Instructions Recorded Confirmed Type coenzyme Q10 100 mg capsule 100 mg PO QAM 08/03/19 06/06/24 History metformin 1,000 mg tablet 1,000 mg PO BID #180 tabs 08/10/23 06/06/24 Rx atorvastatin 40 mg tablet 40 mg PO HS 09/12/23 06/06/24 History blood-glucose meter,continuous #1 ea 12/27/23 06/06/24 Rx (Dexcom G7 Hospital Account Liaison) enzalutamide 40 mg tablet (Xtandi) 160 mg PO QAM 02/07/24 06/06/24 History finasteride 5 mg tablet 5 mg PO QAM 03/01/24 06/06/24 History insulin aspar prot-insulin aspart 8 unit subcut TID 03/01/24 06/06/24 History 100 unit/mL (70-30) subcutaneous pen (Novolog Mix 70-30FlexPen U-100) zinc acetate 50 mg (zinc) capsule 50 mg PO QAM 03/01/24 06/06/24 History potassium chloride 10 mEq 10 meq PO BID #180 tabs 03/13/24 06/06/24 Rx tablet,extended release tamsulosin 0.4 mg capsule (Flomax) 0.4 mg PO QAM #90 caps 03/13/24 06/06/24 Rx blood sugar diagnostic (OneTouch #25 ea 03/30/24 06/06/24 Rx Verio test strips) blood-glucose sensor (Dexcom G7 #3 ea 03/30/24 06/06/24 Rx Sensor device) diclofenac sodium 1 % topical gel 2 g topical QID PRN pain, moderate 04/03/24 06/06/24 Rx #100 grams thiamine HCl (vitamin B1) 100 mg 200 mg (2 x 100 mg) PO BID #1 tab 04/29/24 06/06/24 Rx tablet (Vitamin B-1) pantoprazole 40 mg tablet,delayed 40 mg PO BID 05/18/24 06/06/24 History release acetaminophen 325 mg tablet 650 mg PO Q6 PRN TEMP > 100 06/06/24 06/06/24 History acetaminophen 500 mg tablet 1,000 mg PO Q8H PRN Pain 06/06/24 06/06/24 History (Tylenol Extra Strength) calcium carbonate 600 mg-vitamin 2 tab PO DAILY 06/06/24 06/06/24 History D3 5 mcg (200 unit) tablet lorazepam 0.5 mg tablet 0.5 mg PO .EVERY 24 HOURS PRN 06/06/24 06/06/24 History Anxiety melatonin 10 mg tablet 10 mg PO HS 06/06/24 06/06/24 History sulfamethoxazole 400 1 tab PO Q12 06/06/24 06/06/24 History mg-trimethoprim 80 mg tablet (Bactrim) Patient History Medical History CKD (chronic kidney disease) pt denies Prostate cancer Bilateral hydronephrosis Pulmonary nodules/lesions, multiple OA (osteoarthritis) of knee Dyslipidemia Hyperlipidemia Hypertension Diabetes mellitus, type 2 IDDM Anemia History of CVA (cerebrovascular accident) 08/2018, "garbled speech> pt denies residual effects Hx of iron deficiency anemia History of prostate cancer dx 08/2023, takes Xtandi daily and hormone injection [id number]; mets-skeletal lesions, mediastinal and bilat hilar lymph node uptake on 10/2023 PET scan Hx of basal cell carcinoma History of SCC (squamous cell carcinoma) of skin Hypertension controlled, stable per pt Hyperlipidemia Surgical History History of prostate surgery REZUM (10/2023 at [facility]) Hx of tonsillectomy Hx of bilateral cataract extraction Hx of umbilical hernia repair Hx of squamous cell carcinoma excision face Hx of basal cell carcinoma excision face Hx of tooth extraction All teeth removed; partial plate upper and lower jaw History of colonoscopy Family History Mother Cancer Father Diabetes Other Heart disease Stroke Denies family history of Hearing loss No family history of adverse response to anesthesia No family history of bleeding disorder Allergies Asthma Social History Smoking Status: Never smoker Second Hand Exposure: No; Do You Dip or Chew Tobacco: No; Tobacco Cessation Education Requested by Patient: No Hx Alcohol Use: No Hx Substance Use: No Preferred Language: Liberian Communication Ability: Effective Visual Impairment: No Limitations Hearing Ability: Normal Senior Medical Writer Required: No Beliefs That Will Affect Care: None marital status: Current Living Situation: Retirement current occupational status: retired How many Children do You have: 3 Other Information That Helps Us Care for You: No Feels Safe at Home: Yes Safety Concerns: Feels Safe At This Time Childhood Exposure to Second-Hand Smoke: Yes Diet: regular caffeine: No during the past year weight has: remained stable Dental Care, Regularly: Yes Physical Activity Frequency: Does not Exercise Seatbelt Use: always Sunscreen Use: Yes Assistive Devices: Oxygen - Continuous, Walker and Wheelchair Review of Systems Review of Systems: All systems reviewed & are unremarkable except as noted in Subjective Physical Exam Physical Exam: Frail, elderly male, thin. Resting in bed, semireclined. Awake and alert. Bitemporal wasting noted. PERRLA, EOMI's. Pharynx pink, mucosa slightly dry. Dentition fair. Neck supple. No stridor. Respiratory effort normal at rest. Mild conversational dyspnea noted. Lungs are diminished with the occasional scattered rhonchi. There is no overt wheezing. There is no stridor. Heart tones S1-S2. No gross JVD. Abdomen is soft but scaphoid. Nontender to palpati on. Bowel sounds noted throughout. Generalized weakness throughout. No peripheral edema noted. Strength is diminished throughout. He is awake alert and oriented x 3. Skin is pale but warm to touch. Results & Data Vital Signs (Past 12 Hours) Vital Signs Temp Pulse Resp BP Pulse Ox O2 Del Method O2 Flow Rate 06/12/24 19:54 90 Nasal Cannula 6 06/12/24 19:45 36.4 C L 90 20 113/65 06/12/24 15:25 36.8 C 86 19 103/60 91 Nasal Cannula 5 06/12/24 11:08 36.4 C L 94 H 17 95/54 L 93 Nasal Cannula 5 Laboratory Results 06/12/24 06/12/24 06/12/24 Range/Units 16:07 11:10 07:05 WBC (4.8-10.8) K/ul RBC (4.70-6.10) M/uL Hgb (14.0-18.0) g/dl Hct (42.0-52.0) % MCV (80.0-100.0) fL MCH (25.0-34.0) pg MCHC (32.0-36.0) g/dL RDW Std Deviation (36.4-46.3) fL RDW Coeff of Braeden (11.5-14.5) % Plt Count (130-400) K/uL MPV (9.4-12.4) fL Immature Gran % (Auto) % Neut % (Auto) % Lymph % (Auto) % Sharkey % (Auto) % Eos % (Auto) % Baso % (Auto) % Neut # (Auto) (1.40-6.50) K/uL Lymph # (Auto) (1.20-3.40) K/uL Sharkey # (Auto) (0.11-0.59) K/uL Eos # (Auto) (0.00-0.50) K/uL Baso # (Auto) (0.00-0.20) K/uL Immature Gran # (Auto) (0.01-0.20) K/uL Absolute Nucleated RBC (0.00-0.12) K/uL Nucleated RBC % (auto) % PT (9.0-12.0) Seconds INR (0.9-1.1) ABG pH (7.35-7.45) ABG pCO2 (35-46) mmHg ABG pO2 (80-95) mmHg ABG HCO3 (19-24) mmol/L ABG O2 Saturation (90-95) % ABG Base Excess (-9-1.8) mEq/L Yunior Test (Pos) Oxygen Given Sodium (136-145) mmol/L Potassium (3.5-5.1) mmol/L Chloride (98-107) mmol/L Carbon Dioxide (21-32) mmol/L Anion Gap (3-11) BUN (6-23) mg/dl Creatinine (0.6-1.4) mg/dl Est Cr Clr Drug Dosing ml/min Est GFR ( Amer) ml/min Est GFR (Non-Af Amer) ml/min BUN/Creatinine Ratio (10-20) Glucose (70-99(Fasting)) mg/dl POC Glucose 161 H 143 H 102 H (70-99) mg/dl Calcium (8.6-10.3) mg/dl Phosphorus (2.5-4.9) mg/dl Magnesium (1.7-2.4) mg/dl Total Bilirubin (0.2-1.0) mg/dl Direct Bilirubin (0-0.2) mg/dl AST (13-39) U/L ALT (7-52) U/L Alkaline Phosphatase (34-104) U/L Total Creatine Kinase (30-223) U/L Troponin I High Sens (0-20) pg/ml C-Reactive Protein (0-0.5) mg/dl B-Natriuretic Peptide (0-100) pg/ml Total Protein (6.0-8.3) gm/dl Albumin (3.4-5.0) gm/dl Globulin (2.5-4.0) gm/dl Albumin/Globulin Ratio (0.9-2) Lipase (11-82) U/L Procalcitonin (0-0.5) ng/ml Urine Color Urine Appearance (Clear) Urine pH (4.5-7.5) Ur Specific [place] (1.000-1.030) Urine Protein (Negative) Urine Glucose (UA) (Negative) Urine Ketones (Negative) Urine Blood (Negative) Urine Nitrite (Negative) Urine Bilirubin (Negative) Urine Urobilinogen (Negative) Ur Leukocyte Esterase (Negative) Urine WBC (Auto) (0-5) /hpf Urine RBC (Auto) (0-2) /hpf U Hyaline Cast (Auto) (0-2) /lpf U Epithel Cells (Auto) (0-2) /hpf Urine Bacteria (Auto) (None Seen) Hyaline Casts (None Presnt) /lpf Nasal Screen MRSA (PCR) (Negative) Stl C. diff Tox B Gene (Neg) SARS-CoV-2 (PCR) (Negative) Influenza Type A (PCR) (Neg) Influenza Type B (PCR) (Neg) RSV (RT-PCR) (Neg) 06/11/24 06/11/24 06/11/24 Range/Units 20:32 16:10 10:57 WBC (4.8-10.8) K/ul RBC (4.70-6.10) M/uL Hgb (14.0-18.0) g/dl Hct (42.0-52.0) % MCV (80.0-100.0) fL MCH (25.0-34.0) pg MCHC (32.0-36.0) g/dL RDW Std Deviation (36.4-46.3) fL RDW Coeff of Braeden (11.5-14.5) % Plt Count (130-400) K/uL MPV (9.4-12.4) fL Immature Gran % (Auto) % Neut % (Auto) % Lymph % (Auto) % Sharkey % (Auto) % Eos % (Auto) % Baso % (Auto) % Neut # (Auto) (1.40-6.50) K/uL Lymph # (Auto) (1.20-3.40) K/uL Sharkey # (Auto) (0.11-0.59) K/uL Eos # (Auto) (0.00-0.50) K/uL Baso # (Auto) (0.00-0.20) K/uL Immature Gran # (Auto) (0.01-0.20) K/uL Absolute Nucleated RBC (0.00-0.12) K/uL Nucleated RBC % (auto) % PT (9.0-12.0) Seconds INR (0.9-1.1) ABG pH (7.35-7.45) ABG pCO2 (35-46) mmHg ABG pO2 (80-95) mmHg ABG HCO3 (19-24) mmol/L ABG O2 Saturation (90-95) % ABG Base Excess (-9-1.8) mEq/L Yunior Test (Pos) Oxygen Given Sodium (136-145) mmol/L Potassium (3.5-5.1) mmol/L Chloride (98-107) mmol/L Carbon Dioxide (21-32) mmol/L Anion Gap (3-11) BUN (6-23) mg/dl Creatinine (0.6-1.4) mg/dl Est Cr Clr Drug Dosing ml/min Est GFR ( Amer) ml/min Est GFR (Non-Af Amer) ml/min BUN/Creatinine Ratio (10-20) Glucose (70-99(Fasting)) mg/dl POC Glucose 122 H 126 H 148 H (70-99) mg/dl Calcium (8.6-10.3) mg/dl Phosphorus (2.5-4.9) mg/dl Magnesium (1.7-2.4) mg/dl Total Bilirubin (0.2-1.0) mg/dl Direct Bilirubin (0-0.2) mg/dl AST (13-39) U/L ALT (7-52) U/L Alkaline Phosphatase (34-104) U/L Total Creatine Kinase (30-223) U/L Troponin I High Sens (0-20) pg/ml C-Reactive Protein (0-0.5) mg/dl B-Natriuretic Peptide (0-100) pg/ml Total Protein (6.0-8.3) gm/dl Albumin (3.4-5.0) gm/dl Globulin (2.5-4.0) gm/dl Albumin/Globulin Ratio (0.9-2) Lipase (11-82) U/L Procalcitonin (0-0.5) ng/ml Urine Color Urine Appearance (Clear) Urine pH (4.5-7.5) Ur Specific [place] (1.000-1.030) Urine Protein (Negative) Urine Glucose (UA) (Negative) Urine Ketones (Negative) Urine Blood (Negative) Urine Nitrite (Negative) Urine Bilirubin (Negative) Urine Urobilinogen (Negative) Ur Leukocyte Esterase (Negative) Urine WBC (Auto) (0-5) /hpf Urine RBC (Auto) (0-2) /hpf U Hyaline Cast (Auto) (0-2) /lpf U Epithel Cells (Auto) (0-2) /hpf Urine Bacteria (Auto) (None Seen) Hyaline Casts (None Presnt) /lpf Nasal Screen MRSA (PCR) (Negative) Stl C. diff Tox B Gene (Neg) SARS-CoV-2 (PCR) (Negative) Influenza Type A (PCR) (Neg) Influenza Type B (PCR) (Neg) RSV (RT-PCR) (Neg) 06/11/24 06/11/24 06/10/24 Range/Units 07:06 05:36 20:25 WBC 8.09 (4.8-10.8) K/ul RBC 2.89 L (4.70-6.10) M/uL Hgb 8.4 L (14.0-18.0) g/dl Hct 25.4 L (42.0-52.0) % MCV 87.9 (80.0-100.0) fL MCH 29.1 (25.0-34.0) pg MCHC 33.1 (32.0-36.0) g/dL RDW Std Deviation 54.4 H (36.4-46.3) fL RDW Coeff of Braeden 17.2 H (11.5-14.5) % Plt Count 125 L (130-400) K/uL MPV 10.9 (9.4-12.4) fL Immature Gran % (Auto) % Neut % (Auto) % Lymph % (Auto) % Sharkey % (Auto) % Eos % (Auto) % Baso % (Auto) % Neut # (Auto) (1.40-6.50) K/uL Lymph # (Auto) (1.20-3.40) K/uL Sharkey # (Auto) (0.11-0.59) K/uL Eos # (Auto) (0.00-0.50) K/uL Baso # (Auto) (0.00-0.20) K/uL Immature Gran # (Auto) (0.01-0.20) K/uL Absolute Nucleated RBC 0.04 (0.00-0.12) K/uL Nucleated RBC % (auto) 0.5 % PT (9.0-12.0) Seconds INR (0.9-1.1) ABG pH (7.35-7.45) ABG pCO2 (35-46) mmHg ABG pO2 (80-95) mmHg ABG HCO3 (19-24) mmol/L ABG O2 Saturation (90-95) % ABG Base Excess (-9-1.8) mEq/L Yunior Test (Pos) Oxygen Given Sodium 132 L (136-145) mmol/L Potassium 4.4 (3.5-5.1) mmol/L Chloride 105 (98-107) mmol/L Carbon Dioxide 17 L (21-32) mmol/L Anion Gap 10 (3-11) BUN 42 H (6-23) mg/dl Creatinine 1.36 (0.6-1.4) mg/dl Est Cr Clr Drug Dosing 40.4 ml/min Est GFR ( Amer) 53.1 ml/min Est GFR (Non-Af Amer) 45.8 ml/min BUN/Creatinine Ratio 30.9 H (10-20) Glucose 108 H (70-99(Fasting)) mg/dl POC Glucose 123 H 113 H (70-99) mg/dl Calcium 7.7 L (8.6-10.3) mg/dl Phosphorus (2.5-4.9) mg/dl Magnesium (1.7-2.4) mg/dl Total Bilirubin 1.0 (0.2-1.0) mg/dl Direct Bilirubin (0-0.2) mg/dl AST 46 H (13-39) U/L ALT 10 (7-52) U/L Alkaline Phosphatase 535 H (34-104) U/L Total Creatine Kinase (30-223) U/L Troponin I High Sens (0-20) pg/ml C-Reactive Protein (0-0.5) mg/dl B-Natriuretic Peptide (0-100) pg/ml Total Protein 5.5 L (6.0-8.3) gm/dl Albumin 2.5 L (3.4-5.0) gm/dl Globulin 3.0 (2.5-4.0) gm/dl Albumin/Globulin Ratio 0.8 L (0.9-2) Lipase (11-82) U/L Procalcitonin (0-0.5) ng/ml Urine Color Urine Appearance (Clear) Urine pH (4.5-7.5) Ur Specific [place] (1.000-1.030) Urine Protein (Negative) Urine Glucose (UA) (Negative) Urine Ketones (Negative) Urine Blood (Negative) Urine Nitrite (Negative) Urine Bilirubin (Negative) Urine Urobilinogen (Negative) Ur Leukocyte Esterase (Negative) Urine WBC (Auto) (0-5) /hpf Urine RBC (Auto) (0-2) /hpf U Hyaline Cast (Auto) (0-2) /lpf U Epithel Cells (Auto) (0-2) /hpf Urine Bacteria (Auto) (None Seen) Hyaline Casts (None Presnt) /lpf Nasal Screen MRSA (PCR) (Negative) Stl C. diff Tox B Gene (Neg) SARS-CoV-2 (PCR) (Negative) Influenza Type A (PCR) (Neg) Influenza Type B (PCR) (Neg) RSV (RT-PCR) (Neg) 06/10/24 06/10/24 06/10/24 Range/Units 16:26 14:52 11:11 WBC (4.8-10.8) K/ul RBC (4.70-6.10) M/uL Hgb (14.0-18.0) g/dl Hct (42.0-52.0) % MCV (80.0-100.0) fL MCH (25.0-34.0) pg MCHC (32.0-36.0) g/dL RDW Std Deviation (36.4-46.3) fL RDW Coeff of Braeden (11.5-14.5) % Plt Count (130-400) K/uL MPV (9.4-12.4) fL Immature Gran % (Auto) % Neut % (Auto) % Lymph % (Auto) % Sharkey % (Auto) % Eos % (Auto) % Baso % (Auto) % Neut # (Auto) (1.40-6.50) K/uL Lymph # (Auto) (1.20-3.40) K/uL Sharkey # (Auto) (0.11-0.59) K/uL Eos # (Auto) (0.00-0.50) K/uL Baso # (Auto) (0.00-0.20) K/uL Immature Gran # (Auto) (0.01-0.20) K/uL Absolute Nucleated RBC (0.00-0.12) K/uL Nucleated RBC % (auto) % PT (9.0-12.0) Seconds INR (0.9-1.1) ABG pH (7.35-7.45) ABG pCO2 (35-46) mmHg ABG pO2 (80-95) mmHg ABG HCO3 (19-24) mmol/L ABG O2 Saturation (90-95) % ABG Base Excess (-9-1.8) mEq/L Yunior Test (Pos) Oxygen Given Sodium (136-145) mmol/L Potassium (3.5-5.1) mmol/L Chloride (98-107) mmol/L Carbon Dioxide (21-32) mmol/L Anion Gap (3-11) BUN (6-23) mg/dl Creatinine (0.6-1.4) mg/dl Est Cr Clr Drug Dosing ml/min Est GFR ( Amer) ml/min Est GFR (Non-Af Amer) ml/min BUN/Creatinine Ratio (10-20) Glucose (70-99(Fasting)) mg/dl POC Glucose 82 143 H (70-99) mg/dl Calcium (8.6-10.3) mg/dl Phosphorus (2.5-4.9) mg/dl Magnesium (1.7-2.4) mg/dl Total Bilirubin (0.2-1.0) mg/dl Direct Bilirubin (0-0.2) mg/dl AST (13-39) U/L ALT (7-52) U/L Alkaline Phosphatase (34-104) U/L Total Creatine Kinase (30-223) U/L Troponin I High Sens (0-20) pg/ml C-Reactive Protein (0-0.5) mg/dl B-Natriuretic Peptide 232 H (0-100) pg/ml Total Protein (6.0-8.3) gm/dl Albumin (3.4-5.0) gm/dl Globulin (2.5-4.0) gm/dl Albumin/Globulin Ratio (0.9-2) Lipase (11-82) U/L Procalcitonin (0-0.5) ng/ml Urine Color Urine Appearance (Clear) Urine pH (4.5-7.5) Ur Specific [place] (1.000-1.030) Urine Protein (Negative) Urine Glucose (UA) (Negative) Urine Ketones (Negative) Urine Blood (Negative) Urine Nitrite (Negative) Urine Bilirubin (Negative) Urine Urobilinogen (Negative) Ur Leukocyte Esterase (Negative) Urine WBC (Auto) (0-5) /hpf Urine RBC (Auto) (0-2) /hpf U Hyaline Cast (Auto) (0-2) /lpf U Epithel Cells (Auto) (0-2) /hpf Urine Bacteria (Auto) (None Seen) Hyaline Casts (None Presnt) /lpf Nasal Screen MRSA (PCR) (Negative) Stl C. diff Tox B Gene (Neg) SARS-CoV-2 (PCR) (Negative) Influenza Type A (PCR) (Neg) Influenza Type B (PCR) (Neg) RSV (RT-PCR) (Neg) 06/10/24 06/10/24 06/09/24 Range/Units 07:03 06:24 Unknown WBC 6.06 (4.8-10.8) K/ul RBC 2.97 L (4.70-6.10) M/uL Hgb 8.7 L (14.0-18.0) g/dl Hct 26.2 L (42.0-52.0) % MCV 88.2 (80.0-100.0) fL MCH 29.3 (25.0-34.0) pg MCHC 33.2 (32.0-36.0) g/dL RDW Std Deviation 55.7 H (36.4-46.3) fL RDW Coeff of Braeden 17.3 H (11.5-14.5) % Plt Count 125 L (130-400) K/uL MPV 10.9 (9.4-12.4) fL Immature Gran % (Auto) % Neut % (Auto) % Lymph % (Auto) % Sharkey % (Auto) % Eos % (Auto) % Baso % (Auto) % Neut # (Auto) (1.40-6.50) K/uL Lymph # (Auto) (1.20-3.40) K/uL Sharkey # (Auto) (0.11-0.59) K/uL Eos # (Auto) (0.00-0.50) K/uL Baso # (Auto) (0.00-0.20) K/uL Immature Gran # (Auto) (0.01-0.20) K/uL Absolute Nucleated RBC 0.03 (0.00-0.12) K/uL Nucleated RBC % (auto) 0.5 % PT (9.0-12.0) Seconds INR (0.9-1.1) ABG pH (7.35-7.45) ABG pCO2 (35-46) mmHg ABG pO2 (80-95) mmHg ABG HCO3 (19-24) mmol/L ABG O2 Saturation (90-95) % ABG Base Excess (-9-1.8) mEq/L Yunior Test (Pos) Oxygen Given Sodium 132 L (136-145) mmol/L Potassium 4.3 (3.5-5.1) mmol/L Chloride 106 (98-107) mmol/L Carbon Dioxide 18 L (21-32) mmol/L Anion Gap 8 (3-11) BUN 43 H (6-23) mg/dl Creatinine 1.25 (0.6-1.4) mg/dl Est Cr Clr Drug Dosing 44.0 ml/min Est GFR ( Amer) 58.8 ml/min Est GFR (Non-Af Amer) 50.7 ml/min BUN/Creatinine Ratio 34.4 H (10-20) Glucose 99 (70-99(Fasting)) mg/dl POC Glucose 112 H (70-99) mg/dl Calcium 7.9 L (8.6-10.3) mg/dl Phosphorus (2.5-4.9) mg/dl Magnesium (1.7-2.4) mg/dl Total Bilirubin (0.2-1.0) mg/dl Direct Bilirubin (0-0.2) mg/dl AST (13-39) U/L ALT (7-52) U/L Alkaline Phosphatase (34-104) U/L Total Creatine Kinase 421 H (30-223) U/L Troponin I High Sens (0-20) pg/ml C-Reactive Protein 22.65 H (0-0.5) mg/dl B-Natriuretic Peptide (0-100) pg/ml Total Protein (6.0-8.3) gm/dl Albumin (3.4-5.0) gm/dl Globulin (2.5-4.0) gm/dl Albumin/Globulin Ratio (0.9-2) Lipase (11-82) U/L Procalcitonin 0.61 H (0-0.5) ng/ml Urine Color Urine Appearance (Clear) Urine pH (4.5-7.5) Ur Specific [place] (1.000-1.030) Urine Protein (Negative) Urine Glucose (UA) (Negative) Urine Ketones (Negative) Urine Blood (Negative) Urine Nitrite (Negative) Urine Bilirubin (Negative) Urine Urobilinogen (Negative) Ur Leukocyte Esterase (Negative) Urine WBC (Auto) (0-5) /hpf Urine RBC (Auto) (0-2) /hpf U Hyaline Cast (Auto) (0-2) /lpf U Epithel Cells (Auto) (0-2) /hpf Urine Bacteria (Auto) (None Seen) Hyaline Casts (None Presnt) /lpf Nasal Screen MRSA (PCR) (Negative) Stl C. diff Tox B Gene Negative Cdiff Gene (Neg) SARS-CoV-2 (PCR) (Negative) Influenza Type A (PCR) (Neg) Influenza Type B (PCR) (Neg) RSV (RT-PCR) (Neg) 06/09/24 06/09/24 06/09/24 Range/Units 20:10 16:02 10:52 WBC (4.8-10.8) K/ul RBC (4.70-6.10) M/uL Hgb (14.0-18.0) g/dl Hct (42.0-52.0) % MCV (80.0-100.0) fL MCH (25.0-34.0) pg MCHC (32.0-36.0) g/dL RDW Std Deviation (36.4-46.3) fL RDW Coeff of [place] (11.5-14.5) % Plt Count (130-400) K/uL MPV (9.4-12.4) fL Immature Gran % (Auto) % Neut % (Auto) % Lymph % (Auto) % [place]key % (Auto) % Eos % (Auto) % Baso % (Auto) % Neut # (Auto) (1.40-6.50) K/uL Lymph # (Auto) (1.20-3.40) K/uL Sharkey # (Auto) (0.11-0.59) K/uL Eos # (Auto) (0.00-0.50) K/uL Baso # (Auto) (0.00-0.20) K/uL Immature Gran # (Auto) (0.01-0.20) K/uL Absolute Nucleated RBC (0.00-0.12) K/uL Nucleated RBC % (auto) % PT (9.0-12.0) Seconds INR (0.9-1.1) ABG pH (7.35-7.45) ABG pCO2 (35-46) mmHg ABG pO2 (80-95) mmHg ABG HCO3 (19-24) mmol/L ABG O2 Saturation (90-95) % ABG Base Excess (-9-1.8) mEq/L Yunior Test (Pos) Oxygen Given Sodium (136-145) mmol/L Potassium (3.5-5.1) mmol/L Chloride (98-107) mmol/L Carbon Dioxide (21-32) mmol/L Anion Gap (3-11) BUN (6-23) mg/dl Creatinine (0.6-1.4) mg/dl Est Cr Clr Drug Dosing ml/min Est GFR ( Amer) ml/min Est GFR (Non-Af Amer) ml/min BUN/Creatinine Ratio (10-20) Glucose (70-99(Fasting)) mg/dl POC Glucose 136 H 107 H 183 H (70-99) mg/dl Calcium (8.6-10.3) mg/dl Phosphorus (2.5-4.9) mg/dl Magnesium (1.7-2.4) mg/dl Total Bilirubin (0.2-1.0) mg/dl Direct Bilirubin (0-0.2) mg/dl AST (13-39) U/L ALT (7-52) U/L Alkaline Phosphatase (34-104) U/L Total Creatine Kinase (30-223) U/L Troponin I High Sens (0-20) pg/ml C-Reactive Protein (0-0.5) mg/dl B-Natriuretic Peptide (0-100) pg/ml Total Protein (6.0-8.3) gm/dl Albumin (3.4-5.0) gm/dl Globulin (2.5-4.0) gm/dl Albumin/Globulin Ratio (0.9-2) Lipase (11-82) U/L Procalcitonin (0-0.5) ng/ml Urine Color Urine Appearance (Clear) Urine pH (4.5-7.5) Ur Specific [place] (1.000-1.030) Urine Protein (Negative) Urine Glucose (UA) (Negative) Urine Ketones (Negative) Urine Blood (Negative) Urine Nitrite (Negative) Urine Bilirubin (Negative) Urine Urobilinogen (Negative) Ur Leukocyte Esterase (Negative) Urine WBC (Auto) (0-5) /hpf Urine RBC (Auto) (0-2) /hpf U Hyaline Cast (Auto) (0-2) /lpf U Epithel Cells (Auto) (0-2) /hpf Urine Bacteria (Auto) (None Seen) Hyaline Casts (None Presnt) /lpf Nasal Screen MRSA (PCR) (Negative) Stl C. diff Tox B Gene (Neg) SARS-CoV-2 (PCR) (Negative) Influenza Type A (PCR) (Neg) Influenza Type B (PCR) (Neg) RSV (RT-PCR) (Neg) 06/09/24 06/09/24 06/09/24 Range/Units 07:07 05:36 05:33 WBC 6.08 (4.8-10.8) K/ul RBC 2.95 L (4.70-6.10) M/uL Hgb 8.5 L (14.0-18.0) g/dl Hct 26.1 L (42.0-52.0) % MCV 88.5 (80.0-100.0) fL MCH 28.8 (25.0-34.0) pg MCHC 32.6 (32.0-36.0) g/dL RDW Std Deviation 55.0 H (36.4-46.3) fL RDW Coeff of Braeden 17.4 H (11.5-14.5) % Plt Count 131 (130-400) K/uL MPV 11.5 (9.4-12.4) fL Immature Gran % (Auto) % Neut % (Auto) % Lymph % (Auto) % Sharkey % (Auto) % Eos % (Auto) % Baso % (Auto) % Neut # (Auto) (1.40-6.50) K/uL Lymph # (Auto) (1.20-3.40) K/uL Sharkey # (Auto) (0.11-0.59) K/uL Eos # (Auto) (0.00-0.50) K/uL Baso # (Auto) (0.00-0.20) K/uL Immature Gran # (Auto) (0.01-0.20) K/uL Absolute Nucleated RBC 0.02 (0.00-0.12) K/uL Nucleated RBC % (auto) 0.3 % PT (9.0-12.0) Seconds INR (0.9-1.1) ABG pH (7.35-7.45) ABG pCO2 (35-46) mmHg ABG pO2 (80-95) mmHg ABG HCO3 (19-24) mmol/L ABG O2 Saturation (90-95) % ABG Base Excess (-9-1.8) mEq/L Yunior Test (Pos) Oxygen Given Sodium 133 L (136-145) mmol/L Potassium 4.1 (3.5-5.1) mmol/L Chloride 107 (98-107) mmol/L Carbon Dioxide 18 L (21-32) mmol/L Anion Gap 8 (3-11) BUN 47 H (6-23) mg/dl Creatinine 1.34 (0.6-1.4) mg/dl Est Cr Clr Drug Dosing 41.0 ml/min Est GFR ( Amer) 54.1 ml/min Est GFR (Non-Af Amer) 46.6 ml/min BUN/Creatinine Ratio 35.1 H (10-20) Glucose 124 H (70-99(Fasting)) mg/dl POC Glucose 123 H (70-99) mg/dl Calcium 7.7 L (8.6-10.3) mg/dl Phosphorus 3.5 (2.5-4.9) mg/dl Magnesium 1.7 (1.7-2.4) mg/dl Total Bilirubin 0.9 (0.2-1.0) mg/dl Direct Bilirubin 0.2 (0-0.2) mg/dl AST 38 (13-39) U/L ALT 9 (7-52) U/L Alkaline Phosphatase 488 H (34-104) U/L Total Creatine Kinase (30-223) U/L Troponin I High Sens (0-20) pg/ml C-Reactive Protein 22.77 H (0-0.5) mg/dl B-Natriuretic Peptide (0-100) pg/ml Total Protein 5.3 L (6.0-8.3) gm/dl Albumin 2.5 L (3.4-5.0) gm/dl Globulin (2.5-4.0) gm/dl Albumin/Globulin Ratio (0.9-2) Lipase (11-82) U/L Procalcitonin 0.59 H (0-0.5) ng/ml Urine Color Urine Appearance (Clear) Urine pH (4.5-7.5) Ur Specific [place] (1.000-1.030) Urine Protein (Negative) Urine Glucose (UA) (Negative) Urine Ketones (Negative) Urine Blood (Negative) Urine Nitrite (Negative) Urine Bilirubin (Negative) Urine Urobilinogen (Negative) Ur Leukocyte Esterase (Negative) Urine WBC (Auto) (0-5) /hpf Urine RBC (Auto) (0-2) /hpf U Hyaline Cast (Auto) (0-2) /lpf U Epithel Cells (Auto) (0-2) /hpf Urine Bacteria (Auto) (None Seen) Hyaline Casts (None Presnt) /lpf Nasal Screen MRSA (PCR) (Negative) Stl C. diff Tox B Gene (Neg) SARS-CoV-2 (PCR) (Negative) Influenza Type A (PCR) (Neg) Influenza Type B (PCR) (Neg) RSV (RT-PCR) (Neg) 06/08/24 06/08/24 06/08/24 Range/Units 23:31 20:06 16:13 WBC (4.8-10.8) K/ul RBC (4.70-6.10) M/uL Hgb (14.0-18.0) g/dl Hct (42.0-52.0) % MCV (80.0-100.0) fL MCH (25.0-34.0) pg MCHC (32.0-36.0) g/dL RDW Std Deviation (36.4-46.3) fL RDW Coeff of Braeden (11.5-14.5) % Plt Count (130-400) K/uL MPV (9.4-12.4) fL Immature Gran % (Auto) % Neut % (Auto) % Lymph % (Auto) % Sharkey % (Auto) % Eos % (Auto) % Baso % (Auto) % Neut # (Auto) (1.40-6.50) K/uL Lymph # (Auto) (1.20-3.40) K/uL [place]key # (Auto) (0.11-0.59) K/uL Eos # (Auto) (0.00-0.50) K/uL Baso # (Auto) (0.00-0.20) K/uL Immature Gran # (Auto) (0.01-0.20) K/uL Absolute Nucleated RBC (0.00-0.12) K/uL Nucleated RBC % (auto) % PT (9.0-12.0) Seconds INR (0.9-1.1) ABG pH (7.35-7.45) ABG pCO2 (35-46) mmHg ABG pO2 (80-95) mmHg ABG HCO3 (19-24) mmol/L ABG O2 Saturation (90-95) % ABG Base Excess (-9-1.8) mEq/L [place] Test (Pos) Oxygen Given Sodium (136-145) mmol/L Potassium (3.5-5.1) mmol/L Chloride (98-107) mmol/L Carbon Dioxide (21-32) mmol/L Anion Gap (3-11) BUN (6-23) mg/dl Creatinine (0.6-1.4) mg/dl Est Cr Clr Drug Dosing ml/min Est GFR ( Amer) ml/min Est GFR (Non-Af Amer) ml/min BUN/Creatinine Ratio (10-20) Glucose (70-99(Fasting)) mg/dl POC Glucose 126 H 107 H 149 H (70-99) mg/dl Calcium (8.6-10.3) mg/dl Phosphorus (2.5-4.9) mg/dl Magnesium (1.7-2.4) mg/dl Total Bilirubin (0.2-1.0) mg/dl Direct Bilirubin (0-0.2) mg/dl AST (13-39) U/L ALT (7-52) U/L Alkaline Phosphatase (34-104) U/L Total Creatine Kinase (30-223) U/L Troponin I High Sens (0-20) pg/ml C-Reactive Protein (0-0.5) mg/dl B-Natriuretic Peptide (0-100) pg/ml Total Protein (6.0-8.3) gm/dl Albumin (3.4-5.0) gm/dl Globulin (2.5-4.0) gm/dl Albumin/Globulin Ratio (0.9-2) Lipase (11-82) U/L Procalcitonin (0-0.5) ng/ml Urine Color Urine Appearance (Clear) Urine pH (4.5-7.5) Ur Specific [place] (1.000-1.030) Urine Protein (Negative) Urine Glucose (UA) (Negative) Urine Ketones (Negative) Urine Blood (Negative) Urine Nitrite (Negative) Urine Bilirubin (Negative) Urine Urobilinogen (Negative) Ur Leukocyte Esterase (Negative) Urine WBC (Auto) (0-5) /hpf Urine RBC (Auto) (0-2) /hpf U Hyaline Cast (Auto) (0-2) /lpf U Epithel Cells (Auto) (0-2) /hpf Urine Bacteria (Auto) (None Seen) Hyaline Casts (None Presnt) /lpf Nasal Screen MRSA (PCR) (Negative) Stl C. diff Tox B Gene (Neg) SARS-CoV-2 (PCR) (Negative) Influenza Type A (PCR) (Neg) Influenza Type B (PCR) (Neg) RSV (RT-PCR) (Neg) 06/08/24 06/08/24 06/07/24 Range/Units 11:29 05:37 20:09 WBC (4.8-10.8) K/ul RBC (4.70-6.10) M/uL Hgb (14.0-18.0) g/dl Hct (42.0-52.0) % MCV (80.0-100.0) fL MCH (25.0-34.0) pg MCHC (32.0-36.0) g/dL RDW Std Deviation (36.4-46.3) fL RDW Coeff of Braeden (11.5-14.5) % Plt Count (130-400) K/uL MPV (9.4-12.4) fL Immature Gran % (Auto) % Neut % (Auto) % Lymph % (Auto) % [place] % (Auto) % Eos % (Auto) % Baso % (Auto) % Neut # (Auto) (1.40-6.50) K/uL Lymph # (Auto) (1.20-3.40) K/uL [place]key # (Auto) (0.11-0.59) K/uL Eos # (Auto) (0.00-0.50) K/uL Baso # (Auto) (0.00-0.20) K/uL Immature Gran # (Auto) (0.01-0.20) K/uL Absolute Nucleated RBC (0.00-0.12) K/uL Nucleated RBC % (auto) % PT (9.0-12.0) Seconds INR (0.9-1.1) ABG pH (7.35-7.45) ABG pCO2 (35-46) mmHg ABG pO2 (80-95) mmHg ABG HCO3 (19-24) mmol/L ABG O2 Saturation (90-95) % ABG Base Excess (-9-1.8) mEq/L Yunior Test (Pos) Oxygen Given Sodium 132 L (136-145) mmol/L Potassium 4.5 (3.5-5.1) mmol/L Chloride 105 (98-107) mmol/L Carbon Dioxide 20 L (21-32) mmol/L Anion Gap 7 (3-11) BUN 51 H (6-23) mg/dl Creatinine 1.58 H (0.6-1.4) mg/dl Est Cr Clr Drug Dosing 34.8 ml/min Est GFR ( Amer) 44.3 ml/min Est GFR (Non-Af Amer) 38.2 ml/min BUN/Creatinine Ratio 32.3 H (10-20) Glucose 95 (70-99(Fasting)) mg/dl POC Glucose 152 H 134 H (70-99) mg/dl Calcium 7.9 L (8.6-10.3) mg/dl Phosphorus (2.5-4.9) mg/dl Magnesium (1.7-2.4) mg/dl Total Bilirubin (0.2-1.0) mg/dl Direct Bilirubin (0-0.2) mg/dl AST (13-39) U/L ALT (7-52) U/L Alkaline Phosphatase (34-104) U/L Total Creatine Kinase (30-223) U/L Troponin I High Sens (0-20) pg/ml C-Reactive Protein 24.14 H (0-0.5) mg/dl B-Natriuretic Peptide (0-100) pg/ml Total Protein (6.0-8.3) gm/dl Albumin (3.4-5.0) gm/dl Globulin (2.5-4.0) gm/dl Albumin/Globulin Ratio (0.9-2) Lipase (11-82) U/L Procalcitonin 0.82 H (0-0.5) ng/ml Urine Color Urine Appearance (Clear) Urine pH (4.5-7.5) Ur Specific [place] (1.000-1.030) Urine Protein (Negative) Urine Glucose (UA) (Negative) Urine Ketones (Negative) Urine Blood (Negative) Urine Nitrite (Negative) Urine Bilirubin (Negative) Urine Urobilinogen (Negative) Ur Leukocyte Esterase (Negative) Urine WBC (Auto) (0-5) /hpf Urine RBC (Auto) (0-2) /hpf U Hyaline Cast (Auto) (0-2) /lpf U Epithel Cells (Auto) (0-2) /hpf Urine Bacteria (Auto) (None Seen) Hyaline Casts (None Presnt) /lpf Nasal Screen MRSA (PCR) (Negative) Stl C. diff Tox B Gene (Neg) SARS-CoV-2 (PCR) (Negative) Influenza Type A (PCR) (Neg) Influenza Type B (PCR) (Neg) RSV (RT-PCR) (Neg) 06/07/24 06/07/24 06/07/24 Range/Units 17:49 16:13 11:12 WBC (4.8-10.8) K/ul RBC (4.70-6.10) M/uL Hgb 9.2 L (14.0-18.0) g/dl Hct 27.4 L (42.0-52.0) % MCV (80.0-100.0) fL MCH (25.0-34.0) pg MCHC (32.0-36.0) g/dL RDW Std Deviation (36.4-46.3) fL RDW Coeff of Braeden (11.5-14.5) % Plt Count (130-400) K/uL MPV (9.4-12.4) fL Immature Gran % (Auto) % Neut % (Auto) % Lymph % (Auto) % [place] % (Auto) % Eos % (Auto) % Baso % (Auto) % Neut # (Auto) (1.40-6.50) K/uL Lymph # (Auto) (1.20-3.40) K/uL [place] # (Auto) (0.11-0.59) K/uL Eos # (Auto) (0.00-0.50) K/uL Baso # (Auto) (0.00-0.20) K/uL Immature Gran # (Auto) (0.01-0.20) K/uL Absolute Nucleated RBC (0.00-0.12) K/uL Nucleated RBC % (auto) % PT (9.0-12.0) Seconds INR (0.9-1.1) ABG pH (7.35-7.45) ABG pCO2 (35-46) mmHg ABG pO2 (80-95) mmHg ABG HCO3 (19-24) mmol/L ABG O2 Saturation (90-95) % ABG Base Excess (-9-1.8) mEq/L Yunior Test (Pos) Oxygen Given Sodium 130 L (136-145) mmol/L Potassium 4.8 (3.5-5.1) mmol/L Chloride 105 (98-107) mmol/L Carbon Dioxide 17 L (21-32) mmol/L Anion Gap 8 (3-11) BUN 53 H (6-23) mg/dl Creatinine 1.62 H (0.6-1.4) mg/dl Est Cr Clr Drug Dosing 33.9 ml/min Est GFR ( Amer) 43.0 ml/min Est GFR (Non-Af Amer) 37.1 ml/min BUN/Creatinine Ratio 32.7 H (10-20) Glucose 136 H (70-99(Fasting)) mg/dl POC Glucose 133 H 166 H (70-99) mg/dl Calcium 8.0 L (8.6-10.3) mg/dl Phosphorus (2.5-4.9) mg/dl Magnesium (1.7-2.4) mg/dl Total Bilirubin (0.2-1.0) mg/dl Direct Bilirubin (0-0.2) mg/dl AST (13-39) U/L ALT (7-52) U/L Alkaline Phosphatase (34-104) U/L Total Creatine Kinase (30-223) U/L Troponin I High Sens (0-20) pg/ml C-Reactive Protein (0-0.5) mg/dl B-Natriuretic Peptide (0-100) pg/ml Total Protein (6.0-8.3) gm/dl Albumin (3.4-5.0) gm/dl Globulin (2.5-4.0) gm/dl Albumin/Globulin Ratio (0.9-2) Lipase (11-82) U/L Procalcitonin (0-0.5) ng/ml Urine Color Urine Appearance (Clear) Urine pH (4.5-7.5) Ur Specific [place] (1.000-1.030) Urine Protein (Negative) Urine Glucose (UA) (Negative) Urine Ketones (Negative) Urine Blood (Negative) Urine Nitrite (Negative) Urine Bilirubin (Negative) Urine Urobilinogen (Negative) Ur Leukocyte Esterase (Negative) Urine WBC (Auto) (0-5) /hpf Urine RBC (Auto) (0-2) /hpf U Hyaline Cast (Auto) (0-2) /lpf U Epithel Cells (Auto) (0-2) /hpf Urine Bacteria (Auto) (None Seen) Hyaline Casts (None Presnt) /lpf Nasal Screen MRSA (PCR) (Negative) Stl C. diff Tox B Gene (Neg) SARS-CoV-2 (PCR) (Negative) Influenza Type A (PCR) (Neg) Influenza Type B (PCR) (Neg) RSV (RT-PCR) (Neg) 06/07/24 06/07/24 06/07/24 Range/Units 07:41 06:40 01:36 WBC 7.06 (4.8-10.8) K/ul RBC 3.11 L (4.70-6.10) M/uL Hgb 9.1 L (14.0-18.0) g/dl Hct 27.3 L (42.0-52.0) % MCV 87.8 (80.0-100.0) fL MCH 29.3 (25.0-34.0) pg MCHC 33.3 (32.0-36.0) g/dL RDW Std Deviation 54.0 H (36.4-46.3) fL RDW Coeff of Braeden 17.0 H (11.5-14.5) % Plt Count 125 L (130-400) K/uL MPV 10.4 (9.4-12.4) fL Immature Gran % (Auto) 1.7 % Neut % (Auto) 77.9 % Lymph % (Auto) 14.0 % Sharkey % (Auto) 5.7 % Eos % (Auto) 0.4 % Baso % (Auto) 0.3 % Neut # (Auto) 5.50 (1.40-6.50) K/uL Lymph # (Auto) 0.99 L (1.20-3.40) K/uL Sharkey # (Auto) 0.40 (0.11-0.59) K/uL Eos # (Auto) 0.03 (0.00-0.50) K/uL Baso # (Auto) 0.02 (0.00-0.20) K/uL Immature Gran # (Auto) 0.12 (0.01-0.20) K/uL Absolute Nucleated RBC 0.02 (0.00-0.12) K/uL Nucleated RBC % (auto) 0.3 % PT (9.0-12.0) Seconds INR (0.9-1.1) ABG pH 7.42 (7.35-7.45) ABG pCO2 20 L (35-46) mmHg ABG pO2 82 (80-95) mmHg ABG HCO3 13 L (19-24) mmol/L ABG O2 Saturation 98.6 H (90-95) % ABG Base Excess -9.1 L (-9-1.8) mEq/L Yunior Test Pos (Pos) Oxygen Given NC Sodium 132 L (136-145) mmol/L Potassium 4.9 (3.5-5.1) mmol/L Chloride 104 (98-107) mmol/L Carbon Dioxide 20 L (21-32) mmol/L Anion Gap 8 (3-11) BUN 52 H (6-23) mg/dl Creatinine 1.63 H (0.6-1.4) mg/dl Est Cr Clr Drug Dosing 33.7 ml/min Est GFR ( Amer) 42.7 ml/min Est GFR (Non-Af Amer) 36.8 ml/min BUN/Creatinine Ratio 31.9 H (10-20) Glucose 125 H (70-99(Fasting)) mg/dl POC Glucose 149 H (70-99) mg/dl Calcium 7.8 L (8.6-10.3) mg/dl Phosphorus (2.5-4.9) mg/dl Magnesium (1.7-2.4) mg/dl Total Bilirubin (0.2-1.0) mg/dl Direct Bilirubin (0-0.2) mg/dl AST (13-39) U/L ALT (7-52) U/L Alkaline Phosphatase (34-104) U/L Total Creatine Kinase (30-223) U/L Troponin I High Sens (0-20) pg/ml C-Reactive Protein (0-0.5) mg/dl B-Natriuretic Peptide (0-100) pg/ml Total Protein (6.0-8.3) gm/dl Albumin (3.4-5.0) gm/dl Globulin (2.5-4.0) gm/dl Albumin/Globulin Ratio (0.9-2) Lipase (11-82) U/L Procalcitonin (0-0.5) ng/ml Urine Color Urine Appearance (Clear) Urine pH (4.5-7.5) Ur Specific [place] (1.000-1.030) Urine Protein (Negative) Urine Glucose (UA) (Negative) Urine Ketones (Negative) Urine Blood (Negative) Urine Nitrite (Negative) Urine Bilirubin (Negative) Urine Urobilinogen (Negative) Ur Leukocyte Esterase (Negative) Urine WBC (Auto) (0-5) /hpf Urine RBC (Auto) (0-2) /hpf U Hyaline Cast (Auto) (0-2) /lpf U Epithel Cells (Auto) (0-2) /hpf Urine Bacteria (Auto) (None Seen) Hyaline Casts (None Presnt) /lpf Nasal Screen MRSA (PCR) (Negative) Stl C. diff Tox B Gene (Neg) SARS-CoV-2 (PCR) (Negative) Influenza Type A (PCR) (Neg) Influenza Type B (PCR) (Neg) RSV (RT-PCR) (Neg) 06/07/24 06/06/24 06/06/24 Range/Units 00:30 Unknown 23:48 WBC (4.8-10.8) K/ul RBC (4.70-6.10) M/uL Hgb (14.0-18.0) g/dl Hct (42.0-52.0) % MCV (80.0-100.0) fL MCH (25.0-34.0) pg MCHC (32.0-36.0) g/dL RDW Std Deviation (36.4-46.3) fL RDW Coeff of Braeden (11.5-14.5) % Plt Count (130-400) K/uL MPV (9.4-12.4) fL Immature Gran % (Auto) % Neut % (Auto) % Lymph % (Auto) % [place]key % (Auto) % Eos % (Auto) % Baso % (Auto) % Neut # (Auto) (1.40-6.50) K/uL Lymph # (Auto) (1.20-3.40) K/uL [place] # (Auto) (0.11-0.59) K/uL Eos # (Auto) (0.00-0.50) K/uL Baso # (Auto) (0.00-0.20) K/uL Immature Gran # (Auto) (0.01-0.20) K/uL Absolute Nucleated RBC (0.00-0.12) K/uL Nucleated RBC % (auto) % PT (9.0-12.0) Seconds INR (0.9-1.1) ABG pH (7.35-7.45) ABG pCO2 (35-46) mmHg ABG pO2 (80-95) mmHg ABG HCO3 (19-24) mmol/L ABG O2 Saturation (90-95) % ABG Base Excess (-9-1.8) mEq/L Yunior Test (Pos) Oxygen Given Sodium 131 L (136-145) mmol/L Potassium 5.0 (3.5-5.1) mmol/L Chloride 104 (98-107) mmol/L Carbon Dioxide 17 L (21-32) mmol/L Anion Gap 10 (3-11) BUN 55 H (6-23) mg/dl Creatinine 1.77 H (0.6-1.4) mg/dl Est Cr Clr Drug Dosing 31.1 ml/min Est GFR ( Amer) 38.6 ml/min Est GFR (Non-Af Amer) 33.3 ml/min BUN/Creatinine Ratio 31.1 H (10-20) Glucose 138 H (70-99(Fasting)) mg/dl POC Glucose (70-99) mg/dl Calcium 7.9 L (8.6-10.3) mg/dl Phosphorus (2.5-4.9) mg/dl Magnesium (1.7-2.4) mg/dl Total Bilirubin (0.2-1.0) mg/dl Direct Bilirubin (0-0.2) mg/dl AST (13-39) U/L ALT (7-52) U/L Alkaline Phosphatase (34-104) U/L Total Creatine Kinase (30-223) U/L Troponin I High Sens (0-20) pg/ml C-Reactive Protein (0-0.5) mg/dl B-Natriuretic Peptide (0-100) pg/ml Total Protein (6.0-8.3) gm/dl Albumin (3.4-5.0) gm/dl Globulin (2.5-4.0) gm/dl Albumin/Globulin Ratio (0.9-2) Lipase (11-82) U/L Procalcitonin (0-0.5) ng/ml Urine Color Yellow Urine Appearance Turbid A (Clear) Urine pH 5.5 (4.5-7.5) Ur Specific [place] 1.020 (1.000-1.030) Urine Protein 2+ H (Negative) Urine Glucose (UA) Negative (Negative) Urine Ketones Trace H (Negative) Urine Blood 3+ H (Negative) Urine Nitrite Positive A (Negative) Urine Bilirubin Negative (Negative) Urine Urobilinogen Negative (Negative) Ur Leukocyte Esterase 3+ H (Negative) Urine WBC (Auto) >50 H (0-5) /hpf Urine RBC (Auto) >20 H (0-2) /hpf U Hyaline Cast (Auto) 11-20 H (0-2) /lpf U Epithel Cells (Auto) 0-2 (0-2) /hpf Urine Bacteria (Auto) 2+ H (None Seen) Hyaline Casts Present A (None Presnt) /lpf Nasal Screen MRSA (PCR) Positive A (Negative) Stl C. diff Tox B Gene (Neg) SARS-CoV-2 (PCR) NEGATIVE (Negative) Influenza Type A (PCR) Negative (Neg) Influenza Type B (PCR) Negative (Neg) RSV (RT-PCR) Negative (Neg) 06/06/24 06/06/24 06/06/24 Range/Units 22:51 21:48 19:27 WBC (4.8-10.8) K/ul RBC (4.70-6.10) M/uL Hgb (14.0-18.0) g/dl Hct (42.0-52.0) % MCV (80.0-100.0) fL MCH (25.0-34.0) pg MCHC (32.0-36.0) g/dL RDW Std Deviation (36.4-46.3) fL RDW Coeff of Braeden (11.5-14.5) % Plt Count (130-400) K/uL MPV (9.4-12.4) fL Immature Gran % (Auto) % Neut % (Auto) % Lymph % (Auto) % Sharkey % (Auto) % Eos % (Auto) % Baso % (Auto) % Neut # (Auto) (1.40-6.50) K/uL Lymph # (Auto) (1.20-3.40) K/uL Sharkey # (Auto) (0.11-0.59) K/uL Eos # (Auto) (0.00-0.50) K/uL Baso # (Auto) (0.00-0.20) K/uL Immature Gran # (Auto) (0.01-0.20) K/uL Absolute Nucleated RBC (0.00-0.12) K/uL Nucleated RBC % (auto) % PT (9.0-12.0) Seconds INR (0.9-1.1) ABG pH (7.35-7.45) ABG pCO2 (35-46) mmHg ABG pO2 (80-95) mmHg ABG HCO3 (19-24) mmol/L ABG O2 Saturation (90-95) % ABG Base Excess (-9-1.8) mEq/L Yunior Test (Pos) Oxygen Given Sodium (136-145) mmol/L Potassium (3.5-5.1) mmol/L Chloride (98-107) mmol/L Carbon Dioxide (21-32) mmol/L Anion Gap (3-11) BUN (6-23) mg/dl Creatinine (0.6-1.4) mg/dl Est Cr Clr Drug Dosing ml/min Est GFR ( Amer) ml/min Est GFR (Non-Af Amer) ml/min BUN/Creatinine Ratio (10-20) Glucose (70-99(Fasting)) mg/dl POC Glucose 162 H 131 H (70-99) mg/dl Calcium (8.6-10.3) mg/dl Phosphorus (2.5-4.9) mg/dl Magnesium (1.7-2.4) mg/dl Total Bilirubin (0.2-1.0) mg/dl Direct Bilirubin (0-0.2) mg/dl AST (13-39) U/L ALT (7-52) U/L Alkaline Phosphatase (34-104) U/L Total Creatine Kinase (30-223) U/L Troponin I High Sens 21.2 H (0-20) pg/ml C-Reactive Protein (0-0.5) mg/dl B-Natriuretic Peptide (0-100) pg/ml Total Protein (6.0-8.3) gm/dl Albumin (3.4-5.0) gm/dl Globulin (2.5-4.0) gm/dl Albumin/Globulin Ratio (0.9-2) Lipase (11-82) U/L Procalcitonin (0-0.5) ng/ml Urine Color Urine Appearance (Clear) Urine pH (4.5-7.5) Ur Specific [place] (1.000-1.030) Urine Protein (Negative) Urine Glucose (UA) (Negative) Urine Ketones (Negative) Urine Blood (Negative) Urine Nitrite (Negative) Urine Bilirubin (Negative) Urine Urobilinogen (Negative) Ur Leukocyte Esterase (Negative) Urine WBC (Auto) (0-5) /hpf Urine RBC (Auto) (0-2) /hpf U Hyaline Cast (Auto) (0-2) /lpf U Epithel Cells (Auto) (0-2) /hpf Urine Bacteria (Auto) (None Seen) Hyaline Casts (None Presnt) /lpf Nasal Screen MRSA (PCR) (Negative) Stl C. diff Tox B Gene (Neg) SARS-CoV-2 (PCR) (Negative) Influenza Type A (PCR) (Neg) Influenza Type B (PCR) (Neg) RSV (RT-PCR) (Neg) 06/06/24 Range/Units 17:23 WBC 8.78 (4.8-10.8) K/ul RBC 3.57 L (4.70-6.10) M/uL Hgb 10.4 L (14.0-18.0) g/dl Hct 30.9 L (42.0-52.0) % MCV 86.6 (80.0-100.0) fL MCH 29.1 (25.0-34.0) pg MCHC 33.7 (32.0-36.0) g/dL RDW Std Deviation 53.6 H (36.4-46.3) fL RDW Coeff of Braeden 17.0 H (11.5-14.5) % Plt Count 158 (130-400) K/uL MPV 10.7 (9.4-12.4) fL Immature Gran % (Auto) 1.0 % Neut % (Auto) 78.9 % Lymph % (Auto) 14.0 % Sharkey % (Auto) 5.6 % Eos % (Auto) 0.3 % Baso % (Auto) 0.2 % Neut # (Auto) 6.92 H (1.40-6.50) K/uL Lymph # (Auto) 1.23 (1.20-3.40) K/uL Sharkey # (Auto) 0.49 (0.11-0.59) K/uL Eos # (Auto) 0.03 (0.00-0.50) K/uL Baso # (Auto) 0.02 (0.00-0.20) K/uL Immature Gran # (Auto) 0.09 (0.01-0.20) K/uL Absolute Nucleated RBC (0.00-0.12) K/uL Nucleated RBC % (auto) % PT 12.1 H (9.0-12.0) Seconds INR 1.1 (0.9-1.1) ABG pH (7.35-7.45) ABG pCO2 (35-46) mmHg ABG pO2 (80-95) mmHg ABG HCO3 (19-24) mmol/L ABG O2 Saturation (90-95) % ABG Base Excess (-9-1.8) mEq/L Yunior Test (Pos) Oxygen Given Sodium 129 L (136-145) mmol/L Potassium 5.7 H (3.5-5.1) mmol/L Chloride 102 (98-107) mmol/L Carbon Dioxide 17 L (21-32) mmol/L Anion Gap 10 (3-11) BUN 52 H (6-23) mg/dl Creatinine 1.72 H (0.6-1.4) mg/dl Est Cr Clr Drug Dosing 32.0 ml/min Est GFR ( Amer) 40.0 ml/min Est GFR (Non-Af Amer) 34.5 ml/min BUN/Creatinine Ratio 30.2 H (10-20) Glucose 111 H (70-99(Fasting)) mg/dl POC Glucose (70-99) mg/dl Calcium 8.4 L (8.6-10.3) mg/dl Phosphorus (2.5-4.9) mg/dl Magnesium 1.7 (1.7-2.4) mg/dl Total Bilirubin 1.1 H (0.2-1.0) mg/dl Direct Bilirubin (0-0.2) mg/dl AST 44 H (13-39) U/L ALT 10 (7-52) U/L Alkaline Phosphatase 493 H (34-104) U/L Total Creatine Kinase (30-223) U/L Troponin I High Sens 20.5 H (0-20) pg/ml C-Reactive Protein (0-0.5) mg/dl B-Natriuretic Peptide 115 H (0-100) pg/ml Total Protein 6.2 (6.0-8.3) gm/dl Albumin 2.9 L (3.4-5.0) gm/dl Globulin 3.3 (2.5-4.0) gm/dl Albumin/Globulin Ratio 0.9 (0.9-2) Lipase 26 (11-82) U/L Procalcitonin (0-0.5) ng/ml Urine Color Urine Appearance (Clear) Urine pH (4.5-7.5) Ur Specific [place] (1.000-1.030) Urine Protein (Negative) Urine Glucose (UA) (Negative) Urine Ketones (Negative) Urine Blood (Negative) Urine Nitrite (Negative) Urine Bilirubin (Negative) Urine Urobilinogen (Negative) Ur Leukocyte Esterase (Negative) Urine WBC (Auto) (0-5) /hpf Urine RBC (Auto) (0-2) /hpf U Hyaline Cast (Auto) (0-2) /lpf U Epithel Cells (Auto) (0-2) /hpf Urine Bacteria (Auto) (None Seen) Hyaline Casts (None Presnt) /lpf Nasal Screen MRSA (PCR) (Negative) Stl C. diff Tox B Gene (Neg) SARS-CoV-2 (PCR) (Negative) Influenza Type A (PCR) (Neg) Influenza Type B (PCR) (Neg) RSV (RT-PCR) (Neg) Most recent lab results ABG pH 7.42 (7.35-7.45) 06/07/24 01:36 ABG pCO2 20 mmHg (35-46) L 06/07/24 01:36 ABG pO2 82 mmHg (80-95) 06/07/24 01:36 ABG HCO3 13 mmol/L (19-24) L 06/07/24 01:36 ABG O2 Saturation 98.6 % (90-95) H 06/07/24 01:36 Calcium 7.7 mg/dl (8.6-10.3) L 06/11/24 05:36 Phosphorus 3.5 mg/dl (2.5-4.9) 06/09/24 05:33 Magnesium 1.7 mg/dl (1.7-2.4) 06/09/24 05:33 Diagnostic Findings Chest X-Ray 06/06/24 17:28 SINGLE VIEW CHEST CLINICAL HISTORY: Atypical chest pain FINDINGS: An AP, portable, upright chest radiograph is compared to study dated 04/25/2024. Correlation is made with PET CT dated 04/13/2024. The heart is enlarged noting atherosclerotic calcification of the thoracic aorta. The pulmonary vasculature is noncongested. Chronic interstitial thickening is similar to previous. There is bibasilar scarring/atelectasis. No airspace consolidation or large pleural effusion is identified. No pneumothorax is seen. The skeletal structures are osteopenic. 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 IMPRESSION: 1. Cardiomegaly with no acute cardiopulmonary abnormality identified. 2. 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 ACT 112: Negative or not required by law. Electronically signed by: James August M.D. 06/06/2024 7:12 PM KUB X-Ray 06/08/24 14:12 KUB HISTORY: elevated inflammatory markers COMPARISON: Head CT 04/13/2024. FINDINGS: Mild gaseous distention of the large and small bowel. This favors a mild ileus. No evidence for a bowel obstruction. No renal calculi. No ureteral calculi. No pneumoperitoneum or pneumatosis. 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 IMPRESSION: 1. Mild gaseous distention of the large and small bowel which favors an ileus. 2. Diffuse osteoblastic metastatic disease again noted. ACT 112: Negative or not required by law. Electronically signed by: Ke Gong M.D. 06/08/2024 3:53 PM Liver Ultrasound 06/08/24 14:37 ABDOMINAL ULTRASOUND, RIGHT UPPER QUADRANT HISTORY: right upper quadrant pain. COMPARISON: PET CT 04/13/2024. FINDINGS: Pancreas: The pancreatic tail is obscured by overlying bowel gas. The remaining portions of the pancreas are within normal limits. Liver: 19 cm in length. There is a 3.9 cm heterogeneous lesion within the left hepatic lobe which is similar to the prior studies. This demonstrates an echogenic component consistent with internal fat. No new hepatic lesions identified. Gallbladder: Mildly distended and almost completely filled with sludge. There may be a few small stones near the gallbladder neck. Negative sonographic Camejo sign. No gallbladder wall thickening. CBD: 3 mm. Right kidney: Mild fullness within the right renal collecting system without hydronephrosis. This remains unchanged. A 6.5 cm exophytic lower pole cyst again noted. IMPRESSION: 1. No significant change in the 3.9 cm heterogeneous fat-containing lesion within the left hepatic lobe. 2. The gallbladder is filled with stones and sludge. No gallbladder wall thickening. 3. Normal caliber common bile duct. ACT 112: Negative or not required by law. Electronically signed by: Ke Gong M.D. 06/09/2024 8:01 AM Abdomen/Pelvis CT 06/09/24 09:30 CT SCAN OF THE ABDOMEN AND PELVIS WITH IV CONTRAST CLINICAL HISTORY: Right-sided abdominal pain. Osteoblastic lesion. COMPARISON STUDY: Abdominal CT dated 09/12/2023. PET/CT dated 04/13/2024. TECHNIQUE: Following the IV administration of 93 cc of Optiray 320, CT scan of the abdomen and pelvis is performed from the lung bases to the proximal femora. Images are reviewed in the axial, sagittal, and coronal planes. IV contrast was administered without complication. Oral contrast was utilized. A dose lowering technique was utilized adhering to the principles of ALARA. The examination is degraded by streak artifact from the arms which could not be elevated above the abdomen. FINDINGS: Lung bases: The heart is top normal in size and without pericardial effusion. The coronary arteries are densely calcified. There are small right and trace left pleural effusions with dependent atelectasis. Liver: The contrast-enhanced liver is normal in size and contour. There is no intrahepatic biliary ductal dilatation. The hepatic veins and portal veins are patent. Multifocal hepatic metastatic disease has significantly progressed as compared to 09/12/2023. This also appears significantly increased as compared to the 04/13/2024 PET examination. A large left lobe lesion seen on image #72 measures up to 6.6 cm. There are numerous (at least 10) additional smaller lesions scattered throughout both hepatic lobes. Gallbladder: Unremarkable. Spleen: Normal in size and attenuation. Pancreas: Unremarkable. Adrenal glands: Unremarkable. Kidneys: The contrast enhanced kidneys demonstrate cortical atrophy there is moderate left hydroureteronephrosis. The left ureter is dilated to the level of a presumed mass lesion along the posterior aspect of the bladder. A 7 mm calculus is seen in the distal left ureter on image 79, but does not appear to represent the cause of obstruction/hydronephrosis. An extrarenal pelvis is noted on the right with no severe right-sided hydronephrosis. Bilateral renal cysts measure up to 6.5 cm. The kidneys enhance symmetrically. Abdominal vasculature: There is advanced atherosclerotic calcification and ectasia of the abdominal aorta. Bowel: There is no bowel obstruction. Enteric contrast reaches the rectosigmoid. The appendix is well-visualized and normal. Peritoneum: There is no intraperitoneal free air or abdominal ascites. Lymphadenopathy: None. Pelvic viscera: A Romero catheter is in place. The balloon is located within the substance of the prostate gland and repositioning is indicated. The prostate gland is enlarged and heterogeneous. There is likely a mass lesion along the superior aspect of the prostate gland involving the left trigone of the bladder. The bladder is decompressed and contains intraluminal gas. The gallbladder wall is markedly thickened and there is pericystic infiltration. Skeletal structures: The skeletal structures are osteopenic. 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 This is similar to the 04/13/2014 PET examination. There is a pathologic fracture of the right posterior 12th rib. A large lesion in the left proximal femur seen on image #353 may be at risk for pathologic fracture. IMPRESSION: 1. There is moderate left hydroureteronephrosis. The ureter is dilated to the level of a presumed mass lesion involving left trigone. 2. There is a 7 mm calculus in the distal left ureter; however, this does not appear to represent the cause of obstruction. 3. Findings of extensive/diffuse osteoblastic metastatic disease are similar to 04/13/2024 PET examination. There is a pathologic fracture of the right posterior 12th rib. 4. A large metastatic lesion in the left proximal femur may also be at risk for pathologic fracture. 5. There is evidence of multifocal hepatic metastatic disease. This appears significantly progressed as compared to the 04/13/2024 PET examination. 6. Small right and trace left pleural effusions. 7. The balloon of the Romero catheter is inflated within the substance of the prostate gland. Repositioning is indicated. 8. The bladder wall appears significantly thickened with mild pericystic infiltration. Correlate with urinalysis. 9. Additional findings as above. ACT 112: Negative or not required by law. Electronically signed by: James August M.D. 06/09/2024 1:[address] 06/09/24 09:[address] WITH CONTRAST CT DOSE: 2399.03 mGy.cm HISTORY: Acute right-sided chest pain in a patient with history of metastatic prostate cancer. osteoblastic lesions/ right sided chest pain TECHNIQUE: Multiaxial CT images of the chest were performed following the IV administration of 93 cc of Optiray. A dose lowering technique was utilized adhering to the principles of ALARA. COMPARISON: PET CT 04/13/2024. FINDINGS: No thyroid nodule. Mildly enlarged right hilar lymph nodes measure up to 1.2 cm, increased in size from prior. The heart is upper limits of normal in size. Extensive coronary artery calcifications. Atherosclerosis of the aorta. No pulmonary emboli is identified. Trace left and small right pleural effusions. No pneumothorax. Nodular consolidative opacities of the right lower lobe but measure up to approximately 3 cm with surrounding ground-glass density. Intralobular septal thickening with ill-defined centrilobular ground-glass and micronodular opacities, which are new from prior. Intralobular septal t hickening. Mild dependent subsegmental bibasilar atelectasis. Bilateral renal cysts. Cortical thinning of the kidneys. Dilation of the renal collecting systems is similar to mildly improved from prior. A layering hyperdense material within the left renal pelvis. Lateral left hepatic lobe lesion is redemonstrated measuring up to approximately 7 cm. The liver is diffusely heterogeneous. Extensive osteoblastic skeletal metastasis. There are healing subacute nondisplaced fractures of the posterior bilateral 12th ribs, new from the 04/13/2024 study. No acute displaced fracture is identified. Sebac eous cyst anterior to the sternum is again noted. IMPRESSION: 1. Diffuse centrilobular ground-glass densities and micronodular opacities are suggestive of an infectious or inflammatory pneumonitis. 2. Cardiomegaly with mild pulmonary edema and small pleural effusions. 3. Progressive consolidative nodular opacities of the right lower lobe. Follow- up is recommended. 4. Mild hilar lymphadenopathy is redemonstrated. 5. Extensive osteoblastic skeletal metastasis is redemonstrated with healing subacute nondisplaced pathologic posterior 12th rib fractures. ACT 112: Negative or not required by law. Dictated: 06/09/2024 1:10 PM Transcribed: 06/09/2024 3:51 PM Brett [id number] [email or web address] Electronically signed by: Robin Damon M.D. 06/09/2024 4:05 PM PG Care Time/CCT Total # of Minutes Spent Total Time Spent with Patient: Total time spent is greater than 50% in coordination of care (as documented) at patient's floor/unit and/or counseling patient: I spent 80 minutes overall addressing this case: 15 min in medical data review/discussion with referring provider(s) and/or preparation for the visit 15min in direct interaction with the patient/exam 30 min in Advance Care Planning/Goals of Care discussions as detailed above in note (must be >16min) 5 min in subsequent review and synthesis of assessment and plan 15 min communicating with other providers regarding the patient's case: primary team Advanced Care Planning 76607 Advanced Care Planning 30 [place] [address] IN/OBS CONSULT LVL 3,45M (25 - SIGNIFICANT, SEPARATELY IDENTIFIABLE ) Patient Type New Medical Decision Making High Complexity Diagnoses Dyspnea and respiratory abnormalities R06.00; R06.89 Weakness generalized R53.1 Advanced care planning/counseling discussion Z Encounter for hospice care discussion Palliative care by specialist Z51.5 Prostate cancer metastatic to bone C61; C79.51 Additional Codes Advanced Care Planning - 51690 Advanced Care Planning 30 Min: 40058 Advanced Care Planning 30 Min ([id number])
[2024-06-12] MEDS ORDERED: MoRPHine SULFATE 10 MG/0.5 ML UDP PO PRN (21:01)
[2024-06-12] MEDS ORDERED: haloperidoL 1 MG TAB PO PRN (21:01)
--- NOTE | 2024-06-13 12:23 | Hospitalist Progress Note ---
Date of Service June 13, 2024 Assessment & Plan (1) Prostate cancer: Plan: Prostate cancer with widespread metastatic component, chest rib pain likely from osteoblastic lesions Pt with progression on recent CT regarding osteoblastic lesions, proximal femur lesion, liver and lung ( progressive nodular consolidation RLL) BPH continue tamsulosin - alk phos, 493 (worsened from baseline elevation) -Holding enzalutamide, oncology does not feel we should continue this -ct scan showed an incidental finding of left hydronephrosis: consult Urology, do not feel mechanical obstruction is from cancer . Did have discussion with family, transition to hospice care upon return to [facility] have begun stopping non essential medications (2) Acute respiratory failure with hypoxia: Plan: Increasing oxygen requirements. Now on 5 L nasal cannula (typically on 3 - CXR: no acute findings on official read (but possibly trace r. pleural effusion); findings of osteoblastic lesions similar to previous CXR's - echocardiogram:normal CT chest showed Diffuse centrilobular ground-glass densities and micronodular opacities are suggestive of an infectious or inflammatory pneumonitis. -Initially on daptomycin on linezolid to cover pulmonary source has MRSA urinary tract infection POA. Daptomycin started 06/07, will treat one week to cover mrsa, complete 06/13 (3) Chest pain: Plan: Does not appear to be cardiac in nature, more likely cancer related pain . - HS Trop, 21.2 <-- 20.5 (admission); Ct chest also shows possible pneumonitis, is no linezolid Plan Patient with anemia consideration of anemia of inflammation or chronic disease given his diabetes and chronic cancer state. Hyperkalemia/chronic mild hyponatremia/ Mild acidosis, normal AG -Resolved hyperkalemia persistent hyponatremia, non-anion gap acidosis Chronic problems: Type 2DM - basal/bolus insulin started - hold metformin Insomnia - lorazepam, 0.5 mg, QHS, PRN (pt takes daily for sleep, leave pt on during stay to avoid withdrawal) - melatonin, PRN Hx of gastric and duodenal ulcer - pantoprazole DVT prophylaxis: Heparin, 5000 U, SQ, BID Admission and Anticipated Discharge Date Admission Date: June 06, 2024 Subjective pt has no complaints but also admits to having no appetite recallls palliative care discussion, remains supportive, will coordinate with [facility] for his return in next few days Physical Exam Physical Exam: Awake weak and frail appearing rales at the base of his lungs Card exam is regular distant systolic murmur Results & Data Results & Data Vital Signs (Past 12 Hours) Vital Signs O2 Del Method O2 Flow Rate 06/13/24 08:30 Nasal Cannula 6 PG Care Time/CCT Total # of Minutes Spent Total Time Spent with Patient: Total time spent is greater than 50% in coordination of care (as documented) at patient's floor/unit and/or counseling patient: Coding Level of Care Code 90786 SUB INP/OBS CARE 2/35MIN Diagnoses Prostate cancer C61 Acute respiratory failure with hypoxia J96.01 Chest pain R07.9
--- NOTE | 2024-06-14 14:04 | Discharge Summary ---
Discharge Summary Date of Service June 14, 2024 Principal Dx & Hospital Course #1 = Principal Diagnosis (1) Prostate cancer: Prostate cancer with widespread metastatic component, chest rib pain likely from osteoblastic lesions Pt with progression on recent CT regarding osteoblastic lesions, proximal femur lesion, liver and lung ( progressive nodular consolidation RLL) BPH continue tamsulosin - alk phos, 493 (worsened from baseline elevation) -Holding enzalutamide, oncology does not feel we should continue this -ct scan showed an incidental finding of left hydronephrosis: consult Urology, do not feel mechanical obstruction is from cancer . Did have discussion with family, transition to hospice care upon return to [facility] have begun stopping non essential medications (2) Acute respiratory failure with hypoxia: Increasing oxygen requirements. Now on 5 L nasal cannula (typically on 3 - CXR: no acute findings on official read (but possibly trace r. pleural effusion); findings of osteoblastic lesions similar to previous CXR's - echocardiogram:normal CT chest showed Diffuse centrilobular ground-glass densities and micronodular opacities are suggestive of an infectious or inflammatory pneumonitis. -Initially on daptomycin on linezolid to cover pulmonary source has MRSA urinary tract infection POA. Daptomycin started 06/07, will treat one week to cover mrsa, complete 06/13 (3) Chest pain: Does not appear to be cardiac in nature, more likely cancer related pain . - HS Trop, 21.2 <-- 20.5 (admission); Ct chest also shows possible pneumonitis, treated with linezolid Plan Patient with anemia consideration of anemia of inflammation or chronic disease given his diabetes and chronic cancer state. Hyperkalemia/chronic mild hyponatremia/ Mild acidosis, normal AG -Resolved hyperkalemia persistent hyponatremia, non-anion gap acidosis Chronic problems: Type 2DM - basal/bolus insulin started - hold metformin and insulin after return per skilled nursing provider discression Hx of gastric and duodenal ulcer Admission HPI Per Admitting Provider Holm (Bill) Nathan is an 89 y/o male with a PMHx of CKD, prostate cancer (on androgen deprivation therapy), HTN, HLD, BPH, and T2DM who presented to the [facility] due to concerns regarding right-sided chest pain. Patient was discharged from [facility] recently on 05/24/24 after a hospital stay for a GI bleed and pneumonia. Patient is supposed to be on 3L NC O2 at baseline. Patient's CP not pleuritic, is intermittent, feels like someone is pressing down on his chest. Patient is SOB at baseline but doesn't feel like it's been any worse the last few days, although his O2 Sats were down to 77% while at care facility. Patient has not noticed any positional dependence of his CP and states it is different than the occasional acid reflux pain he gets. States that the pain severity is 7/10 when he feels it, though the pain is intermittent. There does seem to be at least some reproducibility of the pain upon palpation. Discharge Exam Patient awake and pleasant understands returning back to [facility] today. I also spoke to the patient's who is in the [facility] adjacent hospital room and she is also understandable of the same Updated Medication List Medication Instructions Recorded Confirmed Type finasteride 5 mg tablet 5 mg PO QAM 03/01/24 06/06/24 History tamsulosin 0.4 mg capsule (Flomax) 0.4 mg PO QAM #90 caps 03/13/24 06/06/24 Rx diclofenac sodium 1 % topical gel 2 g topical QID PRN pain, moderate 04/03/24 06/06/24 Rx #100 grams acetaminophen 500 mg tablet 1,000 mg PO Q8H PRN Pain 06/06/24 06/06/24 History (Tylenol Extra Strength) lorazepam 0.5 mg tablet 0.5 mg PO .EVERY 24 HOURS PRN 06/06/24 06/06/24 History Anxiety melatonin 10 mg tablet 10 mg PO HS 06/06/24 06/06/24 History pantoprazole 40 mg tablet,delayed 40 mg PO DAILY #0 tabs 06/14/24 06/06/24 Rx release Hospital Stay Data Consultations 06/06/24 21:07 ED Decision to Admit Stat 06/10/24 13:58 Consult Urology Routine 06/10/24 14:08 Consult Oncology Routine 06/12/24 09:10 Consult Palliative Care Routine Diagnostic Imagining Performed 06/08/24 14:37 US RUQ [US liver] Routine 06/09/24 09:30 CT abd pelvis oral and IV con Routine 06/09/24 09:33 CT chest diagnostic w con Routine Pending Results Patient Have Any Pending Studies at Discharge: No Discharge Instructions Given to Patient (Per Discharging Provider) medication considerations for comfort Total Time Total Time Spent Total Time Spent (In Minutes): It required greater than 30 minutes to prepare this patient for discharge. Coding Level of Care Code 35181 INP/OBS DISCH >30 MIN Diagnoses Prostate cancer C61 Acute respiratory failure with hypoxia J96.01 Chest pain R07.9
== END 2024-06-14 14:18 | disposition hospice, inpatient (51) | DRG 542 ==
LOC: ED 17:10 → SUATTDRO 23:03 → 2S 23:03